=== PATIENT | male | born 1955 | race Caucasian/White ===

== ENCOUNTER 2016-09-09 08:51 | Emergency (ER) | payer BC ==
[~2016-09-09] VITALS: Ht 177.8 cm; Wt 131.2 kg
[~2016-09-09 08:51] MED LIST: AMOX500T3 PO; ASPI81TA28 PO; COEN100C11 PO; CYAN10004 PO; DIPH-437 PO; FERR324T4 PO; FLUO0.0543 TOP; GLUCTAB7 PO; HYDR-5688 PO; MULT-506 PO; SERT50TA PO
[2016-09-09 08:54] VITALS: TEMP 36.8; Ht 177.8 cm; Wt 131.2 kg
[2016-09-09 10:22] LABS: BASO % 0.3 %; BASO ABS # 0.02 K/uL (0-0.2); COMPLETE YES; EOS % 2.4 %; HEMATOCRIT 48.1 % (42-52); IG% 0.3 %; LYMPH ABS # 1.42 K/uL (1.2-3.4); MEAN CORPUSCULAR HEMOGLOBIN 30.4 pg (25-34); MEAN CORPUSCULAR HGB CONC 33.1 g/dl (32-36); MEAN PLATELET VOLUME 10.4 fL (7.4-10.4); MONO % 9.7 %; NEUT % 69.3 %; PLATELET COUNT 220 K/uL (130-400); RED BLOOD COUNT 5.23 M/uL (4.7-6.1); WHITE BLOOD COUNT 7.87 K/uL (4.8-10.8)
[2016-09-09 10:37] LABS: PARTIAL THROMBOPLASTIN RATIO 1.1; PROTHROMBIN TIME (PATIENT) 10.7 SECONDS (9.0-12.0)
[2016-09-09 10:50] LABS: BUN/CREATININE RATIO 14.4 (10-20); CALCIUM 8.5 mg/dl (8.5-10.1); CREATININE 0.65 mg/dl (0.60-1.40); POTASSIUM 4.2 mmol/L (3.5-5.1)
--- NOTE | 2016-09-09 11:30 | DIAGNOSTIC IMAGING REPORT ---
LEFT KNEE 1 OR 2 VIEWS ROUTINE CLINICAL HISTORY: Left knee pain. Evaluate for fracture. COMPARISON: Left knee radiographs September 24, 2015. FINDINGS: There is extensive vascular calcification. There is a 1.5 cm subchondral lucency within the medial femoral condyle. There is moderate joint space narrowing within the medial and patellofemoral compartments. No acute fracture or suspicious lesion is present. A 2.6 cm calcific density lateral to the distal left femur is again noted. There is a suspected moderate to large left knee joint effusion. Superficial varicosities are incidentally noted. IMPRESSION: 1. No acute fracture. 2. Moderate to severe arthritis of the left knee, most pronounced within the medial patellofemoral compartments. 3. 1.5 cm subchondral lucency within the medial femoral condyle which may reflect an osteochondral abnormality. 4. Moderate to large left knee joint effusion. Electronically signed by: Glen Carballo M.D. 09/09/2016 11:29 AM Dictated Date/Time: 09/09/2016 11:26 AM
--- NOTE | 2016-09-09 11:52 | DIAGNOSTIC IMAGING REPORT ---
ULTRASOUND BILATERAL LOWER EXTREMITY VENOUS CLINICAL HISTORY: Left knee pain. Right foot swelling. COMPARISON STUDY: Right lower extremity venous ultrasound dated 06/03/2015. TECHNIQUE: Real-time, grayscale, and color Doppler sonography of the deep veins of the right and left lower extremity was performed from the inguinal crease to the calf. Compression and augmentation were utilized. FINDINGS: There is no sonographic evidence of deep venous thrombosis identified in the right or left lower extremity. The common femoral, superficial femoral, and popliteal veins are patent and normally compressible bilaterally. The greater saphenous vein and the profunda femoris vein at the junction with the common femoral vein are clear in both legs. The visualized calf veins are patent bilaterally. Venous varicosities are identified in the right calf, some of which contain occlusive superficial thrombus. IMPRESSION: 1. There is no sonographic evidence of deep venous thrombosis identified in the right or left lower extremity. 2. There are thrombosed superficial venous varicosities identified in the right calf. Electronically signed by: Nabor Low M.D. 09/09/2016 11:50 AM Dictated Date/Time: 09/09/2016 11:49 AM
--- NOTE | 2016-09-09 12:01 | EMERGENCY ROOM VISIT NOTE ---
History Report prepared by Alina: Liat Lugo Under the Supervision of: Dr. Garrick Benton M.D. First contact with patient: 09:37 Chief Complaint: KNEEPAIN Stated Complaint: LT KNEE PAIN, SWELLING TO RT FOOT History of Present Illness The patient is a 61 year old male who presents to the Emergency Room with complaints of persistent left knee pain that began yesterday morning when he woke up. He currently rates his discomfort as a 10/10 in severity. The patient states that he has had similar pain for over a year but it got worse yesterday. He states that he is scheduled for a left knee replacement because his left knee is bone on bone. The patient denies any trauma to his knee and states that his pain is worsened with ambulation. He states that he has had difficulty bearing weight to his left leg due to the pain. The patient states that yesterday he tried elevating his leg and applying heat to alleviate his discomfort, but was not successful. The patient denies consulting orthopedics regarding his recent knee pain. He states that 2-3 years ago he had a superficial blood clot to his right leg. The patient states that he was previously on blood thinners, but states that he is no longer on them. He states that 2-3 weeks ago he noticed edema and erythema to his right alston and ankle. The patient additionally notes that the area has been painful. He states that he did not consult his PCP for this problem. He states that he has been occasionally short of breath for months but this has not changed recently. He denies any fever, chest pain, or vomiting. Source of History: patient Onset: yesterday morning when he woke up Position: knee (left) Symptom Intensity: 10/10 Modifying Factors (Worsening): other (ambulation) Associated Symptoms: + SOB, No chest pain, No fevers, No vomiting Note: Associated Symptoms: right leg erythema and edema Review of Systems See HPI for pertinent positives & negatives. A total of 10 systems reviewed and were otherwise negative. Past Medical & Surgical Medical Problems: (1) Bicipital Tenosynovitis (2) Cardiac Dysrhythmias Nec (3) Cardiac Pacemaker In Situ (4) Carpal Tunnel Syndrome (5) Cholelithiasis Nos (6) Diverticulosis Colon (W/O Ment Of Hemorrhage) (7) Esophageal Reflux (8) Hip arthritis (9) Hip Joint Replacement Status (10) Hypertension Nos (11) Leg Varicosity W Ulcer (12) Old Myocardial Infarct (13) Rheumatoid Arthritis (14) Unilat Inguinal Hernia (15) Varicose veins of both legs with edema Surgical Problems: (1) H/O gastric bypass Family History Diabetes mellitus FH: heart disease Hypertension Kidney disease Kidney stones Social History Smoking Status: Never Smoker Smokeless Tobacco Use: No Alcohol Use: occasionally Marital Status: Housing Status: lives with family Occupation Status: employed Current/Historical Medications Scheduled Amoxicillin (Amoxil), 2,000 MG PO UD Cephalexin Monohydrate (Keflex), 500 MG PO QID Coenzyme Q10 (Ubidecarenone) (Coq-10), 100 MG PO BID Cyanocobalamin (Vitamin B-12 1000 Mcg), 1,000 MCG PO DAILY Diphenhydramine-Acetaminophen (Tylenol Pm), 30 ML PO HS Ferrous Sulfate (Ferrous Sulfate), 324 MG PO DAILY Gxjdikntask-Mvdggybbdxa-Klh C- (Glucosamine Chondroitin), 1 TAB PO DAILY Multivitamin (Multivitamin), 1 TAB PO DAILY Scheduled PRN Oxycodone Ir (Roxicodone Ir), 5 MG PO Q4H PRN for Pain Allergies Coded Allergies: No Known Allergies (Verified , 09/09/16) Physical Exam Vital Signs Date Time Temp Pulse Resp B/P Pulse Ox O2 Delivery O2 Flow Rate FiO2 09/09/16 13:16 74 16 146/74 98 09/09/16 12:28 66 16 157/91 96 Room Air 09/09/16 10:59 95 16 135/78 09/09/16 08:54 36.8 71 16 160/99 97 Room Air Physical Exam Constitutional: Vital signs reviewed. Eyes: Pupils are equal round reactive to light. Conjunctiva are noninjected. ENT: Pharynx is clear without erythema or exudate. Mucous membranes are moist. Neck supple without meningeal signs. Respiratory: Clear to auscultation bilaterally. Breath sounds are equal bilaterally. Cardiovascular: Regular rate and rhythm. No rubs or gallops. GI: Soft, nondistended and nontender. Bowel sounds are present. Musculoskeletal: Bilateral lower extremity edema greater on right side. Diffuse tenderness to the left knee without joint laxity. Swelling to the superior portion of the left knee. Erythema from the mid-calf anteriorly to the ankle on the right lower extremity with increased warmth, no joint involvement. Palpable distal pulses. Integumentary: As above. Neurological: The patient is awake and alert. No focal deficits. Psychiatric: Normal affect. Medical Decision & Procedures ER Provider Diagnostic Interpretation: X-ray results as stated below per interpretation by me and the radiologist: Other radiology results as stated below per my review and the radiologist's interpretation: ULTRASOUND BILATERAL LOWER EXTREMITY VENOUS CLINICAL HISTORY: Left knee pain. Right foot swelling. COMPARISON STUDY: Right lower extremity venous ultrasound dated 06/03/2015. TECHNIQUE: Real-time, grayscale, and color Doppler sonography of the deep veins of the right and left lower extremity was performed from the inguinal crease to the calf. Compression and augmentation were utilized. FINDINGS: There is no sonographic evidence of deep venous thrombosis identified in the right or left lower extremity. The common femoral, superficial femoral, and popliteal veins are patent and normally compressible bilaterally. The greater saphenous vein and the profunda femoris vein at the junction with the common femoral vein are clear in both legs. The visualized calf veins are patent bilaterally. Venous varicosities are identified in the right calf, some of which contain occlusive superficial thrombus. IMPRESSION: 1. There is no sonographic evidence of deep venous thrombosis identified in the right or left lower extremity. 2. There are thrombosed superficial venous varicosities identified in the right calf. Electronically signed by: Nabor Low M.D. 09/09/2016 11:50 AM Dictated Date/Time: 09/09/2016 11:49 AM LEFT KNEE 1 OR 2 VIEWS ROUTINE CLINICAL HISTORY: Left knee pain. Evaluate for fracture. COMPARISON: Left knee radiographs September 24, 2015. FINDINGS: There is extensive vascular calcification. There is a 1.5 cm subchondral lucency within the medial femoral condyle. There is moderate joint space narrowing within the medial and patellofemoral compartments. No acute fracture or suspicious lesion is present. A 2.6 cm calcific density lateral to the distal left femur is again noted. There is a suspected moderate to large left knee joint effusion. Superficial varicosities are incidentally noted. IMPRESSION: 1. No acute fracture. 2. Moderate to severe arthritis of the left knee, most pronounced within the medial patellofemoral compartments. 3. 1.5 cm subchondral lucency within the medial femoral condyle which may reflect an osteochondral abnormality. 4. Moderate to large left knee joint effusion. Electronically signed by: Glen Carballo M.D. 09/09/2016 11:29 AM Dictated Date/Time: 09/09/2016 11:26 AM Laboratory Results 09/09/16 10:00 Red Blood Count 5.23, Mean Corpuscular Volume 92.0, Mean Corpuscular Hemoglobin 30.4, Mean Corpuscular Hemoglobin Concent 33.1, Mean Platelet Volume 10.4, Neutrophils (%) (Auto) 69.3, Lymphocytes (%) (Auto) 18.0, Monocytes (%) (Auto) 9.7, Eosinophils (%) (Auto) 2.4, Basophils (%) (Auto) 0.3, Neutrophils # (Auto) 5.46, Lymphocytes # (Auto) 1.42, Monocytes # (Auto) 0.76, Eosinophils # (Auto) 0.19, Basophils # (Auto) 0.02 09/09/16 10:00 Test 09/09/16 10:00 White Blood Count 7.87 K/uL (4.8-10.8) Red Blood Count 5.23 M/uL (4.7-6.1) Hemoglobin 15.9 g/dL (14.0-18.0) Hematocrit 48.1 % (42-52) Mean Corpuscular Volume 92.0 fL (80-100) Mean Corpuscular Hemoglobin 30.4 pg (25-34) Mean Corpuscular Hemoglobin Concent 33.1 g/dl (32-36) Platelet Count 220 K/uL (130-400) Mean Platelet Volume 10.4 fL (7.4-10.4) Neutrophils (%) (Auto) 69.3 % Lymphocytes (%) (Auto) 18.0 % Monocytes (%) (Auto) 9.7 % Eosinophils (%) (Auto) 2.4 % Basophils (%) (Auto) 0.3 % Neutrophils # (Auto) 5.46 K/uL (1.4-6.5) Lymphocytes # (Auto) 1.42 K/uL (1.2-3.4) Monocytes # (Auto) 0.76 K/uL (0.11-0.59) Eosinophils # (Auto) 0.19 K/uL (0-0.5) Basophils # (Auto) 0.02 K/uL (0-0.2) RDW Standard Deviation 51.6 fL (36.4-46.3) RDW Coefficient of Variation 15.2 % (11.5-14.5) Immature Granulocyte % (Auto) 0.3 % Immature Granulocyte # (Auto) 0.02 K/uL (0.00-0.02) Prothrombin Time 10.7 SECONDS (9.0-12.0) Prothromb Time International Ratio 1.0 (0.9-1.1) Activated Partial Thromboplast Time 27.8 SECONDS (21.0-31.0) Partial Thromboplastin Ratio 1.1 Anion Gap 5.0 mmol/L (3-11) Est Creatinine Clear Calc Drug Dose 158.4 ml/min Estimated GFR () 120.0 Estimated GFR (Non- 103.5 BUN/Creatinine Ratio 14.4 (10-20) Calcium Level 8.5 mg/dl (8.5-10.1) Laboratory results as reviewed by me. Medications Administered Medications (Trade) Dose Ordered Sig/Izabel Route Start Time Stop Time Status Last Admin Dose Admin Cefazolin Sodium (Ancef 1000mg/55 ml D5W) 1,000 mg NOW STAT IV 09/09/16 12:08 09/09/16 12:09 DC 09/09/16 12:27 1,000 MG ED Course 0941: The patient was evaluated in room A4B. A complete history and physical exam was performed. 1207: I reevaluated the patient and I talked with him about his test results. He is going to follow up with his PCP in one week to check with propagation of a clot and his right leg cellulitis. The medical case manager is going to attempt to get the patient an earlier appointment with orthopedics. 1208: Ordered Cefazolin Sodium 1000 mg IV. 1218: Per case management, the patient has a follow up with [facility] at 10:15 on . The patient is in agreement with the plan and is ready to go home. Medical Decision This is a 61-year-old male who presents with right leg swelling and erythema and left knee pain. Differential diagnosis includes cellulitis, DVT, superficial thrombophlebitis, osteoarthritis, pathologic fracture, strain. I did perform a limited focused review of portions of the patient's old chart on the electronic medical record. The patient was seen here one year ago for left knee pain. He had an x-ray that showed significant degenerative changes and was referred to orthopedics. I did evaluate the patient as noted above. The patient appears to have a cellulitis to the right lower extremity. He has had it for about 2 weeks. He states that he has not had any sudden worsening. He denies any significant chest pain or shortness of breath. He also complains of left knee pain which he has had for some time. He is scheduled to have a knee replacement. The pain did worsen yesterday but he denies any trauma. IV access was established. I did order and personally review the patient's left knee x-rays as described above. I did order and review the patient's blood work as noted in the electronic medical record. His white blood cell count is not elevated. I did order Doppler ultrasounds of the lower extremities. I did review the images myself as well as the radiology report as described above. He does not have any evidence of DVT in either leg. He does have some thrombosis of his varicosities. I did discuss the test results with the patient. I did treat patient with Ancef IV. I did recommend he follow up closely with his doctor for further evaluation of his cellulitis and likely repeat of his Doppler of his right leg to evaluate for possible propagation of clot. At this time I do not believe he requires anticoagulation but he was told he may in the future should his clot propagated into the deep vein system or become more extensive. The medical case manager was also able to get him an earlier appointment with [facility] in 2 days. The patient was therefore discharged with a prescription for OxyIR and given a work note. He was given precautions regarding OxyIR. He was also given a prescription for Keflex. Impression Primary Impression: Cellulitis of right leg Additional Impressions: Superficial thrombophlebitis of right leg Left knee pain Scribe Attestation The scribe's documentation has been prepared under my direct and personally reviewed by me in its entirety. I confirm that the note above accurately reflects all work, treatment, procedures, and medical decision making performed by me. Departure Information Dispostion Home / Self-Care Prescriptions Cephalexin Monohydrate (Keflex) 500 Mg Cap 500 MG PO QID, #40 CAP Prov: Garrick Benton M.D. 09/09/16 Oxycodone Ir (Roxicodone Ir) 5 Mg Tab 5 MG PO Q4H Y for Pain, #20 TAB Prov: Garrick Benton M.D. 09/09/16 Referrals Ridge Jeronimo M.D. (PCP) Forms HOME CARE DOCUMENTATION FORM, IMPORTANT VISIT INFORMATION, Work Instructions Patient Instructions Cellulitis Dc, ED Phlebitis Superficial, My [facility] Additional Instructions You have been examined and treated today on an emergency basis only. This is not a substitute for, or an effort to provide, complete comprehensive medical care. It is impossible to recognize and treat all injuries or illnesses in a single emergency department visit. It is therefore important that you follow up closely with your physician within a week and [facility]. Call as soon as possible for an appointment. Return for worsening symptoms or if you develop fever, vomiting, chest pain, shortness breath or any other concerning symptoms. Problem Qualifiers Additional Impressions: Left knee pain Chronicity: chronic Qualified Codes: M25.562 - Pain in left knee; G89.29 - Other chronic pain
[2016-09-09] MEDS ORDERED: CEFAZOLIN SOD 1000MG/55 ML D5W IV STA (12:08)
[2016-09-09] MEDS ORDERED: OXYC1TAB3 PO (12:11)
[2016-09-09] MEDS ORDERED: CEPH500C PO (12:11)
[2016-09-09 13:16] VITALS: BP 146/74; PULSE 74; O2SAT 98
[2016-10-20] MEDS ORDERED: DIPH-437 PO (15:15)
[2016-10-20] MEDS ORDERED: water pill PO (15:16)
[2016-10-20] MEDS ORDERED: SPIR25TA PO (16:22)
[2016-11-04] MEDS ORDERED: HYDR25TA4 PO (14:22)
== END 2016-09-09 13:16 | disposition home or self-care (01) ==
LOC: C.EDB 08:53 → C.EDA 13:16
DX: L03.115 Cellulitis of right lower limb (principal); I80.01 Phlebitis and thrombophlebitis of superficial vessels of right lower extremity; M25.562 Pain in left knee; I10 Essential (primary) hypertension; M06.9 Rheumatoid arthritis, unspecified; K21.9 Gastro-esophageal reflux disease without esophagitis; K57.30 Diverticulosis of large intestine without perforation or abscess without bleeding; I83.93 Asymptomatic varicose veins of bilateral lower extremities; I25.2 Old myocardial infarction; M16.10 Unilateral primary osteoarthritis, unspecified hip; Z96.649 Presence of unspecified artificial hip joint; Z98.84 Bariatric surgery status; Z79.899 Other long term (current) drug therapy; Z83.3 Family history of diabetes mellitus; Z82.49 Family history of ischemic heart disease and other diseases of the circulatory system; Z84.1 Family history of disorders of kidney and ureter

== ENCOUNTER → 2016-10-21 | Outpatient (CLI) | payer BC ==
[~2016-10-21] MED LIST changes: -ASPI81TA28 PO; -FERR324T4 PO; -FLUO0.0543 TOP; -GLUCTAB7 PO; -HYDR-5688 PO; +HYDR25TA4 PO; +OXYC-57 PO; -SERT50TA PO; +SPIR25TA PO; +WARF2TAB PO
--- NOTE | 2016-10-21 08:41 | DIAGNOSTIC IMAGING REPORT ---
AP STANDING VIEW OF BOTH KNEES; 3 VIEWS LEFT KNEE CLINICAL HISTORY: Chronic left knee pain. FINDINGS: An AP standing view of both knees, with crosstable lateral, tunnel, and sunrise views of the left knee are compared to study dated 09/24/2015. The skeletal structures are osteopenic. No fracture is seen. There is advanced degenerative joint space narrowing in the medial and patellofemoral compartments. Only mild narrowing is seen in the lateral compartment. There is bony sclerosis with osteochondral irregularity seen of the medial compartment. There are large marginal osteophytes, degenerative beaking of the tibial spine, and large patellar enthesophytes. A calcified fabella is incidentally noted. There is a small joint effusion. Prepatellar soft tissue swelling is noted. Large venous varices are present in the surrounding soft tissues. Advanced atherosclerotic calcification is noted in the popliteal artery. Degenerative sclerosis is seen at the proximal tibiofibular articulation. Survey images of the right knee on the frontal view show advanced degenerative narrowing in the medial compartment. IMPRESSION: 1. Osteopenia and advanced arthritic change in the left knee as above. This is overall similar appearance to the 09/24/2015 examination. 2. No acute bony abnormality is seen. 3. Joint effusion and prepatellar soft tissue edema as well as large venous varices. Electronically signed by: Nabor Low M.D. 10/21/2016 8:40 AM Dictated Date/Time: 10/21/2016 8:37 AM
== END | disposition home or self-care (01) ==
LOC: C.RDSM 11:12
PROVIDERS: ATTEND Physician Assistant
DX: M17.12 Unilateral primary osteoarthritis, left knee (principal); M85.862 Other specified disorders of bone density and structure, left lower leg; I83.92 Asymptomatic varicose veins of left lower extremity

== ENCOUNTER 2016-11-12 08:17 | Inpatient (IN) | payer BC ==
[2016-10-20 15:17] VITALS: BMI 43.0
--- NOTE | 2016-10-20 15:54 | PAT Medication Instructions ---
Service Date Oct 20, 2016. Current Home Medication List Acetaminophen/Diphenhydramine (Tylenol Pm), 1-2 TAB PO HS PRN for prn Amoxicillin (Amoxil), 2,000 MG PO UD Coenzyme Q10 (Ubidecarenone) (Coq-10), 100 MG PO BID Cyanocobalamin (Vitamin B-12 1000 Mcg), 1,000 MCG PO QAM Multivitamin (Multivitamin), 1 TAB PO BID [water pill], 1 TAB PO QAM Medication Instructions For Your Scheduled Surgery Amoxicillin (Amoxil), 2,000 MG PO UD (prior to dental procedures) - Hold the following medications 2 weeks prior to surgery: Coenzyme Q10 (Ubidecarenone) (Coq-10), 100 MG PO BID - Hold the following medications the morning of surgery: [water pill], 1 TAB PO QAM Multivitamin (Multivitamin), 1 TAB PO BID\ Cyanocobalamin (Vitamin B-12 1000 Mcg), 1,000 MCG PO QAM - Take the following medications as scheduled the night before surgery: Multivitamin (Multivitamin), 1 TAB PO BID Acetaminophen/Diphenhydramine (Tylenol Pm), 1-2 TAB PO HS PRN for prn If you have any questions please call us at [phone] (Cynthia Caldera PA-C ) or [phone] or [phone]
[2016-10-20 16:26] LABS: BASO % 0.1 %; BASO ABS # 0.01 K/uL (0-0.2); COMPLETE YES; EOS % 4.3 %; HEMATOCRIT 46.8 % (42-52); IG% 0.1 %; LYMPH % 27.8 %; LYMPH ABS # 1.86 K/uL (1.2-3.4); MEAN CELL VOLUME 93.8 fL (80-100); MEAN CORPUSCULAR HEMOGLOBIN 31.5 pg (25-34); MEAN CORPUSCULAR HGB CONC 33.5 g/dl (32-36); MEAN PLATELET VOLUME 10.4 fL (7.4-10.4); MONO % 11.2 %; NEUT % 56.5 %; PLATELET COUNT 229 K/uL (130-400); RED BLOOD COUNT 4.99 M/uL (4.7-6.1); WHITE BLOOD COUNT 6.68 K/uL (4.8-10.8)
[2016-10-20 16:27] LABS: URINE APPEARANCE CLEAR (CLEAR); URINE BILIRUBIN NEG (NEG); URINE COLOR YELLOW; URINE NITRITE NEG (NEG); URINE SPECIFIC GRAVITY 1.023 (1.000-1.030); UROBILINOGEN NEG (NEG); ZZUR CULT IF INDIC CLEAN CATCH NO
[2016-10-20 16:31] LABS: MANUAL MICROSCOPIC REQUIRED? NO; REVIEW REQ? NO
[2016-10-20 16:37] LABS: PARTIAL THROMBOPLASTIN RATIO 1.1; PROTHROMBIN TIME (PATIENT) 10.6 SECONDS (9.0-12.0)
--- NOTE | 2016-10-20 16:39 | DIAGNOSTIC IMAGING REPORT ---
CHEST PREADMISSION(PA/LAT) CLINICAL HISTORY: PAT preoperative evaluation COMPARISON STUDY: 05/28/2015 FINDINGS: The bones soft tissues and hemidiaphragms are normal. The cardiomediastinal silhouette is normal. The lungs are clear. The pulmonary vasculature is normal. IMPRESSION: Negative chest. Electronically signed by: Mathew Ochoa M.D. 10/20/2016 4:38 PM Dictated Date/Time: 10/20/2016 4:37 PM
[2016-10-20 16:51] LABS: BUN/CREATININE RATIO 21.3 (10-20); CALCIUM 8.7 mg/dl (8.5-10.1); CREATININE 0.71 mg/dl (0.60-1.40); POTASSIUM 4.5 mmol/L (3.5-5.1)
--- NOTE | 2016-10-23 16:58 | HISTORY & PHYSICAL EXAMINATION ---
DATE OF ADMISSION: 11/12/2016 PREOPERATIVE HISTORY AND PHYSICAL CHIEF COMPLAINT: Left knee pain. HISTORY OF PRESENT ILLNESS: This 61-year-old white male presents to the office with complaints of left knee pain that has been present for over 2 years. Pain has become worse with time. He has tried viscosupplementation, cortisone injections, activity modification, oral anti-inflammatories, and oral pain medications without lasting improvement. Pain is affecting his ADLs. It is worse with weightbearing and ambulation. No numbness or tingling. He denies any buckling or locking. No specific trauma, though he has fallen on the knee a few times. He does have night pain. He elects to proceed with left knee total knee arthroplasty on 11/12/2016 in hopes of alleviating his pain. X-rays have been obtained. PAST MEDICAL HISTORY: Significant for sleep apnea, anxiety, osteoarthritis, GERD, obesity, depression, and right bundle branch block with left anterior fascicular block. PREVIOUS SURGERIES: Gastric bypass surgery with Markus-en-Y in 1999, right shoulder arthroscopy 07/24/2014, right wrist carpal tunnel release 07/24/2014, lumbar back surgery, right total hip replacement 09/01/2013, and venous ablation for venous insufficiency in 2011. ALLERGIES: NKDA. CURRENT MEDICATIONS: Tylenol PM p.r.n., Percocet 5/325 mg p.r.n., aspirin 81 mg daily, vitamin D daily, magnesium oxide daily, multivitamin daily, Aldactone 25 mg p.o. daily. SOCIAL HISTORY: No tobacco use. Quit smoking in 2010. No ETOH use. . 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 FAMILY HISTORY: Significant for Alzheimer disease, Parkinson disease, heart disease, and osteoarthritis. REVIEW OF SYSTEMS: Significant for above-stated conditions, otherwise unremarkable. PHYSICAL EXAMINATION: GENERAL: Well-developed, well-nourished middle aged white male in no acute distress. Sitting in a chair. Alert and oriented. SKIN: Warm and dry with good turgor. No rashes or lesions. No ecchymosis or erythema. Varicosities are present in his lower extremities. HEENT: Normocephalic, atraumatic. EYES: PERRLA, EOMI. NOSE: Nares patent bilaterally without turbinate enlargement. MOUTH: Oropharynx without erythema or exudate. No lesions noted. Uvula midline. Oral mucosa moist. Fair dentition. HEART: RRR, holosystolic murmur noted at the right sternal border. No gallops or rubs. LUNGS: Clear to auscultation bilaterally. No crackles, rhonchi or wheezing. Good air movement. ABDOMEN: Obese. Bowel sounds present x4, soft, nontender. No organomegaly. No masses. MUSCULOSKELETAL: The patient has bilateral peripheral edema, right greater than left. Focal pain with palpation over the medial and lateral joint lines. Medial is worse. There is flexion to greater than 80 degrees. Full terminal extension. Stable collateral ligaments. No defect in the patellar tendon or quadriceps tendon. He is able to perform a straight leg raise. Ambulatory with an antalgic gait. NEUROLOGIC: Gross sensation is intact across the lower extremities by soft touch. Peripheral pulses are 2+. Cranial nerves II-XII are intact. DATA: Radiographic imaging previously obtained shows end-stage DJD of the left knee with a large OCD lesion. He also has subchondral sclerosis and periarticular osteophytes. Possible loose body present in the superior lateral pouch. IMPRESSION: Left knee end-stage degenerative joint disease. PLAN: Informed written consent was obtained to proceed with left total knee arthroplasty. Anticipate discharge from the hospital to [facility]. He did this after his right total hip arthroplasty and was pleased with the results. Postoperative prescriptions for Percocet and Coumadin will be provided at discharge from the hospital. He has already seen cardiology and requires an echocardiogram. He may require BiPAP as well due to sleep apnea and obesity as well as hypoventilation syndrome. He will also obtain medical clearance from Dr. Jeronimo. The patient already has a walker and cane at home.
[2016-11-12] VITALS (8 sets, daily range): BP systolic 120–159; BP diastolic 69–93; PULSE 51–64; TEMP 36.4–37.1; O2SAT 94–97; Ht 175.3 cm; Wt 133.0 kg
[~2016-11-12] VITALS: Ht 175.3 cm; Wt 133.0 kg
[~2016-11-12 08:17] MED LIST changes: +BUPIVACAINE 0.25% 30 ML VIAL ONE; +CEFAZOLIN 3000 MG/65 ML D5W 65 ML IV SCH; +DEXAMETHASONE SOD INJ 4 MG/ML VIAL ONE; +LACTATED RINGER'S 1000ML 1,000 ML IV SCH; +LACTATED RINGER'S 1000ML 500 ML IV ONE; +LACTATED RINGER'S 1000ML IV SCH; -OXYC-57 PO; +TRANEXAMIC ACID INJ 1,000 MG in SODIUM CHLORIDE 0.9% 100ML 100 ML IV SCH; -WARF2TAB PO
--- NOTE | 2016-11-12 08:35 | History & Physical Bridge Note ---
H&P Re-Evaluation Bridge Note: I have examined the patient, reviewed the History & Physical and in the interval since the performance of the History & Physical I have noted the following changes of clinical significance: No changes noted
[2016-11-12] MEDS ORDERED: BUPIVACAINE 0.5 % 5 MG/1 ML PF 10ML VIAL ONE (08:58)
[2016-11-12] MEDS ORDERED: EpHEDrine SULFATE INJ 50 MG/ML AMP IV PRN (09:00)
[2016-11-12] MEDS ORDERED: HYDROmorphone INJ 1 MG/ML SYR IV PRN (09:00)
[2016-11-12] MEDS ORDERED: LABETALOL HCL IV 5 MG/ML 20ML IV PRN (09:00)
[2016-11-12] MEDS ORDERED: MEPERIDINE HCL 25 MG/ML CARP IV PRN (09:00)
[2016-11-12] MEDS ORDERED: FENTANYL CITRATE INJ 50 MCG/1 ML 2 ML VIAL IV PRN (09:00)
[2016-11-12] MEDS ORDERED: ONDANSETRON INJ 2 MG/ML 2 ML VIAL IV PRN ×2 (09:00→12:15)
[2016-11-12] MEDS ORDERED: ATROPINE SULFATE 0.1 MG/ML 5ML SYR IV PRN (09:00)
[2016-11-12] MEDS ORDERED: MIDAZOLAM HCL 1 MG/ML 2ML VIAL ONE ×2 (09:36→11:37)
[2016-11-12] MEDS ORDERED: ORTHO JOINT ANESTHETIC ONE (10:26)
[2016-11-12] MEDS ORDERED: POVIDONE-IODINE OP SOLN 30 ML BTL ONE (10:27)
[2016-11-12] MEDS: ROPIVACAINE 5MG/ML 30 ML 150 MG, BUPIVACAINE/EPINEPHR 0.5% MPF 30 ML, KETOROLAC TROMETH... INFIL SCH ×14 (11:39→15:39)
[2016-11-12] MEDS ORDERED: PROPOFOL IV EMULSION 10 MG/ML 20 ML VIAL IV ONE (11:52)
[2016-11-12] MEDS ORDERED: LIDOCAINE HCL 2% 2 ML VIAL (20MG/ML) ONE (11:52)
--- NOTE | 2016-11-12 12:12 | [facility] Post Operative Brief Note ---
Immediate Operative Summary Operative Date Nov 12, 2016. Pre-Operative Diagnosis Left Knee End-Stage Degenerative Joint Disease Post-Operative Diagnosis Left Knee End-Stage Degenerative Joint Disease Procedure(s) Performed Left Total Knee Arthroplasty, Cemented Surgeon Dr. Barajas Cork Slabs Sawyer Surgeon(s) Mann Stovall PA-C Estimated Blood Loss 75 ML Findings severe medial disease Fluids (cc crystalloids) 1500cc Specimens A: Left Knee Bone and Tissue Drains none Anesthesia spinal/block Complication(s) None Disposition Recovery Room / PACU
[2016-11-12] MEDS ORDERED: BISACODYL 10 MG SUPP PR PRN (12:15)
[2016-11-12] MEDS ORDERED: DiphenhydrAMINE HCL 50 MG/ML VIAL IV PRN (12:15)
[2016-11-12] MEDS ORDERED: TAMSULOSIN HCL 0.4 MG CAP PO PRN (12:15)
[2016-11-12] MEDS ORDERED: MoRPHine SULFATE 2 MG/ML CARP IV PRN (12:15)
[2016-11-12] MEDS ORDERED: METOCLOPRAMIDE HCL INJ 5 MG/ML 2 ML VIAL IV PRN (12:15)
[2016-11-12] MEDS ORDERED: MAGNESIUM HYDROXIDE SUSP 30 ML UDC PO PRN (12:15)
[2016-11-12] MEDS ORDERED: ACETAMINOPHEN IV 100 ML IV PRN (12:15)
[2016-11-12] MEDS ORDERED: ALUMINUM/MAGNESIUM/SIMETH (MAALOX MAX) 30 ML UDC PO PRN (12:15)
[2016-11-12] MEDS ORDERED: ACETAMINOPHEN 325 MG TAB PO PRN (12:15)
--- NOTE | 2016-11-12 12:30 | OPERATIVE REPORT ---
DATE OF OPERATION: 11/12/2016 PREOPERATIVE DIAGNOSIS: Left knee end-stage degenerative joint disease. POSTOPERATIVE DIAGNOSIS: Left knee same. PROCEDURE: Left knee total knee arthroplasty using DePuy implants. SURGEON: Dr. Barajas. WIRE WEAVER: Mann Stovall PA-C. HISTORY OF PRESENT ILLNESS: This 61-year-old white male presented to the office with complaints of intractable left knee pain. He had tried conservative care measures including activity modification, viscosupplementation, assistive devices, oral pain medications and physical therapy. He elected to proceed with surgical intervention after being educated about potential risks and outcomes. Preoperative x-rays were obtained. OPERATION: The patient was administered spinal anesthetic and then taken to the operating room where he was given sedation. He was prepped and draped in the usual sterile fashion. Please see Dr. Barajas's operative report for specifics of the procedure. I was present for the entire case from initial patient positioning through final wound closure. Assistance was provided in tissue retraction, hemostasis, trial implant placement, final implant placement, and final wound closure. The patient was taken to the recovery room in satisfactory condition. I attest to the content of the Intraoperative Record and any orders documented therein. Any exceptio ns are noted below.
--- NOTE | 2016-11-12 12:56 | PROGRESS NOTE ---
DATE: 11/12/2016 SUBJECTIVE: Postop check in the recovery room. At this point in time, the patient is comfortable, denies chest pain, shortness of breath, fever, chills, nausea, vomiting or headache. OBJECTIVE: Vital signs are stable. He is afebrile. Neurovascular check reveals trace activity, spinal was starting to wear off. IMAGING DATA: X-rays pending. Attempts to contact family postop had been unsuccessful, they were out of the building. ASSESSMENT: Overall, doing well. Continue with care pathway for total knee replacement. Admit to floor in the near future. TEAGAN
--- NOTE | 2016-11-12 13:08 | OPERATIVE REPORT ---
DATE OF OPERATION: 11/12/2016 SURGEON: Dr. Barajas. ADMINISTRATIVE SERVICES ASSISTANT: Mann Stovall PA-C. No resident or fellow available. PREOPERATIVE DIAGNOSIS: Osteoarthritis left knee with varus deformity. POSTOPERATIVE DIAGNOSIS: Same. OPERATION PERFORMED: Cemented left total knee replacement. PREOPERATIVE SITUATION: Medically cleared male with intractable knee pain, has multiple comorbidities, these were all discussed with him in advance as well as complications from the procedure. Per consent he understands. At this point in time, we will proceed with left cemented total knee replacement. SUMMARY OF IMPLANTS: Size 4 left femur posterior cruciate substituting size 4 rotating platform tibial tray, size 4 spacer 15 mm thick posterior cruciate substituting oval domed 3 pegged patella size 41 and 2 bags of Palacos G cement. ESTIMATED BLOOD LOSS: 75 mL. CRYSTALLOID: 1500 mL. DESCRIPTION OF PROCEDURE: The patient appropriately identified, site verified, consent verified, 3 grams of Ancef confirmed as being given. The left lower extremity was prepped and draped in usual routine fashion. An anterior approach to the knee was then made, Tourniquet was inflated to [address] and kept in place for approximately 52 minutes. Midline exposure utilized. He had varicose veins which were clipped. Parapatellar arthrotomy performed. The synovectomy releases were completed. There was extensive medial compartment disease and patellofemoral disease. The distal femur was resected 14 mm, proximal tibia 4 mm, the extension gap was excellent. Femur was then sized between a 4 and 5, was measured 5 cut 4. There was no notching. The flexion gap was excellent. The box cut was then made. The size 4 trial fit well. The tibia was then broached and reamed to a size 4 appropriate reduction was carried out with a 15, providing the best stability and mid range flexion without losing extension. The patella was sized to 41, it was then resected leaving 15 mm to 16 mm, the trial peg holes fit and the trial tracked well. All trial implants were then removed. The wound was irrigated with Betadine Pulsavac, injected with Orthomix, permanent cemented into position. After 12 minutes, the tourniquet deflated. Minor bleeding points controlled with electrocautery, after 14 minutes the knee flexed. No cement removal required. Wound irrigated with Betadine Pulsavac, permanent spacer seated, knee reduced and then closed with #1 Ethibond, #1 Vicryl, 2-0 Vicryl and stainless steel clips. Appropriate soft tissue dressing applied. The patient tolerated the procedure well. DVT prophylaxis per protocol. SUMMARY OF IMPLANTS: Size 4 posterior cruciate substituting femur, size 4 rotating platform tibial tray, oval domed 3 pegged patella size 41 tibial insert rotating platform stabilized PCL for size 4, 15 mm thick. Two bags of Palacos G cement. I attest to the content of the Intraoperative Record and any orders documented therein. Any exceptio ns are noted below.
--- NOTE | 2016-11-12 13:21 | DIAGNOSTIC IMAGING REPORT ---
TWO VIEWS LEFT KNEE CLINICAL HISTORY: Postoperative examination. FINDINGS: AP and crosstable lateral portable views of the left knee are obtained. A left knee arthroplasty is in near anatomic alignment. There has been undersurface remodeling of the patella. No acute fracture is seen. There are expected postoperative changes around the knee including skin clips, soft tissue edema, and subcutaneous gas. Atherosclerotic calcification is noted in the popliteal artery. IMPRESSION: Expected postoperative changes status post left knee arthroplasty. No acute fracture is seen. Electronically signed by: Nabor Low M.D. 11/12/2016 1:19 PM Dictated Date/Time: 11/12/2016 1:18 PM
--- NOTE | 2016-11-12 13:34 | Anesthesiology Progress Note ---
Anesthesia Post Op Note Date & Time Nov 12, 2016 at 13:34 Vital Signs Pain Intensity: 0 Vital Signs Past 12 Hours Date Time Temp Pulse Resp B/P Pulse Ox O2 Delivery O2 Flow Rate FiO2 11/12/16 13:15 46 16 99/76 99 Nasal Cannula 2 11/12/16 13:05 36.4 48 18 110/70 97 Nasal Cannula 2 11/12/16 12:55 47 14 110/63 97 Nasal Cannula 2 11/12/16 12:45 47 16 113/65 99 Nasal Cannula 2 11/12/16 12:35 43 17 101/68 100 Mask 10 11/12/16 12:25 45 16 102/58 100 Mask 10 11/12/16 12:15 36 53 16 104/55 100 Mask 10 11/12/16 08:48 36.8 62 20 120/69 96 Room Air Notes Mental Status: alert / awake / arousable, participated in evaluation Pt Amnestic to Procedure: Yes Nausea / Vomiting: adequately controlled Pain: adequately controlled Airway Patency, RR, SpO2: stable & adequate BP & HR: stable & adequate Hydration State: stable & adequate Neuraxial Anesthesia: was administered, sensory block is resolving Anesthetic Complications: no major complications apparent
[2016-11-12] MEDS: D5W AND 1/2NSS + 20MEQ KCL 1,000 ML IV SCH (15:41)
[2016-11-12] MEDS ORDERED: WARF2TAB PO (16:26)
[2016-11-12] MEDS ORDERED: OXYC-57 PO (16:26)
[2016-11-12] MEDS: CEFAZOLIN IV 2,000 MG in DEXTROSE 5% 50ML 50 ML IV SCH (17:37)
[2016-11-12] MEDS: FERROUS GLUCONATE 324 MG TAB PO SCH (18:57)
[2016-11-12] MEDS ORDERED: TRANEXAMIC ACID INJ 1,000 MG in SODIUM CHLORIDE 0.9% 100ML 100 ML IV ONE (19:00)
[2016-11-12] MEDS: DOCUSATE SODIUM 100 MG CAP PO SCH (20:56)
[2016-11-12] MEDS: OXYCODONE HCL IR 5 MG TAB (IMMEDIATE RELEASE) PO PRN (20:57)
[2016-11-13] MEDS: D5W AND 1/2NSS + 20MEQ KCL 1,000 ML IV SCH ×2 (01:43→11:02)
[2016-11-13] MEDS: CEFAZOLIN IV 2,000 MG in DEXTROSE 5% 50ML 50 ML IV SCH (01:47)
[2016-11-13 03:22] VITALS: BP 111/70; PULSE 60; TEMP 37; O2SAT 95
[2016-11-13] MEDS: OXYCODONE HCL IR 5 MG TAB (IMMEDIATE RELEASE) PO PRN ×3 (06:31→18:44)
[2016-11-13 06:46] LABS: HEMATOCRIT 37.8 % (42-52); MEAN CELL VOLUME 89.6 fL (80-100); MEAN CORPUSCULAR HEMOGLOBIN 30.3 pg (25-34); MEAN CORPUSCULAR HGB CONC 33.9 g/dl (32-36); MEAN PLATELET VOLUME 9.2 fL (7.4-10.4); PLATELET COUNT 192 K/uL (130-400); RED BLOOD COUNT 4.22 M/uL (4.7-6.1); WHITE BLOOD COUNT 9.49 K/uL (4.8-10.8)
[2016-11-13 07:02] LABS: INR 1.1 (0.9-1.1); PROTHROMBIN TIME (PATIENT) 11.4 SECONDS (9.0-12.0)
--- NOTE | 2016-11-13 07:27 | PROGRESS NOTE ---
DATE: 11/13/2016 Postop day #1 status post left total knee replacement. At this point in time, the patient complains of pain, but is well controlled with medication. He had his last pain pill at midnight. Denies any chest pain, shortness of breath, fever, chills, nausea, vomiting or headache. Vital signs are stable. He is afebrile. Neurovascular check femoral sciatic nerve is good. The dressing is clean, dry and intact. Laboratory work is pending. ASSESSMENT: Overall, doing well. He needs social service assessment and potential placement as he has difficulties with home environment with spouse working. At this point in time, from a medical perspective, can be transferred or discharged to another facility at any point.
[2016-11-13] MEDS ORDERED: DEXAMETHASONE INJ 10 MG in SYRINGE 0 ML IV SCH (07:30)
[2016-11-13 07:40] VITALS: BP 98/62; PULSE 61; TEMP 36.8; O2SAT 94
[2016-11-13 08:22] LABS: BUN/CREATININE RATIO 25.1 (10-20); CREATININE 0.53 mg/dl (0.60-1.40)
--- NOTE | 2016-11-13 08:23 | DISCHARGE SUMMARY ---
DATE OF DISCHARGE OR TRANSFER: Pending. CHIEF COMPLAINT: Left knee pain. HISTORY OF PRESENT ILLNESS: The patient is admitted for elective total knee replacement. He has severe disease. He underwent elective knee replacement and his hospital course to date has been uneventful. His pain has been well managed. He is ambulatory with a walker. He notes that socially he has no spouse at home during the day. He is requesting to be transferred to [facility]. 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 PAST SURGICAL HISTORY: Include bypass surgery in 1999, shoulder arthroscopy, carpal tunnel releases on the right, lumbar back surgery, right total hip replacement in 2013 and venous ablation 2011. ALLERGIES: None. PREADMISSION MEDICATIONS: Include Tylenol, Percocet, aspirin, magnesium oxide, multivitamin and Aldactone. He will continue all those medications. Will not add any additional pain medication, he will either discontinue the Percocet and use what is prescribed here or continue with Percocet. The PA will return determine the prescription. SOCIAL HISTORY: Remarkable for no tobacco use since 2010. No alcohol use. He is . 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 FAMILY HISTORY: Remarkable for Alzheimer's disease, Parkinson's disease, heart disease and osteoarthritis. REVIEW OF SYSTEMS: Noncontributory. ASSESSMENT: Status post left total knee replacement. At this point is doing well and can be transferred [facility] from a medical perspective. We will wait social service input. Coumadin per nomogram today. Discharge on 4 mg after that. Check INR on Thursday.
[2016-11-13] MEDS: DOCUSATE SODIUM 100 MG CAP PO SCH ×2 (08:30→20:59)
[2016-11-13] MEDS: FERROUS GLUCONATE 324 MG TAB PO SCH ×3 (08:31→17:27)
[2016-11-13] MEDS: MULTIVITAMIN TAB PO SCH (08:31)
[2016-11-13 08:43] LABS: CALCIUM 7.8 mg/dl (8.5-10.1)
--- NOTE | 2016-11-13 08:49 | Progress Note ---
Orthopedic SOAP Note Subjective Date of Service: Nov 13, 2016. Post OP Day: 1 Reports: feeling well, pain controlled w PO medications, Denies: SOB, calf pain , chest pain, complaints, light headedness, nausea / vomiting, using PRINCIPAL TECHNICAL SPECIALIST Problem List Medical Problems: (1) Cellulitis of right leg Status: Acute (2) Superficial thrombophlebitis of right leg Status: Acute Objective calves soft nontender, N/V intact, capillary refill less than 2 sec., dressing C /D/I, incision C/D/I, A&O x3, toes mobile Date Time Temp Pulse Resp B/P Pulse Ox O2 Delivery O2 Flow Rate FiO2 11/13/16 07:40 36.8 61 16 98/62 94 Room Air 11/13/16 07:10 Room Air 11/13/16 03:22 37.0 60 16 111/70 95 Room Air 11/13/16 00:00 Room Air 11/12/16 23:34 36.8 61 16 122/73 94 Room Air 11/12/16 20:30 36.7 64 18 159/93 94 Room Air 11/12/16 17:00 36.7 58 18 136/80 94 Room Air 11/12/16 16:00 37.1 61 18 129/82 94 Room Air 11/12/16 16:00 Room Air 11/12/16 15:00 36.5 51 16 131/79 96 Nasal Cannula 2.0 11/12/16 14:30 36.4 52 18 126/70 97 Nasal Cannula 2.0 11/12/16 14:00 36.4 57 16 121/79 96 Nasal Cannula 2.0 11/12/16 14:00 96 Nasal Cannula 2.0 11/12/16 14:00 Nasal Cannula 2.0 11/12/16 13:50 47 17 11/12/16 13:50 52 17 98 11/12/16 13:45 50 18 107/61 94 11/12/16 13:45 45 16 107/61 97 Nasal Cannula 2 11/12/16 13:45 47 18 11/12/16 13:40 49 17 11/12/16 13:40 50 17 95 11/12/16 13:35 46 17 96 11/12/16 13:35 50 17 11/12/16 13:30 50 15 111/58 99 11/12/16 13:30 49 15 11/12/16 13:30 44 18 111/58 97 Nasal Cannula 2 11/12/16 13:25 48 18 11/12/16 13:25 44 18 96 11/12/16 13:20 53 19 99 11/12/16 13:20 54 19 11/12/16 13:15 47 17 11/12/16 13:15 46 16 99/76 99 Nasal Cannula 2 11/12/16 13:15 47 17 99/76 96 11/12/16 13:10 50 20 11/12/16 13:10 49 20 96 11/12/16 13:05 36.4 48 18 110/70 97 Nasal Cannula 2 11/12/16 13:05 43 15 110/70 98 11/12/16 13:05 45 15 11/12/16 13:01 107/57 11/12/16 13:00 50 16 98 11/12/16 13:00 54 16 11/12/16 12:55 48 16 11/12/16 12:55 47 14 110/63 97 Nasal Cannula 2 11/12/16 12:55 48 16 110/63 98 11/12/16 12:51 110/63 11/12/16 12:50 50 12 11/12/16 12:50 53 12 97 11/12/16 12:46 113/65 11/12/16 12:45 49 17 99 11/12/16 12:45 47 16 113/65 99 Nasal Cannula 2 11/12/16 12:45 49 17 11/12/16 12:40 40 15 104/66 99 11/12/16 12:40 43 15 11/12/16 12:35 49 17 101/68 100 11/12/16 12:35 48 17 11/12/16 12:35 43 17 101/68 100 Mask 10 11/12/16 12:30 41 16 108/55 100 11/12/16 12:30 43 16 11/12/16 12:25 45 17 11/12/16 12:25 43 17 102/58 99 11/12/16 12:25 45 16 102/58 100 Mask 10 11/12/16 12:20 50 17 11/12/16 12:20 50 17 92/67 100 11/12/16 12:15 53 22 104/55 100 11/12/16 12:15 36 53 16 104/55 100 Mask 10 11/12/16 12:15 53 22 11/12/16 08:48 36.8 62 20 120/69 96 Room Air Laboratory Results 24 Hours: Test 11/13/16 06:20 Hematocrit 37.8 % Hemoglobin 12.8 g/dL Prothromb Time International Ratio 1.1 Prothrombin Time 11.4 SECONDS Assessment post op day 1 s/p left TKA Plan continue post op care DVT prophylaxis with Coumadin x 6 weeks, target INR 1.8-2.2 pain control with prescribed meds dressing changed today resume diet WBAT left LE with walker PT/OT knee immobilizer until quad control regained ice/elevated awaiting social service eval regarding placement and discharge
[2016-11-13] MEDS: SPIRONOLACTONE 25 MG TAB PO SCH (09:02)
[2016-11-13] MEDS: PANTOprazole SOD 40 MG TAB PO SCH (09:02)
[2016-11-13] MEDS: CYANOCOBALAMIN 500 MCG TAB (VIT B-12) PO SCH (09:02)
[2016-11-13] MEDS: HYDROCHLOROTHIAZIDE 25 MG TAB PO SCH (09:02)
--- NOTE | 2016-11-13 10:48 | Anesthesiology Progress Note ---
Anesthesia Post Op Note Date & Time Nov 13, 2016 at 10:47 Vital Signs Vital Signs Past 12 Hours Date Time Temp Pulse Resp B/P Pulse Ox O2 Delivery O2 Flow Rate FiO2 11/13/16 07:40 36.8 61 16 98/62 94 Room Air 11/13/16 07:10 Room Air 11/13/16 03:22 37.0 60 16 111/70 95 Room Air 11/13/16 00:00 Room Air 11/12/16 23:34 36.8 61 16 122/73 94 Room Air Notes Mental Status: alert / awake / arousable, participated in evaluation Pt Amnestic to Procedure: Yes Nausea / Vomiting: adequately controlled Pain: adequately controlled Airway Patency, RR, SpO2: stable & adequate BP & HR: stable & adequate Hydration State: stable & adequate Neuraxial Anesthesia: sensory block resolved Anesthetic Complications: no major complications apparent
[2016-11-13 12:20] VITALS: BP 143/68; PULSE 70; TEMP 36.9; O2SAT 93
[2016-11-13 15:50] VITALS: BP 121/67; PULSE 62; TEMP 36.8; O2SAT 95
[2016-11-13] MEDS ORDERED: WARFARIN SOD 5 MG TAB PO SCH (16:00)
[2016-11-13] MEDS: MoRPHine SULFATE 4 MG/ML 1 ML CARP\\VIAL IV PRN (22:49)
[2016-11-13 23:14] VITALS: BP 108/64; PULSE 73; TEMP 37; O2SAT 93
[2016-11-14] MEDS: MoRPHine SULFATE 4 MG/ML 1 ML CARP\\VIAL IV PRN ×2 (04:47→11:32)
--- NOTE | 2016-11-14 07:00 | PROGRESS NOTE ---
DATE: 11/14/2016 Postop day #2 status post left total knee replacement. At this point in time, the patient is doing well. He had some pain last evening over extended period of time between pain medications. He notes that it should be more frequent, less dose. He denies any chest pain, shortness of breath, fever, chills, nausea, vomiting or headache. He does note that he is urinating more, but is not having any symptoms from it. He just notes it is more frequent. No discoloration, no burning or dysuria. Vital signs are stable. He is afebrile. Abdomen is soft and nontender. Both calves are nontender. Neurovascular check both legs, normal. Urine color is appropriate. INR is pending this morning. ASSESSMENT: Overall, doing well. Discharge/transfer to appropriate site today based on his insurance approval. Insurance delays have prevented him from leaving yesterday. Discharge on 4 mg of Coumadin daily if INR is less than 1.4 if greater then discharge on 2 mg daily. MTDD
--- NOTE | 2016-11-14 07:04 | DISCHARGE SUMMARY ---
ADDENDUM: At this point in time, the patient is ready for discharge/transfer. Insurance delays have prevented him from being discharged/transferred yesterday. INR is pending this morning. Discharge on 4 mg of Coumadin daily if INR is less than 1.4; if it is greater than 1.4 discharge on 2 mg. Check INR on Thursday. Appropriate for discharge/transfer today.
[2016-11-14 07:11] VITALS: BP 116/67; PULSE 73; TEMP 37.1; O2SAT 94
[2016-11-14 07:15] LABS: INR 1.1 (0.9-1.1); PROTHROMBIN TIME (PATIENT) 12.1 SECONDS (9.0-12.0)
[2016-11-14] MEDS: FERROUS GLUCONATE 324 MG TAB PO SCH ×2 (08:29→11:32)
[2016-11-14] MEDS: HYDROCHLOROTHIAZIDE 25 MG TAB PO SCH (08:29)
[2016-11-14] MEDS: CYANOCOBALAMIN 500 MCG TAB (VIT B-12) PO SCH (08:30)
[2016-11-14] MEDS: PANTOprazole SOD 40 MG TAB PO SCH (08:30)
[2016-11-14] MEDS: SPIRONOLACTONE 25 MG TAB PO SCH (08:30)
[2016-11-14] MEDS: MULTIVITAMIN TAB PO SCH (08:30)
[2016-11-14] MEDS: DOCUSATE SODIUM 100 MG CAP PO SCH (08:30)
--- NOTE | 2016-11-14 08:50 | Orthopedic Progress Note ---
Orthopedic Progress Note Date of Service Nov 14, 2016. Subjective Post OP Day: 2 Reports: complaints (Had significant pain overnight from hip to foot. Had pain meds @4am and has been controlled since.), feeling well, Denies: SOB, calf pain , chest pain, light headedness, nausea / vomiting Additional Notes: Pt is sleeping when I enter the room. Objective calves soft nontender, N/V intact, capillary refill less than 2 sec., dressing C /D/I, incision C/D/I, A&O x3, toes mobile, CMS intact Wound looks excellent. No drainage. Date Time Temp Pulse Resp B/P Pulse Ox O2 Delivery O2 Flow Rate FiO2 11/14/16 07:45 Room Air 11/14/16 07:11 37.1 73 18 116/67 94 Room Air 11/13/16 23:15 Room Air 11/13/16 23:14 37.0 73 18 108/64 93 Room Air 11/13/16 18:20 Room Air 11/13/16 15:50 36.8 62 18 121/67 95 Room Air 11/13/16 12:20 36.9 70 18 143/68 93 Room Air Laboratory Results 24 Hours: Test 11/14/16 06:37 Prothromb Time International Ratio 1.1 Prothrombin Time 12.1 SECONDS Assessment & Plan Assessment: post op day 2 s/p left TKA Plan: coumadin today per nomogram pain control with prescribed meds dressing changed this morning WBAT left LE with walker PT/OT knee immobilizer until quad control regained awaiting insurance authorization regarding placement and discharge Discharge Planning Discharge Planning: long term facility Pain Management: Percocet DVT Prophylaxis: TEDs, SCDs, Coumadin Therapy: Physical Therapy, Occupational Therapy
--- NOTE | 2016-11-14 08:52 | Discharge Instructions ---
Discharge Instructions Date of Service Nov 12, 2016. Admission Reason for Admission: Left Knee Degenerative Joint Disease Discharge Discharge Diagnosis / Problem: Left knee s/p total knee replacement Discharge Goals Goal(s): Decrease discomfort, Improve function, Increase independence Activity Recommendations Activity Level: Up Ad Carlotta Therapies: Physical Therapy, Weight Bearing Status (as tolerated), Occupational Therapy Weightbearing Status: Left weightbearing (as tolerated) Lifting Limitations: gradually increase as tolerated Exercise/Sports Limitations: until after follow-up appointment Shower/Bathe: keep incision dry Please keep INR between 1.8 and 2.2 . Additional Information Patient informed of condition: Yes Advance Directives: Yes DNR: No Level of Care: Acute Rehab Communicable Disease: No Prognosis: Stable Katz Catheter: No Instructions / Follow-Up Instructions / Follow-Up New Medicine: * You will likely be taking one or more of these medications: 1. Percocet - Take, as directed, when you need it, every four to six hours to control your pain. 2. Coumadin - Thins your blood to lessen the chance of forming a blood clot. The dose of this is different for each person and is based on your blood tests that are done twice a week. * The most common side effects of pain medicine and iron are nausea and constipation. If nausea or constipation is too much of a problem or if you have any questions about your new medicines or doses, call [facility] at . We will try to help you manage these issues. VERY IMPORTANT TO READ AND REVIEW" Blood Clots and Blood Thinning Medicine: * You are given Coumadin during the immediate post-operative period to lessen the risk of blood clots forming in your legs and/or lungs. Coumadin is usually given for six weeks after surgery. * The prescription is for 2 mg tablets. At discharge, you should understand your dose and take it all at the same time every day, preferably after dinner. * You need to get your blood checked 1 - 2 times per week for six weeks or as directed. * If your dose needs to change, we will call you. Do not take your medication on the day of the blood test until we call you. Pain: * The immediate post-operative period after knee replacement surgery is often quite painful. * You are given a prescription for pain medicine. You should take it, as directed, when you need it, especially before physical therapy and before going to bed. Pain that interferes with sleep is very common and can last several months. * You will likely need pain medicine for the first four to six weeks. It will not stop all of the pain. The pain will lessen and as you feel better, you may change to milder pain medicine such as Tylenol. * The most common side effects of pain medicine are nausea and constipation, so don't take more than you need. Physical Therapy: * You will have physical therapy two or three times each week for four to six weeks after your surgery in order to regain your knee range of motion and to retrain your knee to work properly. * It is just as important to make sure you are getting your knee perfectly straight as it is to regain your knee bend. * Taking a pain pill an hour before therapy can help you have a more productive and comfortable therapy session if needed. Home Exercise: * You were shown a series of exercises (heel props, heel slides, etc.) in the hospital. Do these exercises three to four times each day including the exercises you were shown in physical therapy. Walking: * Get up and walk several times each day. For the first four weeks, try not to stand or walk for more than one hour at a time. If you do stand or walk for more than one hour, you will not hurt anything, but your knee and leg will likely swell. * As you feel comfortable, you may change from the walker or crutches to a cane and then to independent walking. SELF CARE INSTRUCTIONS AFTER TOTAL KNEE REPLACEMENT A. You may need to continue a physical therapy program after discharge from the hospital. There are several options available to you. Your doctor will assist you in selecting the best one for you. 1. An out-patient facility 2 to 3 times a week for therapy or home therapy. 2. Continue working on all exercises taught to you in the hospital. Your goals should be to increase bending of your knee to 90 degrees and beyond and to fully straighten your knee. B. You may progress at your own pace from walking with a walker or crutches to a cane; then to no assistive devices. C. Make walking a part of your daily routine. Be up as much as comfortable with rest periods throughout the day. Rest with leg elevation is very important. Use the ice wrap frequently for the first 3-4 weeks. D. There are no restrictions on activities. You may ride in a car, shop, participate in jigsaw operator and all social activities. E. Wear the long elastic stockings (SHONA hose) 20 hours a day for six weeks after surgery. They can be removed several times a day for laundering and for a shower. F. Do not place a pillow behind your knee when resting. A pillow at your ankle is okay. VERY IMPORTANT TO READ AND REVIEW A. Take Coumadin, Aspirin or Lovenox (blood thinning medications) as directed by your doctor. If on Coumadin, have a pro-time (blood test) drawn according to your doctor's instructions. This will tell the doctor how well the Coumadin is thinning your blood. 1. YOU WILL BE GIVEN AN ORDER AT DISCHARGE FOR PT/INR (BLOOD WORK). PLEASE HAVE THIS DONE INSTRUCTED. PLEASE CALL OUR OFFICE AFTER YOUR BLOODWORK IS COMPLETE SO WE CAN TRACK YOUR RESULTS. IF YOU ARE GOING TO OUTPATIENT PHYSICAL THERAPY, YOU WILL NEED TO GO TO OUTPATIENT TESTING TO HAVE IT DRAWN. B. There are a few signs you need to watch for after you are home. Call [facility] if you notice any of the followin. Increased severe knee pain. Some pain is expected especially when you exercise. 2. Increased swelling in your leg or knee; pain or swelling of the calf muscle in either lower leg. 3. Any fluid drainage from the incision. 4. Shortness of breath or chest pain. C. Please call [facility] at if you have any concerns or questions about your operation or recovery. The doctor or his nurse will return your call promptly. D. You must take antibiotics before dental work, bladder, bowel or other surgery. Call the office to obtain a prescription at least 2 days prior to your appointment. * CALL IF INCREASED PAIN, REDNESS, DRAINAGE OR FEVER GREATER THAT 101. * Sutures should be removed 12-14 days after surgery unless you are on chronic steriods, then it will be 14-18 days after surgery. Call your doctor if: * Temperature above 101 degrees F. * Pain not relieved by pain medicine ordered. * Increased drainage or redness from incision. * Notify your doctor with any questions or concerns. Current Hospital Diet Patient's current hospital diet: AHA Diet (Heart Healthy) Discharge Diet Recommended Diet: AHA Diet (Heart Healthy) Procedures Procedures Performed: Left Total Knee Arthroplasty, Cemented Pending Studies Studies pending at discharge: no Physician Orders On Transfer Dressing Changes: as needed for soiling Vital Signs: per facility routine Medical Emergencies . Who to Call and When: Medical Emergencies: If at any time you feel your situation is an emergency, please call 911 immediately. . Non-Emergent Contact Non-Emergency issues call your: Primary Care Provider, Surgeon Call Non-Emergent contact if: temperature is above 101, wound has increased drainage, wound has increased redness, wound has increased pain, you have any medication questions . . "Provider Documentation" section prepared by Mann Stovall PA-C. Core Measure Problem Core Measures: None [place] Drug Monitoring Program Search Results: no issues identified
[2016-11-14] MEDS: OXYCODONE HCL IR 5 MG TAB (IMMEDIATE RELEASE) PO PRN ×2 (09:17→14:29)
[2016-11-14 14:37] VITALS: BP 116/67; PULSE 73; TEMP 37.1; O2SAT 94
[2016-11-14] MEDS ORDERED: WARFARIN SOD 6 MG TAB PO SCH (16:00)
== END 2016-11-14 16:35 | DRG 470 ==
LOC: ENRESERVDT → ENRESERVTM → C.ACU 08:17 → C.MSW 12:23
PROVIDERS: ADMIT Physical Medicine & Rehabilitation Sports Medicine; ATTEND Physical Medicine & Rehabilitation Sports Medicine
PROC: 0SRD0J9 Replacement of Left Knee Joint with Synthetic Substitute, Cemented, Open Approach (ICD-10-PCS; principal; 2016-11-12 10:40)
DX: M17.12 Unilateral primary osteoarthritis, left knee (principal); G47.30 Sleep apnea, unspecified; F41.9 Anxiety disorder, unspecified; K21.9 Gastro-esophageal reflux disease without esophagitis; E66.9 Obesity, unspecified; Z98.84 Bariatric surgery status; Z96.641 Presence of right artificial hip joint; F32.9 Major depressive disorder, single episode, unspecified; Z87.891 Personal history of nicotine dependence; Z79.82 Long term (current) use of aspirin; Z79.899 Other long term (current) drug therapy; Z82.0 Family history of epilepsy and other diseases of the nervous system; Z82.49 Family history of ischemic heart disease and other diseases of the circulatory system; Z82.61 Family history of arthritis

== ENCOUNTER → 2016-11-21 | Outpatient (CLI) | payer BC ==
[~2016-11-21] MED LIST changes: -BUPIVACAINE 0.25% 30 ML VIAL ONE; -CEFAZOLIN 3000 MG/65 ML D5W 65 ML IV SCH; -DEXAMETHASONE SOD INJ 4 MG/ML VIAL ONE; -DIPH-437 PO; -LACTATED RINGER'S 1000ML 1,000 ML IV SCH; -LACTATED RINGER'S 1000ML 500 ML IV ONE; -LACTATED RINGER'S 1000ML IV SCH; +OXYC-57 PO; -TRANEXAMIC ACID INJ 1,000 MG in SODIUM CHLORIDE 0.9% 100ML 100 ML IV SCH; +WARF2TAB PO
[2016-11-21 09:01] LABS: INR 1.9 (0.9-1.1); PROTHROMBIN TIME (PATIENT) 21.3 SECONDS (9.0-12.0)
== END | disposition home or self-care (01) ==
LOC: C.LABUPNIT 08:14
PROVIDERS: ATTEND Family Medicine
DX: D64.9 Anemia, unspecified (principal)

== ENCOUNTER → 2016-11-25 | Outpatient (CLI) | payer BC | LOC: C.LABUPNIT 09:55 | PROVIDERS: ATTEND Family Medicine | DX: Z11.59 Encounter for screening for other viral diseases (principal) ==

== ENCOUNTER → 2016-11-28 | Outpatient (CLI) | payer BC ==
[2016-11-28 09:25] LABS: INR 1.8 (0.9-1.1); PROTHROMBIN TIME (PATIENT) 19.4 SECONDS (9.0-12.0)
--- NOTE | 2016-12-02 13:30 | CODING QUERY NO DIAGNOSIS ---
TREATMENT RENDERED WITHOUT A DIAGNOSIS 53 To promote full compliance with coding requirements relating to patient care, physician participation is requested in all cases of clinical coder uncertainty. Please assist us with providing a diagnosis/symptom for the test(s) below: A diagnosis/symptom was not documented on your Order. A valid diagnosis/symptom is required to bill all insurances. Please remember that we are unable to code a diagnosis of rule out, probable, possible, questionable, or suspected. DOS 11/28/16 Tests that require a diagnosis: * PT/INR DIAGNOSIS: *ON YOUR ORDER YOU HAVE DX CODE I48.9, THIS IS AN INVALID CODE, CAN YOU PLEASE ADD THE CORRECT DX CODE Provider Signature: Date: Thank you Holli Ingram [facility] Information Management Once completed, please kindly fax back to [phone] For questions please call [phone]
== END ==
LOC: C.LABUPNIT 09:01
PROVIDERS: ATTEND Family Medicine
DX: I82.491 Acute embolism and thrombosis of other specified deep vein of right lower extremity (principal); Z79.01 Long term (current) use of anticoagulants

== ENCOUNTER → 2016-12-04 | Outpatient (CLI) | payer BC ==
[2016-12-04 10:21] LABS: INR 1.9 (0.9-1.1); PROTHROMBIN TIME (PATIENT) 21.1 SECONDS (9.0-12.0)
== END ==
LOC: C.LABUPNIT 10:05
PROVIDERS: ATTEND Nurse Practitioner Family
DX: I48.91 Unspecified atrial fibrillation (principal)

== ENCOUNTER → 2017-01-05 | Outpatient (CLI) | payer BC | END | disposition home or self-care (01) | LOC: C.RDSM 15:29 | PROVIDERS: ATTEND Physical Medicine & Rehabilitation Sports Medicine | DX: Z96.649 Presence of unspecified artificial hip joint (principal); Z96.652 Presence of left artificial knee joint ==

== ENCOUNTER → 2017-07-20 | Outpatient (CLI) | payer BC ==
[~2017-07-20] MED LIST changes: -OXYC-57 PO; -WARF2TAB PO
--- NOTE | 2017-07-20 09:48 | DIAGNOSTIC IMAGING REPORT ---
L FOOT MIN 3 VIEWS ROUTINE CLINICAL HISTORY: M72.2,M79.671 LEFT FOOT PAIN COMPARISON: None. DISCUSSION: No acute fractures are visualized. There is a plantar calcaneal spur. Degenerative changes are present the level tarsometatarsal joints. There is a bony spur/osteochondroma arising from the lateral aspect of the midshaft of the third metatarsal. 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 IMPRESSION: 1. No acute fractures 2. 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 07/20/2017 9:47 AM Dictated Date/Time: 07/20/2017 9:43 AM
--- NOTE | 2017-07-20 09:48 | DIAGNOSTIC IMAGING REPORT ---
R FOOT MIN 3 VIEWS ROUTINE HISTORY: 62 years-old Male M72.2,M79.671 acute bilateral foot pain COMPARISON: Right foot radiographs of same day TECHNIQUE: 3 views of the right foot FINDINGS: The bones are mildly demineralized. There is mild flattening involving the second metatarsal head suggesting prior trauma with mild joint space narrowing and marginal spurring. Mild first MTP joint degenerative changes. No acute fracture or dislocation identified. No stress fracture. Moderate spurring about the midfoot. Small plantar enthesophyte about the calcaneus. No opaque foreign body. IMPRESSION: 1. No acute fracture or dislocation. 2. Mild flattening involving the second metatarsal head suggests remote trauma with mild degenerative changes also noted at the second MTP joint. 3. Additional degenerative changes as above. The above report was generated using voice recognition software. It may contain grammatical, syntax or spelling errors. Electronically signed by: Mike Lucio M.D. 07/20/2017 9:47 AM Dictated Date/Time: 07/20/2017 9:44 AM
--- NOTE | 2017-07-20 09:51 | DIAGNOSTIC IMAGING REPORT ---
L HAND MIN 3 VIEWS ROUTINE, R HAND MIN 3 VIEWS ROUTINE HISTORY: 62 years-old Male M79.643 acute bilateral hand and foot pain no reported trauma COMPARISON: None available TECHNIQUE: 3 views of the left hand and 3 views of the right hand FINDINGS: LEFT: Moderate to severe first carpometacarpal and mild triscaphe osteoarthritis. Mild particular osteopenia without acute fracture or dislocation. RIGHT: Moderate to severe first carpometacarpal, moderate triscaphe the and moderate second metacarpophalangeal osteoarthritis. No acute fracture or dislocation identified. No opaque foreign body. IMPRESSION: 1. No acute fracture or dislocation identified involving the right or left hand. 2. Degenerative changes as above, most pronounced within the first carpal metacarpal joints bilaterally. The above report was generated using voice recognition software. It may contain grammatical, syntax or spelling errors. Electronically signed by: Mike Lucio M.D. 07/20/2017 9:50 AM Dictated Date/Time: 07/20/2017 9:47 AM
== END | disposition home or self-care (01) ==
LOC: C.RAD1850 09:25
PROVIDERS: ATTEND Family Medicine
DX: M72.2 Plantar fascial fibromatosis (principal); M79.671 Pain in right foot; M79.641 Pain in right hand; M79.642 Pain in left hand; D16.32 Benign neoplasm of short bones of left lower limb

== ENCOUNTER → 2017-08-21 | Outpatient (CLI) | payer OTHER ==
[~2017-08-21] MED LIST changes: +GADAVIST IV PRN
--- NOTE | 2017-08-21 18:08 | DIAGNOSTIC IMAGING REPORT ---
MRI OF THE LEFT FOREFOOT COMBO CLINICAL HISTORY: Left foot deformity. COMPARISON STUDY: Radiographs of left foot dated 07/20/2017. TECHNIQUE: MRI of the left forefoot is performed utilizing various T1 and T2-weighted sequences in the axial, sagittal, and coronal planes. Contrast-enhanced sequences were acquired following the IV administration of 12 mL of Gadavist. The examination is degraded by motion artifact. FINDINGS: There is no MRI evidence of acute fracture. There is varus deformity of the midfoot. Edema is present at the second tarsometatarsal articulation. Edema is greatest in the base of the second metatarsal, and this is deep to the cutaneous marker at the site of interest. There is also mild marrow edema seen within the base of the fourth metatarsal. Additional foci of mild arthritic change are present throughout the visualized intertarsal and tarsometatarsal joints. There is a pseudoarticulation with bony overgrowth seen involving the shafts of the third and fourth metatarsals. This was better characterized by radiograph. Mild arthritic change with minimal hallux valgus is seen at the first metatarsophalangeal joint. The regional musculature is normal in bulk and signal intensity. No enhancing mass lesion is identified on the postcontrast images. Numerous venous varices are present throughout the forefoot. IMPRESSION: 1. There is significant edema present at the second tarsometatarsal articulation, likely related to altered biomechanics, arthritic change, and chronic deformity. This is deep to the cutaneous marker and likely represents the site of pain. 2. There is varus deformity of the midfoot. Mild hallux valgus is suggested. 3. Numerous venous varicosities are present throughout the forefoot. Dictated: 08/21/2017 3:39 PM Transcribed: 08/21/2017 6:08 PM [email or web address] Electronically signed by: Nabor Low M.D. 08/21/2017 6:55 PM Dictated Date/Time: 08/21/2017 3:39 PM
== END | disposition home or self-care (01) ==
LOC: C.MRI 13:51
PROVIDERS: ATTEND Family Medicine
DX: M21.6X2 Other acquired deformities of left foot (principal); I83.90 Asymptomatic varicose veins of unspecified lower extremity

== ENCOUNTER → 2017-10-12 | Outpatient (CLI) | payer OTHER ==
[~2017-10-12] MED LIST changes: -GADAVIST IV PRN
== END | disposition home or self-care (01) ==
LOC: C.RDSM 08:00
PROVIDERS: ATTEND Physical Medicine & Rehabilitation Sports Medicine
DX: M17.12 Unilateral primary osteoarthritis, left knee (principal); Z96.649 Presence of unspecified artificial hip joint; Z96.652 Presence of left artificial knee joint

== ENCOUNTER 2019-06-15 04:24 | Inpatient (IN) ==
[~2019-06-15 04:24] MED LIST changes: -AMOX500T3 PO; -COEN100C11 PO; -CYAN10004 PO; -HYDR25TA4 PO; +INFLUENZA VACCINE HIGH DOSE 65+ 0.5 ML SYR IM ONE; -MULT-506 PO; -SPIR25TA PO
[2019-06-15] MEDS ORDERED: SODIUM CHLORIDE 0.9% 1000ML 1,000 ML IV SCH ×2 (05:00→06:49)
[2019-06-15 05:04] LABS: Basophils # (auto) 0.01 K/uL (0-0.2); Basophils % (auto) 0.1 %; Eosinophils # (auto) 0.11 K/uL (0-0.5); Eosinophils % (auto) 1.3 %; Hematocrit (blood only) 37.1 % (42-52); Hemoglobin 11.9 g/dL (14.0-18.0); Immature Granulocytes # (auto) 0.02 K/uL (0.00-0.02); Immature Granulocytes % (auto) 0.2 %; Lymphocytes # (auto) 1.62 K/uL (1.2-3.4); Lymphocytes % (auto) 18.9 %; Mean Corpuscular Hemoglobin 30.8 pg (25-34); Mean Corpuscular Hgb Conc 32.1 g/dL (32-36); Mean Corpuscular Volume 96.1 fL (80-100); Mean Platelet Volume 9.6 fL (7.4-10.4); Monocytes # (auto) 0.65 K/uL (0.11-0.59); Monocytes % (auto) 7.6 %; Neutrophils # (auto) 6.15 K/uL (1.4-6.5); Neutrophils % (auto) 71.9 %; Platelet Count 237 K/uL (130-400); RDW Coefficient of Variation 15.7 % (11.5-14.5); RDW Standard Deviation 54.7 fL (36.4-46.3); Red Blood Count 3.86 M/uL (4.7-6.1); White Blood Count 8.56 K/uL (4.8-10.8)
[2019-06-15 05:32] LABS: Alanine Aminotransferase 31 U/L (12-78); Albumin Level 2.8 gm/dl (3.4-5.0); Aspartate Aminotransferase 21 U/L (15-37); BUN Creatinine Ratio 45.2 (10-20); Blood Urea Nitrogen 34 mg/dl (7-18); Calcium 7.9 mg/dl (8.5-10.1); Carbon Dioxide 24 mmol/L (21-32); Chloride 108 mmol/L (98-107); Creatinine Clr Calc Pharmacy 130.6 ml/min; Est GFR (African American) 111.4; Est GFR (Non-African American) 96.1; Glucose 191 mg/dl (70-99); Lipase 129 U/L (73-393); Sodium 140 mmol/L (136-145)
[2019-06-15 05:36] LABS: Albumin Globulin Ratio 0.9 (0.9-2); Alkaline Phosphatase 88 U/L (45-117); Globulin 3.1 gm/dl (2.5-4.0); Total Protein 5.9 gm/dl (6.4-8.2); Troponin I < 0.015 ng/ml (0-0.045)
[2019-06-15] MEDS ORDERED: PANTOprazole 40 MG in SYRINGE 0 ML IV SCH (07:00)
--- NOTE | 2019-06-15 07:08 | Emergency Department Note ---
Entered by Emigdio Mora acting as a scribe for History of Present Illness General Chief complaint: GI Assessment Stated complaint: BLOODY DIARRHEA Time Seen by Provider: 06/15/19 04:32 Source: patient History of Present Illness Onset (ago): day(s) 2 Location: abdomen Pain Consistency: + other (persistent) Maximum Pain Intensity: 7 Quality: + other (diarrhea) Associated symptoms: + other (Positive for thick dark diarrhea, SOB, weakness, back pain, and shakiness. Negative for abdominal pain, urinary symptoms, fevers, chills, nausea, and vomiting. ) The patient is a 64 year old male who presents to the emergency department with complaints of persistent diarrhea beginning two days ago. The patient states that he developed diarrhea two days ago. 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 He reports that he went back to work yesterday because his symptoms seemed to improve, but he states that he had two episodes of diarrhea in the bathroom. He notes that he had a bowel movement last night where his stool was thick and dark. He reports that since then, he has had four episodes of thick dark stool. He also complains of SOB, weakness, back pain, and shakiness. The patient states that there was no bright red blood in his stool. He also denies any abdominal pain, urinary symptoms, fevers, chills, nausea, and vomiting. He notes that he has a history of hypertension, and he reports that he takes aspirin and Lipitor. Home Medications Home Medications Medication Instructions Recorded Confirmed Type Potassium 99mg 1 cap PO DAILY 06/15/19 06/15/19 History aspirin 81 mg PO DAILY 06/15/19 06/15/19 History atorvastatin 80 mg PO DAILY 06/15/19 06/15/19 History coenzyme Q10 [Co Q-10] 100 mg PO DAILY 06/15/19 06/15/19 History magnesium 250 mg PO DAILY 06/15/19 06/15/19 History multivitamin 1 tab PO DAILY 06/15/19 06/15/19 History spironolacton-hydrochlorothiaz 0.5 tab PO DAILY 06/15/19 06/15/19 History Allergies Allergy/AdvReac Type Severity Reaction Status Date / Time No Known Allergies Allergy Mild Verified 06/15/19 06:13 Past Med/Surg History Family History (Updated 06/15/19 @ 04:44 by Emigdio Mora) Other No significant family history Social History Preferred Language: Upper Sorbian Communication Ability: Effective Utility Sales Representative Required: No Beliefs That Will Affect Care: None Current Living Situation: Spouse Other Information That Helps Us Care for You: No Feels Safe at Home: Yes Safety Concerns: Feels Safe At This Time Smoking Status: Former smoker Tobacco Type: cigarettes ; Cigarettes Per Day: 10 ; Do You Dip or Chew Tobacco: No ; Smoking End Date: 05/16/2013 ; Second Hand Exposure: No ; Tobacco Cessation Education Requested by Patient: No Hx Alcohol Use: Yes Alcohol type: wine Hx Substance Use: No Review of Systems See HPI for pertinent positives & negatives. and A total of 10 systems reviewed and were otherwise negative Physical Exam Vital Signs Vital Signs - 24 hr 06/15/19 04:28 06/15/19 04:52 06/15/19 05:11 Temperature 36.6 C Temperature Source Oral Pulse Rate 68 Pulse Rate [Apical] 79 Pulse Rate from SpO2 Sensor Respiratory Rate 20 18 Respiratory Effort / Characteristics Non-Labored Respiratory Depth Normal Blood Pressure 98/60 L Blood Pressure [Right Arm] 75/52 L Blood Pressure Mean 72 Blood Pressure Mean [Right Arm] 59 Pulse Oximetry 99 98 98 Oxygen Delivery Method Room Air Room Air Sepsis Recent Fever Within 48 Hours No Sepsis New/Unexplained Change in Mental Status No Sepsis Action Taken by Nursing No Action Required 06/15/19 05:20 06/15/19 05:25 06/15/19 05:30 Temperature Temperature Source Pulse Rate 80 87 Pulse Rate [Apical] 77 Pulse Rate from SpO2 Sensor 88 Respiratory Rate 18 21 22 Respiratory Effort / Characteristics Respiratory Depth Normal Blood Pressure 95/60 L 109/72 Blood Pressure [Right Arm] 108/69 Blood Pressure Mean 69 81 Blood Pressure Mean [Right Arm] 82 Pulse Oximetry 99 99 Oxygen Delivery Method Room Air Room Air Sepsis Recent Fever Within 48 Hours Sepsis New/Unexplained Change in Mental Status Sepsis Action Taken by Nursing 06/15/19 05:32 06/15/19 05:46 06/15/19 05:57 Temperature Temperature Source Pulse Rate 79 76 77 Pulse Rate [Apical] Pulse Rate from SpO2 Sensor 80 75 77 Respiratory Rate 22 17 15 Respiratory Effort / Characteristics Respiratory Depth Blood Pressure 106/60 84/65 L 105/72 Blood Pressure [Right Arm] Blood Pressure Mean 70 75 90 Blood Pressure Mean [Right Arm] Pulse Oximetry 98 98 99 Oxygen Delivery Method Room Air Room Air Room Air Sepsis Recent Fever Within 48 Hours Sepsis New/Unexplained Change in Mental Status Sepsis Action Taken by Nursing 06/15/19 06:46 Temperature Temperature Source Pulse Rate 100 H Pulse Rate [Apical] Pulse Rate from SpO2 Sensor Respiratory Rate 18 Respiratory Effort / Characteristics Respiratory Depth Blood Pressure 118/82 Blood Pressure [Right Arm] Blood Pressure Mean 94 Blood Pressure Mean [Right Arm] Pulse Oximetry 100 Oxygen Delivery Method Room Air Sepsis Recent Fever Within 48 Hours Sepsis New/Unexplained Change in Mental Status Sepsis Action Taken by Nursing HEENT: Head - normocephalic and atraumatic. Pupils are equal, round, and reactive to light. Extraocular eye muscles are intact, and sclera are anicteric. Pale conjunctiva. Nose - moist nasal mucosa without discharge. Mouth - moist buccal mucosa. Oropharynx is nonerythematous and there is no tonsillar exudate or edema noted. Neck: Supple; no cervical lymphadenopathy. Heart: Regular rate and rhythm. There is a normal S1 and S2 with no murmurs, clicks, or gallops appreciated. Lungs: Clear to auscultation bilaterally with no wheezes, rales, or rhonchi. Abdomen: Soft, completely nontender, nondistended, with good bowel sounds. There are no palpable pulsatile masses or hepatosplenomegaly. There is no guarding, r igidity, or rebound noted. Extremities: No evidence of cyanosis, clubbing, or edema. There are easily palpable peripheral pulses. Skin: warm and dry with good turgor and no rashes. Course Course 0434: The patient was evaluated in room A3. A complete history and physical examination were performed. Nursing notes and previous electronic medical records were reviewed. IV lock was established and labs were drawn as above. Patient was typed and screened for packed red blood cells 0459: Sodium Chloride 1000 mls @ 999 mls/hr IV 0529: I reevaluated and updated the patient. His systolic blood pressure was in the 70s earlier. He got a second line and is receiving IV fluids. His pressure is back to 102/68. A rectal exam revealed a significant amount of bright red blood. 0551: The patient's systolic blood pressure was 85. 0625: Upon reevaluation, the patient is stable. I discussed the findings and the treatment plan with the patient. He expresses agreement and understanding. I spoke with Dr. Baird of the [facility] Hospitalist Service. The patient will be evaluated for further management. 0628: I discussed the patient's case with Bladimir MOHR, Bridges And Buildings Supervisor, [facility]. Consultations Consultation #1: I reviewed the patient's case with Dr. Baird - Hospitalist [facility]. He will evaluate the patient for further management. Time: 06:25 Consultation #2: I discussed the patient's case with Bladimir MOHR, Bridges And Buildings Supervisor, [facility]. Time: 06:28 Administered Medications Discontinued Medications Sodium Chloride (Nss 1000ml) 1,000 mls @ 999 mls/hr IV .[id number] DENIS Stop: 06/15/19 06:00 Last Infusion: 06/15/19 05:55 Dose: 0 mls/hr Documented by: [id number] Admin: 06/15/19 04:59 Dose: 999 mls/hr Documented by: [id number] Impression & Plan Hypotension, GI bleed, Anemia Critical Care Time Critical Care Time: Yes Total Critical Care Time: 75 I have personally spent 75 minutes of critical care time in the direct management of this patient. This includes bedside care, interpretation of diagnostic studies, and testing, discussion with consultants, patient, and family members, and other required patient management activities. This 75 minutes is in excess of all separately billable procedures. Medical Decision Making Differential Diagnosis Differential diagnoses includes: upper GI bleed, lower GI bleed, anemia, diverticulitis, colitis, foodborne illness, and infectious diarrhea. Medical Records Attestation: I reviewed the patient's medical records. Home Medications Current Medication List: was personally reviewed by me Laboratory Data Attestation: I reviewed the patient's lab results. Result diagrams: 06/15/19 04:53 06/15/19 04:53 Lab Results 06/15/19 06/15/19 06/15/19 Range/Units 04:53 04:53 04:59 WBC 8.56 (4.8-10.8) K/uL RBC 3.86 L (4.7-6.1) M/uL Hgb 11.9 L (14.0-18.0) g/dL Hct 37.1 L (42-52) % MCV 96.1 (80-100) fL MCH 30.8 (25-34) pg MCHC 32.1 (32-36) g/dL RDW Std Deviation 54.7 H (36.4-46.3) fL RDW Coeff of Aria 15.7 H (11.5-14.5) % Plt Count 237 (130-400) K/uL MPV 9.6 (7.4-10.4) fL Immature Gran % (Auto) 0.2 % Neut % (Auto) 71.9 % Lymph % (Auto) 18.9 % [place] % (Auto) 7.6 % Eos % (Auto) 1.3 % Baso % (Auto) 0.1 % Immature Gran # (Auto) 0.02 (0.00-0.02) K/uL Neut # (Auto) 6.15 (1.4-6.5) K/uL Lymph # (Auto) 1.62 (1.2-3.4) K/uL [place] # (Auto) 0.65 H (0.11-0.59) K/uL Eos # (Auto) 0.11 (0-0.5) K/uL Baso # (Auto) 0.01 (0-0.2) K/uL Sodium 140 (136-145) mmol/L Potassium 5.0 (3.5-5.1) mmol/L Chloride 108 H (98-107) mmol/L Carbon Dioxide 24 (21-32) mmol/L Anion Gap 8.0 (3-11) BUN 34 H (7-18) mg/dl Creatinine 0.74 (0.6-1.4) mg/dl Est Cr Clr Drug Dosing 130.6 ml/min Est GFR ( Amer) 111.4 Est GFR (Non-Af Amer) 96.1 BUN/Creatinine Ratio 45.2 H (10-20) Glucose 191 H (70-99) mg/dl Calcium 7.9 L (8.5-10.1) mg/dl Total Bilirubin 1.0 (0.2-1) mg/dl AST 21 (15-37) U/L ALT 31 (12-78) U/L Alkaline Phosphatase 88 (45-117) U/L Troponin I < 0.015 (0-0.045) ng/ml Total Protein 5.9 L (6.4-8.2) gm/dl Albumin 2.8 L (3.4-5.0) gm/dl Globulin 3.1 (2.5-4.0) gm/dl Albumin/Globulin Ratio 0.9 (0.9-2) Lipase 129 (73-393) U/L Blood Type AB Positive Antibody Screen NEGATIVE Crossmatch See Detail ECG Data Attestation: I personally reviewed and interpreted this ECG as follows: Indication: + other (diarrhea) Rate (beats per minute): 84 Rhythm: + normal sinus ECG Intervals/blocks: + Right Bundle branch block ECG ST segments: no ST depression and no ST elevation ECG Findings: no PACs and no PVCs Comparison ECG Date: from (08/16/2013) Change: no significant change Blood Pressure Blood Pressure Findings: Low blood pressure Blood Pressure Disposition: further management by hospitalist EMMA Narrative The patient is a 64 year old male who presents to the emergency department with complaints of persistent diarrhea beginning two days ago. The patient then de veloped melena last night along with some weakness and shortness of breath. He then went on to develop bright red blood per rectum. The patient is mentating normally at this time. He has [address] He has received 1 L of crystalloid which brought the blood pressure up greater than 100. His hemoglobin was originally greater than 11 but was repeated here in the emergency department and dropped to 9.5. The patient was discussed with the [facility] Hospitalist as well as the APC in the ICU. The patient was then typed and crossed for packed red blood cell transfusion. He was consented by Dr. Ch. The patient has had gastroenterology care with Dr. Olivas. Discharge Plan Visit Data Chief Complaint: GI Assessment Stated Complaint: BLOODY DIARRHEA ED Provider: Georgiana Vieyra Discharge Problem: Hypotension, GI bleed, Anemia Patient Disposition: Being Evaluated by Hospitalist Forms Stand Alone Forms: My [facility] Prescriptions Prescriptions: No Action atorvastatin 80 mg tablet 80 mg PO DAILY RF: 0 spironolacton-hydrochlorothiaz 25-25 mg tablet 0.5 tab PO DAILY RF: 0 aspirin 81 mg tablet,delayed release (DR/EC) 81 mg PO DAILY RF: 0 multivitamin Tablet 1 tab PO DAILY RF: 0 magnesium 250 mg Tablet 250 mg PO DAILY RF: 0 coenzyme Q10 [Co Q-10] 100 mg Capsule 100 mg PO DAILY RF: 0 Potassium 99mg 1 cap PO DAILY RF: 0 Referrals Referrals: Ridge Jeronimo MD [Primary Care Provider] - Discharge Problem: Hypotension Qualifiers: Hypotension type: unspecified hypotension type Qualified Code(s): I95.9 - Hypotension, unspecified GI bleed Qualifiers: GI bleed type/associated pathology: unspecified gastrointestinal hemorrhage type Qualified Code(s): K92.2 - Gastrointestinal hemorrhage, unspecified Anemia Qualifiers: Anemia type: unspecified type Qualified Code(s): D64.9 - Anemia, unspecified The scribe's documentation has been prepared under my direction and personally reviewed by me in its entirety. I confirm that the note above accurately reflects all work, treatment, procedures, and medical decision making performed by me.
--- NOTE | 2019-06-15 07:12 | History & Physical Report ---
Date of Service June 15, 2019 Assessment & Plan (1) Admitted to intensive care unit: Admitted to intensive care unit with hypovolemic shock secondary to lower GI bleed- Low systolic blood pressure in the ED was 72. Present on Admission?: Yes (2) Hypovolemic shock: Given 1 L normal saline by the ED. We will give a second liter wide open now. Primary treatment will be to transfuse PRBCs. Typed and crossed, and will transfuse 2 units PRBCs now. Present on Admission?: Yes (3) Anemia: See above H&H every 6 hours. Transfusion 2 units PRBC as noted above. Present on Admission?: Yes (4) GI bleed: See above Holding aspirin. History of gastric bypass. 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 He has a history of several colon polyps removed in the past. Present on Admission?: Yes (5) Hyperlipidemia: Hold atorvastatin Present on Admission?: Yes (6) Hyperglycemia: Hold atorvastatin. Blood glucose 191 upon admission. No record of diabetes. Check hemoglobin A1c. Placed on Accu-Cheks every 6 hours with NovoLog coverage per scale. Present on Admission?: Yes History of Present Illness Chief Complaint: The patient presents to the ED with complaint of GI bleeding that began at 8PM last night as dark stools, and since that time has had 5 gross bloody bowel movements. He has also had some generalized abdominal discomfort. Primary Care Provider: Ridge Jeronimo MD The patient is a 64 yo male with a PMH including gastric bypass about 18 years ago, HTN and hyperlipidemia, who presents to the ED with the above complaints. He has intermittently felt light headed but has not passed out. He did have brief interval of precordial chest tightness, that has resolved spontaneously. He does take aspirin daily in the morning. He does not take any other NSAIDs. Allergies Allergy/AdvReac Type Severity Reaction Status Date / Time No Known Allergies Allergy Mild Verified 06/15/19 06:13 Home Medications Home Medications Medication Instructions Recorded Confirmed Type Potassium 99mg 1 cap PO DAILY 06/15/19 06/15/19 History aspirin 81 mg PO DAILY 06/15/19 06/15/19 History atorvastatin 80 mg PO DAILY 06/15/19 06/15/19 History coenzyme Q10 [Co Q-10] 100 mg PO DAILY 06/15/19 06/15/19 History magnesium 250 mg PO DAILY 06/15/19 06/15/19 History multivitamin 1 tab PO DAILY 06/15/19 06/15/19 History spironolacton-hydrochlorothiaz 0.5 tab PO DAILY 06/15/19 06/15/19 History Past Med/Surg History Family History Other No significant family history Social History Preferred Language: Mexican Communication Ability: Effective Leather Etcher Required: No Beliefs That Will Affect Care: None Current Living Situation: Spouse Other Information That Helps Us Care for You: No Feels Safe at Home: Yes Safety Concerns: Feels Safe At This Time Smoking Status: Former smoker Tobacco Type: cigarettes ; Cigarettes Per Day: 10 ; Do You Dip or Chew Tobacco: No ; Smoking End Date: 05/16/2013 ; Second Hand Exposure: No ; Tobacco Cessation Education Requested by Patient: No Hx Alcohol Use: Yes Alcohol type: wine Hx Substance Use: No Review of Systems Review of Systems: The patient denies palpitations, shortness of breath, dyspnea on exertion, cough, sore throat, fevers, chills, sweats, nausea, vomiting, blood in urine, dysuria, urinary frequency or urgency, headache, memory loss, loss of consciousness, rash, abnormal bruising, imbalance, focal weakness, numbness or tingling in arms or legs, generalized arthralgias or myalgias, back or neck pain, or night sweats. The review of systems is otherwise negative other than for that already noted above, and at least 10 systems have been reviewed. Physical Exam Physical Exam: The patient is awake, alert and oriented 3, well developed and well nourished, normocephalic and atraumatic, lying in bed and in no acute distress. HEENT--PERRL, EOMI, mucous membranes and oropharynx dry. Neck--supple. No JVD. No bruits. Thyroid normal, trachea midline, no adenopathy. Heart--normal S1 and S2. No murmurs, rubs or gallops. Lungs--clear bilaterally, no respiratory distress, no accessory muscle use. Abdomen--normal bowel sounds and soft. Most pronounced epigastric pain. Extremities--no cyanosis or clubbing. 1+ bilateral pretibial pitting edema. Right lower extremity wrapped around ankle. Dermatologic--normal skin turgor, normal color, no abnormal lymph nodes, no rash. Neurologic--cranial nerves II through XII grossly intact. Rheumatologic--normal range of motion. Psychiatric--normal affect. Results & Data Vital Signs (Past 12 Hours) Vital Signs Temp Pulse Pulse Resp BP BP Pulse Ox 06/15/19 06:46 100 H 18 118/82 100 06/15/19 05:57 77 15 105/72 99 06/15/19 05:46 76 17 84/65 L 98 06/15/19 05:32 79 22 106/60 98 06/15/19 05:30 87 22 109/72 99 06/15/19 05:25 80 21 95/60 L 06/15/19 05:20 77 18 108/69 99 06/15/19 05:11 79 18 75/52 L 98 06/15/19 04:52 98 06/15/19 04:28 97.9 F 68 20 98/60 L 99 Laboratory Results Laboratory Results WBC 8.56 K/uL (4.8-10.8) 06/15/19 04:53 RBC 3.86 M/uL (4.7-6.1) L 06/15/19 04:53 Hgb 11.9 g/dL (14.0-18.0) L 06/15/19 04:53 Hct 37.1 % (42-52) L 06/15/19 04:53 MCV 96.1 fL (80-100) 06/15/19 04:53 MCH 30.8 pg (25-34) 06/15/19 04:53 MCHC 32.1 g/dL (32-36) 06/15/19 04:53 RDW Std Deviation 54.7 fL (36.4-46.3) H 06/15/19 04:53 RDW Coeff of Aria 15.7 % (11.5-14.5) H 06/15/19 04:53 Plt Count 237 K/uL (130-400) 06/15/19 04:53 MPV 9.6 fL (7.4-10.4) 06/15/19 04:53 Immature Gran % (Auto) 0.2 % 06/15/19 04:53 Neut % (Auto) 71.9 % 06/15/19 04:53 Lymph % (Auto) 18.9 % 06/15/19 04:53 [place] % (Auto) 7.6 % 06/15/19 04:53 Eos % (Auto) 1.3 % 06/15/19 04:53 Baso % (Auto) 0.1 % 06/15/19 04:53 Immature Gran # (Auto) 0.02 K/uL (0.00-0.02) 06/15/19 04:53 Neut # (Auto) 6.15 K/uL (1.4-6.5) 06/15/19 04:53 Lymph # (Auto) 1.62 K/uL (1.2-3.4) 06/15/19 04:53 [place] # (Auto) 0.65 K/uL (0.11-0.59) H 06/15/19 04:53 Eos # (Auto) 0.11 K/uL (0-0.5) 06/15/19 04:53 Baso # (Auto) 0.01 K/uL (0-0.2) 06/15/19 04:53 Sodium 140 mmol/L (136-145) 06/15/19 04:53 Potassium 5.0 mmol/L (3.5-5.1) 06/15/19 04:53 Chloride 108 mmol/L (98-107) H 06/15/19 04:53 Carbon Dioxide 24 mmol/L (21-32) 06/15/19 04:53 Anion Gap 8.0 (3-11) 06/15/19 04:53 BUN 34 mg/dl (7-18) H 06/15/19 04:53 Creatinine 0.74 mg/dl (0.6-1.4) 06/15/19 04:53 Est Cr Clr Drug Dosing 130.6 ml/min 06/15/19 04:53 Est GFR ( Amer) 111.4 06/15/19 04:53 Est GFR (Non-Af Amer) 96.1 06/15/19 04:53 BUN/Creatinine Ratio 45.2 (10-20) H 06/15/19 04:53 Glucose 191 mg/dl (70-99) H 06/15/19 04:53 Calcium 7.9 mg/dl (8.5-10.1) L 06/15/19 04:53 Total Bilirubin 1.0 mg/dl (0.2-1) 06/15/19 04:53 AST 21 U/L (15-37) 06/15/19 04:53 ALT 31 U/L (12-78) 06/15/19 04:53 Alkaline Phosphatase 88 U/L (45-117) 06/15/19 04:53 Troponin I < 0.015 ng/ml (0-0.045) 06/15/19 04:53 Total Protein 5.9 gm/dl (6.4-8.2) L 06/15/19 04:53 Albumin 2.8 gm/dl (3.4-5.0) L 06/15/19 04:53 Globulin 3.1 gm/dl (2.5-4.0) 06/15/19 04:53 Albumin/Globulin Ratio 0.9 (0.9-2) 06/15/19 04:53 Lipase 129 U/L (73-393) 06/15/19 04:53 Blood Type AB Positive 06/15/19 04:59 Antibody Screen NEGATIVE 06/15/19 04:59 Crossmatch See Detail 06/15/19 04:59 Code Status & VTE Plan Code Status Full code VTE Prophylaxis Plan VTE Prophylaxis will be ordered: Yes Critical Care Time Critical Care Time: Yes Total Critical Care Time: 45 PG Care Time/CCT Total # of Minutes Spent Total Time Spent with Patient: Total time spent is greater than 50% in coordination of care (as documented) at patient's floor/unit and/or counseling patient: Critical Care Time: Yes Total Critical Care Time: 45 (1) GI bleed GI bleed type/associated pathology: unspecified gastrointestinal hemorrhage type Qualified Code(s): K92.2 - Gastrointestinal hemorrhage, unspecified (2) Anemia Anemia type: unspecified type Qualified Code(s): D64.9 - Anemia, unspecified
[2019-06-15] MEDS ORDERED: GLUCAGON FOR INJ 1 MG VIAL SQ PRN (07:43)
[2019-06-15] MEDS ORDERED: GLUCOSE 40% GEL 15 GM TUBE PO PRN (07:43)
[2019-06-15] MEDS ORDERED: ICU PROTOCOL FOR HYPERGLYCEMIA PRN ×2 (07:43→08:12)
[2019-06-15] MEDS ORDERED: SODIUM CHLORIDE 0.9% 250 ML IV PRN (07:43)
[2019-06-15] MEDS ORDERED: GLUCOSE 10 TABS/TUBE PO PRN (07:43)
[2019-06-15] MEDS ORDERED: DEXTROSE 50% 50 ML SYRINGE IV PRN (07:43)
[2019-06-15] MEDS ORDERED: CARBOHYDRATES FOR HYPOGLYCEMIA PO PRN (07:43)
[2019-06-15 08:07] LABS: Hematocrit (blood only) 30.5 % (42-52); Hemoglobin 9.8 g/dL (14.0-18.0)
--- NOTE | 2019-06-15 08:09 | Critical Care Consultation ---
Date of Consultation June 15, 2019 Assessment & Plan (1) Admitted to intensive care unit: Reason Critically Ill: Patient is a 64 y/o male with melena from presumed acute upper GI bleed with concerns for hypovolemic shock. Neuro: Alert and oriented x3 No complaints of pain currently Cardiac/Vascular: PMHx: HTN/HLD; SARIAH with home CPAP; RBBB w/left anterior fascicular block Currently hemodynamically stable s/p 2L NSS Bolus Continue to monitor hemodynamics and continue with cardiac monitoring Pulm: Current smoker, will discuss smoking cessation Not currently requiring supplemental oxygenation Continue to monitor SpO2 GI: Hx of Gastric Bypass surgery with Markus-en-Y in 1999 Presumed Upper GI bleed causing Melena PPI coverage with Pantoprazole 40mg BID Diet: NPO GI consulted for need for EGD Renal/Lytes: Electrolytes WNL BUN elevated likely from GI bleed Follow I&O : No current alba Endo: No hx of DM/Thyroid dz ICU hyperglycemic protocol Heme: 2pRBCs were ordered for precipitous GI bleed by overnight team, with initial lab Hgb was 11.9; POC Hgb in ED 9.5 at 6am. Repeat lab draw in ICU was 9.8 and was getting one unit pRBC; will cancel need for second pRBC. Will repeat H&H after transfusion and will follow ID: Currently on Rocephin - will discontinue No current signs/sources of infection Lines: two 18 G peripheral IVs in LUE antecubital and forearm DVT ppx: chemical contraindicated in setting of active GI bleed Resuscitation status: Full Code. (2) Hypovolemic shock: (3) Anemia: (4) GI bleed: (5) Hyperlipidemia: (6) Hyperglycemia: Supervising Physician Co-Signing Physician Notes Patient seen and examined. Discussed with LEIGHTON and the family practice resident at the bedside as well as the ICU nurse and patient interviewed at the bedside. Imaging was independently reviewed as well as the electronic medical record. Agree with their assessment and plan as noted with the following addendum. Impression: 64-year-old male with history of gastric bypass presenting with melena concern for potential GI bleed. He is hemodynamically stable but did have initial soft blood pressures in the emergency room which responded to IV fluids. He is received 1 unit of packed cells. He is pending an EGD evaluation. Recommendations: 1. Acute GI bleed: Suspect upper source. Complicated anatomy given his history of gastric bypass. Await EGD. Continue Protonix. Serial hemoglobin and hematocrit. 2 large-bore IVs. Likely hold any additional transfusions pending repeat hematocrit and response to therapy. Disposition will depend on results of EGD. No indication for antimicrobial agents currently. 2. Obesity: Weight loss recommended. 3. Hyperlipidemia: Holding outpatient medications. Will restart when appropriate for taking p.o. We will review EGD findings once available and if the patient has low risk source of bleeding, he may be eligible to transfer to the floor under the care of the hospitalist. Will sign off once he leaves the ICU. History of Present Illness Reason for Consultation: GI Bleed; hypovolumic shock Requesting Physician: Avila Baird MD Attending Physician: Avila Baird MD History of Present Illness Mr. Roe Mckeon is a 64 y/o gentleman with a past medical hx of gastric bypass (Markus-en-Y in 1999), hernia repair, HLD, HTN, SARIAH, current smoker, LE edema who presented to [facility] with complaints of melena. He notes this started last night about 8pm with about 8 episodes of dark diarrhea without bright red bloody stools. He notes no prior episodes similar in the past. He takes ASA daily but is not on anti-coagulants and has not taken any NSAIDs such as ibuprofen. He noted lower abdominal discomfort during BMs but not having any abdominal pain when evaluated at bedside. He is not having any dizziness, syncope, chest pain, light headedness, difficulty with ambulation, bleeding from gums, nausea, vomiting. He had hypotensive BPs in the ED with values 80s/65-70s and received 2L Fluid bolus for concerns of hypovolemic shock. Allergies Allergy/AdvReac Type Severity Reaction Status Date / Time No Known Allergies Allergy Mild Verified 06/15/19 06:13 Home Medications Home Medications Medication Instructions Recorded Confirmed Type Potassium 99mg 1 cap PO DAILY 06/15/19 06/15/19 History aspirin 81 mg PO DAILY 06/15/19 06/15/19 History atorvastatin 80 mg PO DAILY 06/15/19 06/15/19 History coenzyme Q10 [Co Q-10] 100 mg PO DAILY 06/15/19 06/15/19 History magnesium 250 mg PO DAILY 06/15/19 06/15/19 History multivitamin 1 tab PO DAILY 06/15/19 06/15/19 History spironolacton-hydrochlorothiaz 0.5 tab PO DAILY 06/15/19 06/15/19 History Patient History Medical History (Updated 06/15/19 @ 07:08 by Avila Baird MD) Cellulitis of right leg (Acute) Environmental allergies GERD (gastroesophageal reflux disease) Hearing deficit Hyperlipidemia Hypertension Osteoarthritis Sleep apnea CPAP Superficial thrombophlebitis (Acute) Thrombosis SUPERFICIAL BLOOD CLOT RT LEG Surgical History (Updated 06/15/19 @ 04:44 by Emigdio Mora) H/O gastric bypass (Resolved) History of carpal tunnel release RT History of colonoscopy History of discectomy LUMBAR DISCECTOMY History of gastric bypass History of herniorrhaphy History of total hip arthroplasty RT History of total knee replacement LEFT Varicose veins of both lower extremities LASER PROCEDURE Family History (Updated 06/15/19 @ 04:44 by Emigdio Mora) Other No significant family history Social History Preferred Language: Macedonian Communication Ability: Effective 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 Required: No Beliefs That Will Affect Care: None Current Living Situation: Spouse Other Information That Helps Us Care for You: No Feels Safe at Home: Yes Safety Concerns: Feels Safe At This Time Smoking Status: Former smoker Tobacco Type: cigarettes ; Cigarettes Per Day: 10 ; Do You Dip or Chew Tobacco: No ; Smoking End Date: 05/16/2013 ; Second Hand Exposure: No ; Tobacco Cessation Education Requested by Patient: No Hx Alcohol Use: Yes Alcohol type: wine Hx Substance Use: No Review of Systems Review of Systems: All systems reviewed & are unremarkable except as noted in HPI & below Constitutional: no fever and no chills Respiratory: no cough and no dyspnea Cardiovascular: + edema (notes chronic LE); no chest pain and no chest pain at rest Gastrointestinal: no nausea and no vomiting Genitourinary: no dysuria and no hematuria Integumentary: + skin ulcer (RLE); no rash Neurologic: no numbness and no headache(s) Physical Exam Constitutional: WD/WN, vitals as above + morbidly obese, cooperative and comfortable Eyes: PERRL; no conjunctival abnormality ENMT: external ear and nose normal, oropharynx normal Neck: normal visual inspection and trachea midline Respiratory: normal respiratory effort, lungs clear to auscultation no respiratory distress and does not use accessory muscles Cardiovascular: Rate/Rhythm: regular rate and regular rhythm Extremities: + pedal edema Gastrointestinal (Abdomen): Inspection/Auscultation: normal bowel sounds Percussion/Palpation: abdomen soft; abdomen nontender, no guarding and abdomen not rigid Musculoskeletal: Head/Neck/Chest: normocephalic and head atraumatic Skin: no rashes, warm and dry Neurologic: moves all extremities and awake Psychiatric: Orientation: alert and oriented x 3 Eye Contact: good eye contact Affect: + anxious affect Results & Data Vital Signs (Past 12 Hours) Vital Signs Temp Pulse Pulse Resp BP BP Pulse Ox 06/15/19 08:06 36.8 C 98 H 18 85/74 L 98 06/15/19 07:06 97 H 18 114/67 98 06/15/19 06:46 100 H 18 118/82 100 06/15/19 05:57 77 15 105/72 99 06/15/19 05:46 76 17 84/65 L 98 06/15/19 05:32 79 22 106/60 98 06/15/19 05:30 87 22 109/72 99 06/15/19 05:25 80 21 95/60 L 06/15/19 05:20 77 18 108/69 99 06/15/19 05:11 79 18 75/52 L 98 06/15/19 04:52 98 06/15/19 04:28 36.6 C 68 20 98/60 L 99 Laboratory Results Laboratory Results - last 24 hr 06/15/19 06/15/19 06/15/19 04:53 04:53 04:59 WBC 8.56 RBC 3.86 L Hgb 11.9 L Hct 37.1 L MCV 96.1 MCH 30.8 MCHC 32.1 RDW Std Deviation 54.7 H RDW Coeff of Aria 15.7 H Plt Count 237 MPV 9.6 Immature Gran % (Auto) 0.2 Neut % (Auto) 71.9 Lymph % (Auto) 18.9 [place] % (Auto) 7.6 Eos % (Auto) 1.3 Baso % (Auto) 0.1 Immature Gran # (Auto) 0.02 Neut # (Auto) 6.15 Lymph # (Auto) 1.62 [place] # (Auto) 0.65 H Eos # (Auto) 0.11 Baso # (Auto) 0.01 PT INR APTT PTT Ratio Fibrinogen Sodium 140 Potassium 5.0 Chloride 108 H Carbon Dioxide 24 Anion Gap 8.0 BUN 34 H Creatinine 0.74 Est Cr Clr Drug Dosing 130.6 Est GFR ( Amer) 111.4 Est GFR (Non-Af Amer) 96.1 BUN/Creatinine Ratio 45.2 H Glucose 191 H POC Glucose Calcium 7.9 L Total Bilirubin 1.0 AST 21 ALT 31 Alkaline Phosphatase 88 Troponin I < 0.015 Total Protein 5.9 L Albumin 2.8 L Globulin 3.1 Albumin/Globulin Ratio 0.9 Lipase 129 Nasal Screen MRSA (PCR) Blood Type AB Positive Antibody Screen NEGATIVE Crossmatch See Detail 06/15/19 06/15/19 06/15/19 07:30 07:57 07:57 WBC RBC Hgb Hct MCV MCH MCHC RDW Std Deviation RDW Coeff of Aria Plt Count MPV Immature Gran % (Auto) Neut % (Auto) Lymph % (Auto) [place] % (Auto) Eos % (Auto) Baso % (Auto) Immature Gran # (Auto) Neut # (Auto) Lymph # (Auto) [place] # (Auto) Eos # (Auto) Baso # (Auto) PT 11.9 INR 1.2 H APTT 24.8 PTT Ratio 0.9 Fibrinogen 249 Sodium Potassium Chloride Carbon Dioxide Anion Gap BUN Creatinine Est Cr Clr Drug Dosing Est GFR ( Amer) Est GFR (Non-Af Amer) BUN/Creatinine Ratio Glucose POC Glucose Calcium Total Bilirubin AST ALT Alkaline Phosphatase Troponin I 0.028 Total Protein Albumin Globulin Albumin/Globulin Ratio Lipase Nasal Screen MRSA (PCR) Pending Blood Type Antibody Screen Crossmatch 06/15/19 06/15/19 07:57 08:44 WBC RBC Hgb 9.8 L Hct 30.5 L MCV MCH MCHC RDW Std Deviation RDW Coeff of Aria Plt Count MPV Immature Gran % (Auto) Neut % (Auto) Lymph % (Auto) [place] % (Auto) Eos % (Auto) Baso % (Auto) Immature Gran # (Auto) Neut # (Auto) Lymph # (Auto) [place] # (Auto) Eos # (Auto) Baso # (Auto) PT INR APTT PTT Ratio Fibrinogen Sodium Potassium Chloride Carbon Dioxide Anion Gap BUN Creatinine Est Cr Clr Drug Dosing Est GFR ( Amer) Est GFR (Non-Af Amer) BUN/Creatinine Ratio Glucose POC Glucose 118 H Calcium Total Bilirubin AST ALT Alkaline Phosphatase Troponin I Total Protein Albumin Globulin Albumin/Globulin Ratio Lipase Nasal Screen MRSA (PCR) Blood Type Antibody Screen Crossmatch Medications Administered Pantoprazole Sodium 40 mg/ (Syringe) 10 mls @ 5 mls/min IV BID@0900,2100 [facility] Stop: 07/15/19 06:59 Last Admin: 06/15/19 08:42 Dose: 5 mls/min Documented by: [id number] Ceftriaxone Sodium (Rocephin) 2,000 mg in 70 mls @ 140 mls/hr IV DAILY DENIS Stop: 06/25/19 08:14 Last Infusion: 06/15/19 09:13 Dose: 0 mls/hr Documented by: [id number] Admin: 06/15/19 08:43 Dose: 140 mls/hr Documented by: [id number] Insulin Aspart (Novolog Flexpen) 0 units SC ACHS [facility] Stop: 07/15/19 07:42 Last Admin: 06/15/19 08:48 Dose: Not Given Documented by: [id number] Cosigned by: [id number] PG Care Time/CCT Total # of Minutes Spent Total Time Spent with Patient: Total time spent is greater than 50% in coordination of care (as documented) at patient's floor/unit and/or counseling patient: Resident Activity Tracking Resident Involvement: Resident Care Provided Care Provided: Adult Hospital Medicine (1) GI bleed GI bleed type/associated pathology: unspecified gastrointestinal hemorrhage type Qualified Code(s): K92.2 - Gastrointestinal hemorrhage, unspecified (2) Anemia Anemia type: unspecified type Qualified Code(s): D64.9 - Anemia, unspecified
[2019-06-15] MEDS ORDERED: cefTRIAXone SODIUM 2,000 MG/70 ML BAG IV SCH (08:15)
[2019-06-15 08:24] LABS: Fibrinogen 249 mg/dl (184-400); INR 1.2 (0.9-1.1); Partial Thromboplastin Ratio 0.9; Partial Thromboplastin Time 24.8 Seconds (21.0-31.0); Prothrombin Time 11.9 Seconds (9.0-12.0)
[2019-06-15] MEDS: INSULIN ASPART 100 UNITS/ML 3 ML PEN SC SCH ×4 (08:48→21:10)
[2019-06-15] MEDS ORDERED: INFLUENZA ADMINISTRATION CHARGE ONE (11:00)
[2019-06-15 12:19] LABS: Hematocrit (blood only) 32.4 % (42-52); Hemoglobin 10.5 g/dL (14.0-18.0)
[2019-06-15] MEDS ORDERED: NORMOSOL-R 500 ML IV ONE (13:45)
[2019-06-15 14:12] LABS: iSTAT Creatinine 0.7 mg/dl (0.6-1.3); iSTAT Hemoglobin 9.5 g/dl (14.0-18.0); iSTAT Ionized Calcium 1.07 mmol/l (1.12-1.32); iSTAT Potassium 5.7 mEq/L (3.3-5.0)
--- NOTE | 2019-06-15 14:37 | Gastrointestinal Consultation ---
Date of Consultation June 15, 2019 Assessment & Plan (1) H/O gastric bypass: (2) GI bleed: (3) Hypotension: 1. Keep NPO for now. 2. EGD today Dr. Olivas. 3. Continue Pantoprazole 40 mg BID IV. 4. Additional recommendations pending results of testing. Supervising Physician Co-Signing Physician Notes Agree with ONUR Noyola Abd: Soft, NT, ND, +BS Continue current therapy EGD now for further evaluation Further recommendations to follow History of Present Illness Reason for Consultation: Melena Requesting Physician: Dr. Baird Attending Physician: Mario Cool MD History of Present Illness Patient is a 64 year-old male with a history of gastric bypass admitted with melena beginning last evening at approximately 8 PM. He presented to the ER and did continue to melanotic stool as well as some gross bloody stools while in the hospital. He denies any vomiting. Did have mild nausea with lightheadedness and shortness of breath last evening. Last episode of melena was approximately 2 hours ago. Denies any abdominal pain. Does use a low dose aspirin but no other anticoagulants. He has been made NPO and received a unit of PRBCs. H&H was noted to be 9.8/30.5 and increased to 30.5/32.4 after the transfusion. PPI ggt was not started due to shortage. Ordered Protonix 40 mg IV BID. He is otherwise without any complaints. Allergies Allergy/AdvReac Type Severity Reaction Status Date / Time No Known Allergies Allergy Mild Verified 06/15/19 06:13 Home Medications Home Medications Medication Instructions Recorded Confirmed Type Potassium 99mg 1 cap PO DAILY 06/15/19 06/15/19 History aspirin 81 mg PO DAILY 06/15/19 06/15/19 History atorvastatin 80 mg PO DAILY 06/15/19 06/15/19 History coenzyme Q10 [Co Q-10] 100 mg PO DAILY 06/15/19 06/15/19 History magnesium 250 mg PO DAILY 06/15/19 06/15/19 History multivitamin 1 tab PO DAILY 06/15/19 06/15/19 History spironolacton-hydrochlorothiaz 0.5 tab PO DAILY 06/15/19 06/15/19 History Patient History Medical History Cellulitis of right leg (Acute) Environmental allergies GERD (gastroesophageal reflux disease) Hearing deficit Hyperlipidemia Hypertension Osteoarthritis Sleep apnea CPAP Superficial thrombophlebitis (Acute) Thrombosis SUPERFICIAL BLOOD CLOT RT LEG Surgical History H/O gastric bypass (Resolved) History of carpal tunnel release RT History of colonoscopy History of discectomy LUMBAR DISCECTOMY History of gastric bypass History of herniorrhaphy History of total hip arthroplasty RT History of total knee replacement LEFT Varicose veins of both lower extremities LASER PROCEDURE Family History Other No significant family history Social History Preferred Language: Kiswahili Communication Ability: Effective Mercury Cell Cleaner Required: No Beliefs That Will Affect Care: None Current Living Situation: Spouse Other Information That Helps Us Care for You: No Feels Safe at Home: Yes Safety Concerns: Feels Safe At This Time Smoking Status: Former smoker Tobacco Type: cigarettes ; Cigarettes Per Day: 10 ; Do You Dip or Chew Tobacco: No ; Smoking End Date: 05/16/2013 ; Second Hand Exposure: No ; Tobacco Cessation Education Requested by Patient: No Hx Alcohol Use: Yes Alcohol type: wine Hx Substance Use: No Review of Systems Review of Systems: All systems reviewed & are unremarkable except as noted in HPI & below Physical Exam Constitutional: WD/WN, vitals as above Eyes: EOM intact bilaterally Neck: normal appearance Respiratory: normal respiratory effort, lungs clear to auscultation Cardiovascular: Rate/Rhythm: regular rate and regular rhythm Heart Sounds: no gallop and no murmur Gastrointestinal (Abdomen): Inspection/Auscultation: + hyperactive bowel sounds Percussion/Palpation: abdomen soft; abdomen nontender Musculoskeletal: Extremities: no cyanosis no lower extremity edema Skin: no rashes, warm and dry Neurologic: moves all extremities Psychiatric: A+Ox3, euthymic affect Results & Data Vital Signs (Past 12 Hours) Vital Signs Temp Pulse Pulse Resp BP BP Pulse Ox 06/15/19 12:04 100 H 18 109/73 98 06/15/19 12:01 106 H 23 109/73 98 06/15/19 12:00 100 H 19 98 06/15/19 11:32 102 H 27 H 131/75 98 06/15/19 11:01 101 H 16 99 06/15/19 11:00 95 H 18 103/62 98 06/15/19 10:55 36.8 C 89 19 104/66 94 06/15/19 10:49 100 H 22 104/66 98 06/15/19 10:45 103 H 20 109/64 96 06/15/19 10:30 97 H 15 106/70 98 06/15/19 10:16 94 H 22 103/65 97 06/15/19 10:08 93 H 15 104/71 96 06/15/19 10:01 100 H 16 99 06/15/19 10:00 93 H 18 104/71 98 06/15/19 09:45 98 H 17 94/67 L 99 06/15/19 09:30 96 H 15 101/63 98 06/15/19 09:15 97 H 16 95 06/15/19 09:08 36.8 C 97 H 17 101/63 98 06/15/19 09:01 85 15 168/102 H 98 06/15/19 09:00 78 19 99 06/15/19 08:45 98 H 16 157/97 H 98 06/15/19 08:39 90 19 138/100 96 06/15/19 08:38 36.7 C 100 H 16 157/97 H 97 06/15/19 08:30 85 19 165/107 H 97 06/15/19 08:23 36.8 C 93 H 18 138/100 97 06/15/19 08:16 92 H 18 136/79 98 06/15/19 08:06 36.8 C 96 H 15 85/74 L 98 06/15/19 08:00 96 H 20 121/73 98 06/15/19 07:41 95 H 24 100/82 100 06/15/19 07:06 97 H 18 114/67 98 06/15/19 06:46 100 H 18 118/82 100 06/15/19 05:57 77 15 105/72 99 06/15/19 05:46 76 17 84/65 L 98 06/15/19 05:32 79 22 106/60 98 06/15/19 05:30 87 22 109/72 99 06/15/19 05:25 80 21 95/60 L 06/15/19 05:20 77 18 108/69 99 06/15/19 05:11 79 18 75/52 L 98 06/15/19 04:52 98 06/15/19 04:28 36.6 C 68 20 98/60 L 99 Laboratory Results Abnormal lab results 06/15/19 06/15/19 06/15/19 Range/Units 04:53 04:53 04:59 RBC 3.86 L (4.7-6.1) M/uL Hgb 11.9 L (14.0-18.0) g/dL POC Hgb (14.0-18.0) g/dl Hct 37.1 L (42-52) % POC Hct (42-52) % RDW Std Deviation 54.7 H (36.4-46.3) fL RDW Coeff of Aria 15.7 H (11.5-14.5) % [place] # (Auto) 0.65 H (0.11-0.59) K/uL INR (0.9-1.1) POC Potassium (3.3-5.0) mEq/L Chloride 108 H (98-107) mmol/L POC BUN (7-18) mg/dl BUN 34 H (7-18) mg/dl BUN/Creatinine Ratio 45.2 H (10-20) Glucose 191 H (70-99) mg/dl POC Glucose (70-99) POC Glucose (other) (70-99) mg/dl Calcium 7.9 L (8.5-10.1) mg/dl POC Ioniz Calcium Sahra (1.12-1.32) mmol/l Total Protein 5.9 L (6.4-8.2) gm/dl Albumin 2.8 L (3.4-5.0) gm/dl Crossmatch See Detail 06/15/19 06/15/19 06/15/19 Range/Units 06:09 07:57 07:57 RBC (4.7-6.1) M/uL Hgb 9.8 L (14.0-18.0) g/dL POC Hgb 9.5 L (14.0-18.0) g/dl Hct 30.5 L (42-52) % POC Hct 28 L (42-52) % RDW Std Deviation (36.4-46.3) fL RDW Coeff of Aria (11.5-14.5) % [place] # (Auto) (0.11-0.59) K/uL INR 1.2 H (0.9-1.1) POC Potassium 5.7 H (3.3-5.0) mEq/L Chloride (98-107) mmol/L POC BUN 31 H (7-18) mg/dl BUN (7-18) mg/dl BUN/Creatinine Ratio (10-20) Glucose (70-99) mg/dl POC Glucose (70-99) POC Glucose (other) 141 H (70-99) mg/dl Calcium (8.5-10.1) mg/dl POC Ioniz Calcium Sahra 1.07 L (1.12-1.32) mmol/l Total Protein (6.4-8.2) gm/dl Albumin (3.4-5.0) gm/dl Crossmatch 06/15/19 06/15/19 06/15/19 Range/Units 08:44 12:13 12:38 RBC (4.7-6.1) M/uL Hgb 10.5 L (14.0-18.0) g/dL POC Hgb (14.0-18.0) g/dl Hct 32.4 L (42-52) % POC Hct (42-52) % RDW Std Deviation (36.4-46.3) fL RDW Coeff of Aria (11.5-14.5) % [place] # (Auto) (0.11-0.59) K/uL INR (0.9-1.1) POC Potassium (3.3-5.0) mEq/L Chloride (98-107) mmol/L POC BUN (7-18) mg/dl BUN (7-18) mg/dl BUN/Creatinine Ratio (10-20) Glucose (70-99) mg/dl POC Glucose 118 H 108 H (70-99) POC Glucose (other) (70-99) mg/dl Calcium (8.5-10.1) mg/dl POC Ioniz Calcium Sahra (1.12-1.32) mmol/l Total Protein (6.4-8.2) gm/dl Albumin (3.4-5.0) gm/dl Crossmatch PG Care Time/CCT Total # of Minutes Spent Total Time Spent with Patient: Total time spent is greater than 50% in coordination of care (as documented) at patient's floor/unit and/or counseling patient: (1) GI bleed GI bleed type/associated pathology: unspecified gastrointestinal hemorrhage type Qualified Code(s): K92.2 - Gastrointestinal hemorrhage, unspecified (2) Hypotension Hypotension type: unspecified hypotension type Qualified Code(s): I95.9 - Hypotension, unspecified
[2019-06-15 15:09] LABS: Hematocrit (blood only) 30.3 % (42-52)
[2019-06-15] MEDS ORDERED: METOCLOPRAMIDE HCL 20 MG in SODIUM CHLORIDE 0.9% 50 ML IV ONE (15:15)
--- NOTE | 2019-06-15 16:15 | Anesthesiology Consultation ---
Date of Service June 15, 2019 Assessment & Plan Chart Review Chart Review: Acceptable Risk for Surgery and Patient NOT seen in Pre Admission Testing Consults Requested none History Surgery Operation Date: 06/15/19 17:30 Proposed Procedures p Esophagogastroduodenoscopy Dr Olivas - Bryce Faria Case, DO Height/Weight Height: 5 ft 9 in Weight: 129 kg Allergies Allergy/AdvReac Type Severity Reaction Status Date / Time No Known Allergies Allergy Mild Verified 06/15/19 06:13 Medications Home Medications Medication Instructions Recorded Confirmed Last Taken Potassium 99mg 1 cap PO DAILY 06/15/19 06/15/19 06/14/19 aspirin 81 mg PO DAILY 06/15/19 06/15/19 06/14/19 atorvastatin 80 mg PO DAILY 06/15/19 06/15/19 06/14/19 coenzyme Q10 [Co Q-10] 100 mg PO DAILY 06/15/19 06/15/19 06/14/19 magnesium 250 mg PO DAILY 06/15/19 06/15/19 06/14/19 multivitamin 1 tab PO DAILY 06/15/19 06/15/19 06/14/19 spironolacton-hydrochlorothiaz 0.5 tab PO DAILY 06/15/19 06/15/19 06/14/19 Active Medications Generic Name Dose Route Start Last Admin Trade Name Freq PRN Reason Stop Dose Admin Pantoprazole Sodium 40 mg/ 10 mls @ 5 mls/min 06/15/19 07:00 06/15/19 08:42 Syringe IV 07/15/19 06:59 5 mls/min BID@0900,2100 DENIS Administration Insulin Aspart 0 units 06/15/19 07:43 06/15/19 12:42 Novolog Flexpen SC 07/15/19 07:42 Not Given ACHS DENIS NPO Date Last Intake of Fluids: 06/15/19 Time Last Intake of Fluids: 02:00 Date Last Intake of Solids: 06/14/19 Time Last Intake of Solids: 17:00 Past Medical History Medical History Cellulitis of right leg (Acute) Environmental allergies GERD (gastroesophageal reflux disease) Hearing deficit Hyperlipidemia Hypertension Osteoarthritis Sleep apnea CPAP Superficial thrombophlebitis (Acute) Thrombosis SUPERFICIAL BLOOD CLOT RT LEG Past Family History Family History Other No significant family history Past Surgical History Surgical History H/O gastric bypass (Resolved) History of carpal tunnel release RT History of colonoscopy History of discectomy LUMBAR DISCECTOMY History of gastric bypass History of herniorrhaphy History of total hip arthroplasty RT History of total knee replacement LEFT Varicose veins of both lower extremities LASER PROCEDURE Social History Smoking Status: Former smoker tobacco type: cigarettes Smoking cigarettes per day: 10 Do You Dip or Chew Tobacco: No Smoking End Date: 05/16/2013 Hx Alcohol Use: Yes Alcohol type: wine alcohol intake frequency: holidays/special occasions only Alcohol Intake Frequency Comment: occasional Hx Substance Use: No substance use type: does not use Physical Exam Vital Signs Last Vital Signs Temp 36.8 C 06/15/19 16:03 Pulse 97 H 06/15/19 16:03 Resp 16 06/15/19 16:03 BP 102/70 06/15/19 16:03 Pulse Ox 98 06/15/19 16:03 Testing Laboratory Results 06/15/19 14:59 06/15/19 04:53 PT 11.9 Seconds (9.0-12.0) 06/15/19 07:57 INR 1.2 (0.9-1.1) H 06/15/19 07:57 APTT 24.8 Seconds (21.0-31.0) 06/15/19 07:57 Blood Type AB Positive 06/15/19 04:59 Antibody Screen NEGATIVE 06/15/19 04:59 06/15/19 06/15/19 06/15/19 12:38 08:44 06:09 POC Glucose 108 H 118 H POC Glucose (other) 141 H
[2019-06-15] MEDS ORDERED: ePHEDrine sulfate 50 MG/ML AMP ONE (16:25)
[2019-06-15] MEDS ORDERED: PROPOFOL IV EMULSION 10 MG/ML 20 ML VIAL IV ONE (16:25)
[2019-06-15] MEDS ORDERED: LIDOCAINE HCL 2% 2 ML VIAL/AMP(20MG/ML) INFIL ONE (16:25)
--- NOTE | 2019-06-15 16:35 | GI REPORT ---
Patient Name: Lonnie Mckeon Procedure Date: 06/15/2019 4:08 PM Date of : 1955 Admit Type: Inpatient Age: 64 Gender: Male Attending MD: Bryce Olivas DO Procedure: Upper GI endoscopy Providers: Bryce Olivas DO Referring MD: Referred Self Indications: Melena Medicines: Monitored Anesthesia Care Complications: No immediate complications. Estimated Blood Loss: Estimated blood loss: none. Procedure: Pre-Anesthesia Assessment: - Prior to the procedure, a History and Physical was performed, and patient medications and allergies were reviewed. The patient's tolerance of previous anesthesia was also reviewed. The risks and benefits of the procedure and the sedation options and risks were discussed with the patient. All questions were answered, and informed consent was obtained. Prior Anticoagulants: The patient has taken aspirin, last dose was 1 day prior to procedure. ASA Grade Assessment: III - A patient with severe systemic disease. After reviewing the risks and benefits, the patient was deemed in satisfactory condition to undergo the procedure. After obtaining informed consent, the endoscope was passed under direct vision. Throughout the procedure, the patient's blood pressure, pulse, and oxygen saturations were monitored continuously. The Endoscope was introduced through the mouth, and advanced to the jejunum. The upper GI endoscopy was accomplished without difficulty. The patient tolerated the procedure well. Findings: The esophagus was normal. 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 This was traversed. The lncbv-mh-vrcjwmi limb was characterized by ulceration 1.4 cm with visible vessel and oozing of bright red blood. Area was successfully injected with 4 mL of a 1:10,000 solution of epinephrine for hemostasis. Fulguration to ablate the lesion to prevent bleeding by heater probe was successful. The examined jejunum was normal. Impression: - Normal esophagus. - Markus-en-Y gastrojejunostomy. Injected. Treated with a heater probe. - Normal examined jejunum. - No specimens collected. Recommendation: - Return patient to ICU for ongoing care. - NPO today. - Give Protonix (pantoprazole): 8 mg/hr IV by continuous infusion for 3 days. Bryce Olivas DO 06/15/2019 4:34:38 PM This report has been signed electronically. Note Initiated On: 06/15/2019 4:08 PM Number of Addenda: 0 I attest to the content of the Intraoperative Record and orders documented therein, exceptions below {[id number]}
--- NOTE | 2019-06-15 16:46 | Anesthesiology Progress Note ---
Date of Service June 15, 2019 Anesthesia Post Procedure Vital Signs Vital Signs: Temp Pulse Pulse Pulse Resp BP BP 06/15/19 16:44 85 20 92/55 L 06/15/19 16:38 114 H 20 90/56 L 06/15/19 16:28 101 H 20 87/57 L 06/15/19 16:03 36.8 C 97 H 16 102/70 06/15/19 12:04 100 H 18 109/73 06/15/19 12:01 106 H 23 109/73 06/15/19 12:00 100 H 19 06/15/19 11:32 102 H 27 H 131/75 06/15/19 11:01 101 H 16 06/15/19 11:00 95 H 18 103/62 06/15/19 10:55 36.8 C 89 19 104/66 06/15/19 10:49 100 H 22 104/66 06/15/19 10:45 103 H 20 109/64 06/15/19 10:30 97 H 15 106/70 06/15/19 10:16 94 H 22 103/65 06/15/19 10:08 93 H 15 104/71 06/15/19 10:01 100 H 16 06/15/19 10:00 93 H 18 104/71 06/15/19 09:45 98 H 17 94/67 L 06/15/19 09:30 96 H 15 101/63 06/15/19 09:15 97 H 16 06/15/19 09:08 36.8 C 97 H 17 101/63 06/15/19 09:01 85 15 168/102 H 06/15/19 09:00 78 19 06/15/19 08:45 98 H 16 157/97 H 06/15/19 08:39 90 19 138/100 06/15/19 08:38 36.7 C 100 H 16 157/97 H 06/15/19 08:30 85 19 165/107 H 06/15/19 08:23 36.8 C 93 H 18 138/100 06/15/19 08:16 92 H 18 136/79 06/15/19 08:06 36.8 C 96 H 15 85/74 L 06/15/19 08:00 96 H 20 121/73 06/15/19 07:41 95 H 24 100/82 06/15/19 07:06 97 H 18 114/67 06/15/19 06:46 100 H 18 118/82 06/15/19 05:57 77 15 105/72 06/15/19 05:46 76 17 84/65 L 06/15/19 05:32 79 22 106/60 06/15/19 05:30 87 22 109/72 06/15/19 05:25 80 21 95/60 L 06/15/19 05:20 77 18 108/69 06/15/19 05:11 79 18 75/52 L 06/15/19 04:52 06/15/19 04:28 36.6 C 68 20 98/60 L Pulse Ox 06/15/19 16:44 100 06/15/19 16:38 99 06/15/19 16:28 99 06/15/19 16:03 98 06/15/19 12:04 98 06/15/19 12:01 98 06/15/19 12:00 98 06/15/19 11:32 98 06/15/19 11:01 99 06/15/19 11:00 98 06/15/19 10:55 94 06/15/19 10:49 98 06/15/19 10:45 96 06/15/19 10:30 98 06/15/19 10:16 97 06/15/19 10:08 96 06/15/19 10:01 99 06/15/19 10:00 98 06/15/19 09:45 99 06/15/19 09:30 98 06/15/19 09:15 95 06/15/19 09:08 98 06/15/19 09:01 98 06/15/19 09:00 99 06/15/19 08:45 98 06/15/19 08:39 96 06/15/19 08:38 97 06/15/19 08:30 97 06/15/19 08:23 97 06/15/19 08:16 98 06/15/19 08:06 98 06/15/19 08:00 98 06/15/19 07:41 100 06/15/19 07:06 98 06/15/19 06:46 100 06/15/19 05:57 99 06/15/19 05:46 98 06/15/19 05:32 98 06/15/19 05:30 99 06/15/19 05:25 06/15/19 05:20 99 06/15/19 05:11 98 06/15/19 04:52 98 06/15/19 04:28 99 Pain Intensity Back: Pain Intensity: 3 Transfer of Care Handoff Completed per policy Notes Mental Status: alert / awake / arousable Patient Amnestic to Procedure: Yes Nausea / Vomiting: adequately controlled Pain: adequately controlled Airway Patency, RR, SpO2: stable & adequate BP & HR: stable & adequate Hydration State: stable & adequate Anesthetic Complications: no major complications apparent and Pt Satisfied with anesthetic care Notes: The patient is awake and stable. He will go back to the ICU.
[2019-06-15] MEDS: PANTOprazole 40 MG in DEXTROSE 5% 100 ML IV SCH ×2 (17:12→21:10)
[2019-06-15] MEDS: NORMOSOL-R 1,000 ML IV SCH (18:32)
[2019-06-15 21:30] LABS: Hematocrit (blood only) 30.2 % (42-52)
[2019-06-15 21:56] LABS: BUN Creatinine Ratio 39.9 (10-20); Blood Urea Nitrogen 26 mg/dl (7-18); Calcium 7.8 mg/dl (8.5-10.1); Carbon Dioxide 25 mmol/L (21-32); Chloride 110 mmol/L (98-107); Creatinine Clr Calc Pharmacy 148.7 ml/min; Est GFR (African American) 117.5; Est GFR (Non-African American) 101.4; Glucose 106 mg/dl (70-99); Potassium 3.9 mmol/L (3.5-5.1); Sodium 142 mmol/L (136-145); Troponin I < 0.015 ng/ml (0-0.045)
[2019-06-16] MEDS: NORMOSOL-R 1,000 ML IV SCH (02:07)
[2019-06-16] MEDS: PANTOprazole 40 MG in DEXTROSE 5% 100 ML IV SCH ×5 (03:50→23:45)
[2019-06-16 04:24] LABS: Basophils # (auto) 0.01 K/uL (0-0.2); Basophils % (auto) 0.1 %; Eosinophils # (auto) 0.32 K/uL (0-0.5); Eosinophils % (auto) 4.3 %; Hematocrit (blood only) 28.8 % (42-52); Hemoglobin 9.4 g/dL (14.0-18.0); Immature Granulocytes # (auto) 0.03 K/uL (0.00-0.02); Immature Granulocytes % (auto) 0.4 %; Lymphocytes # (auto) 2.18 K/uL (1.2-3.4); Lymphocytes % (auto) 29.3 %; Mean Corpuscular Hemoglobin 30.7 pg (25-34); Mean Corpuscular Hgb Conc 32.6 g/dL (32-36); Mean Corpuscular Volume 94.1 fL (80-100); Mean Platelet Volume 9.2 fL (7.4-10.4); Monocytes % (auto) 8.1 %; Neutrophils # (auto) 4.29 K/uL (1.4-6.5); Neutrophils % (auto) 57.8 %; Platelet Count 181 K/uL (130-400); RDW Coefficient of Variation 16.7 % (11.5-14.5); Red Blood Count 3.06 M/uL (4.7-6.1); White Blood Count 7.43 K/uL (4.8-10.8)
[2019-06-16 04:35] LABS: INR 1.1 (0.9-1.1); Partial Thromboplastin Ratio 0.9; Partial Thromboplastin Time 23.8 Seconds (21.0-31.0); Prothrombin Time 11.3 Seconds (9.0-12.0)
[2019-06-16 04:41] LABS: Albumin Level 2.3 gm/dl (3.4-5.0); BUN Creatinine Ratio 36.2 (10-20); Bilirubin Direct 0.2 mg/dl (0-0.2); Calcium 7.3 mg/dl (8.5-10.1); Creatinine Clr Calc Pharmacy 158.4 ml/min; Est GFR (African American) 120.6; Est GFR (Non-African American) 104.1; Magnesium 2.2 mg/dl (1.8-2.4); Potassium 4.2 mmol/L (3.5-5.1)
[2019-06-16 04:44] LABS: Bilirubin,Total 0.5 mg/dl (0.2-1); Phosphorus 3.4 mg/dl (2.5-4.9); Total Protein 5.1 gm/dl (6.4-8.2)
--- NOTE | 2019-06-16 06:54 | Critical Care Progress Note ---
Date of Service June 16, 2019 Assessment & Plan (1) Admitted to intensive care unit: Reason Critically Ill: Patient is a 64 y/o male with melena from presumed acute upper GI bleed with concerns for hypovolemic shock. Neuro: Alert and oriented x3 No complaints of pain currently Cardiac/Vascular: PMHx: HTN/HLD; SARIAH with home CPAP; RBBB w/left anterior fascicular block Currently hemodynamically stable, noted to positive 24 hour fluid balance of +[id number] Continue to monitor hemodynamics and continue with cardiac monitoring; gastric ulceration bleed was treated during EGD. Pulm: Current smoker, will discuss smoking cessation Not currently requiring supplemental oxygenation Continue to monitor SpO2 GI: Hx of Gastric Bypass surgery with Markus-en-Y in 1999 Upper GI bleed causing Melena PPI coverage with Pantoprazole 40mg IV q5h continuous IV as recommended by GI for 3 days. Diet: NPO GI consulted performed EGD: He was found to have 1.4cm ulcerated with visible vessel and oozing of bright red blood to location of ygpjz-lo-hblpfwn limb, which was injected with 4mL of 1:10,000 solution of Epinephrine; fulguration to ablate the lesion to prevent bleeding by heater probe was successful. Esophagus was normal and examined jejunum was normal. Renal/Lytes: Electrolytes WNL BUN elevated likely from GI bleed Follow I&O Currently on Normosol 125mL/hr since NPO : No current alba Endo: No hx of DM/Thyroid dz ICU hyperglycemic protocol Heme: 2pRBCs were ordered for precipitous GI bleed by overnight team, with initial lab Hgb was 11.9; POC Hgb in ED 9.5 at 6am. Repeat lab draw in ICU was 9.8 and was getting one unit pRBC; canceled need for second unit. Repeat Hgb last night was 10.0; Am value 9.4 without signs of re-bleed. ID: Was placed on Rocephin on admission - discontinued on transfer to ICU No current signs/sources of infection Lines: two 18 G peripheral IVs in LUE antecubital and forearm DVT ppx: chemical contraindicated in setting of active GI bleed Resuscitation status: Full Code. Stable for downgrade out of ICU (2) Hypovolemic shock: (3) Anemia: (4) GI bleed: (5) Hyperlipidemia: (6) Hyperglycemia: Supervising Physician Co-Signing Physician Notes Patient seen and examined. Discussed with hospitalist as well as family practice resident at the bedside and ICU nurse. Discussed on multidisciplinary rounds. Impression 64-year-old male with upper GI bleed. Post endoscopy with clipping and injection of a visible vessel at the GE junction. He is remained hemodynamically stable overnight on a Protonix drip without additional requirement for transfusion. Recommendations: 1. Upper GI bleed: Continue serial hemoglobin and hematocrit: Protonix per GI. Outpatient follow-up endoscopy per GI. 2. Obesity: Continued weight loss recommended. 3. Hyperlipidemia: Restart outpatient medications. 4. The patient appears stable to transfer out of the intensive care unit to the floor. Discussed with hospitalist service will assume care. Will sign off when he leaves the ICU. Feel free to contact us with additional questions or concerns per Subjective Slavo notes no melena overnight and he has not had a BM, just passing gas. He denies abdominal pain. Bleeding gums, headache, dyspnea, hematuria, dizziness/lightheadedness, no nausea or vomiting. No acute events reported overnight or acute events s/p EGD. He was found to have 1.4cm ulcerated with visible vessel and oozing of bright red blood to location of qvowk-hs-mdynglt limb, which was injected with 4mL of 1:10,000 solution of Epinephrine; fulguration to ablate the lesion to prevent bleeding by heater probe was successful. Esophagus was normal and examined jejunum was normal. Physical Exam Constitutional: WD/WN, vitals as above + morbidly obese, cooperative and comfortable Eyes: PERRL; no conjunctival abnormality ENMT: external ear and nose normal, oropharynx normal Neck: normal visual inspection and trachea midline Respiratory: normal respiratory effort, lungs clear to auscultation no respiratory distress and does not use accessory muscles Cardiovascular: Rate/Rhythm: regular rate and regular rhythm Extremities: + pedal edema Gastrointestinal (Abdomen): Inspection/Auscultation: normal bowel sounds Percussion/Palpation: abdomen soft; abdomen nontender, no guarding and abdomen not rigid Musculoskeletal: Head/Neck/Chest: normocephalic and head atraumatic Skin: no rashes, warm and dry Neurologic: moves all extremities and awake Psychiatric: Orientation: alert and oriented x 3 Eye Contact: good eye contact Results & Data Vital Signs (Past 12 Hours) Vital Signs Temp Pulse Resp BP Pulse Ox Pulse Ox 06/16/19 06:00 63 18 97/59 L 100 06/16/19 04:00 36.7 C 67 19 100/60 100 06/16/19 02:00 68 17 135/70 100 06/16/19 00:00 36.8 C 77 18 119/64 99 06/15/19 22:00 73 18 121/64 99 06/15/19 20:49 98 06/15/19 20:00 36.8 C 71 15 101/52 L 100 Laboratory Results Laboratory Results - last 24 hr 06/15/19 06/15/19 06/15/19 04:59 06:09 07:30 WBC RBC Hgb POC Hgb 9.5 L Hct POC Hct 28 L MCV MCH MCHC RDW Std Deviation RDW Coeff of Aria Plt Count MPV Immature Gran % (Auto) Neut % (Auto) Lymph % (Auto) [place] % (Auto) Eos % (Auto) Baso % (Auto) Immature Gran # (Auto) Neut # (Auto) Lymph # (Auto) [place] # (Auto) Eos # (Auto) Baso # (Auto) PT INR APTT PTT Ratio Fibrinogen POC Sodium 139 Sodium POC Potassium 5.7 H Potassium POC Chloride 107 Chloride Carbon Dioxide POC Total CO2 24 Anion Gap POC Anion Gap 16.0 POC BUN 31 H BUN Creatinine POC Creatinine 0.7 Est Cr Clr Drug Dosing Est GFR ( Amer) Est GFR (Non-Af Amer) BUN/Creatinine Ratio Glucose POC Glucose POC Glucose (other) 141 H Calcium POC Ioniz Calcium Sahra 1.07 L Phosphorus Magnesium Total Bilirubin Direct Bilirubin AST ALT Alkaline Phosphatase Troponin I Total Protein Albumin Nasal Screen MRSA (PCR) Negative Blood Type AB Positive Antibody Screen NEGATIVE Crossmatch See Detail 06/15/19 06/15/19 06/15/19 07:57 07:57 07:57 WBC RBC Hgb 9.8 L POC Hgb Hct 30.5 L POC Hct MCV MCH MCHC RDW Std Deviation RDW Coeff of Aria Plt Count MPV Immature Gran % (Auto) Neut % (Auto) Lymph % (Auto) [place] % (Auto) Eos % (Auto) Baso % (Auto) Immature Gran # (Auto) Neut # (Auto) Lymph # (Auto) [place] # (Auto) Eos # (Auto) Baso # (Auto) PT 11.9 INR 1.2 H APTT 24.8 PTT Ratio 0.9 Fibrinogen 249 POC Sodium Sodium POC Potassium Potassium POC Chloride Chloride Carbon Dioxide POC Total CO2 Anion Gap POC Anion Gap POC BUN BUN Creatinine POC Creatinine Est Cr Clr Drug Dosing Est GFR ( Amer) Est GFR (Non-Af Amer) BUN/Creatinine Ratio Glucose POC Glucose POC Glucose (other) Calcium POC Ioniz Calcium Sahra Phosphorus Magnesium Total Bilirubin Direct Bilirubin AST ALT Alkaline Phosphatase Troponin I 0.028 Total Protein Albumin Nasal Screen MRSA (PCR) Blood Type Antibody Screen Crossmatch 06/15/19 06/15/19 06/15/19 08:44 12:13 12:13 WBC RBC Hgb 10.5 L POC Hgb Hct 32.4 L POC Hct MCV MCH MCHC RDW Std Deviation RDW Coeff of Aria Plt Count MPV Immature Gran % (Auto) Neut % (Auto) Lymph % (Auto) [place] % (Auto) Eos % (Auto) Baso % (Auto) Immature Gran # (Auto) Neut # (Auto) Lymph # (Auto) [place] # (Auto) Eos # (Auto) Baso # (Auto) PT INR APTT PTT Ratio Fibrinogen POC Sodium Sodium POC Potassium Potassium POC Chloride Chloride Carbon Dioxide POC Total CO2 Anion Gap POC Anion Gap POC BUN BUN Creatinine POC Creatinine Est Cr Clr Drug Dosing Est GFR ( Amer) Est GFR (Non-Af Amer) BUN/Creatinine Ratio Glucose POC Glucose 118 H POC Glucose (other) Calcium POC Ioniz Calcium Sahra Phosphorus Magnesium Total Bilirubin Direct Bilirubin AST ALT Alkaline Phosphatase Troponin I < 0.015 Total Protein Albumin Nasal Screen MRSA (PCR) Blood Type Antibody Screen Crossmatch 06/15/19 06/15/19 06/15/19 12:38 14:59 18:16 WBC RBC Hgb 10.0 L POC Hgb Hct 30.3 L POC Hct MCV MCH MCHC RDW Std Deviation RDW Coeff of Raia Plt Count MPV Immature Gran % (Auto) Neut % (Auto) Lymph % (Auto) [place] % (Auto) Eos % (Auto) Baso % (Auto) Immature Gran # (Auto) Neut # (Auto) Lymph # (Auto) [place] # (Auto) Eos # (Auto) Baso # (Auto) PT INR APTT PTT Ratio Fibrinogen POC Sodium Sodium POC Potassium Potassium POC Chloride Chloride Carbon Dioxide POC Total CO2 Anion Gap POC Anion Gap POC BUN BUN Creatinine POC Creatinine Est Cr Clr Drug Dosing Est GFR ( Amer) Est GFR (Non-Af Amer) BUN/Creatinine Ratio Glucose POC Glucose 108 H 109 H POC Glucose (other) Calcium POC Ioniz Calcium Sahra Phosphorus Magnesium Total Bilirubin Direct Bilirubin AST ALT Alkaline Phosphatase Troponin I Total Protein Albumin Nasal Screen MRSA (PCR) Blood Type Antibody Screen Crossmatch 06/15/19 06/15/19 06/15/19 20:54 21:14 21:14 WBC RBC Hgb 10.0 L POC Hgb Hct 30.2 L POC Hct MCV MCH MCHC RDW Std Deviation RDW Coeff of Aria Plt Count MPV Immature Gran % (Auto) Neut % (Auto) Lymph % (Auto) [place] % (Auto) Eos % (Auto) Baso % (Auto) Immature Gran # (Auto) Neut # (Auto) Lymph # (Auto) [place] # (Auto) Eos # (Auto) Baso # (Auto) PT INR APTT PTT Ratio Fibrinogen POC Sodium Sodium 142 POC Potassium Potassium 3.9 D POC Chloride Chloride 110 H Carbon Dioxide 25 POC Total CO2 Anion Gap 7.0 POC Anion Gap POC BUN BUN 26 H Creatinine 0.65 POC Creatinine Est Cr Clr Drug Dosing 148.7 Est GFR ( Amer) 117.5 Est GFR (Non-Af Amer) 101.4 BUN/Creatinine Ratio 39.9 H Glucose 106 H POC Glucose 98 POC Glucose (other) Calcium 7.8 L POC Ioniz Calcium Sahra Phosphorus Magnesium Total Bilirubin Direct Bilirubin AST ALT Alkaline Phosphatase Troponin I < 0.015 Total Protein Albumin Nasal Screen MRSA (PCR) Blood Type Antibody Screen Crossmatch 06/16/19 06/16/19 06/16/19 03:56 03:56 03:56 WBC 7.43 RBC 3.06 L Hgb 9.4 L POC Hgb Hct 28.8 L POC Hct MCV 94.1 MCH 30.7 MCHC 32.6 RDW Std Deviation 57.0 H RDW Coeff of Aria 16.7 H Plt Count 181 MPV 9.2 Immature Gran % (Auto) 0.4 Neut % (Auto) 57.8 Lymph % (Auto) 29.3 [place] % (Auto) 8.1 Eos % (Auto) 4.3 Baso % (Auto) 0.1 Immature Gran # (Auto) 0.03 H Neut # (Auto) 4.29 Lymph # (Auto) 2.18 [place] # (Auto) 0.60 H Eos # (Auto) 0.32 Baso # (Auto) 0.01 PT 11.3 INR 1.1 APTT 23.8 PTT Ratio 0.9 Fibrinogen POC Sodium Sodium 142 POC Potassium Potassium 4.2 POC Chloride Chloride 110 H Carbon Dioxide 29 POC Total CO2 Anion Gap 3.0 POC Anion Gap POC BUN BUN 22 H Creatinine 0.61 POC Creatinine Est Cr Clr Drug Dosing 158.4 Est GFR ( Amer) 120.6 Est GFR (Non-Af Amer) 104.1 BUN/Creatinine Ratio 36.2 H Glucose 104 H POC Glucose POC Glucose (other) Calcium 7.3 L POC Ioniz Calcium Sahra Phosphorus 3.4 Magnesium 2.2 Total Bilirubin 0.5 D Direct Bilirubin 0.2 AST 15 ALT 22 Alkaline Phosphatase 69 Troponin I Total Protein 5.1 L Albumin 2.3 L Nasal Screen MRSA (PCR) Blood Type Antibody Screen Crossmatch Medications Administered Pantoprazole Sodium 40 mg/ (Dextrose) 100 mls @ 20 mls/hr IV Q5H DENIS Stop: 07/15/19 16:59 Last Admin: 06/16/19 03:50 Dose: 20 mls/hr Documented by: [id number] Infusion: 06/16/19 02:10 Dose: 20 mls/hr Documented by: [id number] Admin: 06/15/19 21:10 Dose: 20 mls/hr Documented by: [id number] Infusion: 06/15/19 21:10 Dose: 20 mls/hr Documented by: [id number] Admin: 06/15/19 17:12 Dose: 20 mls/hr Documented by: [id number] Parenteral Electrolytes (Normosol-R) 1,000 mls @ 125 mls/hr IV .Q8H DENIS Stop: 07/15/19 18:14 Last Admin: 06/16/19 02:07 Dose: 125 mls/hr Documented by: [id number] Infusion: 06/16/19 02:07 Dose: 125 mls/hr Documented by: [id number] Admin: 06/15/19 18:32 Dose: 125 mls/hr Documented by: [id number] Insulin Aspart (Novolog Flexpen) 0 units SC ACHS DENIS Stop: 07/15/19 07:42 Last Admin: 06/15/19 21:10 Dose: Not Given Documented by: [id number] Cosigned by: [id number] Admin: 06/15/19 18:20 Dose: Not Given Documented by: [id number] Cosigned by: [id number] Admin: 06/15/19 12:42 Dose: Not Given Documented by: [id number] Cosigned by: [id number] Admin: 06/15/19 08:48 Dose: Not Given Documented by: [id number] Cosigned by: [id number] PG Care Time/CCT Total # of Minutes Spent Total Time Spent with Patient: Total time spent is greater than 50% in coordination of care (as documented) at patient's floor/unit and/or counseling patient: Resident Activity Tracking Resident Involvement: Resident Care Provided Care Provided: Adult Hospital Medicine (ICU) (1) GI bleed GI bleed type/associated pathology: unspecified gastrointestinal hemorrhage type Qualified Code(s): K92.2 - Gastrointestinal hemorrhage, unspecified (2) Anemia Anemia type: unspecified type Qualified Code(s): D64.9 - Anemia, unspecified
--- NOTE | 2019-06-16 08:10 | Anesthesiology Progress Note ---
Date of Service June 16, 2019 Anesthesia Post Procedure Vital Signs Vital Signs: Temp Pulse Pulse Pulse Resp BP BP 06/16/19 06:00 63 18 97/59 L 06/16/19 04:00 36.7 C 67 19 100/60 06/16/19 02:00 68 17 135/70 06/16/19 00:00 36.8 C 77 18 119/64 06/15/19 22:00 73 18 121/64 06/15/19 20:49 06/15/19 20:00 36.8 C 71 15 101/52 L 06/15/19 18:01 90 18 115/65 06/15/19 18:00 91 H 15 06/15/19 17:17 92 H 22 142/66 H 06/15/19 17:00 91 H 21 06/15/19 16:44 85 20 92/55 L 06/15/19 16:38 114 H 20 90/56 L 06/15/19 16:28 101 H 20 87/57 L 06/15/19 16:03 36.8 C 97 H 16 102/70 06/15/19 15:50 98 H 16 102/70 06/15/19 15:00 91 H 19 06/15/19 14:01 120 H 21 06/15/19 14:00 92 H 24 100/57 L 06/15/19 13:00 103 H 22 99/67 L 06/15/19 12:04 100 H 18 109/73 06/15/19 12:01 106 H 23 109/73 06/15/19 12:00 100 H 19 06/15/19 11:32 102 H 27 H 131/75 06/15/19 11:01 101 H 16 06/15/19 11:00 95 H 18 103/62 06/15/19 10:55 36.8 C 89 19 104/66 06/15/19 10:49 100 H 22 104/66 06/15/19 10:45 103 H 20 109/64 06/15/19 10:30 97 H 15 106/70 06/15/19 10:16 94 H 22 103/65 06/15/19 10:08 93 H 15 104/71 06/15/19 10:01 100 H 16 06/15/19 10:00 93 H 18 104/71 06/15/19 09:45 98 H 17 94/67 L 06/15/19 09:30 96 H 15 101/63 06/15/19 09:15 97 H 16 06/15/19 09:08 36.8 C 97 H 17 101/63 06/15/19 09:01 85 15 168/102 H 06/15/19 09:00 78 19 06/15/19 08:45 98 H 16 157/97 H 06/15/19 08:39 90 19 138/100 06/15/19 08:38 36.7 C 100 H 16 157/97 H 06/15/19 08:30 85 19 165/107 H 06/15/19 08:23 36.8 C 93 H 18 138/100 06/15/19 08:16 92 H 18 136/79 Pulse Ox Pulse Ox 06/16/19 06:00 100 06/16/19 04:00 100 06/16/19 02:00 100 06/16/19 00:00 99 06/15/19 22:00 99 06/15/19 20:49 98 06/15/19 20:00 100 06/15/19 18:01 96 06/15/19 18:00 96 06/15/19 17:17 96 06/15/19 17:00 97 06/15/19 16:44 100 06/15/19 16:38 99 06/15/19 16:28 99 06/15/19 16:03 98 06/15/19 15:50 06/15/19 15:00 98 06/15/19 14:01 97 06/15/19 14:00 97 06/15/19 13:00 96 06/15/19 12:04 98 06/15/19 12:01 98 06/15/19 12:00 98 06/15/19 11:32 98 06/15/19 11:01 99 06/15/19 11:00 98 06/15/19 10:55 94 06/15/19 10:49 98 06/15/19 10:45 96 06/15/19 10:30 98 06/15/19 10:16 97 06/15/19 10:08 96 06/15/19 10:01 99 06/15/19 10:00 98 06/15/19 09:45 99 06/15/19 09:30 98 06/15/19 09:15 95 06/15/19 09:08 98 06/15/19 09:01 98 06/15/19 09:00 99 06/15/19 08:45 98 06/15/19 08:39 96 06/15/19 08:38 97 06/15/19 08:30 97 06/15/19 08:23 97 06/15/19 08:16 98 Pain Intensity Back: Pain Intensity: 3 Notes Mental Status: alert / awake / arousable and participated in evaluation Patient Amnestic to Procedure: Yes Nausea / Vomiting: adequately controlled Pain: adequately controlled Airway Patency, RR, SpO2: stable & adequate BP & HR: stable & adequate Hydration State: stable & adequate Anesthetic Complications: no major complications apparent and Pt Satisfied with anesthetic care
[2019-06-16] MEDS: INSULIN ASPART 100 UNITS/ML 3 ML PEN SC SCH ×4 (08:55→21:31)
--- NOTE | 2019-06-16 09:23 | Hospitalist Progress Note ---
Date of Service June 16, 2019 Assessment & Plan (1) GI bleed: History of gastric bypass. EGD by Dr. Olivas on 06/15 revealed a rtkgm-ha-jwkuzfg limb 1.4cm ulcer with visible vessel. Successfully treated with epi and cautery. Received 1 unit of PRBCs on 06/15. - Continue PPI ggt x 3 days per GI - Will finish on 06/18 in the afternoon - After transition to oral PPI - Holding aspirin - Monitor hgb - Advance diet slowly (2) Hypovolemic shock: Due to upper GI bleed. - Resolved (3) Anemia: - See above (4) Hyperlipidemia: Restarted atorvastatin (5) Hyperglycemia: Blood glucose 191 upon admission. No record of diabetes. - Check hemoglobin A1c. - Sliding scale insulin (6) DVT prophylaxis: SCDs - Given GI bleed Subjective Feeling quite well overall. No abdominal pain. Notes some continued black stool. Reports no fevers/chills, chest pain, shortness of breath, abdominal pain, nausea, or vomiting. Physical Exam Constitutional: + obese; no acute distress and not lethargic Eyes: EOM intact bilaterally; no conjunctival abnormality ENMT: external ear and nose normal, oropharynx normal Neck: trachea midline, no thyromegaly normal visual inspection Respiratory: normal respiratory effort, lungs clear to auscultation no respiratory distress Cardiovascular: RRR, no murmur, no edema Gastrointestinal (Abdomen): Inspection/Auscultation: abdomen normal to inspection and normal bowel sounds; abdomen not distended Percussion/Palpation: abdomen soft; abdomen nontender, no guarding and abdomen not rigid Musculoskeletal: no cyanosis or clubbing, extremities motor strength 5/5 Skin: no rashes, warm and dry Neurologic: moves all extremities and awake Psychiatric: Orientation: alert, oriented to person and cooperative Results & Data Vital Signs (Past 12 Hours) Vital Signs Temp Pulse Resp BP Pulse Ox 06/16/19 06:00 63 18 97/59 L 100 06/16/19 04:00 36.7 C 67 19 100/60 100 06/16/19 02:00 68 17 135/70 100 06/16/19 00:00 36.8 C 77 18 119/64 99 06/15/19 22:00 73 18 121/64 99 PG Care Time/CCT Total # of Minutes Spent Total Time Spent with Patient: Total time spent is greater than 50% in coordination of care (as documented) at patient's floor/unit and/or counseling patient: (1) Anemia Anemia type: unspecified type Qualified Code(s): D64.9 - Anemia, unspecified (2) GI bleed GI bleed type/associated pathology: unspecified gastrointestinal hemorrhage type Qualified Code(s): K92.2 - Gastrointestinal hemorrhage, unspecified
[2019-06-16 10:20] LABS: Hematocrit (blood only) 28.9 % (42-52); Hemoglobin 9.4 g/dL (14.0-18.0)
--- NOTE | 2019-06-16 10:35 | Gastroenterology Progress Note ---
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 Clear liquid diet with advancement slowly as tolerated. 2. Continue Protonix ggt at 8 mg/hr for a total 72 hours. 3. Notify our service if any significant bleeding or drop in H&H, risk of rebleeding is around 30-40% as he had a visible vessel. 4. Continue supportive care. Supervising Physician Co-Signing Physician Notes I personally evaluated the patient and agree with the findings as documented by ONUR Noyola Exam: abd: soft, nt, nd ulcer with visible vessel s/p BICAP and injection 30-40% risk of rebleeding appears stable at this time Recs: PPI gtt for 72 hours then BID thereafter monitor H/H Subjective Patient reports feeling well today other than fatigue which he attributes to poor sleep. Passed some melena but his H&H remains stable at 9.4/28.8. EGD yesterday with findings of ulcer at site of prior gastric bypass with visible vessel requiring hemostasis. Remains on a PPI ggt. Remains on NPO status. Patient to be transferred out of the ICU today. Review of Systems Constitutional: as per Subjective / HPI Respiratory: no problem reported Cardiovascular: no problem reported Gastrointestinal: no abdominal pain, no nausea and no vomiting Physical Exam Constitutional: WD/WN, vitals as above Respiratory: normal respiratory effort, lungs clear to auscultation Cardiovascular: RRR, no murmur, no edema Gastrointestinal (Abdomen): normal bowel sounds, soft, nontender, no hepatosplenomegaly Psychiatric: A+Ox3, euthymic affect Results & Data Vital Signs (Past 12 Hours) Vital Signs Temp Pulse Resp BP Pulse Ox 06/16/19 06:00 63 18 97/59 L 100 06/16/19 04:00 36.7 C 67 19 100/60 100 06/16/19 02:00 68 17 135/70 100 06/16/19 00:00 36.8 C 77 18 119/64 99 Laboratory Results Abnormal lab results 06/15/19 06/15/19 06/15/19 Range/Units 04:59 06:09 12:13 RBC (4.7-6.1) M/uL Hgb 10.5 L (14.0-18.0) g/dL POC Hgb 9.5 L (14.0-18.0) g/dl Hct 32.4 L (42-52) % POC Hct 28 L (42-52) % RDW Std Deviation (36.4-46.3) fL RDW Coeff of Aria (11.5-14.5) % Immature Gran # (Auto) (0.00-0.02) K/uL [place] # (Auto) (0.11-0.59) K/uL POC Potassium 5.7 H (3.3-5.0) mEq/L Chloride (98-107) mmol/L POC BUN 31 H (7-18) mg/dl BUN (7-18) mg/dl BUN/Creatinine Ratio (10-20) Glucose (70-99) mg/dl POC Glucose (70-99) POC Glucose (other) 141 H (70-99) mg/dl Calcium (8.5-10.1) mg/dl POC Ioniz Calcium Sahra 1.07 L (1.12-1.32) mmol/l Total Protein (6.4-8.2) gm/dl Albumin (3.4-5.0) gm/dl Crossmatch See Detail 06/15/19 06/15/19 06/15/19 Range/Units 12:38 14:59 18:16 RBC (4.7-6.1) M/uL Hgb 10.0 L (14.0-18.0) g/dL POC Hgb (14.0-18.0) g/dl Hct 30.3 L (42-52) % POC Hct (42-52) % RDW Std Deviation (36.4-46.3) fL RDW Coeff of Aria (11.5-14.5) % Immature Gran # (Auto) (0.00-0.02) K/uL [place] # (Auto) (0.11-0.59) K/uL POC Potassium (3.3-5.0) mEq/L Chloride (98-107) mmol/L POC BUN (7-18) mg/dl BUN (7-18) mg/dl BUN/Creatinine Ratio (10-20) Glucose (70-99) mg/dl POC Glucose 108 H 109 H (70-99) POC Glucose (other) (70-99) mg/dl Calcium (8.5-10.1) mg/dl POC Ioniz Calcium Sahra (1.12-1.32) mmol/l Total Protein (6.4-8.2) gm/dl Albumin (3.4-5.0) gm/dl Crossmatch 06/15/19 06/15/19 06/16/19 Range/Units 21:14 21:14 03:56 RBC 3.06 L (4.7-6.1) M/uL Hgb 10.0 L 9.4 L (14.0-18.0) g/dL POC Hgb (14.0-18.0) g/dl Hct 30.2 L 28.8 L (42-52) % POC Hct (42-52) % RDW Std Deviation 57.0 H (36.4-46.3) fL RDW Coeff of Aria 16.7 H (11.5-14.5) % Immature Gran # (Auto) 0.03 H (0.00-0.02) K/uL [place] # (Auto) 0.60 H (0.11-0.59) K/uL POC Potassium (3.3-5.0) mEq/L Chloride 110 H (98-107) mmol/L POC BUN (7-18) mg/dl BUN 26 H (7-18) mg/dl BUN/Creatinine Ratio 39.9 H (10-20) Glucose 106 H (70-99) mg/dl POC Glucose (70-99) POC Glucose (other) (70-99) mg/dl Calcium 7.8 L (8.5-10.1) mg/dl POC Ioniz Calcium Sahra (1.12-1.32) mmol/l Total Protein (6.4-8.2) gm/dl Albumin (3.4-5.0) gm/dl Crossmatch 06/16/19 06/16/19 06/16/19 Range/Units 03:56 08:18 10:03 RBC (4.7-6.1) M/uL Hgb 9.4 L (14.0-18.0) g/dL POC Hgb (14.0-18.0) g/dl Hct 28.9 L (42-52) % POC Hct (42-52) % RDW Std Deviation (36.4-46.3) fL RDW Coeff of Aria (11.5-14.5) % Immature Gran # (Auto) (0.00-0.02) K/uL [place] # (Auto) (0.11-0.59) K/uL POC Potassium (3.3-5.0) mEq/L Chloride 110 H (98-107) mmol/L POC BUN (7-18) mg/dl BUN 22 H (7-18) mg/dl BUN/Creatinine Ratio 36.2 H (10-20) Glucose 104 H (70-99) mg/dl POC Glucose 103 H (70-99) POC Glucose (other) (70-99) mg/dl Calcium 7.3 L (8.5-10.1) mg/dl POC Ioniz Calcium Sahra (1.12-1.32) mmol/l Total Protein 5.1 L (6.4-8.2) gm/dl Albumin 2.3 L (3.4-5.0) gm/dl Crossmatch PG Care Time/CCT Total # of Minutes Spent Total Time Spent with Patient: Total time spent is greater than 50% in coordination of care (as documented) at patient's floor/unit and/or counseling patient: (1) GI bleed GI bleed type/associated pathology: unspecified gastrointestinal hemorrhage type Qualified Code(s): K92.2 - Gastrointestinal hemorrhage, unspecified
[2019-06-16] MEDS: SODIUM CHLORIDE 0.9% 1000ML 1,000 ML IV SCH (11:19)
[2019-06-16 11:24] LABS: Estimated Average Glucose 120 mg/dl; Hemoglobin A1C 5.8 % (4.5-5.6)
[2019-06-16 18:59] LABS: Hematocrit (blood only) 29.2 % (42-52); Hemoglobin 9.6 g/dL (14.0-18.0)
[2019-06-16] MEDS: IRON SUCROSE 100 MG in 0.9 % SODIUM CHLORIDE 100 ML IV SCH (20:51)
[2019-06-17 01:15] LABS: Hematocrit (blood only) 26.7 % (42-52); Hemoglobin 8.7 g/dL (14.0-18.0)
[2019-06-17] MEDS: PANTOprazole 40 MG in DEXTROSE 5% 100 ML IV SCH ×4 (04:44→20:28)
[2019-06-17 05:28] LABS: Basophils # (auto) 0.01 K/uL (0-0.2); Basophils % (auto) 0.1 %; Eosinophils # (auto) 0.43 K/uL (0-0.5); Eosinophils % (auto) 6.3 %; Hematocrit (blood only) 28.4 % (42-52); Hemoglobin 9.1 g/dL (14.0-18.0); Immature Granulocytes # (auto) 0.01 K/uL (0.00-0.02); Immature Granulocytes % (auto) 0.1 %; Lymphocytes # (auto) 1.78 K/uL (1.2-3.4); Lymphocytes % (auto) 26.1 %; Mean Corpuscular Hemoglobin 30.3 pg (25-34); Mean Corpuscular Volume 94.7 fL (80-100); Mean Platelet Volume 9.2 fL (7.4-10.4); Monocytes # (auto) 0.62 K/uL (0.11-0.59); Monocytes % (auto) 9.1 %; Neutrophils # (auto) 3.98 K/uL (1.4-6.5); Neutrophils % (auto) 58.3 %; Platelet Count 174 K/uL (130-400); RDW Coefficient of Variation 16.2 % (11.5-14.5); RDW Standard Deviation 56.3 fL (36.4-46.3); White Blood Count 6.83 K/uL (4.8-10.8)
[2019-06-17 05:38] LABS: INR 1.1 (0.9-1.1); Prothrombin Time 10.9 Seconds (9.0-12.0)
[2019-06-17 05:59] LABS: BUN Creatinine Ratio 18.7 (10-20); Calcium 7.4 mg/dl (8.5-10.1); Creatinine Clr Calc Pharmacy 193.6 ml/min; Est GFR (African American) 127.8; Est GFR (Non-African American) 110.3; Potassium 3.5 mmol/L (3.5-5.1)
[2019-06-17] MEDS: ATORVASTATIN 40 MG TAB PO SCH (09:02)
[2019-06-17] MEDS: INSULIN ASPART 100 UNITS/ML 3 ML PEN SC SCH ×4 (09:03→21:55)
[2019-06-17] MEDS: SODIUM CHLORIDE 0.9% 1000ML 1,000 ML IV SCH (10:12)
--- NOTE | 2019-06-17 12:21 | Hospitalist Progress Note ---
Date of Service June 17, 2019 Assessment & Plan (1) GI bleed: History of gastric bypass. EGD by Dr. Olivas on 06/15 revealed a nddtz-kz-[id number] limb 1.4cm ulcer with visible vessel. Successfully treated with epi and cautery. Received 1 unit of PRBCs on 06/15. - Continue PPI ggt x 3 days per GI - Will finish on 06/18 in the afternoon - After transition to oral PPI BID - Holding aspirin - Monitor hgb - Stable so far at around 9. - IV iron - Advance diet slowly (2) Hypovolemic shock: Due to upper GI bleed. - Resolved (3) Anemia: - See above (4) Hyperlipidemia: Restarted atorvastatin (5) Hyperglycemia: Blood glucose 191 upon admission. No record of diabetes. A1c was 5.8%. - Sliding scale insulin (6) DVT prophylaxis: SCDs - Given GI bleed with 30-40% chance of rebleed per GI Subjective Passed a few small melenic stools last night, but otherwise no pain. Reports no fevers/chills, chest pain, shortness of breath, abdominal pain, nausea, or vomiting. Physical Exam Constitutional: + obese; no acute distress and not lethargic Eyes: EOM intact bilaterally; no conjunctival abnormality ENMT: external ear and nose normal, oropharynx normal Neck: trachea midline, no thyromegaly normal visual inspection Respiratory: normal respiratory effort, lungs clear to auscultation no respiratory distress Cardiovascular: RRR, no murmur, no edema Gastrointestinal (Abdomen): Inspection/Auscultation: abdomen normal to inspection and normal bowel sounds; abdomen not distended Percussion/Palpation: abdomen soft; abdomen nontender, no guarding and abdomen not rigid Musculoskeletal: no cyanosis or clubbing, extremities motor strength 5/5 Skin: no rashes, warm and dry Neurologic: moves all extremities and awake Psychiatric: Orientation: alert, oriented to person and cooperative Results & Data Vital Signs (Past 12 Hours) Vital Signs Temp Pulse Pulse Resp BP Pulse Ox 06/17/19 11:18 36.7 C 58 L 18 144/77 H 93 06/17/19 07:45 72 06/17/19 07:32 36.7 C 63 18 109/66 98 06/17/19 04:46 36.8 C 64 18 119/66 93 PG Care Time/CCT Total # of Minutes Spent Total Time Spent with Patient: Total time spent is greater than 50% in coordination of care (as documented) at patient's floor/unit and/or counseling patient: (1) GI bleed GI bleed type/associated pathology: unspecified gastrointestinal hemorrhage type Qualified Code(s): K92.2 - Gastrointestinal hemorrhage, unspecified (2) Anemia Anemia type: unspecified type Qualified Code(s): D64.9 - Anemia, unspecified
--- NOTE | 2019-06-17 14:25 | Gastroenterology Progress Note ---
Date of Service June 17, 2019 Assessment & Plan (1) Ulcer at site of surgical anastomosis following bypass of stomach: Complete 72 hour Protonix gtt, then Protonix 40 mg by mouth twice daily. Will need colonoscopy in September for surveillance Followup in our office in 4-6 weeks. Subjective Patient is feeling much better. Eating well. He did have a BM this AM, and did note some dark stools. He denies any fevers, chills, nausea, vomiting, diarrhea, hematemesis, or hematochezia. Review of Systems Review of Systems: All systems reviewed & are unremarkable except as noted in HPI & below Physical Exam Constitutional: WD/WN, vitals as above Respiratory: normal respiratory effort, lungs clear to auscultation Cardiovascular: RRR, no murmur, no edema Gastrointestinal (Abdomen): normal bowel sounds, soft, nontender, no hepatosplenomegaly Results & Data Vital Signs (Past 12 Hours) Vital Signs Temp Pulse Pulse Resp BP Pulse Ox 06/17/19 11:18 36.7 C 58 L 18 144/77 H 93 06/17/19 07:45 72 06/17/19 07:32 36.7 C 63 18 109/66 98 06/17/19 04:46 36.8 C 64 18 119/66 93 PG Care Time/CCT Total # of Minutes Spent Total Time Spent with Patient: Total time spent is greater than 50% in coordination of care (as documented) at patient's floor/unit and/or counseling patient:
[2019-06-17] MEDS: IRON SUCROSE 100 MG in 0.9 % SODIUM CHLORIDE 100 ML IV SCH (20:25)
[2019-06-18] MEDS: PANTOprazole 40 MG in DEXTROSE 5% 100 ML IV SCH ×4 (02:03→16:58)
[2019-06-18] MEDS: ATORVASTATIN 40 MG TAB PO SCH (07:35)
[2019-06-18] MEDS: INSULIN ASPART 100 UNITS/ML 3 ML PEN SC SCH ×2 (08:55→12:50)
--- NOTE | 2019-06-18 13:58 | Hospitalist Progress Note ---
Date of Service June 18, 2019 Assessment & Plan (1) GI bleed: History of gastric bypass. EGD by Dr. Olivas on 06/15 revealed a uokvb-nf-zoqejds limb 1.4cm ulcer with visible vessel. Successfully treated with epi and cautery. Received 1 unit of PRBCs on 06/15. - Continued PPI ggt x 3 days per GI - finished on 06/18 in the afternoon - PPI PO BID - Holding aspirin x 4 weeks minimum (for primary prevention, so benefit is less clear) - Monitor hgb - Stable so far at around 9. - IV iron - Advance diet slowly (2) Hypovolemic shock: Due to upper GI bleed. - Resolved (3) Anemia: - See above (4) Hyperlipidemia: Restarted atorvastatin (5) Hyperglycemia: Blood glucose 191 upon admission. No record of diabetes. A1c was 5.8%. - Blood sugars have been stable around 100. No further checks. (6) DVT prophylaxis: SCDs - Given GI bleed with 30-40% chance of rebleed per GI Subjective Doing fine today. No major concerns. Some darker, maroon stool in the toilet still, but smaller amounts. Reports no fevers/chills, chest pain, shortness of breath, abdominal pain, nausea, or vomiting. Physical Exam Constitutional: + obese; no acute distress and not lethargic Eyes: EOM intact bilaterally; no conjunctival abnormality ENMT: external ear and nose normal, oropharynx normal Neck: trachea midline, no thyromegaly normal visual inspection Respiratory: normal respiratory effort, lungs clear to auscultation no respiratory distress Cardiovascular: RRR, no murmur, no edema Gastrointestinal (Abdomen): Inspection/Auscultation: abdomen normal to inspection and normal bowel sounds; abdomen not distended Percussion/Palpation: abdomen soft; abdomen nontender, no guarding and abdomen not rigid Musculoskeletal: no cyanosis or clubbing, extremities motor strength 5/5 Skin: no rashes, warm and dry Neurologic: moves all extremities and awake Psychiatric: Orientation: alert, oriented to person and cooperative Results & Data Vital Signs (Past 12 Hours) Vital Signs Temp Pulse Resp BP Pulse Ox 06/18/19 07:47 36.5 C 66 18 120/72 96 PG Care Time/CCT Total # of Minutes Spent Total Time Spent with Patient: Total time spent is greater than 50% in coordination of care (as documented) at patient's floor/unit and/or counseling patient: (1) GI bleed GI bleed type/associated pathology: unspecified gastrointestinal hemorrhage type Qualified Code(s): K92.2 - Gastrointestinal hemorrhage, unspecified (2) Anemia Anemia type: unspecified type Qualified Code(s): D64.9 - Anemia, unspecified
[2019-06-18] MEDS ORDERED: IRON SUCROSE 200 MG in 0.9 % SODIUM CHLORIDE 100 ML IV ONE (14:15)
[2019-06-18] MEDS: PANTOprazole 40 MG TAB PO SCH (21:27)
[2019-06-19 07:03] LABS: Hematocrit (blood only) 26.7 % (42-52); Hemoglobin 8.7 g/dL (14.0-18.0)
[2019-06-19] MEDS: PANTOprazole 40 MG TAB PO SCH (08:01)
[2019-06-19] MEDS: ATORVASTATIN 40 MG TAB PO SCH (08:01)
[2019-06-19] MEDS ORDERED: PANTOprazole 40 MG TAB PO SCH (12:15)
[2019-06-19] MEDS ORDERED: INFLUENZA ADMINISTRATION CHARGE ONE (14:45)
--- NOTE | 2019-06-19 17:51 | Discharge Summary ---
Date of Service June 19, 2019 Admission HPI Per Admitting Provider The patient is a 64 yo male with a PMH including gastric bypass about 18 years ago, HTN and hyperlipidemia, who presents to the ED with the above complaints. He has intermittently felt light headed but has not passed out. He did have brief interval of precordial chest tightness, that has resolved spontaneously. He does take aspirin daily in the morning. He does not take any other NSAIDs. Principal Diagnosis GI bleed at the anastomic site Discharge Exam Constitutional + obese; no acute distress and not lethargic Eyes EOM intact bilaterally; no conjunctival abnormality ENMT external ear and nose normal, oropharynx normal Neck trachea midline, no thyromegaly normal visual inspection Respiratory normal respiratory effort, lungs clear to auscultation no respiratory distress Cardiovascular RRR, no murmur, no edema Gastrointestinal (Abdomen) Inspection/Auscultation: abdomen normal to inspection and normal bowel sounds; abdomen not distended Percussion/Palpation: abdomen soft; abdomen nontender, no guarding and abdomen not rigid Musculoskeletal no cyanosis or clubbing, extremities motor strength 5/5 Skin no rashes, warm and dry Neurologic moves all extremities and awake Psychiatric Orientation: alert, oriented to person and cooperative Discharge Data Allergies Allergy/AdvReac Type Severity Reaction Status Date / Time No Known Allergies Allergy Mild Verified 06/15/19 06:13 Consultations 06/15/19 06:42 ED Decision to Admit Stat 06/15/19 07:12 Consult Gastroenterology Routine 06/15/19 07:43 Consult Case Management - Discharge Planning Routine Consult Leather Finisher Routine Procedures Performed Operation Date: 06/15/19 17:30 Actual Procedures p EGD Hemostasis - Bryce Olivas, DO Hospital Course (1) GI bleed: History of gastric bypass. EGD by Dr. Olivas on 06/15 revealed a qfbyu-gh-nmxeezc limb 1.4cm ulcer with visible vessel. Successfully treated with epi and cautery. Received 1 unit of PRBCs on 06/15. Received 3 doses of IV iron while inpatient. - Continued PPI ggt x 3 days per GI - finished on 06/18 in the afternoon. - Holding aspirin x 4 weeks minimum (for primary prevention, so benefit is less clear) - PPI PO BID - Monitor hgb - Stable so far at around 8.5-9. No dark BMs in the 24 hours before discharge. Blood pressure and HR stable in the 3 days prior to discharge. - Will follow up with GI in 3-4 weeks. (2) Hypovolemic shock: Due to upper GI bleed. - Resolved - HOLD BP meds on discharge as his blood pressure was low-normal the entire stay at ~110/55. Can restart in a few weeks as needed. (3) Anemia: - See above (4) Hyperlipidemia: Restarted atorvastatin (5) Hyperglycemia: Blood glucose 191 upon admission. No record of diabetes. A1c was 5.8%. - Blood sugars have been stable around 100. No further checks. (6) DVT prophylaxis: SCDs - Given GI bleed with 30-40% chance of rebleed per GI Total Time Total Time Spent Total Time Spent (In Minutes): 45 Discharge Plan Discharge Items Patient Disposition: Home - Self-Care Reason For Visit: GI BLEED, HYPOVOLEMIC SHOCK Discharge Diagnosis: GI bleed Activity: Resume your previous activity Non-emergency contact: Primary Care Provider and Hvac Project Engineer Call non-emergency contact if: your symptoms worsen Follow-up/Referrals: Bryce Olivas, [Physician] - (Please see Dr. Olivas in 3-4 weeks in the office.) Ridge Jeronimo MD [Primary Care Provider] - Diet: Heart Healthy Addtl Attending Provider Instructions: Mr. Mckeon, You were admitted to the hospital with a GI bleed. Dr. Olivas was able to stop the bleeding, and we had you on a medication to reduce your stomach acid to help the area heal. Please take the oral Protonix (pantoprazole) two times per day for at least a month until you see Dr. Olivsa in the office. STOP your aspirin until Dr. Olivas gives you clearance to take it again. Finally, please hold your blood pressure medication until you see Dr. Jeronimo in the office. Your blood pressure here was running low after losing so much blood, so I'd like to hold off on it until you blood pressure rebounds from this bleeding. Please come back to the hospital with any worsening bleeding, any li ghtheadedness, dizziness, or other symptoms. Pending Studies at Discharge: No Stand-Alone Forms: [employer], Work/School Release (Inpt), Smoking Cessation Medications and DC Order Prescriptions: New pantoprazole 40 mg Tablet,Delayed Release (Dr/Ec) 40 mg PO BID Qty: 60 RF: 1 Continued atorvastatin 80 mg tablet 80 mg PO DAILY RF: 0 multivitamin Tablet 1 tab PO DAILY RF: 0 magnesium 250 mg Tablet 250 mg PO DAILY RF: 0 coenzyme Q10 [Co Q-10] 100 mg Capsule 100 mg PO DAILY RF: 0 Discontinued spironolacton-hydrochlorothiaz 25-25 mg tablet 0.5 tab PO DAILY RF: 0 aspirin 81 mg tablet,delayed release (DR/EC) 81 mg PO DAILY RF: 0 Potassium 99mg 1 cap PO DAILY RF: 0 Discharge Orders: Discharge Order (Routine); Ordered 06/19/19 Ordered By: Mario Cool Admission Data Admit Date/Time: 06/15/19 06:47 Attending Provider: Mario Cool Admit Provider: Avila Baird Primary Care Provider: Ridge Jeronimo Other Providers: Avila Baird ; Bryce Olivas ; Tha Ly Other Interventions: Discharge Summary Assessment (RN) Last Done: 06/19/19 12:01 DC Date/Time DO NOT enter until pt leaves facility: 06/19/19 14:45
== END 2019-06-19 14:45 | disposition home or self-care (01) | DRG 377 ==
LOC: ED 04:24 → SUATTDRO 06:47 → 1E 06:47 → 2N 06-16 09:15

== ENCOUNTER 2021-01-17 19:12 | Inpatient (IN) ==
[2021-01-17] MEDS ORDERED: SODIUM CHLORIDE 0.9% 1000ML 1,000 ML IV STA (19:42)
[2021-01-17] MEDS ORDERED: SODIUM CHLORIDE 0.9% 500 ML IV SCH (19:45)
[2021-01-17] MEDS ORDERED: PANTOprazole 80 MG in DEXTROSE 5% 100 ML IV ONE (19:58)
[2021-01-17] MEDS ORDERED: PANTOPRAZOLE BOLUS/DRIP 1 EA IV STA (19:58)
[2021-01-17] MEDS ORDERED: FAMOTIDINE 20MG/5ML IV PUSH IV STA (19:58)
[2021-01-17 20:16] LABS: Basophils # (auto) 0.01 K/uL (0-0.2); Basophils % (auto) 0.1 %; Eosinophils # (auto) 0.14 K/uL (0-0.5); Eosinophils % (auto) 1.4 %; Hematocrit (blood only) 47.8 % (42-52); Hemoglobin 16.2 g/dL (14.0-18.0); Immature Granulocytes # (auto) 0.02 K/uL (0.00-0.02); Immature Granulocytes % (auto) 0.2 %; Lymphocytes # (auto) 2.69 K/uL (1.2-3.4); Lymphocytes % (auto) 26.9 %; Mean Corpuscular Hgb Conc 33.9 g/dL (32-36); Mean Corpuscular Volume 94.3 fL (80-100); Mean Platelet Volume 10.4 fL (7.4-10.4); Monocytes # (auto) 0.68 K/uL (0.11-0.59); Monocytes % (auto) 6.8 %; Neutrophils # (auto) 6.46 K/uL (1.4-6.5); Neutrophils % (auto) 64.6 %; Platelet Count 277 K/uL (130-400); RDW Coefficient of Variation 14.7 % (11.5-14.5); RDW Standard Deviation 50.8 fL (36.4-46.3); Red Blood Count 5.07 M/uL (4.7-6.1)
[2021-01-17 20:33] LABS: Albumin Level 3.8 gm/dl (3.4-5.0); BUN Creatinine Ratio 19.6 (10-20); Calcium 9.1 mg/dl (8.5-10.1); Creatinine Clr Calc Pharmacy 124.1 ml/min; Est GFR (African American) 107.1 ml/min; Est GFR (Non-African American) 92.4 ml/min; Potassium 3.6 mmol/L (3.5-5.1)
[2021-01-17 20:36] LABS: Bilirubin,Total 0.9 mg/dl (0.2-1); Globulin 3.7 gm/dl (2.5-4.0); Total Protein 7.5 gm/dl (6.4-8.2)
[2021-01-17] MEDS: PANTOprazole 40 MG in DEXTROSE 5% 100 ML IV SCH (20:48)
[2021-01-17] MEDS ORDERED: SODIUM CHLORIDE 0.9% 1000ML 1,000 ML IV ONE (21:05)
--- NOTE | 2021-01-17 21:10 | Emergency Department Note ---
Impression & Plan Acute GI bleeding ED Provider Note INFORMANT: Patient ED PROVIDER(S): Joni Paez MD CHIEF COMPLAINT: GI bleeding PLAN: Disposition: Admitted Condition: Good Outpatient prescription management: none Referral: None MEDICAL DECISION MAKING: Patient presented with acute GI bleeding. He has had ulcer disease in the past. He denies any NSAID use. The patient had an IV established. Fluids were administered. Rectal examination was positive. Patient had a benign abdominal examination. Blood work obtained. He was given IV Pepcid and Protonix bolus and drip. Consultation was made with Dr. Best GI. He recommended having the patient n.p.o., monitor him and he will evaluate the patient for possible scope tomorrow depending upon his status. Consultation was made with Dr. Avila Baird of the [facility] service. Patient was evaluated in the ER for further management. The patient did have a transient dip in his blood pressure. He was given a saline bolus. He was reassessed several times and was doing well. He has no dizziness or other symptoms. Triage Nursing notes reviewed and agree them. Vital Signs: reviewed and remarkable for tachycardia Differential diagnosis: Diverticulosis, AVM, coagulopathy, colitis, inflammatory bowel disease, malignancy, Becca-Pineda tear, esophagitis, peptic ulcer disease, variceal bleed, gastritis, epistaxis, fissure, hemorrhoids, as well as other pathologies. Diagnostics interpreted by me: ECG: Twelve-lead ECG reveals sinus tachycardia 103 bpm. Right bundle branch block. Possible lateral Q waves present. No ST elevation. No PVCs. Normal axis. Cardiac Monitoring: Cardiac monitoring ordered by me: The patient was placed on continuous cardiac monitoring and observed. It revealed a normal sinus rhythm at 110 beats per minute without ectopy or evidence of dysrhythmia. Imaging studies: Deferred HPI: The patient is a 65 year old male who presents to the Emergency Room with complaints of GI bleeding he has had 3 bloody bowel movements today. Notes red and dark blood. This started today and is worsening. The patient also notes the following associated symptoms, very minimal epigastric abdominal discomfort. The patient has taken no medication for relieving factors. Current pain is rated as 1/10. Patient states he has a history of gastric bypass and ulcers. Feels similar to prior episode. Pt denies LOC, headache, fevers, chills, diaphoresis, visual changes, neck pain, chest pain, breathing difficulties, nausea, vomiting, back pain, urinary symptoms, numbness, weakness, lymphadenopathy, rash, or other complaints. ROS: See above HPI for pertinent positives & negatives. A total of 10 systems reviewed and were otherwise negative. PAST MEDICAL HISTORY:See Below , peptic ulcer disease PAST SURGICAL HISTORY:See Below, gastric bypass FAMILY HISTORY:See Below SOCIAL HISTORY:See Below, retired HOME MEDICATIONS:See Below ALLERGIES:See Below VITALS:See Below PHYSICAL EXAMINATION: GENERAL: Awake, alert, well-appearing, in no distress HENT: Normocephalic, atraumatic. Oropharynx unremarkable. EYES: Normal conjunctiva. Sclera non-icteric. NECK: Inspection normal. Non-tender. Supple. No nuchal rigidity. FROM. No masses. RESPIRATORY: Clear to auscultation. No wheezes. No rales. Normal respiratory effort. CARDIAC: Borderline tachycardic rate. Normal rhythm. No murmurs. No rubs. Extremities warm and well perfused. Pulses equal. No JVD. GI: Soft, non-distended. Very minimal epigastric tenderness to palpation. No rebound or guarding. No masses. RECTAL: Gross blood. Hemoccult positive. MUSCULOSKELETAL: Atraumatic. Chest examination reveals no tenderness. The back is symmetrical on inspection without obvious abnormality. There is no CVA tenderness to palpation. No joint edema. LOWER EXTREMITIES: Calves are equal size bilaterally and non-tender. 2+ edema. Chronic venous discoloration. NEURO: Normal sensorium. No sensory or motor deficits noted. SKIN: No rash or jaundice noted. Joni Paez MD Past Med/Surg History Medical History (Updated 01/17/21 @ 22:13 by ONUR Kebede) Anxiety and depression Cellulitis of right leg Environmental allergies GERD (gastroesophageal reflux disease) GI bleed due to NSAIDs Hearing deficit Hyperlipidemia Hypertension Osteoarthritis Pulmonary hypertension Sleep apnea CPAP Superficial thrombophlebitis Thrombosis SUPERFICIAL BLOOD CLOT RT LEG Surgical History H/O gastric bypass H/O shoulder surgery History of bilateral carpal tunnel release History of colonoscopy History of discectomy LUMBAR DISCECTOMY History of esophagogastroduodenoscopy (EGD) History of gastric bypass History of herniorrhaphy History of total hip arthroplasty RT History of total knee replacement LEFT Varicose veins of both lower extremities LASER PROCEDURE Family History Mother Family history of reaction to anesthesia difficulty of waking Dementia Parkinsons disease Father Myocardial infarction Unknown Hypertension Arthritis Other No significant family history Social History Smoking Status: Former smoker Cigarettes Per Day: 10; Second Hand Exposure: No; Hx Alcohol Use: No Hx Substance Use: No Preferred Language: Mongolian Communication Ability: Effective Communication Tools: Letter Board, Picture Board and Writing Tablet [employer] Terminal Manager Required: No Beliefs That Will Affect Care: None marital status: Current Living Situation: Spouse current occupational status: employed 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 Feels Safe at Home: Yes Assistive Devices: Cane and Glasses Allergies Allergies Allergy/AdvReac Type Severity Reaction Status Date / Time POLLEN Allergy Mild Sneezing Uncoded 01/17/21 20:25 Home Meds Home Medications Medication Instructions Recorded Confirmed coenzyme Q10 [Co Q-10] 100 mg PO QAM 06/15/19 01/17/21 multivitamin 1 tab PO QAM 06/15/19 01/17/21 vitamin A 2,400 mcg capsule 8,000 units PO DAILY 07/12/19 01/17/21 mecobalamin (vitamin B12) 1,000 2,000 mcg PO QAM tab 07/19/19 01/17/21 mcg disintegrating tablet,sublingual [place]-3 Fish Oil 1 cap PO QAM 09/08/19 01/17/21 ascorbic acid (vitamin C) [Vitamin 500 mg PO DAILY 01/17/21 01/17/21 C] cholecalciferol (vitamin D3) 50 mcg PO DAILY 01/17/21 01/17/21 [Vitamin D3] cinnamon bark [Cinnamon] 500 mg PO DAILY 01/17/21 01/17/21 diphenhydramine HCl [Benadryl] 25 mg PO HS PRN 01/17/21 01/17/21 magnesium oxide 400 mg PO DAILY 01/17/21 01/17/21 selenium 200 mcg PO DAILY 01/17/21 01/17/21 turmeric 400 mg PO DAILY 01/17/21 01/17/21 Previous Rx's Medication Instructions Recorded omeprazole 20 mg PO DAILY #30 cap 09/19/19 Results & Data (ED) Vital Signs Vital Signs - 24 hr 01/17/21 19:18 01/17/21 19:52 01/17/21 19:58 Temperature 36.4 C L Temperature Source Temporal Artery Scan Pulse Rate 121 H 110 H 112 H Pulse Rate from SpO2 Sensor 110 H 112 H Pulse Rhythm Regular Regular Pulse Strength Normal Respiratory Rate 22 15 18 Respiratory Effort / Characteristics Non-Labored Spontaneous Respiratory Depth Normal Respiratory Pattern Regular Blood Pressure 146/90 H 114/99 Blood Pressure Mean 108 104 Blood Pressure Position Sitting Pulse Oximetry 95 98 96 Oxygen Delivery Method Room Air Room Air Sepsis Recent Fever Within 48 Hours No Sepsis New/Unexplained Change in Mental Status No Sepsis Action Taken by Nursing No Action Required 01/17/21 20:00 01/17/21 20:01 01/17/21 20:15 Temperature Temperature Source Pulse Rate 103 H 102 H 96 H Pulse Rate from SpO2 Sensor 102 H 102 H 96 H Pulse Rhythm Pulse Strength Respiratory Rate 21 25 H 21 Respiratory Effort / Characteristics Respiratory Depth Respiratory Pattern Blood Pressure 129/84 Blood Pressure Mean 99 Blood Pressure Position Pulse Oximetry 95 93 96 Oxygen Delivery Method Sepsis Recent Fever Within 48 Hours Sepsis New/Unexplained Change in Mental Status Sepsis Action Taken by Nursing 01/17/21 20:16 01/17/21 20:30 01/17/21 20:33 Temperature Temperature Source Pulse Rate 94 H 89 87 Pulse Rate from SpO2 Sensor 95 H 89 87 Pulse Rhythm Pulse Strength Respiratory Rate 20 20 24 Respiratory Effort / Characteristics Respiratory Depth Respiratory Pattern Blood Pressure 83/54 L 87/55 L Blood Pressure Mean 63 65 Blood Pressure Position Pulse Oximetry 96 94 94 Oxygen Delivery Method Sepsis Recent Fever Within 48 Hours Sepsis New/Unexplained Change in Mental Status Sepsis Action Taken by Nursing 01/17/21 20:45 01/17/21 20:46 01/17/21 21:00 Temperature Temperature Source Pulse Rate 86 85 81 Pulse Rate from SpO2 Sensor 86 86 81 Pulse Rhythm Pulse Strength Respiratory Rate 22 25 H 22 Respiratory Effort / Characteristics Respiratory Depth Respiratory Pattern Blood Pressure 91/58 L 75/48 L Blood Pressure Mean 69 57 Blood Pressure Position Pulse Oximetry 92 92 91 Oxygen Delivery Method Sepsis Recent Fever Within 48 Hours Sepsis New/Unexplained Change in Mental Status Sepsis Action Taken by Nursing 01/17/21 21:01 01/17/21 21:02 01/17/21 21:03 Temperature Temperature Source Pulse Rate 82 76 81 Pulse Rate from SpO2 Sensor 82 77 82 Pulse Rhythm Pulse Strength Respiratory Rate 18 19 24 Respiratory Effort / Characteristics Respiratory Depth Respiratory Pattern Blood Pressure 70/46 L 73/44 L Blood Pressure Mean 54 53 Blood Pressure Position Pulse Oximetry 92 94 91 Oxygen Delivery Method Sepsis Recent Fever Within 48 Hours Sepsis New/Unexplained Change in Mental Status Sepsis Action Taken by Nursing 01/17/21 21:09 01/17/21 21:15 01/17/21 21:16 Temperature Temperature Source Pulse Rate 81 80 79 Pulse Rate from SpO2 Sensor 81 80 79 Pulse Rhythm Pulse Strength Respiratory Rate 26 H 23 18 Respiratory Effort / Characteristics Respiratory Depth Respiratory Pattern Blood Pressure 70/43 L 80/47 L Blood Pressure Mean 52 58 Blood Pressure Position Pulse Oximetry 93 96 94 Oxygen Delivery Method Sepsis Recent Fever Within 48 Hours Sepsis New/Unexplained Change in Mental Status Sepsis Action Taken by Nursing 01/17/21 21:17 01/17/21 21:22 01/17/21 21:30 Temperature Temperature Source Pulse Rate 75 73 72 Pulse Rate from SpO2 Sensor 76 73 72 Pulse Rhythm Pulse Strength Respiratory Rate 20 18 16 Respiratory Effort / Characteristics Respiratory Depth Respiratory Pattern Blood Pressure 77/52 L 92/51 L 128/73 Blood Pressure Mean 60 64 91 Blood Pressure Position Pulse Oximetry 94 95 98 Oxygen Delivery Method Sepsis Recent Fever Within 48 Hours Sepsis New/Unexplained Change in Mental Status Sepsis Action Taken by Nursing 01/17/21 21:31 01/17/21 21:45 01/17/21 21:46 Temperature Temperature Source Pulse Rate 74 75 82 Pulse Rate from SpO2 Sensor 74 75 72 Pulse Rhythm Pulse Strength Respiratory Rate 16 24 25 H Respiratory Effort / Characteristics Respiratory Depth Respiratory Pattern Blood Pressure 109/68 Blood Pressure Mean 81 Blood Pressure Position Pulse Oximetry 98 97 96 Oxygen Delivery Method Sepsis Recent Fever Within 48 Hours Sepsis New/Unexplained Change in Mental Status Sepsis Action Taken by Nursing 01/17/21 22:00 01/17/21 22:01 01/17/21 23:24 Temperature Temperature Source Pulse Rate 79 78 72 Pulse Rate from SpO2 Sensor 80 78 Pulse Rhythm Pulse Strength Respiratory Rate 22 17 18 Respiratory Effort / Characteristics Respiratory Depth Respiratory Pattern Blood Pressure 110/59 L 112/64 Blood Pressure Mean 76 Blood Pressure Position Pulse Oximetry 98 97 97 Oxygen Delivery Method Room Air Room Air Room Air Sepsis Recent Fever Within 48 Hours Sepsis New/Unexplained Change in Mental Status Sepsis Action Taken by Nursing 01/18/21 00:00 Temperature Temperature Source Pulse Rate Pulse Rate from SpO2 Sensor Pulse Rhythm Pulse Strength Respiratory Rate Respiratory Effort / Characteristics SOB on Exertion Respiratory Depth Respiratory Pattern Blood Pressure Blood Pressure Mean Blood Pressure Position Pulse Oximetry Oxygen Delivery Method Sepsis Recent Fever Within 48 Hours Sepsis New/Unexplained Change in Mental Status Sepsis Action Taken by Nursing Laboratory Data Result diagrams: 01/17/21 19:55 01/17/21 19:55 Lab Results 01/17/21 01/17/21 01/17/21 Range/Units 19:53 19:55 19:55 WBC 10.00 (4.8-10.8) K/uL RBC 5.07 (4.7-6.1) M/uL Hgb 16.2 (14.0-18.0) g/dL Hct 47.8 (42-52) % MCV 94.3 (80-100) fL MCH 32.0 (25-34) pg MCHC 33.9 (32-36) g/dL RDW Std Deviation 50.8 H (36.4-46.3) fL RDW Coeff of Aria 14.7 H (11.5-14.5) % Plt Count 277 (130-400) K/uL MPV 10.4 (7.4-10.4) fL Immature Gran % (Auto) 0.2 % Neut % (Auto) 64.6 % Lymph % (Auto) 26.9 % [place] % (Auto) 6.8 % Eos % (Auto) 1.4 % Baso % (Auto) 0.1 % Neut # (Auto) 6.46 (1.4-6.5) K/uL Lymph # (Auto) 2.69 (1.2-3.4) K/uL [place] # (Auto) 0.68 H (0.11-0.59) K/uL Eos # (Auto) 0.14 (0-0.5) K/uL Baso # (Auto) 0.01 (0-0.2) K/uL Immature Gran # (Auto) 0.02 (0.00-0.02) K/uL PT INR APTT PTT Ratio Sodium (136-145) mmol/L Potassium (3.5-5.1) mmol/L Chloride (98-107) mmol/L Carbon Dioxide (21-32) mmol/L Anion Gap (3-11) BUN (7-18) mg/dl Creatinine (0.6-1.4) mg/dl Est Cr Clr Drug Dosing ml/min Est GFR ( Amer) ml/min Est GFR (Non-Af Amer) ml/min BUN/Creatinine Ratio (10-20) Glucose (70-99) mg/dl Calcium (8.5-10.1) mg/dl Total Bilirubin (0.2-1) mg/dl AST (15-37) U/L ALT (12-78) U/L Alkaline Phosphatase (45-117) U/L Total Protein (6.4-8.2) gm/dl Albumin (3.4-5.0) gm/dl Globulin (2.5-4.0) gm/dl Albumin/Globulin Ratio (0.9-2) POC Stool Occult Blood Positive A (Negative) COVID-19 Eval Order SARS-CoV-2 (PCR) (Negative) Blood Type AB Positive Antibody Screen NEGATIVE 01/17/21 01/17/21 01/17/21 Range/Units 19:55 19:55 21:45 WBC (4.8-10.8) K/uL RBC (4.7-6.1) M/uL Hgb (14.0-18.0) g/dL Hct (42-52) % MCV (80-100) fL MCH (25-34) pg MCHC (32-36) g/dL RDW Std Deviation (36.4-46.3) fL RDW Coeff of Aria (11.5-14.5) % Plt Count (130-400) K/uL MPV (7.4-10.4) fL Immature Gran % (Auto) % Neut % (Auto) % Lymph % (Auto) % [place] % (Auto) % Eos % (Auto) % Baso % (Auto) % Neut # (Auto) (1.4-6.5) K/uL Lymph # (Auto) (1.2-3.4) K/uL [place] # (Auto) (0.11-0.59) K/uL Eos # (Auto) (0-0.5) K/uL Baso # (Auto) (0-0.2) K/uL Immature Gran # (Auto) (0.00-0.02) K/uL PT Cancelled INR Cancelled APTT Cancelled PTT Ratio Cancelled Sodium 136 (136-145) mmol/L Potassium 3.6 (3.5-5.1) mmol/L Chloride 104 (98-107) mmol/L Carbon Dioxide 20 L (21-32) mmol/L Anion Gap 12.0 H (3-11) BUN 16 (7-18) mg/dl Creatinine 0.80 (0.6-1.4) mg/dl Est Cr Clr Drug Dosing 124.1 ml/min Est GFR ( Amer) 107.1 ml/min Est GFR (Non-Af Amer) 92.4 ml/min BUN/Creatinine Ratio 19.6 (10-20) Glucose 127 H (70-99) mg/dl Calcium 9.1 (8.5-10.1) mg/dl Total Bilirubin 0.9 (0.2-1) mg/dl AST 19 (15-37) U/L ALT 28 (12-78) U/L Alkaline Phosphatase 92 (45-117) U/L Total Protein 7.5 (6.4-8.2) gm/dl Albumin 3.8 (3.4-5.0) gm/dl Globulin 3.7 (2.5-4.0) gm/dl Albumin/Globulin Ratio 1.0 (0.9-2) POC Stool Occult Blood (Negative) COVID-19 Eval Order Covid19 at [facility] SARS-CoV-2 (PCR) (Negative) Blood Type Antibody Screen 01/17/21 01/17/21 Range/Units 21:45 21:52 WBC (4.8-10.8) K/uL RBC (4.7-6.1) M/uL Hgb (14.0-18.0) g/dL Hct (42-52) % MCV (80-100) fL MCH (25-34) pg MCHC (32-36) g/dL RDW Std Deviation (36.4-46.3) fL RDW Coeff of Aria (11.5-14.5) % Plt Count (130-400) K/uL MPV (7.4-10.4) fL Immature Gran % (Auto) % Neut % (Auto) % Lymph % (Auto) % [place] % (Auto) % Eos % (Auto) % Baso % (Auto) % Neut # (Auto) (1.4-6.5) K/uL Lymph # (Auto) (1.2-3.4) K/uL [place] # (Auto) (0.11-0.59) K/uL Eos # (Auto) (0-0.5) K/uL Baso # (Auto) (0-0.2) K/uL Immature Gran # (Auto) (0.00-0.02) K/uL PT 11.7 INR 1.2 H APTT 29.3 PTT Ratio 1.1 Sodium (136-145) mmol/L Potassium (3.5-5.1) mmol/L Chloride (98-107) mmol/L Carbon Dioxide (21-32) mmol/L Anion Gap (3-11) BUN (7-18) mg/dl Creatinine (0.6-1.4) mg/dl Est Cr Clr Drug Dosing ml/min Est GFR ( Amer) ml/min Est GFR (Non-Af Amer) ml/min BUN/Creatinine Ratio (10-20) Glucose (70-99) mg/dl Calcium (8.5-10.1) mg/dl Total Bilirubin (0.2-1) mg/dl AST (15-37) U/L ALT (12-78) U/L Alkaline Phosphatase (45-117) U/L Total Protein (6.4-8.2) gm/dl Albumin (3.4-5.0) gm/dl Globulin (2.5-4.0) gm/dl Albumin/Globulin Ratio (0.9-2) POC Stool Occult Blood (Negative) COVID-19 Eval Order SARS-CoV-2 (PCR) NEGATIVE (Negative) Blood Type Antibody Screen Administered Medications Sodium Chloride (Nss 1000ml) 1,000 mls @ 125 mls/hr IV .Q8H STA Stop: 01/18/21 03:41 Last Admin: 01/17/21 20:48 Dose: 125 mls/hr Documented by: [id number] Pantoprazole Sodium 40 mg/ (Dextrose) 100 mls @ 20 mls/hr IV Q5H DENIS Stop: 02/16/21 20:17 Last Admin: 01/17/21 20:48 Dose: 8 mg/hr, 20 mls/hr Documented by: [id number] Discontinued Medications Famotidine (Famotidine 20mg/5ml Iv Push) 20 mg IV ONE STA Stop: 01/17/21 19:59 Last Admin: 01/17/21 20:27 Dose: 20 mg Documented by: [id number] Sodium Chloride (Nss) 500 mls @ 999 mls/hr IV .Q31M DENIS Stop: 01/17/21 20:15 Last Infusion: 01/17/21 20:28 Dose: 0 mls/hr Documented by: [id number] Admin: 01/17/21 19:57 Dose: 999 mls/hr Documented by: [id number] Pantoprazole Sodium (Protonix Bolus/Drip) 0 mls @ 1 mls/hr IV ONE STA Stop: 01/17/21 19:59 Last Admin: 01/17/21 21:18 Dose: Not Given Documented by: [id number] Pantoprazole Sodium 80 mg/ (Dextrose) 120 mls @ 400 mls/hr IV NOW ONE Stop: 01/17/21 20:15 Last Infusion: 01/17/21 20:47 Dose: 0 mls/hr Documented by: [id number] Admin: 01/17/21 20:29 Dose: 400 mls/hr Documented by: [id number] Sodium Chloride (Nss 1000ml) 1,000 mls @ 999 mls/hr IV .Q1H1M ONE Stop: 01/17/21 22:05 Last Infusion: 01/17/21 22:20 Dose: 0 mls/hr Documented by: [id number] Admin: 01/17/21 21:19 Dose: 999 mls/hr Documented by: [id number] Discharge Plan Visit Data Chief Complaint: Abdominal Pain Stated Complaint: BLEEDING STOMACH ULCER ED Provider: Joni Paez Discharge Problem: Acute GI bleeding Patient Disposition: Admitted As Inpatient Discharge Instructions Interventions: ED Discharge Assessment Last Done: 01/17/21 23:24 Forms Stand Alone Forms: [facility] [place] Prescriptions Prescriptions: No Action vitamin A 8,000 unit capsule 8,000 units PO DAILY RF: 0 mecobalamin (vitamin B12) 1,000 mcg tablet,disintegrating 2,000 mcg PO QAM RF: 0 [place]-3 Fish Oil 300-1,000 mg Capsule 1 cap PO QAM RF: 0 omeprazole 20 mg capsule,delayed release(DR/EC) 20 mg PO DAILY Qty: 30 RF: 11 multivitamin Tablet 1 tab PO QAM RF: 0 coenzyme Q10 [Co Q-10] 100 mg Capsule 100 mg PO QAM RF: 0 ascorbic acid (vitamin C) [Vitamin C] 500 mg Tablet 500 mg PO DAILY RF: 0 diphenhydramine HCl [Benadryl] 25 mg Capsule 25 mg PO HS PRN (Reason: Sleep) RF: 0 cinnamon bark [Cinnamon] 500 mg Capsule 500 mg PO DAILY RF: 0 cholecalciferol (vitamin D3) [Vitamin D3] 50 mcg (2,000 unit) Capsule 50 mcg PO DAILY RF: 0 selenium 200 mcg Capsule 200 mcg PO DAILY RF: 0 magnesium oxide 400 mg magnesium Tablet 400 mg PO DAILY RF: 0 turmeric 400 mg Capsule 400 mg PO DAILY RF: 0 Referrals Referrals: Ridge Jeronimo MD [Primary Care Provider] -
--- NOTE | 2021-01-17 21:41 | History & Physical Report ---
Date of Service January 17, 2021 Assessment & Plan (1) Acute GI bleeding: Unspecified- sebastian blood reported- no abdominal pain or discomfort - [place]-3 - Shock index 0.7 - HR decreased following crystalloid administration- agree volume down with hemoconcentration on presentation - BP variable, with the size of his arms- cuff fits poorly. He is warm and well perfused, mentating and no dizziness when sitting up and no increase in HR when sitting up. - BUN not elevated - Typed and crossed - large bore IV 18g in right AC - NPO now - GI consult placed- Dr. Olivas - Protonix drip started in [facility]- continue (2) Venous stasis ulcer: Chronic used to follow with wound care- no acute needs but chronic venous stasis - no acute need, compression socks vs. SCD's (3) Lower extremity edema: As above- chronic. Likely related to noncompliance with CPAP - No echo since 2009 - not on disease modifying agents (4) Hyperlipidemia: As above- lipids in the morning A1C in morning -patient with metabolic syndrome (5) Obesity: Morbidly obese- previous gastric bypass patient reports >20 years ago - ? association with ulcerations/GI bleeds - ? Obesity hypoventiltion- HCO3 not available for trend but in 2019 >27 - currently 20, follow after hemodynamics imrpoved (6) Sleep apnea: Prescribed CPAP in 2016- patient says he stopped wearing this - Would recommend getting back to PCP for repeat sleep study and CPAP assessment - Decrease mortality benefit - Likely assist with lower extremity edema as well History of Present Illness Primary Care Provider: Ridge Jeronimo MD 65 YOM with past medical history of obesity, gastritis with upper GI Bleed, colonoscopy with polyps and diverticular in 09/22, venous stasis ulcerations of lower extremities, gastric bypass and left total knee. Patient reports that this morning he had small amount of blood in his stool and in the water, as the day went on his BM changed to more liquid and more blood. States 5 times today he went to the bathroom, last one was around 1800 when in the waiting room and was all mostly blood. He was FOBT grossly positive as reported by [facility] physician. Patient denies that he experienced any light headedness, dyspnea, chest pain with any of his symptoms. He denies using any NSAIDS. Patient does appear contracted on his labs. He received ~1.5 liters of crystalloid in the EMD, with decrease in his HR to 70s. He has had no further BM or bleeding from his rectum. He was started on a Protonix drip following a Protonix bolus and typed and crossed. Allergies Allergy/AdvReac Type Severity Reaction Status Date / Time POLLEN Allergy Mild Sneezing Uncoded 01/17/21 20:25 Home Medications Medication Instructions Recorded Confirmed Type coenzyme Q10 [Co Q-10] 100 mg PO QAM 06/15/19 01/17/21 History multivitamin 1 tab PO QAM 06/15/19 01/17/21 History vitamin A 2,400 mcg capsule 8,000 units PO DAILY 07/12/19 01/17/21 History mecobalamin (vitamin B12) 1,000 2,000 mcg PO QAM tab 07/19/19 01/17/21 History mcg disintegrating tablet,sublingual [place]-3 Fish Oil 1 cap PO QAM 09/08/19 01/17/21 History omeprazole 20 mg PO DAILY #30 cap 09/19/19 01/17/21 Rx cholecalciferol (vitamin D3) 50 mcg PO DAILY 01/17/21 01/17/21 History [Vitamin D3] cinnamon bark [Cinnamon] 500 mg PO DAILY 01/17/21 01/17/21 History diphenhydramine HCl [Benadryl] 25 mg PO HS PRN 01/17/21 01/17/21 History magnesium oxide 400 mg PO DAILY 01/17/21 01/17/21 History selenium 200 mcg PO DAILY 01/17/21 01/17/21 History turmeric 400 mg PO DAILY 01/17/21 01/17/21 History Past Med/Surg History Medical History (Updated 01/18/21 @ 12:05 by Edgardo Petty MD) Acute GI bleeding Anemia Anxiety and depression Cellulitis of right leg Environmental allergies GERD (gastroesophageal reflux disease) GI bleed due to NSAIDs Hearing deficit History of gastric ulcer Hyperlipidemia Hypertension Obesity Osteoarthritis Pulmonary hypertension Sleep apnea CPAP Superficial thrombophlebitis Thrombosis SUPERFICIAL BLOOD CLOT RT LEG Surgical History H/O gastric bypass H/O shoulder surgery History of bilateral carpal tunnel release History of colonoscopy History of discectomy LUMBAR DISCECTOMY History of esophagogastroduodenoscopy (EGD) History of gastric bypass History of herniorrhaphy History of total hip arthroplasty RT History of total knee replacement LEFT Varicose veins of both lower extremities LASER PROCEDURE Family History Mother Family history of reaction to anesthesia difficulty of waking Dementia Parkinsons disease Father Myocardial infarction Unknown Hypertension Arthritis Other No significant family history Social History Smoking Status: Never smoker Second Hand Exposure: No; Hx Alcohol Use: Yes Alcohol type: wine Hx Substance Use: No Preferred Language: Kinyarwanda Communication Ability: Effective Communication Tools: Letter Board, Picture Board and Writing Tablet Mechanical Systems Engineer Required: No Beliefs That Will Affect Care: None marital status: Current Living Situation: Spouse current occupational status: employed 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 [employer] Feels Safe at Home: Yes Assistive Devices: None Review of Systems Review of Systems: REVIEW OF SYSTEMS: Constitutional: No fever, sweats or chills Eyes: No diplopia, no worsening or blurred vision ENT: normal hearing, no trouble swallowing Respiratory: No cough, sputum, dyspnea at rest or on exertion Cardiovascular: No chest pain, tightness or palpitations Abdomen: (+) bloody stools and blood in toilet, No pain, nausea, vomiting, diarrhea or constipation Musculoskeletal: No joint pain, calf pain, swelling Neurologic: No weakness, numbness/tingling, or balance problems Psychiatric: No anxiety or depression Skin: No rash or itch Physical Exam Physical Exam: PHYSICAL EXAM: General: awake, alert, no apparent distress Head: Normocephalic, atraumatic ENT: PERRL, EOMI, no pharyngeal exudate, mucous membranes moist Neuro: AAO x 3, speech clear and appropriate, strength intact bilaterally 5/5, sensation intact and equal all extremities and dermatomes, no pronator drift Chest: equal rise and fall of the chest, no accessory muscle use, no heaves or thrills, Clear to auscultation, on room air, Cardiac: Regular rate and rhythm, telemetry reviewed, skin warm dry, cap refill <3 seconds, peripheral pulses +2 no JVD, no murmur, +3 edema feet up to knees. GI: NABS x 4 quadrants, soft, obese, nontender to palpation, no rebound, guarding or tenderness : Spontaneously voiding, no pain, no CVA tenderness, Extremities: Normal inspection, no peripheral edema or erythema, calfs nontender to palpation Psych: Normal mood and affect Skin: no rash or erythema Results & Data Results & Data ([facility]) Vital Signs (Past 12 Hours) Vital Signs Temp Pulse Resp BP Pulse Ox 01/17/21 19:52 110 H 24 95 01/17/21 19:18 36.4 C L 121 H 22 146/90 H 95 Laboratory Results Abnormal lab results 01/17/21 01/17/21 01/17/21 Range/Units 19:53 19:55 19:55 RDW Std Deviation 50.8 H (36.4-46.3) fL RDW Coeff of Aria 14.7 H (11.5-14.5) % [place] # (Auto) 0.68 H (0.11-0.59) K/uL Carbon Dioxide 20 L (21-32) mmol/L Anion Gap 12.0 H (3-11) Glucose 127 H (70-99) mg/dl POC Stool Occult Blood Positive A (Negative) Diagnostic Findings None performed Medications Administered Sodium Chloride (Nss 1000ml) 1,000 mls @ 125 mls/hr IV .Q8H STA Stop: 01/18/21 03:41 Last Admin: 01/17/21 20:48 Dose: 125 mls/hr Documented by: [id number] Pantoprazole Sodium 40 mg/ (Dextrose) 100 mls @ 20 mls/hr IV Q5H DENIS Stop: 02/16/21 20:17 Last Admin: 01/17/21 20:48 Dose: 8 mg/hr, 20 mls/hr Documented by: [id number] Sodium Chloride (Nss 1000ml) 1,000 mls @ 999 mls/hr IV .Q1H1M ONE Stop: 01/17/21 22:05 Last Admin: 01/17/21 21:19 Dose: 999 mls/hr Documented by: [id number] Discontinued Medications Famotidine (Famotidine 20mg/5ml Iv Push) 20 mg IV ONE STA Stop: 01/17/21 19:59 Last Admin: 01/17/21 20:27 Dose: 20 mg Documented by: [id number] Sodium Chloride (Nss) 500 mls @ 999 mls/hr IV .Q31M DENIS Stop: 01/17/21 20:15 Last Infusion: 01/17/21 20:28 Dose: 0 mls/hr Documented by: [id number] Admin: 01/17/21 19:57 Dose: 999 mls/hr Documented by: [id number] Pantoprazole Sodium (Protonix Bolus/Drip) 0 mls @ 1 mls/hr IV ONE STA Stop: 01/17/21 19:59 Last Admin: 01/17/21 21:18 Dose: Not Given Documented by: [id number] Pantoprazole Sodium 80 mg/ (Dextrose) 120 mls @ 400 mls/hr IV NOW ONE Stop: 01/17/21 20:15 Last Infusion: 01/17/21 20:47 Dose: 0 mls/hr Documented by: [id number] Admin: 01/17/21 20:29 Dose: 400 mls/hr Documented by: [id number] ECG Additional Comments: Sinus tachycardia Right bundle branch block Possible Lateral infarct , age undetermined Inferior infarct (cited on or before 17-JUN-2019) Abnormal ECG When compared with ECG of 17-JUN-2019 06:22, Vent. rate has increased BY 35 BPM Code Status & VTE Plan Code Status CODE: FULL VTE: SCDs VTE Prophylaxis Plan VTE Prophylaxis will be ordered: Yes Supervising Physician Co-Signing Physician Notes Attending addendum: I have physically seen this patient, have supervised the LEIGHTON's activities, and agree with the H&P unless as otherwise noted. Assessment and Plan: Acute GI bleed/history of ulcers- Admit to monitored bed Type and cross NPO H&H every 6 hours Continue Protonix drip Continue IV fluids Consult gastroenterology Venous stasis ulcer/lower extremity edema- Monitor volume, and may need Lasix Obesity/status post gastric bypass greater than 20 years ago- Predisposing factors to ulcerations and GI bleeds Remaining orders and notations as noted PG Care Time/CCT Total # of Minutes Spent Total Time Spent with Patient: Total time spent is greater than 50% in coordination of care (as documented) at patient's floor/unit and/or counseling patient: Coding Level of Care Code 73009 Initial Inpt Care Lvl 3 Diagnoses Acute GI bleeding K92.2 Venous stasis ulcer I83.012; L97.212 Laterality: right Non-pressure ulcer stage: with fat layer exposed Varicose vein presence: with varicose veins Venous stasis ulcer site: calf Lower extremity edema R60.0 Hyperlipidemia E78.5 Hyperlipidemia type: unspecified Obesity E66.01 Body mass index: unspecified BMI Obesity classification: adult class 3 (BMI >= 40) Obesity type: due to excess calories Serious obesity comorbidity presence: with serious comorbidity Sleep apnea G47.30 Sleep apnea type: unspecified type (1) Sleep apnea Sleep apnea type: unspecified type Qualified Code(s): G47.30 - Sleep apnea, unspecified (2) Hyperlipidemia Hyperlipidemia type: unspecified Qualified Code(s): E78.5 - Hyperlipidemia, unspecified (3) Venous stasis ulcer Laterality: right Non-pressure ulcer stage: with fat layer exposed Varicose vein presence: with varicose veins Venous stasis ulcer site: calf Qualified Code(s): I83.012 - Varicose veins of right lower extremity with ulcer of calf; L97.212 - Non-pressure chronic ulcer of right calf with fat layer exposed (4) Obesity Body mass index: unspecified BMI Obesity classification: adult class 3 (BMI >= 40) Obesity type: due to excess calories Serious obesity comorbidity presence: with serious comorbidity Qualified Code(s): E66.01 - Morbid (severe) obesity due to excess calories
[2021-01-17 22:23] LABS: INR 1.2 (0.9-1.1); Partial Thromboplastin Ratio 1.1; Partial Thromboplastin Time 29.3 Seconds (21.0-31.0); Prothrombin Time 11.7 Seconds (9.0-12.0)
[2021-01-18] MEDS ORDERED: ACETAMINOPHEN 325 MG TAB PO PRN (00:19)
[2021-01-18] MEDS ORDERED: ONDANSETRON INJ 2 MG/ML 2 ML VIAL IV PRN (00:19)
[2021-01-18] MEDS: LACTATED RINGER'S 1,000 ML IV SCH ×2 (01:00→14:49)
[2021-01-18] MEDS: PANTOprazole 40 MG in DEXTROSE 5% 100 ML IV SCH ×4 (01:45→18:47)
[2021-01-18 05:09] LABS: Basophils # (auto) 0.02 K/uL (0-0.2); Basophils % (auto) 0.3 %; Eosinophils # (auto) 0.25 K/uL (0-0.5); Eosinophils % (auto) 3.7 %; Hematocrit (blood only) 39.6 % (42-52); Hemoglobin 12.8 g/dL (14.0-18.0); Immature Granulocytes # (auto) 0.01 K/uL (0.00-0.02); Immature Granulocytes % (auto) 0.1 %; Lymphocytes # (auto) 2.01 K/uL (1.2-3.4); Lymphocytes % (auto) 29.8 %; Mean Corpuscular Hemoglobin 30.7 pg (25-34); Mean Corpuscular Hgb Conc 32.3 g/dL (32-36); Mean Platelet Volume 10.2 fL (7.4-10.4); Monocytes # (auto) 0.61 K/uL (0.11-0.59); Neutrophils # (auto) 3.85 K/uL (1.4-6.5); Neutrophils % (auto) 57.1 %; Platelet Count 200 K/uL (130-400); RDW Coefficient of Variation 14.8 % (11.5-14.5); RDW Standard Deviation 51.5 fL (36.4-46.3); Red Blood Count 4.17 M/uL (4.7-6.1); White Blood Count 6.75 K/uL (4.8-10.8)
[2021-01-18 06:07] LABS: BUN Creatinine Ratio 23.6 (10-20); Calcium 7.8 mg/dl (8.5-10.1); Creatinine Clr Calc Pharmacy 214.9 ml/min; Est GFR (African American) 132.2 ml/min; Magnesium 1.9 mg/dl (1.8-2.4); Potassium 3.7 mmol/L (3.5-5.1)
--- NOTE | 2021-01-18 07:50 | Hospitalist Progress Note ---
Date of Service January 18, 2021 Assessment & Plan (1) Acute GI bleeding: Unspecified- sebastian blood reported- no abdominal pain or discomfort - HR decreased following crystalloid administration- agree volume down with hemoconcentration on presentation - BP variable, with the size of his arms- cuff fits poorly. He is warm and well perfused, mentating and no dizziness when sitting up and no increase in HR when sitting up. - GI consult placed- Dr. Olivas no discernable bleeding at anastamosis sites or other areas in upper stomach, maybe lower gi venous bleed - (2) Venous stasis ulcer: Chronic used to follow with wound care- no acute needs but chronic venous stasis - no acute need, compression socks vs. SCD's (3) Lower extremity edema: As above- chronic. Likely related to noncompliance with CPAP - No echo since 2009 - not on disease modifying agents (4) Hyperlipidemia: As above- lipids in the morning A1C in morning -patient with metabolic syndrome (5) Obesity: Morbidly obese- previous gastric bypass patient reports >20 years ago - ? association with ulcerations/GI bleeds - ? Obesity hypoventiltion- HCO3 not available for trend but in 2019 >27 - currently 20, follow after hemodynamics imrpoved (6) Sleep apnea: Prescribed CPAP in 2016- patient says he stopped wearing this - Would recommend getting back to PCP for repeat sleep study and CPAP assessment - Decrease mortality benefit - Likely assist with lower extremity edema as well Admission and Anticipated Discharge Date Admission Date: January 17, 2021 Subjective pt has no abdominal pain, still with some blood streaked bm, did have egd today without anastamotic irritation or bleeding identified Review of Systems Review of Systems: Mild distress and fatigue no headache, no visual changes no speech or swallowing issues no chest pain, pressure or palpitations no shortness of breath, cough or wheezes no abdominal pain, nausea or vomiting, diarrhea or constipation no dysuria, hematuria or frequency no focal joint pain or swelling no back pain, CVA tenderness or radicular pain no bruising, bleeding or rashes no focal signs of weakness or numbness or altered sensation no complaints of anxiety or depression.. Constitutional: + fatigue and + weakness Respiratory: no cough, no chest congestion and no dyspnea Cardiovascular: no chest pain and no dyspnea on exertion Gastrointestinal: no abdominal pain, no nausea and no vomiting Musculoskeletal: no joint pain and no swelling Integumentary: no rash and no lesions Results & Data [facility] ([facility]) Vital Signs (Past 12 Hours) Vital Signs Temp Pulse Pulse Resp BP BP Pulse Ox 01/18/21 04:52 69 24 130/66 96 01/18/21 00:21 97.9 F 68 16 141/94 H 97 01/18/21 00:19 69 01/17/21 23:24 72 18 112/64 97 01/17/21 22:01 78 17 110/59 L 97 01/17/21 22:00 79 22 98 01/17/21 21:46 82 25 H 96 01/17/21 21:45 75 24 109/68 97 01/17/21 21:31 74 16 98 01/17/21 21:30 72 16 128/73 98 01/17/21 21:22 73 18 92/51 L 95 01/17/21 21:17 75 20 77/52 L 94 01/17/21 21:16 79 18 94 01/17/21 21:15 80 23 80/47 L 96 01/17/21 21:09 81 26 H 70/43 L 93 01/17/21 21:03 81 24 73/44 L 91 01/17/21 21:02 76 19 94 01/17/21 21:01 82 18 70/46 L 92 01/17/21 21:00 81 22 75/48 L 91 01/17/21 20:46 85 25 H 92 01/17/21 20:45 86 22 91/58 L 92 01/17/21 20:33 87 24 87/55 L 94 01/17/21 20:30 89 20 94 01/17/21 20:16 94 H 20 83/54 L 96 01/17/21 20:15 96 H 21 96 01/17/21 20:01 102 H 25 H 93 01/17/21 20:00 103 H 21 129/84 95 01/17/21 19:58 112 H 18 96 01/17/21 19:52 110 H 15 114/99 98 PG Care Time/CCT Total # of Minutes Spent Total Time Spent with Patient: Total time spent is greater than 50% in coordination of care (as documented) at patient's floor/unit and/or counseling patient: Coding Level of Care Code 44245 Subseq Hosp Care Lvl 3 Diagnoses Acute GI bleeding K92.2 Venous stasis ulcer I83.012; L97.212 Laterality: right Non-pressure ulcer stage: with fat layer exposed Varicose vein presence: with varicose veins Venous stasis ulcer site: calf Lower extremity edema R60.0 Hyperlipidemia E78.5 Hyperlipidemia type: unspecified Obesity E66.01 Body mass index: unspecified BMI Obesity classification: adult class 3 (BMI >= 40) Obesity type: due to excess calories Serious obesity comorbidity presence: with serious comorbidity Sleep apnea G47.30 Sleep apnea type: unspecified type (1) Sleep apnea Sleep apnea type: unspecified type Qualified Code(s): G47.30 - Sleep apnea, unspecified (2) Hyperlipidemia Hyperlipidemia type: unspecified Qualified Code(s): E78.5 - Hyperlipidemia, unspecified (3) Venous stasis ulcer Laterality: right Non-pressure ulcer stage: with fat layer exposed Varicose vein presence: with varicose veins Venous stasis ulcer site: calf Qualified Code(s): I83.012 - Varicose veins of right lower extremity with ulcer of calf; L97.212 - Non-pressure chronic ulcer of right calf with fat layer exposed (4) Obesity Body mass index: unspecified BMI Obesity classification: adult class 3 (BMI >= 40) Obesity type: due to excess calories Serious obesity comorbidity presence: with serious comorbidity Qualified Code(s): E66.01 - Morbid (severe) obesity due to excess calories
[2021-01-18] MEDS: OMEGA-3 (PURIFIED FISH OIL) 1 GM CAP PO SCH (08:53)
[2021-01-18 09:01] LABS: Estimated Average Glucose 111 mg/dl; Hemoglobin A1C 5.5 % (4.5-5.6)
[2021-01-18] MEDS ORDERED: METOCLOPRAMIDE HCL INJ 5 MG/ML 2 ML VIAL IV STA (10:10)
--- NOTE | 2021-01-18 10:15 | Gastrointestinal Consultation ---
Date of Consultation January 18, 2021 Assessment & Plan (1) Acute GI bleeding: -Keep NPO for EGD today -Continue continuous IV Protonix drip at present -Continue to monitor H/H -Further recommendations pending results of testing Thank you for allowing us to participate in the care of this patient. If you should have any further questions or concerns, do not hesitate to contact us at extension [phone] or [phone]. Supervising Physician Co-Signing Physician Notes Agree with GIOVANNI Ness as above Abd: Soft, NT, ND, +BS Continue current therapy and supportive care Proceed with EGD now History of Present Illness Reason for Consultation: GI bleed Attending Physician: Garrick Russ MD History of Present Illness Patient is a 65 yo with a PMH of obesity s/p gastric bypass, SARIAH, DJD, & HLD who presents to the ED with an abrupt onset of dark, bloody stool. He notes that the first bowel movement of the day was just slightly darker than usual. As the day progressed, he reports that it became darker and liquid. He reports approxi mately 6 bowel movements yesterday mostly bloody. He denies NSAID use. His hemoglobin appears to have dropped from 16.2 to 12.8. He notes that his symptoms are similar to his previous episode in 2019. At that time, he was noted to have gastric erosions at the site of his bypass anastomosis. He is currently in the ICU on a PPI gtt. Last EGD & colonoscopy in September 2019. He is prescribed Omeprazole 20 mg daily at home. Allergies Allergy/AdvReac Type Severity Reaction Status Date / Time POLLEN Allergy Mild Sneezing Uncoded 01/17/21 20:25 Home Medications Medication Instructions Recorded Confirmed Type coenzyme Q10 [Co Q-10] 100 mg PO QAM 06/15/19 01/17/21 History multivitamin 1 tab PO QAM 06/15/19 01/17/21 History vitamin A 2,400 mcg capsule 8,000 units PO DAILY 07/12/19 01/17/21 History mecobalamin (vitamin B12) 1,000 2,000 mcg PO QAM tab 07/19/19 01/17/21 History mcg disintegrating tablet,sublingual [place]-3 Fish Oil 1 cap PO QAM 09/08/19 01/17/21 History omeprazole 20 mg PO DAILY #30 cap 09/19/19 01/17/21 Rx ascorbic acid (vitamin C) [Vitamin 500 mg PO DAILY 01/17/21 01/17/21 History C] cholecalciferol (vitamin D3) 50 mcg PO DAILY 01/17/21 01/17/21 History [Vitamin D3] cinnamon bark [Cinnamon] 500 mg PO DAILY 01/17/21 01/17/21 History diphenhydramine HCl [Benadryl] 25 mg PO HS PRN 01/17/21 01/17/21 History magnesium oxide 400 mg PO DAILY 01/17/21 01/17/21 History selenium 200 mcg PO DAILY 01/17/21 01/17/21 History turmeric 400 mg PO DAILY 01/17/21 01/17/21 History Patient History Medical History (Updated 01/18/21 @ 12:05 by Edgardo Petty MD) Acute GI bleeding Anemia Anxiety and depression Cellulitis of right leg Environmental allergies GERD (gastroesophageal reflux disease) GI bleed due to NSAIDs Hearing deficit History of gastric ulcer Hyperlipidemia Hypertension Obesity Osteoarthritis Pulmonary hypertension Sleep apnea CPAP Superficial thrombophlebitis Thrombosis SUPERFICIAL BLOOD CLOT RT LEG Surgical History H/O gastric bypass H/O shoulder surgery History of bilateral carpal tunnel release History of colonoscopy History of discectomy LUMBAR DISCECTOMY History of esophagogastroduodenoscopy (EGD) History of gastric bypass History of herniorrhaphy History of total hip arthroplasty RT History of total knee replacement LEFT Varicose veins of both lower extremities LASER PROCEDURE Family History Mother Family history of reaction to anesthesia difficulty of waking Dementia Parkinsons disease Father Myocardial infarction Unknown Hypertension Arthritis Other No significant family history Social History Smoking Status: Never smoker Second Hand Exposure: No; Do You Dip or Chew Tobacco: No; Tobacco Cessation Education Requested by Patient: No Hx Alcohol Use: Yes Alcohol type: wine Hx Substance Use: No Preferred Language: Polish Communication Ability: Effective Communication Tools: Letter Board, Picture Board and Writing Tablet Dental Hygiene Instructor Required: No Beliefs That Will Affect Care: None marital status: Current Living Situation: Spouse current occupational status: employed 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 [employer] Other Information That Helps Us Care for You: No Feels Safe at Home: Yes Safety Concerns: Feels Safe At This Time Assistive Devices: Cane and CPAP Review of Systems Constitutional: + weakness Respiratory: no cough and no dyspnea Cardiovascular: no chest pain Gastrointestinal: + blood in stools and + melena; no abdominal pain, no heartburn and no nausea Psychiatric: no problem reported Hematologic / Lymphatic: no unexplained weight loss Physical Exam Constitutional: well developed Respiratory: normal respiratory effort Cardiovascular: Extremities: no edema Gastrointestinal (Abdomen): normal bowel sounds, soft, nontender, no hepatosplenomegaly Musculoskeletal: no cyanosis or clubbing, extremities motor strength 5/5 Psychiatric: A+Ox3, euthymic affect Results & Data ([facility]) Vital Signs (Past 12 Hours) Vital Signs Temp Pulse Pulse Resp BP BP Pulse Ox 01/18/21 09:30 64 20 01/18/21 09:00 63 19 01/18/21 08:40 64 17 01/18/21 08:25 64 18 145/66 H 99 01/18/21 08:00 64 19 93 01/18/21 07:30 61 18 89 L 01/18/21 07:00 56 L 18 93 01/18/21 06:45 69 23 94 01/18/21 04:52 69 24 130/66 96 01/18/21 00:21 36.6 C 68 16 141/94 H 97 01/18/21 00:19 69 01/17/21 23:24 72 18 112/64 97 PG Care Time/CCT Total # of Minutes Spent Total Time Spent with Patient: Total time spent is greater than 50% in coordination of care (as documented) at patient's floor/unit and/or counseling patient: Coding Level of Care Code 77481 Initial Inpt Care Lvl 3 Diagnoses Acute GI bleeding K92.2
--- NOTE | 2021-01-18 12:08 | Anesthesiology Consultation ---
Date of Service January 18, 2021 Assessment & Plan Chart Review Chart Review: Acceptable Risk for Surgery, Patient NOT seen in Pre Admission Testing and order entry specialist initiated ASA ASA3 Proposed Anesthesia Anesthesia Type: MAC Risk / Benefits Reviewed With: PT / POA / Parent / Guardian, Accepts Plan and Informed Consent Obtained History Surgery Operation Date: 01/18/21 17:00 Proposed Procedures p Esophagogastroduodenoscopy Dr Brendon Olivas, DO Height/Weight Height: 5 ft 9 in Weight: 148.3 kg Allergies Allergy/AdvReac Type Severity Reaction Status Date / Time POLLEN Allergy Mild Sneezing Uncoded 01/17/21 20:25 Medications Home Medications Medication Instructions Recorded Confirmed Last Taken coenzyme Q10 [Co Q-10] 100 mg PO QAM 06/15/19 01/17/21 01/17/21 multivitamin 1 tab PO QAM 06/15/19 01/17/21 01/17/21 vitamin A 2,400 mcg capsule 8,000 units PO DAILY 07/12/19 01/17/21 01/17/21 mecobalamin (vitamin B12) 1,000 2,000 mcg PO QAM tab 07/19/19 01/17/21 01/17/21 mcg disintegrating tablet,sublingual [place]-3 Fish Oil 1 cap PO QAM 09/08/19 01/17/21 01/17/21 omeprazole 20 mg PO DAILY #30 cap 09/19/19 01/17/21 01/17/21 ascorbic acid (vitamin C) [Vitamin 500 mg PO DAILY 01/17/21 01/17/21 01/17/21 C] cholecalciferol (vitamin D3) 50 mcg PO DAILY 01/17/21 01/17/21 01/17/21 [Vitamin D3] cinnamon bark [Cinnamon] 500 mg PO DAILY 01/17/21 01/17/21 01/17/21 diphenhydramine HCl [Benadryl] 25 mg PO HS PRN 01/17/21 01/17/21 Unknown magnesium oxide 400 mg PO DAILY 01/17/21 01/17/21 01/17/21 selenium 200 mcg PO DAILY 01/17/21 01/17/21 01/17/21 turmeric 400 mg PO DAILY 01/17/21 01/17/21 01/17/21 Active Medications Generic Name Dose Route Start Last Admin Trade Name Cordell PRN Reason Stop Dose Admin Fish Oil 1 gm 01/18/21 09:00 01/18/21 08:53 [place]-3 (Purified Fish Oil) 1 Gm Cap PO 02/17/21 08:59 Not Given QAM DENIS Pantoprazole Sodium 40 mg/ 100 mls @ 20 mls/hr 01/17/21 20:18 01/18/21 11:58 Dextrose IV 02/16/21 20:17 Infused Q5H DENIS Infusion 8 MG/HR Lactated Ringer's 1,000 mls @ 80 mls/hr 01/18/21 00:19 01/18/21 11:58 Lr IV 02/17/21 00:18 0 mls/hr .[id number] DENIS Infusion Past Medical History Medical History (Updated 01/18/21 @ 12:05 by Edgardo Petty MD) Acute GI bleeding Anemia Anxiety and depression Cellulitis of right leg Environmental allergies GERD (gastroesophageal reflux disease) GI bleed due to NSAIDs Hearing deficit History of gastric ulcer Hyperlipidemia Hypertension Obesity Osteoarthritis Pulmonary hypertension Sleep apnea CPAP Superficial thrombophlebitis Thrombosis SUPERFICIAL BLOOD CLOT RT LEG Past Family History Family History Mother Family history of reaction to anesthesia difficulty of waking Dementia Parkinsons disease Father Myocardial infarction Unknown Hypertension Arthritis Other No significant family history Past Surgical History Surgical History H/O gastric bypass H/O shoulder surgery History of bilateral carpal tunnel release History of colonoscopy History of discectomy LUMBAR DISCECTOMY History of esophagogastroduodenoscopy (EGD) History of gastric bypass History of herniorrhaphy History of total hip arthroplasty RT History of total knee replacement LEFT Varicose veins of both lower extremities LASER PROCEDURE Social History Smoking Status: Never smoker Do You Dip or Chew Tobacco: No Hx Alcohol Use: Yes Alcohol type: wine alcohol intake frequency: holidays/special occasions only Hx Substance Use: No substance use type: does not use Physical Exam Vital Signs Last Vital Signs Temp 36.6 C 01/18/21 00:21 Pulse 64 01/18/21 09:30 Resp 20 01/18/21 09:30 BP 145/66 H 01/18/21 08:25 Pulse Ox 99 01/18/21 08:25 Testing Laboratory Results 01/18/21 04:37 01/18/21 04:37 PT 11.7 Seconds (9.0-12.0) 01/17/21 21:52 INR 1.2 (0.9-1.1) H 01/17/21 21:52 APTT 29.3 Seconds (21.0-31.0) 01/17/21 21:52 Hemoglobin A1c 5.5 % (4.5-5.6) 01/18/21 04:37 Blood Type AB Positive 01/17/21 19:55 Antibody Screen NEGATIVE 01/17/21 19:55 Electrocardiogram 18-JAN-2021 05:04:45 [facility]-S[facility] ROUTINE RETRIEVAL Sinus bradycardia Right bundle branch block Inferior infarct (cited on or before 17-JUN-2019) Abnormal ECG When compared with ECG of 17-JAN-2021 19:58, (unconfirmed) Vent. rate has decreased BY 45 BPM Questionable change in QRS duration Borderline criteria for Lateral infarct are no longer Present Questionable change in initial forces of Inferior leads
[2021-01-18] MEDS ORDERED: LIDOCAINE 2% 2 ML VIAL/AMP(20MG/ML) INFIL ONE (13:37)
[2021-01-18] MEDS ORDERED: PROPOFOL IV EMULSION 10 MG/ML 20 ML VIAL IV ONE (13:37)
--- NOTE | 2021-01-18 13:37 | GI REPORT ---
Patient Name: Lonnie Mckeon Procedure Date: 01/18/2021 1:19 PM Date of : 1955 Admit Type: Inpatient Age: 65 Gender: Male Attending MD: Bryce Olivas DO Procedure: Upper GI endoscopy Providers: Bryce Olivas DO Referring MD: Garrick Russ Indications: Acute post hemorrhagic anemia, Melena Medicines: Monitored Anesthesia Care Complications: No immediate complications. Estimated Blood Loss: Estimated blood loss: none. Procedure: Pre-Anesthesia Assessment: - Prior to the procedure, a History and Physical was performed, and patient medications and allergies were reviewed. The patient's tolerance of previous anesthesia was also reviewed. The risks and benefits of the procedure and the sedation options and risks were discussed with the patient. All questions were answered, and informed consent was obtained. Prior Anticoagulants: The patient has taken no previous anticoagulant or antiplatelet agents. ASA Grade Assessment: III - A patient with severe systemic disease. After reviewing the risks and benefits, the patient was deemed in satisfactory condition to undergo the procedure. After obtaining informed consent, the endoscope was passed under direct vision. Throughout the procedure, the patient's blood pressure, pulse, and oxygen saturations were monitored continuously. The Endoscope was introduced through the mouth, and advanced to the jejunum. The upper GI endoscopy was accomplished without difficulty. The patient tolerated the procedure well. Findings: The examined esophagus was normal. 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 The gastrojejunal anastomosis was characterized by healthy appearing mucosa. This was traversed. The [id number] limb was characterized by healthy appearing mucosa. The examined jejunum was normal. Impression: - Normal esophagus. - Markus-en-Y gastrojejunostomy with gastrojejunal anastomosis characterized by healthy appearing mucosa. - Normal examined jejunum. - No specimens collected. Recommendation: - Return patient to [facility] for ongoing care. - Advance diet as tolerated. - Continue present medications. - Consider colonoscopy if any further overt GI bleeding Bryce Olivas DO 01/18/2021 1:36:29 PM This report has been signed electronically. Note Initiated On: 01/18/2021 1:19 PM Number of Addenda: 0 I attest to the content of the Intraoperative Record and orders documented therein, exceptions below {[id number]}
--- NOTE | 2021-01-18 14:24 | Anesthesiology Progress Note ---
Date of Service January 18, 2021 Anesthesia Post Procedure Vital Signs Vital Signs: Temp Pulse Pulse Pulse Resp BP BP 01/18/21 14:11 62 20 115/66 01/18/21 13:56 68 18 110/62 01/18/21 13:41 65 16 93/50 L 01/18/21 12:12 36.5 C 20 L 20 142/80 H 01/18/21 11:45 81 14 01/18/21 11:30 57 L 18 01/18/21 11:15 65 21 01/18/21 11:00 67 18 01/18/21 10:45 66 31 H 01/18/21 10:30 65 26 H 01/18/21 10:23 73 11 L 01/18/21 10:00 65 24 01/18/21 09:45 71 21 01/18/21 09:30 64 20 01/18/21 09:00 63 19 01/18/21 08:40 64 17 01/18/21 08:25 64 18 145/66 H 01/18/21 08:00 64 19 01/18/21 07:30 61 18 01/18/21 07:00 56 L 18 01/18/21 06:45 69 23 01/18/21 04:52 69 24 130/66 01/18/21 00:21 36.6 C 68 16 141/94 H 01/18/21 00:19 69 01/17/21 23:24 72 18 112/64 01/17/21 22:01 78 17 110/59 L 01/17/21 22:00 79 22 01/17/21 21:46 82 25 H 01/17/21 21:45 75 24 109/68 01/17/21 21:31 74 16 01/17/21 21:30 72 16 128/73 01/17/21 21:22 73 18 92/51 L 01/17/21 21:17 75 20 77/52 L 01/17/21 21:16 79 18 01/17/21 21:15 80 23 80/47 L 01/17/21 21:09 81 26 H 70/43 L 01/17/21 21:03 81 24 73/44 L 01/17/21 21:02 76 19 01/17/21 21:01 82 18 70/46 L 01/17/21 21:00 81 22 75/48 L 01/17/21 20:46 85 25 H 01/17/21 20:45 86 22 91/58 L 01/17/21 20:33 87 24 87/55 L 01/17/21 20:30 89 20 01/17/21 20:16 94 H 20 83/54 L 01/17/21 20:15 96 H 21 01/17/21 20:01 102 H 25 H 01/17/21 20:00 103 H 21 129/84 01/17/21 19:58 112 H 18 01/17/21 19:52 110 H 15 114/99 01/17/21 19:18 36.4 C L 121 H 22 146/90 H Pulse Ox 01/18/21 14:11 96 01/18/21 13:56 96 01/18/21 13:41 95 01/18/21 12:12 99 01/18/21 11:45 01/18/21 11:30 01/18/21 11:15 01/18/21 11:00 01/18/21 10:45 01/18/21 10:30 01/18/21 10:23 01/18/21 10:00 01/18/21 09:45 01/18/21 09:30 01/18/21 09:00 01/18/21 08:40 01/18/21 08:25 99 01/18/21 08:00 93 01/18/21 07:30 89 L 01/18/21 07:00 93 01/18/21 06:45 94 01/18/21 04:52 96 01/18/21 00:21 97 01/18/21 00:19 01/17/21 23:24 97 01/17/21 22:01 97 01/17/21 22:00 98 01/17/21 21:46 96 01/17/21 21:45 97 01/17/21 21:31 98 01/17/21 21:30 98 01/17/21 21:22 95 01/17/21 21:17 94 01/17/21 21:16 94 01/17/21 21:15 96 01/17/21 21:09 93 01/17/21 21:03 91 01/17/21 21:02 94 01/17/21 21:01 92 01/17/21 21:00 91 01/17/21 20:46 92 01/17/21 20:45 92 01/17/21 20:33 94 01/17/21 20:30 94 01/17/21 20:16 96 01/17/21 20:15 96 01/17/21 20:01 93 01/17/21 20:00 95 01/17/21 19:58 96 01/17/21 19:52 98 01/17/21 19:18 95 Transfer of Care Handoff Completed per policy Notes Mental Status: alert / awake / arousable and participated in evaluation Patient Amnestic to Procedure: Yes Nausea / Vomiting: adequately controlled Pain: adequately controlled Airway Patency, RR, SpO2: stable & adequate BP & HR: stable & adequate Hydration State: stable & adequate Anesthetic Complications: no major complications apparent and Pt Satisfied with anesthetic care
--- NOTE | 2021-01-18 16:53 | Electrocardiogram Report ---
Test Reason : Blood Pressure : / mmHG Vent. Rate : 103 BPM Atrial Rate : 103 BPM P-R Int : 174 ms QRS Dur : 134 ms QT Int : 394 ms P-R-T Axes : 038 229 010 degrees QTc Int : 516 ms Sinus tachycardia Right bundle branch block Possible Lateral infarct , age undetermined Inferior infarct (cited on or before 17-JUN-2019) Abnormal ECG When compared with ECG of 17-JUN-2019 06:22, Vent. rate has increased BY 35 BPM Left anterior fascicular block is no longer Present Borderline criteria for Lateral infarct are now Present Confirmed by Luisito Comer ([id number]) on 01/18/2021 4:53:13 PM Referred By: REFERRED SELF Confirmed By:Nirav Comer
--- NOTE | 2021-01-18 16:59 | Electrocardiogram Report ---
Test Reason : Blood Pressure : / mmHG Vent. Rate : 058 BPM Atrial Rate : 058 BPM P-R Int : 180 ms QRS Dur : 156 ms QT Int : 500 ms P-R-T Axes : 047 267 026 degrees QTc Int : 490 ms Sinus bradycardia Right bundle branch block Inferior infarct (cited on or before 17-JUN-2019) Abnormal ECG When compared with ECG of 17-JAN-2021 19:58, (unconfirmed) Vent. rate has decreased BY 45 BPM Borderline criteria for Lateral infarct are no longer Present Confirmed by Luisito Comer ([id number]) on 01/18/2021 4:58:55 PM Referred By: REFERRED SELF Confirmed By:Nirav Comer
[2021-01-18] MEDS: PANTOprazole 40 MG TAB PO SCH (20:55)
[2021-01-19] MEDS: OMEGA-3 (PURIFIED FISH OIL) 1 GM CAP PO SCH (08:40)
[2021-01-19] MEDS: PANTOprazole 40 MG TAB PO SCH (08:40)
[2021-01-19] MEDS ORDERED: MAGNESIUM OXIDE 400 MG TAB PO SCH (09:00)
[2021-01-19] MEDS ORDERED: CHOLECALCIFEROL 1,000 UNITS 25 MCG TAB PO SCH (09:00)
[2021-01-19] MEDS ORDERED: MULTIVITAMIN TAB PO SCH (09:00)
[2021-01-19] MEDS ORDERED: CYANOCOBALAMIN 500 MCG TABLET (VITAMIN B-12) PO SCH (09:00)
[2021-01-19 09:42] LABS: Basophils # (auto) 0.01 K/uL (0-0.2); Basophils % (auto) 0.2 %; Eosinophils % (auto) 5.5 %; Hematocrit (blood only) 43.2 % (42-52); Hemoglobin 14.3 g/dL (14.0-18.0); Immature Granulocytes # (auto) 0.01 K/uL (0.00-0.02); Immature Granulocytes % (auto) 0.2 %; Lymphocytes # (auto) 1.68 K/uL (1.2-3.4); Lymphocytes % (auto) 30.9 %; Mean Corpuscular Hemoglobin 30.8 pg (25-34); Mean Corpuscular Hgb Conc 33.1 g/dL (32-36); Mean Corpuscular Volume 92.9 fL (80-100); Mean Platelet Volume 10.5 fL (7.4-10.4); Monocytes # (auto) 0.53 K/uL (0.11-0.59); Monocytes % (auto) 9.7 %; Neutrophils # (auto) 2.91 K/uL (1.4-6.5); Neutrophils % (auto) 53.5 %; Platelet Count 188 K/uL (130-400); RDW Coefficient of Variation 14.8 % (11.5-14.5); RDW Standard Deviation 50.5 fL (36.4-46.3); Red Blood Count 4.65 M/uL (4.7-6.1); White Blood Count 5.44 K/uL (4.8-10.8)
[2021-01-19 10:09] LABS: BUN Creatinine Ratio 20.5 (10-20); Calcium 8.8 mg/dl (8.5-10.1); Creatinine Clr Calc Pharmacy 211.4 ml/min; Est GFR (African American) 132.2 ml/min; Magnesium 1.9 mg/dl (1.8-2.4); Potassium 3.8 mmol/L (3.5-5.1)
--- NOTE | 2021-01-19 12:30 | Gastroenterology Progress Note ---
Date of Service January 19, 2021 Assessment & Plan Admission and Anticipated Discharge Date Admission Date: January 17, 2021 Subjective Patient was seen and examined today, feels fine, denies any rectal bleeding, EGD yesterday unremarkable post RYGB. On exam abdomen is soft. Labs : reivewed Hgb normal. Recommend: Diet as tolerated. Follow up as OP with to consider colonoscopy. Recall Gi if needed. Results & Data ([facility]) Vital Signs (Past 12 Hours) Vital Signs Temp Pulse Resp BP Pulse Ox 01/19/21 07:53 36.7 C 75 16 134/74 96 01/19/21 01:57 36.8 C 69 16 106/69 92
--- NOTE | 2021-01-19 15:13 | Discharge Summary ---
Date of Service January 19, 2021 Admission HPI Per Admitting Provider 65 YOM with past medical history of obesity, gastritis with upper GI Bleed, colonoscopy with polyps and diverticular in 09/22, venous stasis ulcerations of lower extremities, gastric bypass and left total knee. Patient reports that this morning he had small amount of blood in his stool and in the water, as the day went on his BM changed to more liquid and more blood. States 5 times today he went to the bathroom, last one was around 1800 when in the waiting room and was all mostly blood. He was FOBT grossly positive as reported by EMD physician. Patient denies that he experienced any light headedness, dyspnea, c hest pain with any of his symptoms. He denies using any NSAIDS. Patient does appear contracted on his labs. He received ~1.5 liters of crystalloid in the EMD, with decrease in his HR to 70s. He has had no further BM or bleeding from his rectum. He was started on a Protonix drip following a Protonix bolus and typed and crossed. Principal Diagnosis GI bleed of undetermined source suspect lower GI bleed Discharge Exam The patient appeared well Vital signs as documented. Lungs are clear to auscultation and appear unlabored Cardiac exam, Rhythm is regular.. No murmurs, rubs or gallops. Abdominal exam reveals normal bowel sounds, soft non tender, no masses Extremities are nonedematous and both pedal pulses are normal. Neurologic exam is alert and oriented, no focal loss of strength or sensation Skin is without bruises or rashes Psychologically is without concerns for anxiety or depression. Discharge Data Allergies Allergy/AdvReac Type Severity Reaction Status Date / Time POLLEN Allergy Mild Sneezing Uncoded 01/17/21 20:25 Consultations 01/17/21 20:49 ED Decision to Admit Stat 01/18/21 00:19 Consult Gastroenterology Routine Procedures Performed Operation Date: 01/18/21 17:00 Actual Procedures p Esophagogastroduodenoscopy - Bryce Faria Case, DO Hospital Course (1) Acute GI bleeding: Unspecified- sebastian blood reported- no abdominal pain or discomfort - HR decreased following crystalloid administration- agree volume down with hemoconcentration on presentation -Vital signs and hemoglobin of remained stable in the day was going to his endoscopy patient be discharged home - GI consult placed- Dr. Olivas no discernable bleeding at anastamosis sites or other areas in upper stomach, maybe lower gi venous bleed - (2) Venous stasis ulcer: Chronic used to follow with wound care- no acute needs but chronic venous stasis - no acute need, compression socks vs. SCD's (3) Lower extremity edema: As above- chronic. Likely related to noncompliance with CPAP - No echo since 2009 - not on disease modifying agents (4) Hyperlipidemia: As above- lipids in the morning A1C 5.5 (5) Obesity: Morbidly obese- previous gastric bypass patient reports >20 years ago Patient currently actively trying to lose weight (6) Sleep apnea: Prescribed CPAP in 2016- patient says he stopped wearing this - Would recommend getting back to PCP for repeat sleep study and CPAP assessment - Decrease mortality benefit - Likely assist with lower extremity edema as well Total Time Total Time Spent Total Time Spent (In Minutes): It required greater than 30 minutes to prepare this patient for discharge Discharge Plan Discharge Items Patient Disposition: Home - Self-Care Reason For Visit: GI BLEED UNSPECIFIED Discharge Diagnosis: likely lower gi bleed Activity: Resume your previous activity Non-emergency contact: Primary Care Provider and [employer] [place] Call non-emergency contact if: you have any medication questions and your symptoms worsen Follow-up/Referrals: Ridge Jeronimo MD [Primary Care Provider] - Diet: Regular Diet Comment: encourage fiber in diet Ambulatory Orders: Complete Blood Count no Diff (Routine) Timeframe: 3 Days Location: Determined by Patient Ordered By: Garrick Soto Attending Provider Instructions: please call Dr Olivas office on thursday to arrange a follow up appointment please also contact your primary care to alert them you are having some blood work this thursday and hopefully have a follow up appointment always return if your bleeding recurrs Pending Studies at Discharge: No Stand-Alone Forms: My [employer], Smoking Cessation Medications and DC Order Prescriptions: Continued vitamin A 8,000 unit capsule 8,000 units PO DAILY RF: 0 mecobalamin (vitamin B12) 1,000 mcg tablet,disintegrating 2,000 mcg PO QAM RF: 0 [place]-3 Fish Oil 300-1,000 mg Capsule 1 cap PO QAM RF: 0 omeprazole 20 mg capsule,delayed release(DR/EC) 20 mg PO DAILY Qty: 30 RF: 11 multivitamin Tablet 1 tab PO QAM RF: 0 coenzyme Q10 [Co Q-10] 100 mg Capsule 100 mg PO QAM RF: 0 diphenhydramine HCl [Benadryl] 25 mg Capsule 25 mg PO HS PRN (Reason: Sleep) RF: 0 cinnamon bark [Cinnamon] 500 mg Capsule 500 mg PO DAILY RF: 0 cholecalciferol (vitamin D3) [Vitamin D3] 50 mcg (2,000 unit) Capsule 50 mcg PO DAILY RF: 0 selenium 200 mcg Capsule 200 mcg PO DAILY RF: 0 magnesium oxide 400 mg magnesium Tablet 400 mg PO DAILY RF: 0 turmeric 400 mg Capsule 400 mg PO DAILY RF: 0 Discontinued ascorbic acid (vitamin C) [Vitamin C] 500 mg Tablet 500 mg PO DAILY RF: 0 Discharge Orders: Discharge Order (Routine); Ordered 01/19/21 Ordered By: Garrick Kowalski/Other Patient Handouts: Bleeding Gastrointestinal, Anemia, Cholesterol Lifestyle Changes Admission Data Admit Date/Time: 01/17/21 22:07 Attending Provider: Garrick Russ Admit Provider: Avila Baird Primary Care Provider: Ridge Jeronimo Other Providers: Avila Baird ; Bryce Olivas Other Interventions: Discharge Summary Assessment (RN) Last Done: 01/19/21 12:31 Coding Level of Care Code D/C Day Management >30 mins Diagnoses Acute GI bleeding K92.2 Venous stasis ulcer I83.012; L97.212 Venous stasis ulcer site: calf Varicose vein presence: with varicose veins Laterality: right Non-pressure ulcer stage: with fat layer exposed Lower extremity edema R60.0 Hyperlipidemia E78.5 Hyperlipidemia type: unspecified Obesity E66.01 Obesity type: due to excess calories Obesity classification: adult class 3 (BMI >= 40) Serious obesity comorbidity presence: with serious comorbidity Body mass index: unspecified BMI Sleep apnea G47.30 Sleep apnea type: unspecified type
--- NOTE | 2021-01-19 20:24 | Billing Data ---
Date of Service January 19, 2021 Coding Level of Care Code 74586 Initial Inpt Care Lvl 3
== END 2021-01-19 13:31 | disposition home or self-care (01) | DRG 378 ==
LOC: ED 19:12 → SUATTDRO 22:07 → 1E 22:07 → 3N 01-18 14:54

== ENCOUNTER 2022-06-10 15:57 | Inpatient (IN) ==
--- NOTE | 2022-06-10 16:06 | ED Triage Note ---
Date of Service June 10, 2022 History of Present Illness This patient was briefly evaluated while in triage. An abbreviated physical exam was performed. This patient is a 67-year-old Male that presents to the ED today for evaluation of dyspnea with exertion, leg infections. Pain 8-04/12. He was referred today by Dr. Holland with [facility]. He notes redness to legs over the past few months. Physical Exam GENERAL: 67 year old male. In no acute distress. SKIN: Bilateral lower leg edema and erythema noted. HEART: Regular rate and rhythm. LUNGS: Clear to auscultation. NEURO: Alert and oriented. No deficits. MUSCULOSKELETAL: No acute deformities to inspection of the extremities. Bilat lower ext edema noted. PSYCH: Patient is pleasant and answers all questions appropriately. Initial orders for labs and / or imaging were placed and patient was placed in the waiting area until a bed is available. Please see further documentation for the full ED course.
[2022-06-10] MEDS ORDERED: SODIUM CHLORIDE 0.9% 1000ML 1,000 ML IV ONE (16:32)
[2022-06-10] MEDS ORDERED: CEFEPIME 2,000 MG/20 ML VIAL IV STA (16:32)
[2022-06-10 16:38] LABS: Basophils # (auto) 0.02 K/uL (0-0.2); Basophils % (auto) 0.3 %; Eosinophils # (auto) 0.08 K/uL (0-0.50); Eosinophils % (auto) 1.1 %; Hematocrit (blood only) 47.2 % (40.1-51.0); Hemoglobin 15.6 g/dl (14.0-18.0); Immature Granulocytes # (auto) 0.02 K/uL (0.00-0.02); Immature Granulocytes % (auto) 0.3 %; Lymphocytes # (auto) 1.17 K/uL (1.2-3.4); Lymphocytes % (auto) 16.6 %; Mean Corpuscular Hemoglobin 31.9 pg (25.0-34.0); Mean Corpuscular Hgb Conc 33.1 g/dL (32.0-36.0); Mean Corpuscular Volume 96.5 fL (80.0-100.0); Monocytes # (auto) 0.88 K/uL (0.24-0.82); Monocytes % (auto) 12.5 %; Neutrophils # (auto) 4.88 K/uL (1.4-6.5); Neutrophils % (auto) 69.2 %; Platelet Count 223 K/uL (130-400); RDW Coefficient of Variation 15.1 % (11.5-14.5); RDW Standard Deviation 54.5 fL (36.4-46.3); Red Blood Count 4.89 M/uL (4.63-6.08); White Blood Count 7.05 K/ul (4.8-10.8)
[2022-06-10 16:49] LABS: INR 1.1 (0.9-1.1); Partial Thromboplastin Time 26.9 Seconds (21.0-31.0); Prothrombin Time 11.4 Seconds (9.0-12.0)
--- NOTE | 2022-06-10 16:58 | Emergency Department Note ---
Impression & Plan Atrial flutter with rapid ventricular response, SOB (shortness of breath), Pedal edema, Cellulitis ED Provider Note NAME: TAE ABRAHAM AGE: 67 SEX: M : 1955 ARRIVES VIA: Walk-In INFORMANT: [Patient][nursing] ED PROVIDER(S): [Nabor Robison MD] CHIEF COMPLAINT: Infection HISTORY OF PRESENT ILLNESS: The patient is a 67-year-old male who states that for the last several weeks, especially lately, he has noticed redness of his lower extremities and some incr eased edema of the extremities. He has noticed increasing shortness of breath with exertion. No chest pain, no fever, no cough or cold or congestion. No urinary complaints. The patient states that he went to his doctor's office today, he was referred to the ER for infection. He was noted to be tachycardic at the doctor's office visit. The patient denies any history of DVT or PE. REVIEW OF SYSTEMS: See HPI for pertinent positives and negatives. A total of ten systems were reviewed and were otherwise negative. PMHx/PSHx: See Below SOCIAL HISTORY: See Below. PHYSICAL EXAM: GENERAL: Patient is in no acute distress. HEENT: No acute trauma, normocephalic atraumatic, mucous membranes moist, no nasal congestion, no scleral icterus. NECK: No stridor, no adenopathy, no meningismus, trachea is midline. LUNGS: Clear to auscultation bilaterally, no wheeze, no rhonchi, breath sounds equal. HEART: Tachycardic and regular, no murmurs. ABDOMEN: Soft, nontender, bowel sounds positive, no peritonitis. Obese. EXTREMITIES: No cyanosis. Significant bilateral pedal edema with some chronic skin change as well as erythema and warmth involving the feet and lower legs up to the knees. I see no active drainage. NEUROLOGIC: Oriented x 3, no acute motor or sensory deficits, no focal weakness. SKIN: No jaundice, no diaphoresis. DIFFERENTIAL DIAGNOSIS: Sepsis, UTI, pneumonia, metabolic abnormality, dysrhythmia, a flutter, A. fib, fluid overload, electrolyte abnormalities, cardiac sources, cellulitis, bacteremia, intracerebral event, toxicologic etiology, neurologic event, as well as other pathologies. EMERGENCY DEPARTMENT COURSE/PROCEDURES: ECG: Indication was tachycardia and shortness of breath. The ECG shows a sinus tachycardia versus atrial flutter. The rate is 131. 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 There is a right bundle branch block. There is a potential old inferior infarct. There is no ST elevation. No PVCs. The QTC is 513. Compared to an ECG from 25 January 2021, the rate has increased, findings of potential lateral infarct are now present. T wave inversion is now present in the anterior leads. Repeat ECG: Indication was tachycardia. The ECG shows atrial flutter with a variable AV block. The rate is 97. There is a right bundle branch block. There are inverted T waves seen across the anterior and lateral leads. There is no ST elevation, no PVCs. There is evidence for potential old lateral infarct and an old inferior infarct. Compared to the ECG from earlier, the atrial flutter is more obvious. The rate is decreased. Continuous Cardiac Monitoring: An order was placed for continuous cardiac monitoring. The monitor shows a rate of 129 with sinus tachycardia. Critical Care Note: I have personally spent 43 minutes of critical care time in the direct management of this patient. This includes bedside care, interpretation of diagnostic studies, and testing, discussion with consultants, patient, and family members, and other required patient management activities. This 43 minutes is in excess of all separately billable procedures. MEDICAL DECISION MAKING: There is no leukocytosis or concerning anemia. There is a normal platelet count. No coagulopathy. No renal failure or significant electrolyte abnormality. Lactic acid level is not elevated making sepsis less likely. A few subtle liver enzyme elevations were noted. ECG showed a tachycardia thought to be atrial flutter versus sinus tachycardia. Repeat ECG when the rate slowed did confirm atrial flutter. Cardiac enzyme testing x1 was not consistent with acute cardiac injury. BNP was elevated consistent with fluid overload. Procalcitonin level was normal. The patient appeared to be in a euthyroid state. Urinalysis did not show infection. COVID test was negative. Chest x- ray did not show concerning CHF or pneumonia. Bilateral lower extremity ultrasound showed some superficial thrombophlebitis, there was no acute DVT. Patient was given a 500 cc saline bolus, he received IV morphine for pain, he was given IV metoprolol, 5 mg, a second 2.5 mg IV dose was given. He received IV labetalol. He was given IV Lasix. He received IV cefepime as empiric antibiotic coverage. The patient is fluid overloaded and likely has right heart failure. He has a bilateral lower extremity cellulitis. He presents in a rapid A. Flutter and feels short of breath. Admission is warranted. The patient has made improvement with treatment here in the ED. His heart rate has slowed, he seems much more comfortable. I spoke with the patient and case management, the on-call hospitalist was consulted. Past Med/Surg History Medical History Anxiety and depression Environmental allergies GERD (gastroesophageal reflux disease) Hearing deficit History of gastric ulcer 2018 Hx of colonic polyps Hx of iron deficiency anemia Hyperlipidemia "BORDERLINE" Hypertension "BORDERLINE">HAS FOLLOWED WITH DR. VELOZ Obesity Osteoarthritis Sleep apnea USED CPAP IN PAST (STOPPED USING) Superficial thrombophlebitis Swelling of lower leg BILAT. REASON FOR FUROSEMIDE (PT STATES SWELLING IS BETTER) Thrombosis SUPERFICIAL BLOOD CLOT RT LEG Surgical History H/O gastric bypass 2002 H/O shoulder surgery RT History of bilateral carpal tunnel release History of cataract surgery right History of colonoscopy History of discectomy LUMBAR DISCECTOMY History of esophagogastroduodenoscopy (EGD) History of gastric bypass History of herniorrhaphy History of total hip arthroplasty RT History of total knee replacement LEFT Varicose veins of both lower extremities LASER PROCEDURE Family History Mother Family history of reaction to anesthesia difficulty of waking Dementia Parkinsons disease Father Myocardial infarction Unknown Hypertension Arthritis Other No significant family history Social History Smoking Status: Never smoker Second Hand Exposure: No; Hx Alcohol Use: No Hx Substance Use: No Preferred Language: Telugu Communication Ability: Effective Communication Tools: Letter Board, Picture Board and Writing Tablet Electrical Drafter Required: No Beliefs That Will Affect Care: None marital status: Current Living Situation: Spouse current occupational status: employed 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 [employer] Feels Safe at Home: Yes Safety Concerns: Feels Safe At This Time Assistive Devices: Cane and Glasses Allergies Allergies Allergy/AdvReac Type Severity Reaction Status Date / Time No Known Allergies Allergy Verified 06/10/22 19:11 Home Meds Home Medications Medication Instructions Recorded Confirmed coenzyme Q10 100 mg capsule (Co 100 mg PO QAM 06/15/19 06/10/22 Q-10) multivitamin 1 tab PO QAM 06/15/19 06/10/22 cholecalciferol (vitamin D3) 50 50 mcg PO QAM 01/17/21 06/10/22 mcg (2,000 unit) capsule (Vitamin D3) cinnamon bark 500 mg capsule 500 mg PO QAM 01/17/21 06/10/22 (Cinnamon) diphenhydramine HCl 25 mg capsule 25 mg PO HS PRN Sleep 01/17/21 06/10/22 (Benadryl) ascorbic acid (vitamin C) 1,000 mg 1 g PO DAILY 03/12/21 06/10/22 tablet (Vitamin C) acetylcysteine 600 mg capsule (NAC) 600 mg PO DAILY 08/15/21 06/10/22 glucosamine HCl 500 mg tablet 500 mg PO DAILY 08/15/21 06/10/22 krill oil 500 mg capsule 500 mg PO DAILY 08/15/21 06/10/22 magnesium 250 mg tablet 500 mg PO DAILY 08/15/21 06/10/22 mk-7 vitamin k2 100 mcg PO DAILY 08/15/21 06/10/22 turmeric root extract 500 mg 500 mg PO DAILY 08/15/21 06/10/22 capsule zinc 50 mg tablet 50 mg PO DAILY 08/15/21 06/10/22 potassium gluconate 595 mg (99 mg) 595 mg PO QAM 09/12/21 06/10/22 tablet Results & Data (ED) Vital Signs Vital Signs - 24 hr 06/10/22 16:03 06/10/22 16:46 06/10/22 18:23 Temperature 37.2 C Temperature Source Temporal Artery Scan Pulse Rate 135 H Pulse Rate [Finger] 129 H 132 H Respiratory Rate 20 20 20 Respiratory Effort / Characteristics Non-Labored Respiratory Depth Normal Blood Pressure 171/89 H Blood Pressure [Left Arm] 167/103 H 170/111 H Blood Pressure Mean 116 Blood Pressure Mean [Left Arm] 124 130 Pulse Oximetry 93 94 94 Oxygen Delivery Method Room Air Room Air Room Air Sepsis Recent Fever Within 48 Hours No Sepsis New/Unexplained Change in Mental Status No Sepsis Action Taken by Nursing No Action Required 06/10/22 18:58 Temperature Temperature Source Pulse Rate 107 H Pulse Rate [Finger] Respiratory Rate Respiratory Effort / Characteristics Respiratory Depth Blood Pressure 136/85 Blood Pressure [Left Arm] Blood Pressure Mean Blood Pressure Mean [Left Arm] Pulse Oximetry Oxygen Delivery Method Sepsis Recent Fever Within 48 Hours Sepsis New/Unexplained Change in Mental Status Sepsis Action Taken by Usp Medications Current Medication List: was personally reviewed by me Laboratory Data Attestation: I reviewed the patient's lab results. Result diagrams: 06/10/22 16:19 06/10/22 16:19 Lab Results 06/10/22 06/10/22 06/10/22 Range/Units 16:19 16:19 16:19 WBC 7.05 (4.8-10.8) K/ul RBC 4.89 (4.63-6.08) M/uL Hgb 15.6 (14.0-18.0) g/dl Hct 47.2 (40.1-51.0) % MCV 96.5 (80.0-100.0) fL MCH 31.9 (25.0-34.0) pg MCHC 33.1 (32.0-36.0) g/dL RDW Std Deviation 54.5 H (36.4-46.3) fL RDW Coeff of Aria 15.1 H (11.5-14.5) % Plt Count 223 (130-400) K/uL MPV 9.0 L (9.4-12.4) fL Immature Gran % (Auto) 0.3 % Neut % (Auto) 69.2 % Lymph % (Auto) 16.6 % [place] % (Auto) 12.5 % Eos % (Auto) 1.1 % Baso % (Auto) 0.3 % Neut # (Auto) 4.88 (1.4-6.5) K/uL Lymph # (Auto) 1.17 L (1.2-3.4) K/uL [place] # (Auto) 0.88 H (0.24-0.82) K/uL Eos # (Auto) 0.08 (0-0.50) K/uL Baso # (Auto) 0.02 (0-0.2) K/uL Immature Gran # (Auto) 0.02 (0.00-0.02) K/uL PT 11.4 (9.0-12.0) Seconds INR 1.1 (0.9-1.1) APTT 26.9 (21.0-31.0) Seconds PTT Ratio 1.0 Sodium 138 (136-145) mmol/L Potassium 4.0 (3.5-5.1) mmol/L Chloride 102 (98-107) mmol/L Carbon Dioxide 26 (21-32) mmol/L Anion Gap 10 (3-11) BUN 16 (6-23) mg/dl Creatinine 0.65 (0.6-1.4) mg/dl Est Cr Clr Drug Dosing 147.5 ml/min Est GFR ( Amer) 115.1 ml/min Est GFR (Non-Af Amer) 99.3 ml/min BUN/Creatinine Ratio 24.6 H (10-20) Glucose 106 H (70-99(Fasting)) mg/dl Lactate (0.4-2.0) mmol/L Calcium 8.8 (8.5-10.1) mg/dl Magnesium 2.0 (1.7-2.4) mg/dl Total Bilirubin 1.1 H (0.2-1.0) mg/dl AST 99 H (13-39) U/L ALT 99 H (7-52) U/L Alkaline Phosphatase 103 (34-104) U/L Troponin I High Sens 11.4 (0-20) pg/ml B-Natriuretic Peptide (0-100) pg/ml Total Protein 7.3 (6.0-8.3) gm/dl Albumin 3.8 (3.4-5.0) gm/dl Globulin 3.5 (2.5-4.0) gm/dl Albumin/Globulin Ratio 1.1 (0.9-2) Procalcitonin (0-0.5) ng/ml TSH (0.300-4.500) uIu/ml Urine Color Urine Appearance (Clear) Urine pH (4.5-7.5) Ur Specific [place] (1.000-1.030) Urine Protein (Negative) Urine Glucose (UA) (Negative) Urine Ketones (Negative) Urine Blood (Negative) Urine Nitrite (Negative) Urine Bilirubin (Negative) Urine Urobilinogen (Negative) Ur Leukocyte Esterase (Negative) SARS-CoV-2, RNA, NAAT (NEGATIVE) 06/10/22 06/10/22 06/10/22 Range/Units 16:19 16:19 16:19 WBC (4.8-10.8) K/ul RBC (4.63-6.08) M/uL Hgb (14.0-18.0) g/dl Hct (40.1-51.0) % MCV (80.0-100.0) fL MCH (25.0-34.0) pg MCHC (32.0-36.0) g/dL RDW Std Deviation (36.4-46.3) fL RDW Coeff of Aria (11.5-14.5) % Plt Count (130-400) K/uL MPV (9.4-12.4) fL Immature Gran % (Auto) % Neut % (Auto) % Lymph % (Auto) % [place] % (Auto) % Eos % (Auto) % Baso % (Auto) % Neut # (Auto) (1.4-6.5) K/uL Lymph # (Auto) (1.2-3.4) K/uL [place] # (Auto) (0.24-0.82) K/uL Eos # (Auto) (0-0.50) K/uL Baso # (Auto) (0-0.2) K/uL Immature Gran # (Auto) (0.00-0.02) K/uL PT (9.0-12.0) Seconds INR (0.9-1.1) APTT (21.0-31.0) Seconds PTT Ratio Sodium (136-145) mmol/L Potassium (3.5-5.1) mmol/L Chloride (98-107) mmol/L Carbon Dioxide (21-32) mmol/L Anion Gap (3-11) BUN (6-23) mg/dl Creatinine (0.6-1.4) mg/dl Est Cr Clr Drug Dosing ml/min Est GFR ( Amer) ml/min Est GFR (Non-Af Amer) ml/min BUN/Creatinine Ratio (10-20) Glucose (70-99(Fasting)) mg/dl Lactate 1.0 (0.4-2.0) mmol/L Calcium (8.5-10.1) mg/dl Magnesium (1.7-2.4) mg/dl Total Bilirubin (0.2-1.0) mg/dl AST (13-39) U/L ALT (7-52) U/L Alkaline Phosphatase (34-104) U/L Troponin I High Sens (0-20) pg/ml B-Natriuretic Peptide (0-100) pg/ml Total Protein (6.0-8.3) gm/dl Albumin (3.4-5.0) gm/dl Globulin (2.5-4.0) gm/dl Albumin/Globulin Ratio (0.9-2) Procalcitonin < 0.05 (0-0.5) ng/ml TSH 2.896 (0.300-4.500) uIu/ml Urine Color Urine Appearance (Clear) Urine pH (4.5-7.5) Ur Specific [place] (1.000-1.030) Urine Protein (Negative) Urine Glucose (UA) (Negative) Urine Ketones (Negative) Urine Blood (Negative) Urine Nitrite (Negative) Urine Bilirubin (Negative) Urine Urobilinogen (Negative) Ur Leukocyte Esterase (Negative) SARS-CoV-2, RNA, NAAT (NEGATIVE) 06/10/22 06/10/22 06/10/22 Range/Units 17:00 17:11 18:17 WBC (4.8-10.8) K/ul RBC (4.63-6.08) M/uL Hgb (14.0-18.0) g/dl Hct (40.1-51.0) % MCV (80.0-100.0) fL MCH (25.0-34.0) pg MCHC (32.0-36.0) g/dL RDW Std Deviation (36.4-46.3) fL RDW Coeff of Aria (11.5-14.5) % Plt Count (130-400) K/uL MPV (9.4-12.4) fL Immature Gran % (Auto) % Neut % (Auto) % Lymph % (Auto) % [place] % (Auto) % Eos % (Auto) % Baso % (Auto) % Neut # (Auto) (1.4-6.5) K/uL Lymph # (Auto) (1.2-3.4) K/uL [place] # (Auto) (0.24-0.82) K/uL Eos # (Auto) (0-0.50) K/uL Baso # (Auto) (0-0.2) K/uL Immature Gran # (Auto) (0.00-0.02) K/uL PT (9.0-12.0) Seconds INR (0.9-1.1) APTT (21.0-31.0) Seconds PTT Ratio Sodium (136-145) mmol/L Potassium (3.5-5.1) mmol/L Chloride (98-107) mmol/L Carbon Dioxide (21-32) mmol/L Anion Gap (3-11) BUN (6-23) mg/dl Creatinine (0.6-1.4) mg/dl Est Cr Clr Drug Dosing ml/min Est GFR ( Amer) ml/min Est GFR (Non-Af Amer) ml/min BUN/Creatinine Ratio (10-20) Glucose (70-99(Fasting)) mg/dl Lactate (0.4-2.0) mmol/L Calcium (8.5-10.1) mg/dl Magnesium (1.7-2.4) mg/dl Total Bilirubin (0.2-1.0) mg/dl AST (13-39) U/L ALT (7-52) U/L Alkaline Phosphatase (34-104) U/L Troponin I High Sens (0-20) pg/ml B-Natriuretic Peptide 170 H (0-100) pg/ml Total Protein (6.0-8.3) gm/dl Albumin (3.4-5.0) gm/dl Globulin (2.5-4.0) gm/dl Albumin/Globulin Ratio (0.9-2) Procalcitonin (0-0.5) ng/ml TSH (0.300-4.500) uIu/ml Urine Color Yellow Urine Appearance Clear (Clear) Urine pH 5.5 (4.5-7.5) Ur Specific [place] 1.021 (1.000-1.030) Urine Protein Negative (Negative) Urine Glucose (UA) Negative (Negative) Urine Ketones 1+ H (Negative) Urine Blood Negative (Negative) Urine Nitrite Negative (Negative) Urine Bilirubin Negative (Negative) Urine Urobilinogen Negative (Negative) Ur Leukocyte Esterase Negative (Negative) SARS-CoV-2, RNA, NAAT NEGATIVE (NEGATIVE) Administered Medications Acetaminophen (Acetaminophen 500 Mg Tab) 1,000 mg PO Q8H PRN PRN Reason: pain Stop: 07/10/22 22:29 Last Admin: 06/10/22 23:18 Dose: 1,000 mg Documented By: KAILASH Daptomycin 400 mg/ Syringe 8 mls @ 4 mls/min IV Q24H DENIS; Protocol Stop: 06/17/22 22:59 Last Admin: 06/10/22 23:29 Dose: 4 mls/min Documented By: KAILASH Melatonin (Melatonin 3 Mg Tab) 3 mg PO HS PRN PRN Reason: Sleep Stop: 07/10/22 22:29 Last Admin: 06/10/22 23:18 Dose: 3 mg Documented By: KAILASH Metoprolol Tartrate (Metoprolol Tartrate 25 Mg Tab) 25 mg PO BID DENIS Stop: 07/10/22 22:07 Last Admin: 06/10/22 23:17 Dose: 25 mg Documented By: KAILASH Miscellaneous (Mk-7 Vitamin K2 - Order Awaiting Action) 1 each N/A QS [facility] Stop: 07/11/22 00:00 Last Admin: 06/11/22 00:43 Dose: Not Given Documented By: KAILASH Discontinued Medications Furosemide (Furosemide 40 Mg/4 Ml Vial) 40 mg IV ONE ONE Stop: 06/10/22 19:16 Last Admin: 06/10/22 19:26 Dose: 40 mg Documented By: WILBERT Sodium Chloride (Nss 1000ml) 1,000 mls @ 999 mls/hr IV .Q1H1M ONE Stop: 06/10/22 17:32 Last Admin: 06/10/22 17:16 Dose: Not Given Documented By: QGV Cefepime HCl (Maxipime) 2,000 mg in 20 mls @ 5 mls/min IV NOW STA; Protocol Stop: 06/10/22 16:35 Last Admin: 06/10/22 16:42 Dose: 5 mls/min Documented By: Sodium Chloride (Nss 1000ml) 500 mls @ 999 mls/hr IV .Q31M ONE Stop: 06/10/22 17:35 Last Infusion: 06/10/22 18:16 Dose: 0 mls/hr Documented By: Admin: 06/10/22 17:16 Dose: 999 mls/hr Documented By: QGV Labetalol HCl (Labetalol Hcl Iv 5 Mg/Ml 20ml) 10 mg IV NOW STA Stop: 06/10/22 17:59 Last Admin: 06/10/22 18:25 Dose: 10 mg Documented By: QGV Co-signed By: Metoprolol Tartrate (Metoprolol Tartrate 1 Mg/Ml Vial) 5 mg IV NOW STA Stop: 06/10/22 18:37 Last Admin: 06/10/22 18:58 Dose: 5 mg Documented By: QGV Metoprolol Tartrate (Metoprolol Tartrate 1 Mg/Ml Vial) 2.5 mg IV NOW STA Stop: 06/10/22 19:43 Last Admin: 06/10/22 20:38 Dose: 2.5 mg Documented By: QGV Morphine Sulfate (Morphine Sulfate 4 Mg/Ml 1 Ml Carp\\Vial) 4 mg IV NOW STA Stop: 06/10/22 18:37 Last Admin: 06/10/22 18:58 Dose: 4 mg Documented By: QGV Imaging Data Radiologist's Impression: Chest X-Ray 06/10/22 16:33 SINGLE VIEW CHEST CLINICAL HISTORY: Fever. FINDINGS: An AP, portable, upright chest radiograph is compared to study dated 10/20/2016. The examination is degraded by portable technique and apical lordotic positioning. The heart is enlarged. The pulmonary vasculature is noncontrast. Chronic interstitial thickening is similar to previous. There is bibasilar scarring/atelectasis. No airspace consolidation or large pleural effusion is identified. No pneumothorax is seen. The skeletal structures are osteopenic. The bony thorax is grossly intact. IMPRESSION: Cardiomegaly with no acute cardiopulmonary abnormality. ACT 112: Negative or not required by law. Electronically signed by: Nabor Low M.D. 06/10/2022 5:28 PM Venous Doppler Study 06/10/22 17:03 BILATERAL LOWER EXTREMITY VENOUS DOPPLER HISTORY: Bilateral lower extremity swelling. swelling COMPARISON STUDY: None. FINDINGS: There is normal compressibility, flow, and augmentation within the bilateral lower extremity deep venous systems. Thrombosed superficial varicosities seen within the mid right thigh to the distal calf. IMPRESSION: 1. No DVT within the right or left lower extremity. 2. Thrombosed superficial varicosities seen within the mid right thigh to the distal calf. ACT 112: Negative or not required by law. Electronically signed by: Miguel Funk M.D. 06/10/2022 6:05 PM Discharge Plan Visit Data Chief Complaint: Infection Stated Complaint: REFERRED BY DOC,IV, SKIN INFECTION ED Provider: Nabor Robison Discharge Problem: Atrial flutter with rapid ventricular response, SOB (shortness of breath), Ped al edema, Cellulitis Patient Disposition: Admitted As Inpatient Condition: Fair Discharge Instructions Interventions: ED Discharge Assessment Last Done: 06/10/22 21:25
[2022-06-10] MEDS ORDERED: SODIUM CHLORIDE 0.9% 1000ML 500 ML IV ONE (17:05)
[2022-06-10 17:07] LABS: Albumin Globulin Ratio 1.1 (0.9-2); Albumin Level 3.8 gm/dl (3.4-5.0); BUN Creatinine Ratio 24.6 (10-20); Bilirubin,Total 1.1 mg/dl (0.2-1.0); Calcium 8.8 mg/dl (8.5-10.1); Creatinine Clr Calc Pharmacy 147.5 ml/min; Est GFR (African American) 115.1 ml/min; Est GFR (Non-African American) 99.3 ml/min; Globulin 3.5 gm/dl (2.5-4.0); Total Protein 7.3 gm/dl (6.0-8.3)
[2022-06-10 17:10] LABS: Troponin I High Sensitivity 11.4 pg/ml (0-20)
--- NOTE | 2022-06-10 17:30 | XRay Report ---
SINGLE VIEW CHEST CLINICAL HISTORY: Fever. FINDINGS: An AP, portable, upright chest radiograph is compared to study dated 10/20/2016. The examina tion is degraded by portable technique and apical lordotic positioning. The heart is enlarged. The pu lmonary vasculature is noncontrast. Chronic interstitial thickening is similar to previous. There is bibasilar scarring/atelectasis. No airspace consolidation or large pleural effusion is identified. No pneumothorax is seen. The skeletal structures are osteopenic. The bony thorax is grossly intact. IMPRESSION: Cardiomegaly with no acute cardiopulmonary abnormality. ACT 112: Negative or not required by law. Electronically signed by: Nabor Low M.D. 06/10/2022 5:28 PM
[2022-06-10] MEDS ORDERED: LABETALOL HCL IV 5 MG/ML 20ML IV STA (17:58)
--- NOTE | 2022-06-10 18:06 | Ultrasound Report ---
BILATERAL LOWER EXTREMITY VENOUS DOPPLER HISTORY: Bilateral lower extremity swelling. swelling COMPARISON STUDY: None. FINDINGS: There is normal compressibility, flow, and augmentation within the bilateral lower extremit y deep venous systems. Thrombosed superficial varicosities seen within the mid right thigh to the dis adenike calf. IMPRESSION: 1. No DVT within the right or left lower extremity. 2. Thrombosed superficial varicosities seen within the mid right thigh to the distal calf. ACT 112: Negative or not required by law. Electronically signed by: Miguel Funk M.D. 06/10/2022 6:05 PM
[2022-06-10] MEDS ORDERED: METOPROLOL TARTRATE 1 MG/ML VIAL IV STA ×2 (18:36→19:42)
[2022-06-10] MEDS ORDERED: MoRPHine SULFATE 4 MG/ML 1 ML CARP\\VIAL IV STA (18:36)
[2022-06-10 18:41] LABS: Appearance Urine Clear (Clear); Bilirubin Urine Negative (Negative); Blood Urine Negative (Negative); Color Urine Yellow; Glucose Urine UA Negative (Negative); Ketones Urine 1+ (Negative); Leukocyte Esterase Urine Negative (Negative); Nitrite Urine Negative (Negative); Protein Urine Negative (Negative); Specific Gravity Urine 1.021 (1.000-1.030); Urobilinogen Urine Negative (Negative); pH Urine 5.5 (4.5-7.5)
[2022-06-10] MEDS ORDERED: FUROSEMIDE 40 MG/4 ML VIAL IV ONE (19:15)
--- NOTE | 2022-06-10 20:14 | History & Physical Report ---
Date of Service June 10, 2022 Assessment & Plan (1) Atrial flutter: Plan: - Present on initial eval in ED with HR 130s. After now 120s after 10 IV labetalol, 5 mg IV Lopressor x1, with subsequent 2.5 mg dose. - Given severe bilateral lower extremity edema, overall weight gain, likely has component heart failure. - 40 mg IV Lasix given in ED, continue diuresis 40 mg IV twice daily. - Will start patient on 25 mg metoprolol BID for now. - Cardiology consulted, appreciate their recommendations and assistance. - Defer on anticoagulation for now given patient's history of severe GI bleeds. - K 4.0, Mg 2.0. Already on potassium and magnesium supplementation. - Echo in AM. No prior echos for reference. (2) Chronic venous insufficiency: Plan: - b/l venous doppler neg for DVT, + for thrombosed superficial varicosities seen within the mid right thigh to the distal calf. - Follows w/ Dr Veloz, s/p R GSV RFA in 2011. - Continue using compression stockings. (3) History of gastric ulcer: Plan: - Anastomotic ulcers with recurrent GI bleeds in 2018 and 2020 (4) Obesity: Plan: - s/p gastric bypass 20+ years ago. (5) Sleep apnea: Plan: - No longer uses CPAP, however would recommend repeat sleep study and begin using again to help with fluid overload/LE edema. Plan - Admit to PCU. - SCDS for VTE ppx; holding chemoppx for now given history of severe GI bleeds. - Full Code. History of Present Illness Chief Complaint: progressive dyspnea, palpitations, LE edema Primary Care Provider: Ridge Jeronimo MD Lonnie Mckeon is a 67-year-old male with a past medical history significant for venous stasis, obesity s/p gastric bypass, GI bleed, and sleep apnea who presents today at the recommendation of his PCP. He was seen by his PCP today for bilateral leg redness, swelling, and ongoing shortness of breath with exertion over the past several weeks. There is concern for infection, therefore patient was referred over to ED further evaluation. Patient states he is bad veins and has had progressive redness of his bilateral lower extremities since the beginning of this year, however the past 2 months is quickly worsened, and his legs have become much more swollen or weeping fluid. He is also noticed he is more short of breath with regular activities that he was previously able to tolerate. In the beginning of the year, he lost 50 pounds but has regained that since due to the swelling in his legs, as well as decreased activity level as just walking his dog caused him to be severely short of breath. He had noticed palpitations over the past 2 weeks associated with dizziness, lightheadedness, and worsening shortness of breath, which prompted him to see his primary care provider this week for further evaluation. Denies any fever or chills, myalgias, or calf pain. He feels bloated in his abdomen but is without abdominal pain, nausea, vomiting, diarrhea, constipation. Upon presentation to the ED, he is hypertensive 171/89, HR [id number], afebrile 93 % on room air. Labs are significant for T bili elevated 1.1, AST and ALT both elevated at 99, BNP measures 17. Troponin 11. without leukocytosis, lactate and procalcitonin within normal limits. Allergies Allergy/AdvReac Type Severity Reaction Status Date / Time No Known Allergies Allergy Verified 06/10/22 19:11 Home Medications Medication Instructions Recorded Confirmed Type coenzyme Q10 100 mg capsule (Co 100 mg PO QAM 06/15/19 06/10/22 History Q-10) multivitamin 1 tab PO QAM 06/15/19 06/10/22 History cholecalciferol (vitamin D3) 50 50 mcg PO QAM 01/17/21 06/10/22 History mcg (2,000 unit) capsule (Vitamin D3) cinnamon bark 500 mg capsule 500 mg PO QAM 01/17/21 06/10/22 History (Cinnamon) diphenhydramine HCl 25 mg capsule 25 mg PO HS PRN Sleep 01/17/21 06/10/22 History (Benadryl) ascorbic acid (vitamin C) 1,000 mg 1 g PO DAILY 03/12/21 06/10/22 History tablet (Vitamin C) acetylcysteine 600 mg capsule (NAC) 600 mg PO DAILY 08/15/21 06/10/22 History glucosamine HCl 500 mg tablet 500 mg PO DAILY 08/15/21 06/10/22 History krill oil 500 mg capsule 500 mg PO DAILY 08/15/21 06/10/22 History magnesium 250 mg tablet 500 mg PO DAILY 08/15/21 06/10/22 History mk-7 vitamin k2 100 mcg PO DAILY 08/15/21 06/10/22 History turmeric root extract 500 mg 500 mg PO DAILY 08/15/21 06/10/22 History capsule zinc 50 mg tablet 50 mg PO DAILY 08/15/21 06/10/22 History potassium gluconate 595 mg (99 mg) 595 mg PO QAM 09/12/21 06/10/22 History tablet Past Med/Surg History Medical History Anxiety and depression Environmental allergies GERD (gastroesophageal reflux disease) Hearing deficit History of gastric ulcer 2018 Hx of colonic polyps Hx of iron deficiency anemia Hyperlipidemia "BORDERLINE" Hypertension "BORDERLINE">HAS FOLLOWED WITH DR. VELOZ Obesity Osteoarthritis Sleep apnea USED CPAP IN PAST (STOPPED USING) Superficial thrombophlebitis Swelling of lower leg BILAT. REASON FOR FUROSEMIDE (PT STATES SWELLING IS BETTER) Thrombosis SUPERFICIAL BLOOD CLOT RT LEG Surgical History H/O gastric bypass 2002 H/O shoulder surgery RT History of bilateral carpal tunnel release History of cataract surgery right History of colonoscopy History of discectomy LUMBAR DISCECTOMY History of esophagogastroduodenoscopy (EGD) History of gastric bypass History of herniorrhaphy History of total hip arthroplasty RT History of total knee replacement LEFT Varicose veins of both lower extremities LASER PROCEDURE Family History Mother Family history of reaction to anesthesia difficulty of waking Dementia Parkinsons disease Father Myocardial infarction Unknown Hypertension Arthritis Other No significant family history Social History Smoking Status: Never smoker Second Hand Exposure: No; Hx Alcohol Use: No Hx Substance Use: No Preferred Language: Chinese Communication Ability: Effective Communication Tools: Letter Board, Picture Board and Writing Tablet Linotype Mechanic Required: No Beliefs That Will Affect Care: None marital status: Current Living Situation: Spouse current occupational status: employed 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 [employer] Feels Safe at Home: Yes Safety Concerns: Feels Safe At This Time Assistive Devices: Cane Review of Systems Review of Systems: Constitutional: occasional dizziness associated with onset of palpitations, SOB; No fever/chills, weakness, fatigue, myalgias, anorexia, night sweats Eyes: No diplopia, no worsening or blurred vision ENT: normal hearing, no trouble swallowing Respiratory: progressive worsening SOB with activity x months worse x 2 weeks Cardiovascular: palpitations intermittently x 2 weeks Abdomen: No pain, nausea, vomiting, diarrhea or constipation : Denies dysuria, hematuria, increased urgency/frequency, urinary retention Musculoskeletal: progressive leg erythema and swelling since beginning of the year but significantly worse over past 2 months Neurologic: No weakness, numbness/tingling, or balance problems Psychiatric: No anxiety or depression Skin: No rash or itch Physical Exam Physical Exam: General: awake, alert, no apparent distress Head: Normocephalic, atraumatic ENT: PERRL, EOMI, no pharyngeal exudate, mucous membranes moist Chest: Clear to auscultation, on room air, no adventitious breath sounds Cardiac: cardiac exam limited due to body habitus; tachycardic rate, regular rhythm, no murmur, normal peripheral pulses, good capillary refill Abdominal: NABS x 4 quadrants, soft, nontender to palpation, no rebound, guarding or tenderness Extremities: severe b/l LE edema with erythema, venous ulcers, weeping; calfs nontender to palpation Psych: Normal mood and affect Neuro: AAO x 3, strength intact bilaterally and rated 5/5, no motor deficits, speech is clear, no peripheral sensory deficits Skin: no rash or erythema Results & Data Results & Data ([facility]) Vital Signs (Past 12 Hours) Vital Signs Temp Pulse Pulse Resp BP BP Pulse Ox 06/10/22 18:58 107 H 136/85 06/10/22 18:23 132 H 20 170/111 H 94 06/10/22 16:46 129 H 20 167/103 H 94 06/10/22 16:03 37.2 C 135 H 20 171/89 H 93 O2 Del Method 06/10/22 18:58 06/10/22 18:23 Room Air 06/10/22 16:46 Room Air 06/10/22 16:03 Room Air Laboratory Results Abnormal lab results 06/10/22 06/10/22 06/10/22 Range/Units 16:19 16:19 17:11 RDW Std Deviation 54.5 H (36.4-46.3) fL RDW Coeff of Aria 15.1 H (11.5-14.5) % MPV 9.0 L (9.4-12.4) fL Lymph # (Auto) 1.17 L (1.2-3.4) K/uL Creek # (Auto) 0.88 H (0.24-0.82) K/uL BUN/Creatinine Ratio 24.6 H (10-20) Glucose 106 H (70-99(Fasting)) mg/dl Total Bilirubin 1.1 H (0.2-1.0) mg/dl AST 99 H (13-39) U/L ALT 99 H (7-52) U/L B-Natriuretic Peptide 170 H (0-100) pg/ml Urine Ketones (Negative) 06/10/22 Range/Units 18:17 RDW Std Deviation (36.4-46.3) fL RDW Coeff of Aria (11.5-14.5) % MPV (9.4-12.4) fL Lymph # (Auto) (1.2-3.4) K/uL Creek # (Auto) (0.24-0.82) K/uL BUN/Creatinine Ratio (10-20) Glucose (70-99(Fasting)) mg/dl Total Bilirubin (0.2-1.0) mg/dl AST (13-39) U/L ALT (7-52) U/L B-Natriuretic Peptide (0-100) pg/ml Urine Ketones 1+ H (Negative) Diagnostic Findings Chest X-Ray 06/10/22 16:33 SINGLE VIEW CHEST CLINICAL HISTORY: Fever. FINDINGS: An AP, portable, upright chest radiograph is compared to study dated 10/20/2016. The examination is degraded by portable technique and apical lordotic positioning. The heart is enlarged. The pulmonary vasculature is noncontrast. Chronic interstitial thickening is similar to previous. There is bibasilar scarring/atelectasis. No airspace consolidation or large pleural effusion is identified. No pneumothorax is seen. The skeletal structures are osteopenic. The bony thorax is grossly intact. IMPRESSION: Cardiomegaly with no acute cardiopulmonary abnormality. ACT 112: Negative or not required by law. Electronically signed by: Nabor Low M.D. 06/10/2022 5:28 PM Venous Doppler Study 06/10/22 17:03 BILATERAL LOWER EXTREMITY VENOUS DOPPLER HISTORY: Bilateral lower extremity swelling. swelling COMPARISON STUDY: None. FINDINGS: There is normal compressibility, flow, and augmentation within the bilateral lower extremity deep venous systems. Thrombosed superficial varicosities seen within the mid right thigh to the distal calf. IMPRESSION: 1. No DVT within the right or left lower extremity. 2. Thrombosed superficial varicosities seen within the mid right thigh to the distal calf. ACT 112: Negative or not required by law. Electronically signed by: Miguel Funk M.D. 06/10/2022 6:05 PM ECG Additional Comments: Inital EKG 16:14 06/10/22: Poor data quality, interpretation may be adversely affected Suspect arm lead reversal, interpretation assumes no reversal Sinus tachycardia Right bundle branch block Inferior infarct (cited on or before 17-JUN-2019) Anterolateral infarct , age undetermined Abnormal ECG When compared with ECG of 25-JAN-2021 21:25, Vent. rate has increased BY 60 BPM Anterior infarct is now Present ... Repeat 19:18 06/10/22: Atrial flutter with AV block, RBBB, lateral T wave inversions, ventricular rate 97 Code Status & VTE Plan Code Status Full Code. Supervising Physician Co-Signing Physician Notes Attending addendum: I have physically seen this patient, have supervised the LEIGHTON's activities, and agree with the H&P unless as otherwise noted. Assessment and Plan: Atrial flutter with RVR- Status post labetalol 10 mg IV, followed by Lopressor 5 mg IV, with with subsequent dosing of Lopressor 2.5 mg IV, leading to improved rate control Significant lower extremity edema Given Lasix 40 mg IV from the ED, will continue twice daily Order complete echocardiogram to assess ejection fraction Follow serial BMP and magnesium levels May be an element of chronic venous insufficiency as well Bilateral venous Dopplers negative for DVT Not an ideal candidate for anticoagulation due to gastric ulcer with recurrent GI bleeding 2018 3020 Bilateral thrombosed superficial varicosities in the right thigh to distal calf Has been using compression stockings outpatient setting Follow clinical progress with diuresis Gastric ulcers/history of gastric bypass- History significant bleeding in 2018 and 2020 Remaining orders and notations as noted PG Care Time/CCT Total # of Minutes Spent Total Time Spent with Patient: Total time spent is greater than 50% in coordination of care (as documented) at patient's floor/unit and/or counseling patient: Coding Level of Care Code 42794 Initial In Care Lvl 3 Diagnoses Atrial flutter I48.92 Chronic venous insufficiency I87.2 History of gastric ulcer Z87.19 Obesity E66.01 Body mass index: unspecified BMI Obesity classification: adult class 3 (BMI >= 40) Obesity type: due to excess calories Serious obesity comorbidity presence: with serious comorbidity Sleep apnea G47.30 Sleep apnea type: unspecified type (1) Sleep apnea Sleep apnea type: unspecified type Qualified Code(s): G47.30 - Sleep apnea, unspecified (2) Obesity Body mass index: unspecified BMI Obesity classification: adult class 3 (BMI >= 40) Obesity type: due to excess calories Serious obesity comorbidity presence: with serious comorbidity Qualified Code(s): E66.01 - Morbid (severe) obesity due to excess calories
[2022-06-10] MEDS ORDERED: DAPTOmycin 400 MG in SYRINGE 0 ML IV SCH (21:30)
[2022-06-10] MEDS ORDERED: ALUMINUM/MAGNESIUM SUSP 30 ML UDC PO PRN (22:08)
[2022-06-10] MEDS ORDERED: POLYETHYLENE (MIRALAX) 17 GM PACK PO PRN (22:08)
[2022-06-10] MEDS ORDERED: MELATONIN 3 MG TAB PO PRN (22:30)
[2022-06-10] MEDS ORDERED: INFLUENZA VACCINE HIGH DOSE PF 65+ 0.7 ML SYR IM ONE (22:59)
[2022-06-10] MEDS: METOPROLOL TARTRATE 25 MG TAB PO SCH (23:17)
[2022-06-10] MEDS: ACETAMINOPHEN 500 MG TAB PO PRN (23:18)
[2022-06-10] MEDS: DAPTOmycin 400 MG in SYRINGE 0 ML IV SCH (23:29)
[2022-06-11] MEDS ORDERED: KETOROLAC TROMETHAMINE 15 MG/ML VIAL IV ONE (05:56)
[2022-06-11 07:51] LABS: Albumin Globulin Ratio 1.1 (0.9-2); Albumin Level 3.5 gm/dl (3.4-5.0); Bilirubin,Total 1.4 mg/dl (0.2-1.0); Calcium 8.6 mg/dl (8.5-10.1); Creatinine Clr Calc Pharmacy 160.1 ml/min; Est GFR (African American) 118.1 ml/min; Est GFR (Non-African American) 101.9 ml/min; Globulin 3.1 gm/dl (2.5-4.0); Potassium 4.1 mmol/L (3.5-5.1); Total Protein 6.6 gm/dl (6.0-8.3)
[2022-06-11] MEDS: ACETYLCYSTEINE 600 MG CAP PO SCH (08:25)
[2022-06-11] MEDS: ASCORBIC ACID 500 MG TAB PO SCH (08:26)
[2022-06-11] MEDS: CHOLECALCIFEROL 1,000 UNITS 25 MCG TAB PO SCH (08:28)
[2022-06-11] MEDS: GLUCOSAMINE SULFATE 500 MG CAP PO SCH (08:30)
[2022-06-11] MEDS: FUROSEMIDE 40 MG/4 ML VIAL IV SCH ×2 (08:30→16:34)
[2022-06-11] MEDS: METOPROLOL TARTRATE 25 MG TAB PO SCH ×2 (08:31→22:07)
[2022-06-11] MEDS: ZINC SULFATE 220 MG CAPSULE PO SCH (08:31)
[2022-06-11] MEDS: MAGNESIUM OXIDE 400 MG TAB PO SCH (08:31)
[2022-06-11] MEDS: MULTIVITAMIN TAB PO SCH (08:32)
[2022-06-11] MEDS ORDERED: NON-FORMULARY MEDICATION (Potassium Gluconate 595 mg (99 mg) Tablet) PO SCH (09:00)
[2022-06-11] MEDS ORDERED: NON-FORMULARY MEDICATION (Krill Oil 500 mg capsule) PO SCH (09:00)
--- NOTE | 2022-06-11 10:46 | XCELERA ---
[id number]
[2022-06-11] MEDS ORDERED: COUGH DROP (SUGAR FREE) LOZ 24 LOZ/1 BOX BUCCAL ONE (11:46)
--- NOTE | 2022-06-11 12:23 | Vascular Medicine Consultation ---
Date of Consultation June 11, 2022 Assessment & Plan (1) Lower extremity edema: Possible cellulitis 2. Chronic venous insufficiencyPost right GSV RFA 2011. Known right AASV, SSV, left GSV pathologic reflux 3. Right heart failuremild RV dilation/dysfunction on echo 4. Untreated SARIAH with mild pulmonary hypertension 5. Atrial flutter with RVR 6. History of GI bleed 7. Obesity post gastric bypass in 1999 Patient here in the setting of worsened bilateral lower extremity edema and questionable cellulitis. Suspect lower extremity edema secondary to right heart failure, lymphedema and known chronic venous insufficiency. No evidence of DVT on repeat duplex. Diuretics, rate control, anticoagulation per primary team, Dr. Montgomery. From a vascular standpoint long-term will need more aggressive compression and would consider referral to outpatient wound clinic. Also feel would likely benefit from endovenous ablation of pathologic saphenous reflux. This can be further discussed as an outpatient. Please contact us if additional questions. History of Present Illness Attending Physician: Kwame Millan MD History of Present Illness Mr. Mckeon is a very pleasant 67-year-old man seen previously by vascular medicine for advanced chronic venous insufficiency. Patient admitted currently for worsening bilateral lower extremity edema and concern for cellulitis. Also noted to have new atrial flutter with RVR. Patient previously seen by Dr. Montgomery for his cardiac care. PCP is Dr. Jeronimo Past medical history includes prior lower GI bleed thought secondary to diverticulosis, morbid obesity post gastric bypass Markus-en-Y in 1999, obstructive sleep apnea, mild pulmonary hypertension with mildly dilated RV/normal RV function, hypertension, dyslipidemia, chronic right bundle branch block/LAFB, anxiety/depression, post right total hip replacement, left total knee replacement. Has had a long history of lower extremity swelling and varicose veins. Pr eviously seen by Dr. Navarro with [employer] vascular surgery. Underwent right GSV RFA in 2011. Left GSV thought not to be a candidate for ablation at that time. Initially had some improvement post RFA for a few years. In January 2021 we saw as an outpatient and he reported years of progressive bilateral symptoms of leg heaviness keeping him awake at night, leg pain/itchiness and daily leg pain, swelling. Symptoms worse on the left and right. Has had previous ulcerations in his right ankle. Has also had previous episodes of superficial venous thrombophlebitis. No history of DVT. 08/2021 we discussed possible endovenous ablation of his left GSV, right AASV/SSV at that time. Procedure not scheduled. Today he reports increased lower extremity edema over the last 2 months with associated redness and small areas of skin breakdown with drainage of clear/yellow fluid. Has been wearing compression stockings but unable to get them up over his calf. No fever/chills. Also reports increased exertional shortness of breath, orthopnea along with some pounding in his chest particularly yesterday with exertion. Reports CPAP broken at home. On arrival noted to be in atrial flutter with RVR with heart rates to the 120s 130s. Started on beta-blockers with heart rates down to the 80s. Given IV Lasix and antibiotics. Prior vascular studies: Venous reflux 03/2021: Right GSV patent proximal thigh, dilated with varices and reflux. Occluded in the mid thigh post prior RFA. Right AASV dilated with reflux and associated varices. Right thigh varices with chronic SVT. Left GSV dilated with varices and reflux. Bilateral SSV is dilated with reflux Family history: Father had an PR in his 60s. Father also had varicose veins. Social history: and lives with his . 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 Non-smoker. Denies any alcohol. Allergies Allergy/AdvReac Type Severity Reaction Status Date / Time No Known Allergies Allergy Verified 06/10/22 19:11 Home Medications Medication Instructions Recorded Confirmed Type coenzyme Q10 100 mg capsule (Co 100 mg PO QAM 06/15/19 06/10/22 History Q-10) multivitamin 1 tab PO QAM 06/15/19 06/10/22 History cholecalciferol (vitamin D3) 50 50 mcg PO QAM 01/17/21 06/10/22 History mcg (2,000 unit) capsule (Vitamin D3) cinnamon bark 500 mg capsule 500 mg PO QAM 01/17/21 06/10/22 History (Cinnamon) diphenhydramine HCl 25 mg capsule 25 mg PO HS PRN Sleep 01/17/21 06/10/22 History (Benadryl) ascorbic acid (vitamin C) 1,000 mg 1 g PO DAILY 03/12/21 06/10/22 History tablet (Vitamin C) acetylcysteine 600 mg capsule (NAC) 600 mg PO DAILY 08/15/21 06/10/22 History glucosamine HCl 500 mg tablet 500 mg PO DAILY 08/15/21 06/10/22 History krill oil 500 mg capsule 500 mg PO DAILY 08/15/21 06/10/22 History magnesium 250 mg tablet 500 mg PO DAILY 08/15/21 06/10/22 History mk-7 vitamin k2 100 mcg PO DAILY 08/15/21 06/10/22 History turmeric root extract 500 mg 500 mg PO DAILY 08/15/21 06/10/22 History capsule zinc 50 mg tablet 50 mg PO DAILY 08/15/21 06/10/22 History potassium gluconate 595 mg (99 mg) 595 mg PO QAM 09/12/21 06/10/22 History tablet Patient History Medical History Anxiety and depression Environmental allergies GERD (gastroesophageal reflux disease) Hearing deficit History of gastric ulcer 2018 Hx of colonic polyps Hx of iron deficiency anemia Hyperlipidemia "BORDERLINE" Hypertension "BORDERLINE">HAS FOLLOWED WITH DR. VELOZ Obesity Osteoarthritis Sleep apnea USED CPAP IN PAST (STOPPED USING) Superficial thrombophlebitis Swelling of lower leg BILAT. REASON FOR FUROSEMIDE (PT STATES SWELLING IS BETTER) Thrombosis SUPERFICIAL BLOOD CLOT RT LEG Surgical History H/O gastric bypass 2002 H/O shoulder surgery RT History of bilateral carpal tunnel release History of cataract surgery right History of colonoscopy History of discectomy LUMBAR DISCECTOMY History of esophagogastroduodenoscopy (EGD) History of gastric bypass History of herniorrhaphy History of total hip arthroplasty RT History of total knee replacement LEFT Varicose veins of both lower extremities LASER PROCEDURE Family History Mother Family history of reaction to anesthesia difficulty of waking Dementia Parkinsons disease Father Myocardial infarction Unknown Hypertension Arthritis Other No significant family history Social History Smoking Status: Never smoker Second Hand Exposure: No; Hx Alcohol Use: No Hx Substance Use: No Preferred Language: Cape Verdean Communication Ability: Effective Communication Tools: Letter Board, Picture Board and Writing Tablet Manufacturing Finance Manager Required: No Beliefs That Will Affect Care: None marital status: Current Living Situation: Spouse current occupational status: employed 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 [employer] Feels Safe at Home: Yes Safety Concerns: Feels Safe At This Time Assistive Devices: Cane Review of Systems Review of Systems: All systems reviewed & are unremarkable except as noted in HPI & below Physical Exam Physical Exam: General: Lying flat comfortably, no acute distress Eyes: Sclerae anicteric Lungs: Lungs clear Cardiac: Distant heart sounds, irregular irregular Abdomen: Soft, nontender Neuro: Nonfocal Psych: Alert orient x3, normal affect and mood Extremities/Vascular: -- 2+ radial bilaterally Dark redness anteriorly over shins extending midway up lower leg -- 2-3+ bilateral lower extremity edema left greater than right extending to below the knee --Large varicosities above and below the knee bilaterally Small, superficial areas of skin breakdown bilaterally over anterior shins with mild drainage -- Evidence of healed ulcerations above medial malleoli bilaterally. Results & Data ([facility]) Vital Signs (Past 12 Hours) Vital Signs Temp Pulse Resp BP Pulse Ox O2 Del Method 06/11/22 10:45 97.7 F 73 22 95/68 L 94 Room Air 06/11/22 07:48 97.5 F L 96 H 22 97/64 L 96 Room Air 06/11/22 02:59 97.9 F 86 22 104/66 94 Room Air PG Care Time/CCT Total # of Minutes Spent Total Time Spent with Patient: Total time spent is greater than 50% in coordination of care (as documented) at patient's floor/unit and/or counseling patient: Coding Level of Care Code 92599 Initial Inpt Care Lvl 3 Diagnoses Lower extremity edema R60.0
[2022-06-11] MEDS: ACETAMINOPHEN 500 MG TAB PO PRN ×2 (13:57→22:07)
--- NOTE | 2022-06-11 16:38 | Electrocardiogram Report ---
Test Reason : Blood Pressure : / mmHG Vent. Rate : 131 BPM Atrial Rate : 131 BPM P-R Int : 150 ms QRS Dur : 128 ms QT Int : 348 ms P-R-T Axes : 099 244 030 degrees QTc Int : 513 ms Poor data quality, interpretation may be adversely affected Sinus tachycardia Right bundle branch block Inferior infarct (cited on or before 17-JUN-2019) Anterolateral infarct , age undetermined Abnormal ECG When compared with ECG of 25-JAN-2021 21:25, Significant changes have occurred Confirmed by Silvino Jernigan ([id number]) on 06/11/2022 4:38:16 PM Referred By: Ridge Jeronimo Confirmed By:Silvino Jernigan
--- NOTE | 2022-06-11 16:40 | Electrocardiogram Report ---
Test Reason : Blood Pressure : / mmHG Vent. Rate : 097 BPM Atrial Rate : 256 BPM P-R Int : 000 ms QRS Dur : 142 ms QT Int : 428 ms P-R-T Axes : 265 270 -08 degrees QTc Int : 543 ms Atrial flutter with variable A-V block Left axis deviation Right bundle branch block Inferior infarct (cited on or before 17-JUN-2019) T wave abnormality, consider lateral ischemia Abnormal ECG When compared with ECG of 10-JUN-2022 16:14, (unconfirmed) Atrial flutter has replaced Sinus rhythm Criteria for Anterior infarct are no longer Present Criteria for Anterolateral infarct are no longer Present Confirmed by Silvino Jernigan ([id number]) on 06/11/2022 4:40:15 PM Referred By: Ridge Jeronimo Confirmed By:Silvino Jernigan
--- NOTE | 2022-06-11 16:46 | Electrocardiogram Report ---
Test Reason : Blood Pressure : / mmHG Vent. Rate : 082 BPM Atrial Rate : 256 BPM P-R Int : 000 ms QRS Dur : 142 ms QT Int : 422 ms P-R-T Axes : 086 248 053 degrees QTc Int : 493 ms Poor data quality, interpretation may be adversely affected Atrial flutter with variable A-V block Right bundle branch block Inferior infarct (cited on or before 17-JUN-2019) Abnormal ECG When compared with ECG of 10-JUN-2022 19:18, (unconfirmed) Nonspecific T wave abnormality has replaced inverted T waves in Inferior leads Nonspecific T wave abnormality has replaced inverted T waves in Lateral leads Confirmed by Silvino Jernigan ([id number]) on 06/11/2022 4:46:32 PM Referred By: Ridge Jeronimo Confirmed By:Silvino Jernigan
--- NOTE | 2022-06-11 19:29 | Billing Data ---
Date of Service June 11, 2022 Coding Level of Care Code 78132 Initial Inpt Care Lvl 3
--- NOTE | 2022-06-11 19:30 | Hospitalist Progress Note ---
Date of Service June 11, 2022 Assessment & Plan (1) Atrial flutter: Plan: - Present on initial eval in ED with HR 130s. After now 120s after 10 IV labetalol, 5 mg IV Lopressor x1, with subsequent 2.5 mg dose. - Given severe bilateral lower extremity edema, overall weight gain, likely has component heart failure. - 40 mg IV Lasix given in ED, continue diuresis 40 mg IV twice daily. Watch renal function - Will start patient on 25 mg metoprolol BID for now. - Cardiology consulted, On reviewing the echo 06/11, it appears that the patient has heart failure with preserved ejection fraction and probably obesity hypoventilation syndrome causing leg swelling. An outside note from 2019 mentions the patient has not been using CPAP consistently. He is not using it at all currently. He looks forward to seeing his bioinformatics engineer here. No notes from this bioinformatics engineer office are in our EMR. - K 4.0, Mg 2.0. Already on potassium and magnesium supplementation. (2) Chronic venous insufficiency: Plan: - b/l venous doppler neg for DVT, + for thrombosed superficial varicosities seen within the mid right thigh to the distal calf. - Follows w/ Dr Tobar, s/p R GSV RFA in 2011. Reassured patient this is not cellulitis with chronic venous stasis changes of the skin. - Continue using compression stockings. Appreciate Dr. Tobar's consultation. (3) History of gastric ulcer: Plan: - Anastomotic ulcers with recurrent GI bleeds in 2018 and 2020 (4) Obesity: Plan: - s/p gastric bypass 20+ years ago. Being reevaluated for gastric bypass a couple of years ago per notes. (5) Sleep apnea: Plan: - No longer uses CPAP, however would recommend repeat sleep study and begin using again to help with fluid overload/LE edema. Plan - Admit to PCU. - SCDS for VTE ppx; holding chemoppx for now given history of severe GI bleeds. - Full Code. Admission and Anticipated Discharge Date Admission Date: June 10, 2022 Subjective Seen at 1415 hrs., feels fine now. Has had red legs oozing liquid for the last 3 to 4 months. Had lost 60 kg on a keto diet but has gained it back because of leg swelling. Has been depressed about it Sees Dr. Jeronimo for primary care and of cardiology and echocardiogram this morning reveals LVEF 50 to 60% with LVH, mild pulmonary hypertension pressure about 50 mmHg. Dyspneic on exertion walking half a block or so for the last 1 and 4 months and has not been able to go out for walks which depresses him. Has never smoked cigarettes. Denies alcohol or illicit drug use denies chest pain/syncope/nausea/vomiting/diarrhea/cough Physical Exam Physical Exam: Severely obese, pleasant and slightly hard of hearing, sitting on the chair in his room, recounts his history in great detail Head and neck moist tongue, intact extraocular movements, no thyromegaly no JVD in the sitting position Chest clear to station neck CVS S1-S2 regular rate rhythm Extremities 3+ pitting edema pretibial and dorsal feet, diffuse erythema and induration both calves, yellowish body fluid over the pretibial areas of the calves, toenails normal DELINEATOR grossly intact, gait not tested Psych good insight and normal affect Results & Data Results & Data ([facility]) Vital Signs (Past 12 Hours) Vital Signs Temp Pulse Resp BP Pulse Ox O2 Del Method 06/11/22 15:11 36.3 C L 84 18 131/72 91 Room Air 06/11/22 10:45 36.5 C 73 22 95/68 L 94 Room Air 06/11/22 07:48 36.4 C L 96 H 22 97/64 L 96 Room Air Laboratory Results Abnormal lab results 06/11/22 Range/Units 07:02 BUN/Creatinine Ratio 23.0 H (10-20) Glucose 108 H (70-99(Fasting)) mg/dl Total Bilirubin 1.4 H (0.2-1.0) mg/dl AST 62 H (13-39) U/L ALT 75 H (7-52) U/L Medications Administered Home Medications Medication Instructions Recorded Confirmed Last Taken coenzyme Q10 100 mg capsule (Co 100 mg PO QAM 06/15/19 06/10/22 06/10/22 Q-10) multivitamin 1 tab PO QAM 06/15/19 06/10/22 06/10/22 cholecalciferol (vitamin D3) 50 50 mcg PO QAM 01/17/21 06/10/22 06/10/22 mcg (2,000 unit) capsule (Vitamin D3) cinnamon bark 500 mg capsule 500 mg PO QAM 01/17/21 06/10/22 06/10/22 (Cinnamon) diphenhydramine HCl 25 mg capsule 25 mg PO HS PRN Sleep 01/17/21 06/10/22 09/30/21 (Benadryl) ascorbic acid (vitamin C) 1,000 mg 1 g PO DAILY 03/12/21 06/10/22 06/10/22 tablet (Vitamin C) acetylcysteine 600 mg capsule (NAC) 600 mg PO DAILY 08/15/21 06/10/22 06/10/22 glucosamine HCl 500 mg tablet 500 mg PO DAILY 08/15/21 06/10/22 06/10/22 krill oil 500 mg capsule 500 mg PO DAILY 08/15/21 06/10/22 06/10/22 magnesium 250 mg tablet 500 mg PO DAILY 08/15/21 06/10/22 06/10/22 mk-7 vitamin k2 100 mcg PO DAILY 08/15/21 06/10/22 06/10/22 turmeric root extract 500 mg 500 mg PO DAILY 08/15/21 06/10/22 06/10/22 capsule zinc 50 mg tablet 50 mg PO DAILY 08/15/21 06/10/22 06/10/22 potassium gluconate 595 mg (99 mg) 595 mg PO QAM 09/12/21 06/10/22 06/10/22 tablet Active Medications Generic Name Dose Route Start Last Admin Trade Name Duaneq PRN Reason Stop Dose Admin Acetaminophen 1,000 mg 06/10/22 22:30 06/11/22 13:57 Acetaminophen 500 Mg Tab PO 07/10/22 22:29 1,000 mg Q8H PRN Administration pain Acetylcysteine 600 mg 06/11/22 09:00 06/11/22 08:25 Acetylcysteine 600 Mg Cap PO 07/11/22 08:59 600 mg DAILY DENIS Administration Ascorbic Acid 1,000 mg 06/11/22 09:00 06/11/22 08:26 Ascorbic Acid 500 Mg Tab PO 07/11/22 08:59 1,000 mg DAILY DENIS Administration Furosemide 40 mg 06/11/22 09:00 06/11/22 16:34 Furosemide 40 Mg/4 Ml Vial IV 07/11/22 08:59 40 mg BID17 DENIS Administration Glucosamine Sulfate 500 mg 06/11/22 09:00 06/11/22 08:30 Glucosamine Sulfate 500 Mg Cap PO 07/11/22 08:59 500 mg DAILY DENIS Administration Daptomycin 400 mg/ Syringe 8 mls @ 4 mls/min 06/10/22 23:00 06/10/22 23:29 IV 06/17/22 22:59 4 mls/min Q24H DENIS Administration Protocol Magnesium Oxide 400 mg 06/11/22 09:00 06/11/22 08:31 Magnesium Oxide 400 Mg Tab PO 07/11/22 08:59 400 mg DAILY DENIS Administration Melatonin 3 mg 06/10/22 22:30 06/10/22 23:18 Melatonin 3 Mg Tab PO 07/10/22 22:29 3 mg HS PRN Administration Sleep Metoprolol Tartrate 25 mg 06/10/22 22:08 06/11/22 08:31 Metoprolol Tartrate 25 Mg Tab PO 07/10/22 22:07 25 mg BID DENIS Administration Multivitamins 1 tab 06/11/22 09:00 06/11/22 08:32 Multivitamin Tab PO 07/11/22 08:59 1 tab QAM DENIS Administration Vitamin D 2,000 units 06/11/22 09:00 06/11/22 08:28 Cholecalciferol 1,000 Units 25 Mcg Tab PO 07/11/22 08:59 2,000 units QAM DENIS Administration Zinc Sulfate 220 mg 06/11/22 09:00 06/11/22 08:31 Zinc Sulfate 220 Mg Capsule PO 07/11/22 08:59 220 mg DAILY DENIS Administration PG Care Time/CCT Total # of Minutes Spent Total Time Spent with Patient: Total time spent is greater than 50% in coordination of care (as documented) at patient's floor/unit and/or counseling patient: Coding Level of Care Code 91678 Subseq Hosp Care Lvl 3 Diagnoses Atrial flutter I48.92 Chronic venous insufficiency I87.2 History of gastric ulcer Z87.19 Obesity E66.01 Obesity type: due to excess calories Obesity classification: adult class 3 (BMI >= 40) Serious obesity comorbidity presence: with serious comorbidity Body mass index: unspecified BMI Sleep apnea G47.30 Sleep apnea type: unspecified type (1) Obesity Obesity type: due to excess calories Obesity classification: adult class 3 (BMI >= 40) Serious obesity comorbidity presence: with serious comorbidity Body mass index: unspecified BMI Qualified Code(s): E66.01 - Morbid (severe) obesity due to excess calories (2) Sleep apnea Sleep apnea type: unspecified type Qualified Code(s): G47.30 - Sleep apnea, unspecified
[2022-06-11] MEDS: DAPTOmycin 400 MG in SYRINGE 0 ML IV SCH (22:07)
[2022-06-12] MEDS: ACETYLCYSTEINE 600 MG CAP PO SCH (08:25)
[2022-06-12 08:26] LABS: Hematocrit (blood only) 46.7 % (40.1-51.0); Hemoglobin 15.9 g/dl (14.0-18.0); Mean Corpuscular Hemoglobin 32.4 pg (25.0-34.0); Mean Corpuscular Volume 95.1 fL (80.0-100.0); Mean Platelet Volume 9.1 fL (9.4-12.4); Platelet Count 203 K/uL (130-400); RDW Standard Deviation 52.4 fL (36.4-46.3); Red Blood Count 4.91 M/uL (4.63-6.08); White Blood Count 5.33 K/ul (4.8-10.8)
[2022-06-12] MEDS: ASCORBIC ACID 500 MG TAB PO SCH (08:26)
[2022-06-12] MEDS: CHOLECALCIFEROL 1,000 UNITS 25 MCG TAB PO SCH (08:26)
[2022-06-12] MEDS: FUROSEMIDE 40 MG/4 ML VIAL IV SCH ×2 (08:27→16:26)
[2022-06-12] MEDS: MAGNESIUM OXIDE 400 MG TAB PO SCH (08:30)
[2022-06-12] MEDS: GLUCOSAMINE SULFATE 500 MG CAP PO SCH (08:30)
[2022-06-12] MEDS: ZINC SULFATE 220 MG CAPSULE PO SCH (08:31)
[2022-06-12] MEDS: METOPROLOL TARTRATE 25 MG TAB PO SCH (08:31)
[2022-06-12] MEDS: MULTIVITAMIN TAB PO SCH (08:32)
[2022-06-12] MEDS: ACETAMINOPHEN 500 MG TAB PO PRN ×2 (08:41→17:46)
[2022-06-12 08:55] LABS: Albumin Globulin Ratio 1.1 (0.9-2); Albumin Level 3.5 gm/dl (3.4-5.0); BUN Creatinine Ratio 26.6 (10-20); Bilirubin,Total 1.3 mg/dl (0.2-1.0); Calcium 8.9 mg/dl (8.5-10.1); Creatinine Clr Calc Pharmacy 151.1 ml/min; Est GFR (African American) 115.8 ml/min; Est GFR (Non-African American) 99.9 ml/min; Globulin 3.3 gm/dl (2.5-4.0); Potassium 3.8 mmol/L (3.5-5.1); Total Protein 6.8 gm/dl (6.0-8.3)
--- NOTE | 2022-06-12 09:17 | Cardiology Consultation ---
Date of Consultation June 12, 2022 History of Present Illness Reason for Consultation: Atrial flutter with a rapid ventricular response, right-sided heart failure, morbid obesity Attending Physician: Mario Cool MD History of Present Illness Patient was admitted to the hospital with worsening right-sided heart failure symptoms, he was found to be in atrial flutter with a rapid ventricular response, he notes he has not been using his CPAP in over 6 months as the machine broke. He does not weigh himself at home. He does not follow a low- salt diet nor does he weigh himself on a daily basis. He denies any chest pain chest pressure chest heaviness. He is unaware of any palpitations or fluttering or feeling his heart racing. He has been more short of breath and it sounds like he cannot do very much without having to stop due to dyspnea. He notes he starts sleeping in bed but he ends up in a chair due to shortness of breath. He denies any increased abdominal distention but he is morbidly obese and its really difficult to ascertain whether his abdomen is more distended or not. He denies any orthostatic symptoms or falls. He has had bleeding in the past including an ulcer at his Markus-en-Y in anastomosis. As well as hemorrhoidal bleeding. He notes he is on iron his stools are already dark but he has not had any further hemorrhoidal bleeding. The rest of a complete her systems otherwise negative Allergies Allergy/AdvReac Type Severity Reaction Status Date / Time No Known Allergies Allergy Verified 06/10/22 19:11 Home Medications Medication Instructions Recorded Confirmed Type coenzyme Q10 100 mg capsule (Co 100 mg PO QAM 06/15/19 06/10/22 History Q-10) multivitamin 1 tab PO QAM 06/15/19 06/10/22 History cholecalciferol (vitamin D3) 50 50 mcg PO QAM 01/17/21 06/10/22 History mcg (2,000 unit) capsule (Vitamin D3) cinnamon bark 500 mg capsule 500 mg PO QAM 01/17/21 06/10/22 History (Cinnamon) diphenhydramine HCl 25 mg capsule 25 mg PO HS PRN Sleep 01/17/21 06/10/22 History (Benadryl) ascorbic acid (vitamin C) 1,000 mg 1 g PO DAILY 03/12/21 06/10/22 History tablet (Vitamin C) acetylcysteine 600 mg capsule (NAC) 600 mg PO DAILY 08/15/21 06/10/22 History glucosamine HCl 500 mg tablet 500 mg PO DAILY 08/15/21 06/10/22 History krill oil 500 mg capsule 500 mg PO DAILY 08/15/21 06/10/22 History magnesium 250 mg tablet 500 mg PO DAILY 08/15/21 06/10/22 History mk-7 vitamin k2 100 mcg PO DAILY 08/15/21 06/10/22 History turmeric root extract 500 mg 500 mg PO DAILY 08/15/21 06/10/22 History capsule zinc 50 mg tablet 50 mg PO DAILY 08/15/21 06/10/22 History potassium gluconate 595 mg (99 mg) 595 mg PO QAM 09/12/21 06/10/22 History tablet Patient History Medical History Anxiety and depression Environmental allergies GERD (gastroesophageal reflux disease) Hearing deficit History of gastric ulcer 2018 Hx of colonic polyps Hx of iron deficiency anemia Hyperlipidemia "BORDERLINE" Hypertension "BORDERLINE">HAS FOLLOWED WITH DR. VELOZ Obesity Osteoarthritis Sleep apnea USED CPAP IN PAST (STOPPED USING) Superficial thrombophlebitis Swelling of lower leg BILAT. REASON FOR FUROSEMIDE (PT STATES SWELLING IS BETTER) Thrombosis SUPERFICIAL BLOOD CLOT RT LEG Surgical History H/O gastric bypass 2002 H/O shoulder surgery RT History of bilateral carpal tunnel release History of cataract surgery right History of colonoscopy History of discectomy LUMBAR DISCECTOMY History of esophagogastroduodenoscopy (EGD) History of gastric bypass History of herniorrhaphy History of total hip arthroplasty RT History of total knee replacement LEFT Varicose veins of both lower extremities LASER PROCEDURE Family History Mother Family history of reaction to anesthesia difficulty of waking Dementia Parkinsons disease Father Myocardial infarction Unknown Hypertension Arthritis Other No significant family history Social History Smoking Status: Never smoker Second Hand Exposure: No; Hx Alcohol Use: No Hx Substance Use: No Preferred Language: Bulgarian Communication Ability: Effective Communication Tools: Letter Board, Picture Board and Writing Tablet Tone Cabinet Assembler Required: No Beliefs That Will Affect Care: None marital status: Current Living Situation: Spouse current occupational status: employed 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 [employer] Feels Safe at Home: Yes Safety Concerns: Feels Safe At This Time Assistive Devices: Cane Results & Data ([facility]) Vital Signs (Past 12 Hours) Vital Signs Temp Pulse Pulse Resp BP Pulse Ox O2 Del Method 06/12/22 07:06 36.6 C 90 18 143/91 H 94 Room Air 06/12/22 02:34 36.2 C L 88 18 103/65 93 Room Air 06/11/22 23:26 90 06/11/22 22:47 36.9 C 89 18 124/76 92 he is awake alert and oriented x3 he looks older than his stated age HEENT 2+ carotid upstrokes no evidence of carotid bruits Lungs: Crackles in the bases bilaterally no rhonchi or wheezing Heart: Irregular (tachycardic) no murmurs rubs or gallops Abdomen: Obese nontender distended positive bowel sounds Extremities: Moderate pitting edema bilaterally to his knees with chronic stasis changes of his lower extremities Psychiatric: His affect appeared appropriate IMPRESSIONS: 1 atrial flutter with a rapid ventricular response (asymptomatic) 2. Elevated [id number] score including his age, hypertension, heart failure, history of elevated blood sugars 3. Acute on chronic right-sided heart failure 4. Obstructive sleep apnea not using his CPAP as his machine broke 6 months ago 5. Dilated right ventricle with RV free wall hypokinesis; normal LV size and function 6. History of previous venous ablation for venous insufficiency in 2011 7. History of right bundle branch block left anterior fascicular block 8. History of gastric bypass with a Markus-en-Y in 1999 9. History of negative dobutamine stress echo March 2020 with an ejection fraction of 65% There are a number of challenges for him. I discussed with him he is at a fork in the road and he is teetering on profound progression of his right-sided heart failure. His atrial arrhythmias are a function of his untreated sleep apnea, right-sided heart failure, non compliance and morbid obesity. For now I would try to control his heart rate with AV amandeep blockers. he is fast this morning as he is up and about yesterday his heart rates were much better. Will increase metoprolol to 50 mg twice daily we will just have to watch that we do not over diurese him and decrease his intravascular volume so much that he is tachycardic. If his rates remain fast without a lot of room for additional AV amandeep blockers we could try to use digoxin as long as his renal function remained stable. With regards to anticoagulation he is more than 120 kg. Technically he will need to be on Coumadin based on that data. I think there are many challenges with his hx of noncompliance as well as the fact that he has had an upper GI bleed and has had hemorrhoidal bleeding in the past. Anticoagulation is always a risk benefit and for him the risks are significant. I think given his size he is not a candidate to be considered for a watchman procedure which would allow us to not use anticoagulation long-term. We can try anticoagulation in the short-term with very close monitoring. If you are going to use one of the novel oral anticoagulants like Eliquis it needs to be with the understanding it is the best option given it's limitations and his noncompliance. I would add spironolactone 12 and half milligrams to his medical regiment. The hope is to uptitrate this to 25 mg to suppress his renin and aldosterone system and reduce his right-sided heart failure symptoms. He needs a nutrition consult for heart failure education. 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 He also needs case management to be involved with regards to helping him replace his broken CPAP machine. If we do not treat his sleep apnea we will not be able to get his right-sided heart failure under control. Additionally we will not be able to control his atrial arrhythmias. I would recommend weighing him on a standing scale while he is in the hospital. He is not keeping track of his urine output. The bed scales are notoriously inaccurate. This is the only way we can have any idea as to how much volume he is losing here in the hospital. Additionally he needs to weigh himself at home which she has not been doing. We will continue to follow him with you I stressed to him the importance of com pliance and trying to help himself to improve his underlying medical conditions.
[2022-06-12] MEDS: METOPROLOL TARTRATE 50 MG TAB PO SCH ×2 (10:08→19:42)
[2022-06-12] MEDS: SPIRONOLACTONE 12.5 MG TAB PO SCH (10:14)
--- NOTE | 2022-06-12 16:38 | Hospitalist Progress Note ---
Date of Service June 12, 2022 Assessment & Plan (1) Atrial flutter: Plan: Present on initial eval in ED with HR 130s. - Increased metoprolol to 50 mg PO BID on 06/12 - Continue Lasix 40 mg IV BID17 for now - Cardiology consulted - Do feel this is stemming from SARIAH and right heart strain. Working on CPAP with CM, but may need another study. (2) Chronic venous insufficiency: Plan: B/l venous Doppler neg for DVT, + for thrombosed superficial varicosities seen within the mid right thigh to the distal calf. - Follows w/ Dr Tobar, s/p R GSV RFA in 2011. - Reassured patient this is not cellulitis with chronic venous stasis changes of the skin. - Continue using compression stockings. - Appreciate Dr. Tobar's consultation. - Wound care consulted for blistering (3) History of gastric ulcer: Plan: - Anastomotic ulcers with recurrent GI bleeds in 2018 and 2020 (4) Obesity: Plan: S/p gastric bypass 20+ years ago. Being reevaluated for gastric bypass a couple of years ago per notes. (5) Sleep apnea: Plan: No longer uses CPAP, however would recommend repeat sleep study and begin using again to help with fluid overload/LE edema. -- Working with CM to arrange. Admission and Anticipated Discharge Date Admission Date: June 10, 2022 Subjective Feels his legs are better compared to yesterday. Otherwise, no major issues. Physical Exam Constitutional: WD/WN, vitals as above Eyes: EOM intact bilaterally; no conjunctival abnormality ENMT: external ear and nose normal, oropharynx normal Neck: trachea midline, no thyromegaly normal visual inspection Respiratory: normal respiratory effort, lungs clear to auscultation no respiratory distress Cardiovascular: Rate/Rhythm: + tachycardic and + irregularly irregular Gastrointestinal (Abdomen): Inspection/Auscultation: abdomen normal to inspection; abdomen not distended Musculoskeletal: no cyanosis or clubbing, extremities motor strength 5/5 Skin: no rashes, warm and dry Neurologic: moves all extremities and awake Psychiatric: Orientation: alert, oriented to person and cooperative Results & Data Results & Data ([place]) Vital Signs (Past 12 Hours) Vital Signs Temp Pulse Resp BP Pulse Ox O2 Del Method 06/12/22 15:01 37.2 C 92 H 18 95/65 L 94 Room Air 06/12/22 12:56 36.5 C 89 18 118/72 94 Room Air 06/12/22 07:06 36.6 C 90 18 143/91 H 94 Room Air PG Care Time/CCT Total # of Minutes Spent Total Time Spent with Patient: Total time spent is greater than 50% in coordination of care (as documented) at patient's floor/unit and/or counseling patient: Coding Level of Care Code 52227 Subseq Hosp Care Lvl 2 Diagnoses Atrial flutter I48.92 Chronic venous insufficiency I87.2 History of gastric ulcer Z87.19 Obesity E66.01 Body mass index: unspecified BMI Obesity classification: adult class 3 (BMI >= 40) Obesity type: due to excess calories Serious obesity comorbidity presence: with serious comorbidity Sleep apnea G47.30 Sleep apnea type: unspecified type (1) Sleep apnea Sleep apnea type: unspecified type Qualified Code(s): G47.30 - Sleep apnea, unspecified (2) Obesity Body mass index: unspecified BMI Obesity classification: adult class 3 (BMI >= 40) Obesity type: due to excess calories Serious obesity comorbidity presence: with serious comorbidity Qualified Code(s): E66.01 - Morbid (severe) obesity due to excess calories
[2022-06-12] MEDS ORDERED: GABAPENTIN 100 MG CAP PO SCH (21:00)
--- NOTE | 2022-06-12 21:54 | Electrocardiogram Report ---
Test Reason : Blood Pressure : / mmHG Vent. Rate : 088 BPM Atrial Rate : 088 BPM P-R Int : 152 ms QRS Dur : 144 ms QT Int : 428 ms P-R-T Axes : 084 243 006 degrees QTc Int : 517 ms Atrial flutter Right bundle branch block Inferior infarct (cited on or before 17-JUN-2019) Abnormal ECG When compared with ECG of 11-JUN-2022 05:47, No significant change Confirmed by Haris Masters ([id number]) on 06/12/2022 9:53:45 PM Referred By: Ridge Jeronimo Confirmed By:Haris Masters
[2022-06-13] MEDS: ACETAMINOPHEN 500 MG TAB PO PRN ×2 (02:51→16:41)
[2022-06-13 07:32] LABS: Hematocrit (blood only) 46.9 % (40.1-51.0); Hemoglobin 15.6 g/dl (14.0-18.0); Mean Corpuscular Hemoglobin 32.3 pg (25.0-34.0); Mean Corpuscular Hgb Conc 33.3 g/dL (32.0-36.0); Mean Corpuscular Volume 97.1 fL (80.0-100.0); Platelet Count 204 K/uL (130-400); RDW Coefficient of Variation 14.7 % (11.5-14.5); RDW Standard Deviation 53.1 fL (36.4-46.3); Red Blood Count 4.83 M/uL (4.63-6.08); White Blood Count 6.04 K/ul (4.8-10.8)
[2022-06-13 07:55] LABS: BUN Creatinine Ratio 31.8 (10-20); Calcium 8.6 mg/dl (8.5-10.1); Creatinine Clr Calc Pharmacy 144.9 ml/min; Est GFR (African American) 114.3 ml/min; Est GFR (Non-African American) 98.6 ml/min; Magnesium 1.9 mg/dl (1.7-2.4); Potassium 3.7 mmol/L (3.5-5.1)
[2022-06-13] MEDS: FUROSEMIDE 40 MG/4 ML VIAL IV SCH (08:58)
[2022-06-13] MEDS: ASCORBIC ACID 500 MG TAB PO SCH (08:58)
[2022-06-13] MEDS: GLUCOSAMINE SULFATE 500 MG CAP PO SCH (08:58)
[2022-06-13] MEDS: ZINC SULFATE 220 MG CAPSULE PO SCH (08:58)
[2022-06-13] MEDS: CHOLECALCIFEROL 1,000 UNITS 25 MCG TAB PO SCH (08:59)
[2022-06-13] MEDS: ACETYLCYSTEINE 600 MG CAP PO SCH (08:59)
[2022-06-13] MEDS: MULTIVITAMIN TAB PO SCH (08:59)
[2022-06-13] MEDS: SPIRONOLACTONE 12.5 MG TAB PO SCH (08:59)
[2022-06-13] MEDS: METOPROLOL TARTRATE 50 MG TAB PO SCH ×2 (08:59→18:25)
[2022-06-13] MEDS: MAGNESIUM OXIDE 400 MG TAB PO SCH (08:59)
--- NOTE | 2022-06-13 09:08 | Cardiology Progress Note ---
Date of Service June 13, 2022 Assessment & Plan Admission and Anticipated Discharge Date Admission Date: June 10, 2022 Subjective He is feeling better. He is less short of breath. He notes he is urinating frequently. His weight in the computer is only down 2-1/2 kg but he describes being down 11 pounds from his prehospital weight. He is unaware of any palpitations or fluttering or feeling his heart racing. He notes he is sleeping better at night. He denies any chest tightness or chest pressure. He denies any lightheadedness dizziness presyncope syncope. He has not walked in the hallway yet. Results & Data ([facility]) Vital Signs (Past 12 Hours) Vital Signs Temp Pulse Resp BP Pulse Ox O2 Del Method 06/13/22 06:31 36.4 C L 87 24 127/71 92 Room Air 06/13/22 02:59 36.7 C 87 24 111/59 L 92 Room Air 06/12/22 23:36 36.9 C 89 18 102/71 93 Room Air HEENT 2+ carotid upstrokes no evidence of carotid bruits Lungs: Crackles in the bases bilaterally no rhonchi or wheezing Heart: Irregular (tachycardic) no murmurs rubs or gallops Abdomen: Obese nontender distended positive bowel sounds Extremities: Mild to moderate pitting edema bilaterally to his knees with chronic stasis changes of his lower extremities Psychiatric: His affect appeared appropriate IMPRESSIONS: 1 atrial flutter with a rapid ventricular response (asymptomatic) 2. Elevated [id number] score including his age, hypertension, heart failure, history of elevated blood sugars 3. Acute on chronic right-sided heart failure 4. Obstructive sleep apnea not using his CPAP as his machine broke 6 months ago 5. Dilated right ventricle with RV free wall hypokinesis; normal LV size and function 6. History of previous venous ablation for venous insufficiency in 2011 7. History of right bundle branch block left anterior fascicular block 8. History of gastric bypass with a Markus-en-Y in 1999 9. History of negative dobutamine stress echo March 2020 with an ejection fraction of 65% There are a number of challenges for him. I discussed with him he is at a fork in the road and he is teetering on profound progression of his right-sided heart failure. His atrial arrhythmias are a function of his untreated sleep apnea, right-sided heart failure, non compliance and morbid obesity. I would continue with IV Lasix for today and then tomorrow switch him over to a milligram of Bumex twice daily in anticipation of him going home. Ideally as an outpatient I would try to uptitrate his spironolactone to a full 25 mg tablet as long as he is not excessively prerenal. His heart rates remain fast I would recommend adding digoxin 0.25 mg x 3 doses today and then 0.125 mg daily. He will remain on metoprolol 50 mg twice daily. There are a number of social issues and care management issues that really need to be resolved before he goes home. If his sleep apnea and likely obesity hypoventilation syndrome is not treated he is going to have significant progressive right-sided heart failure. It sounds like he might need a repeat sleep study. This could be done as a home study in order to avoid the delay of getting an outpatient study. He would be a reasonable candidate for an SGT L2 inhibitor especially from a heart failure standpoint. The other option as an outpatient would be a GLP-1 agonist to help him lose weight. He did have a hemoglobin A1c this admission but has had prior hemoglobin A1c's have been mildly elevated in the past. The problem with both of these is going to be whether he can afford them or not. Again the discussion of anticoagulation is not an easy conversation I did discuss a watchman procedure with the EP service at [facility] and given his weight as we anticipated he is not a candidate. I think we should try anticoagulation I do not think Coumadin is a good option as was discussed yesterday. Therefore his only options going to be Eliquis 5 mg twice daily with careful monitoring of his hemoglobin and his renal function.
--- NOTE | 2022-06-13 12:57 | Hospitalist Progress Note ---
Date of Service June 13, 2022 Assessment & Plan (1) Atrial flutter: Plan: Present on initial eval in ED with HR 130s. With Acute Right-sided CHF. Discussed anticoagulation with patient and cardiology. Defer for now. 1) DOACs not well studied in extreme obesity (>120 kg). 2) Rivaroxaban (the most studied) has highest risk of GI bleed, and he has had 2 ulcers at his gastric anastomosis, so I think this is extremely high risk. 3) Warfarin is of concern given his sub-optimal compliance and follow-up. (Lost for 2 years to cardiology.) Will follow up with EP to consider atrial flutter ablation; however, Dr. Montgomery has concern that he may eventually also have atrial fibrillation if right-heart issues are not addressed. F/u outpatient. - Increased metoprolol to 50 mg PO BID on 06/12 - Added digoxin on 06/13 - Continue Lasix 40 mg IV BID17 for now -> Switch to Bumex 1 mg PO BID on discharge. - Cardiology consulted - Do feel this is stemming from SARIAH and right heart strain. Working on CPAP with CM, but his is 5 years old, and he will need another outpatient study. (2) Chronic venous insufficiency: Plan: B/l venous Doppler neg for DVT, + for thrombosed superficial varicosities seen within the mid right thigh to the distal calf. - Follows w/ Dr Tobar, s/p R GSV RFA in 2011. - Reassured patient this is not cellulitis with chronic venous stasis changes of the skin. - Continue using compression stockings. - Appreciate Dr. Tobar's consultation. - Wound care consulted for blistering (3) History of gastric ulcer: Plan: Anastomotic ulcers with recurrent GI bleeds in 2018 and 2020. - No present concerns. (4) Obesity: Plan: S/p gastric bypass 20+ years ago. Being reevaluated for gastric bypass a couple of years ago per notes. - Encouraged continued work-up (5) Sleep apnea: Plan: No longer uses CPAP as it is broken. - Working with CM to arrange; as above, will need outpatient study as his last one was 5 years ago. (6) Neuropathy: Plan: Has neuropathy that I believe is due to chronic venous stasis changes. - Started gabapentin 100 mg HS on 06/12 which seemed to help. Will add daytime dose as well. Admission and Anticipated Discharge Date Admission Date: June 10, 2022 Subjective Doing well today. Breathing is much better. Legs are still bothering him with neuropathic pain. Physical Exam Constitutional: WD/WN, vitals as above Eyes: EOM intact bilaterally; no conjunctival abnormality ENMT: external ear and nose normal, oropharynx normal Neck: trachea midline, no thyromegaly normal visual inspection Respiratory: normal respiratory effort, lungs clear to auscultation no respiratory distress Cardiovascular: Rate/Rhythm: + tachycardic and + irregularly irregular Gastrointestinal (Abdomen): Inspection/Auscultation: abdomen normal to inspection; abdomen not distended Musculoskeletal: no cyanosis or clubbing, extremities motor strength 5/5 Skin: Chronic venous stasis changes Neurologic: moves all extremities and awake Psychiatric: Orientation: alert, oriented to person and cooperative Results & Data Results & Data ([facility]) Vital Signs (Past 12 Hours) Vital Signs Temp Pulse Resp BP Pulse Ox O2 Del Method 06/13/22 12:15 36.7 C 97 H 18 112/63 93 Room Air 06/13/22 06:31 36.4 C L 87 24 127/71 92 Room Air 06/13/22 02:59 36.7 C 87 24 111/59 L 92 Room Air PG Care Time/CCT Total # of Minutes Spent Total Time Spent with Patient: Total time spent is greater than 50% in coordination of care (as documented) at patient's floor/unit and/or counseling patient: Coding Level of Care Code 42792 Subseq Hosp Care Lvl 3 Diagnoses Atrial flutter I48.92 Chronic venous insufficiency I87.2 History of gastric ulcer Z87.19 Obesity E66.01 Obesity type: due to excess calories Obesity classification: adult class 3 (BMI >= 40) Serious obesity comorbidity presence: with serious comorbidity Body mass index: unspecified BMI Sleep apnea G47.30 Sleep apnea type: unspecified type Neuropathy G62.9 (1) Obesity Obesity type: due to excess calories Obesity classification: adult class 3 (BMI >= 40) Serious obesity comorbidity presence: with serious comorbidity Body mass index: unspecified BMI Qualified Code(s): E66.01 - Morbid (severe) obesity due to excess calories (2) Sleep apnea Sleep apnea type: unspecified type Qualified Code(s): G47.30 - Sleep apnea, unspecified
[2022-06-13] MEDS: GABAPENTIN 100 MG CAP PO SCH ×2 (13:57→19:26)
[2022-06-13] MEDS: DIGOXIN 0.125 MG TAB PO SCH ×2 (13:58→19:27)
[2022-06-13] MEDS ORDERED: Nursing to Pharmacy Communication SCH (14:45)
[2022-06-13] MEDS ORDERED: FUROSEMIDE 40 MG/4 ML VIAL IV SCH (17:00)
[2022-06-14 07:03] LABS: Hematocrit (blood only) 47.4 % (40.1-51.0); Hemoglobin 15.6 g/dl (14.0-18.0); Mean Corpuscular Hemoglobin 32.1 pg (25.0-34.0); Mean Corpuscular Hgb Conc 32.9 g/dL (32.0-36.0); Mean Corpuscular Volume 97.5 fL (80.0-100.0); Mean Platelet Volume 8.9 fL (9.4-12.4); Platelet Count 205 K/uL (130-400); RDW Coefficient of Variation 14.7 % (11.5-14.5); RDW Standard Deviation 53.1 fL (36.4-46.3); Red Blood Count 4.86 M/uL (4.63-6.08); White Blood Count 5.92 K/ul (4.8-10.8)
[2022-06-14 07:24] LABS: Albumin Globulin Ratio 1.1 (0.9-2); Albumin Level 3.4 gm/dl (3.4-5.0); Bilirubin,Total 1.1 mg/dl (0.2-1.0); Calcium 8.6 mg/dl (8.5-10.1); Creatinine Clr Calc Pharmacy 121.2 ml/min; Est GFR (African American) 108.5 ml/min; Est GFR (Non-African American) 93.6 ml/min; Globulin 3.1 gm/dl (2.5-4.0); Total Protein 6.5 gm/dl (6.0-8.3)
[2022-06-14] MEDS ORDERED: BUMETANIDE 1 MG TAB PO SCH (09:00)
[2022-06-14] MEDS: GABAPENTIN 100 MG CAP PO SCH (09:30)
[2022-06-14] MEDS: ACETYLCYSTEINE 600 MG CAP PO SCH (09:31)
[2022-06-14] MEDS: ZINC SULFATE 220 MG CAPSULE PO SCH (09:31)
[2022-06-14] MEDS: DIGOXIN 0.125 MG TAB PO SCH (09:31)
[2022-06-14] MEDS: CHOLECALCIFEROL 1,000 UNITS 25 MCG TAB PO SCH (09:31)
[2022-06-14] MEDS: ASCORBIC ACID 500 MG TAB PO SCH (09:31)
[2022-06-14] MEDS: MULTIVITAMIN TAB PO SCH (09:31)
[2022-06-14] MEDS: MAGNESIUM OXIDE 400 MG TAB PO SCH (09:31)
[2022-06-14] MEDS: METOPROLOL TARTRATE 50 MG TAB PO SCH (09:32)
[2022-06-14] MEDS: SPIRONOLACTONE 12.5 MG TAB PO SCH (09:32)
[2022-06-14] MEDS: GLUCOSAMINE SULFATE 500 MG CAP PO SCH (09:32)
[2022-06-14] MEDS: ACETAMINOPHEN 500 MG TAB PO PRN (09:36)
--- NOTE | 2022-06-14 13:49 | Discharge Summary ---
Date of Service June 14, 2022 Admission HPI Per Admitting Provider Lonnie Mckeon is a 67-year-old male with a past medical history significant for venous stasis, obesity s/p gastric bypass, GI bleed, and sleep apnea who presents today at the recommendation of his PCP. He was seen by his PCP today for bilateral leg redness, swelling, and ongoing shortness of breath with exertion over the past several weeks. There is concern for infection, therefore patient was referred over to ED further evaluation. Patient states he is bad veins and has had progressive redness of his bilateral lower extremities since the beginning of this year, however the past 2 months is quickly worsened, and his legs have become much more swollen or weeping fluid. He is also noticed he is more short of breath with regular activities that he was previously able to tolerate. In the beginning of the year, he lost 50 pounds but has regained that since due to the swelling in his legs, as well as decreased activity level as just walking his dog caused him to be severely short of breath. He had noticed palpitations over the past 2 weeks associated with dizziness, lightheadedness, and worsening shortness of breath, which prompted him to see his primary care provider this week for further evaluation. Denies any fever or chills, myalgias, or calf pain. He feels bloated in his abdomen but is without abdominal pain, nausea, vomiting, diarrhea, constipation. Upon presentation to the ED, he is hypertensive 171/89, HR [id number], afebrile 93% on room air. Labs are significant for T bili elevated 1.1, AST and ALT both elevated at 99, BNP measures 17. Troponin 11. without leukocytosis, lactate and procalcitonin within normal limits. Principal Diagnosis Atrial flutter with RVR Right-sided heart failure Discharge Exam Constitutional WD/WN, vitals as above Eyes EOM intact bilaterally; no conjunctival abnormality ENMT external ear and nose normal, oropharynx normal Neck trachea midline, no thyromegaly normal visual inspection Respiratory normal respiratory effort, lungs clear to auscultation no respiratory distress Cardiovascular Rate/Rhythm: + tachycardic and + irregularly irregular Gastrointestinal (Abdomen) Inspection/Auscultation: abdomen normal to inspection; abdomen not distended Musculoskeletal no cyanosis or clubbing, extremities motor strength 5/5 Skin no rashes, warm and dry Neurologic moves all extremities and awake Psychiatric Orientation: alert, oriented to person and cooperative Discharge Data Allergies Allergy/AdvReac Type Severity Reaction Status Date / Time No Known Allergies Allergy Verified 06/10/22 19:11 Consultations 06/10/22 19:05 ED Decision to Admit Stat 06/10/22 22:08 Consult Cardiology Routine 06/14/22 11:00 Consult [facility] wire frame dipper Routine Ordered Studies 06/10/22 17:03 US venous doppler LE Stat Hospital Course (1) Atrial flutter: Present on initial eval in ED with HR 130s. With Acute Right-sided CHF. Disc ussed anticoagulation with patient and cardiology. Defer for now. 1) DOACs not well studied in extreme obesity (>120 kg). 2) Rivaroxaban (the most studied) has highest risk of GI bleed, and he has had 2 ulcers at his gastric anastomosis, so I think this is extremely high risk. 3) Warfarin is of concern given his sub- optimal compliance and follow-up. (Lost for 2 years to cardiology.) Will follow up with EP to consider atrial flutter ablation; however, Dr. Montgomery has concern that he may eventually also have atrial fibrillation if right-heart issues are not addressed. F/u outpatient. - Increased metoprolol to 50 mg PO BID on 06/12 -> Discharge on metoprolol XL 100 mg PO HS. - Continued Lasix 40 mg IV BID17 inpatient -> Switched to Bumex 1 mg PO BID on discharge. - Spironolactone 12.5 mg daily - Added digoxin on 06/13 - Cardiology consulted - Do feel this is stemming from SARIAH and right heart strain. Working on CPAP with CM, but his is 5 years old, and he will need another outpatient study. wire frame dipper will help arrange. (2) Chronic venous insufficiency: B/l venous Doppler neg for DVT, + for thrombosed superficial varicosities seen within the mid right thigh to the distal calf. - Follows w/ Dr Tobar, s/p R GSV RFA in 2011. - Reassured patient this is not cellulitis with chronic venous stasis changes of the skin. - Continue using compression stockings. - Appreciate Dr. Tobar's consultation. - Wound care consulted for blistering -> wire frame dipper consulted for Wound Care follow-up (3) History of gastric ulcer: Anastomotic ulcers with recurrent GI bleeds in 2019 and 2020. - No present concerns. (4) Obesity: S/p gastric bypass 20+ years ago. Being reevaluated for gastric bypass a couple of years ago per notes. - Encouraged continued work-up (5) Sleep apnea: No longer uses CPAP as it is broken. - Working with CM to arrange; as above, will need outpatient study as his last o ne was 5 years ago. - wire frame dipper will help arrange study. (6) Neuropathy: Has neuropathy that I believe is due to chronic venous stasis changes. - Started gabapentin 100 mg HS on 06/12 which seemed to help. Added daytime dose as well for discharge. Total Time Total Time Spent Total Time Spent (In Minutes): 35 Discharge Plan Discharge Items Patient Disposition: Home - Self-Care Reason For Visit: ATRIAL FLUTTER Discharge Diagnosis: Atrial flutter Right-sided CHF Condition on Discharge: Fair Activity: Resume your previous activity Non-emergency contact: Primary Care Provider and [employer] Program Specialist Call non-emergency contact if: your symptoms worsen Follow-up/Referrals: Ridge Jeronimo MD [Primary Care Provider] - Ramu Montgomery DO [Physician] - (Please see Ramu Montgomery or Sahara Jacobs in the cardiology office next week.) Diet: Heart Healthy and Low Sodium (2gm) Addtl Attending Provider Instructions: Mr. Mckeon, You were admitted to the hospital with a new heart rhythm called atrial flutter that causes your heart to go too fast. We were able to slow your heart down with medication. You also had some extra fluid on your legs and lungs which we pulled off with medication. We are sending you home on a better regimen to try to keep your heart healthy. Please see Ramu Jacobs in the cardiology office next week. On discharge, your standing weight was 304.9 lbs (138.3 kg). This would be at (or very close) to what we call your "dry" weight, meaning this is your weight without extra fluid on the legs and lungs. Weigh yourself when you get home. Put a sheet of paper on the wall next to the scale, and weigh yourself every day to make sure you are not going up or down on the weight. If you gain more than 1-2 lbs in a day or 3 lbs in 2 days, please call Dr. Montgomery's office right away. I also prescribed you gabapentin. This seemed to help somewhat with your neuropathy (pins and needles in the legs). You can adjust this dose with your PCP if it is helpful. We are going to arrange a home sleep study for you as well as follow up with [facility]. Our nurse navigator named Natasha will call you on Thursday to help arrange these things. Pending Studies at Discharge: No Stand-Alone Forms: My [facility], Smoking Cessation Medications and DC Order Prescriptions: New digoxin [Digitek] 125 mcg (0.125 mg) Tablet 0.125 mg PO DAILY@1600 Qty: 30 0RF spironolactone 25 mg Tablet 12.5 mg PO DAILY Qty: 30 0RF gabapentin 100 mg Capsule 100 mg PO BID Qty: 60 0RF bumetanide 1 mg Tablet 1 mg PO BID Qty: 60 0RF metoprolol succinate 100 mg tablet extended release 24 hr 100 mg PO HS Qty: 30 0RF Continued magnesium 250 mg tablet 500 mg PO DAILY krill oil 500 mg capsule 500 mg PO DAILY zinc 50 mg tablet 50 mg PO DAILY turmeric root extract 500 mg capsule 500 mg PO DAILY glucosamine HCl 500 mg tablet 500 mg PO DAILY Rx Instructions: administer with a meal acetylcysteine [NAC] 600 mg capsule 600 mg PO DAILY mk-7 vitamin k2 100 mcg PO DAILY multivitamin Tablet 1 tab PO QAM coenzyme Q10 [Co Q-10] 100 mg Capsule 100 mg PO QAM diphenhydramine HCl [Benadryl] 25 mg Capsule 25 mg PO HS PRN (Reason: Sleep) cinnamon bark [Cinnamon] 500 mg Capsule 500 mg PO QAM cholecalciferol (vitamin D3) [Vitamin D3] 50 mcg (2,000 unit) Capsule 50 mcg PO QAM ascorbic acid (vitamin C) [Vitamin C] 1,000 mg Tablet 1 g PO DAILY potassium gluconate 595 mg (99 mg) Tablet 595 mg PO QAM Discharge Orders: Discharge Order (Routine); Ordered 06/14/22 Ordered By: Mario Kowalski/Other Patient Handouts: ED Atrial Flutter, ED Leg Swelling in Both Legs, ED Neuropathy, Peripheral Admission Data Admit Date/Time: 06/10/22 20:25 Attending Provider: Mario Cool Admit Provider: Avila Baird Primary Care Provider: Ridge Jeronimo Other Providers: Avila Baird ; Ramu Montgomery Other Interventions: Discharge Summary Assessment (RN) Last Done: 06/14/22 09:57 Coding Level of Care Code D/C DAY MANAGEMENT >30 MINS Diagnoses Atrial flutter I48.92 Chronic venous insufficiency I87.2 History of gastric ulcer Z87.19 Obesity E66.01 Obesity type: due to excess calories Obesity classification: adult class 3 (BMI >= 40) Serious obesity comorbidity presence: with serious comorbidity Body mass index: unspecified BMI Sleep apnea G47.30 Sleep apnea type: unspecified type Neuropathy G62.9
[2022-06-14] MEDS ORDERED: DIGOXIN 0.125 MG TAB PO SCH (16:00)
== END 2022-06-14 12:55 | disposition home or self-care (01) | DRG 309 ==
LOC: ED 15:57 → 2E 20:25 → SUATTDRO 20:25 → 2E 21:25

== ENCOUNTER 2022-12-19 13:41 | Inpatient (IN) ==
--- NOTE | 2022-12-19 14:56 | XRay Report ---
XR chest 1V not portable CLINICAL HISTORY: Chest pain, nonspecific COMPARISON STUDY: Chest CT May 28, 2015. Chest radiograph June 10, 2022. FINDINGS: Cardiomegaly is unchanged. There is no evidence for pulmonary edema. No consolidation to otto ggest pneumonia. No pneumothorax or pleural effusion is present. There has been no change in appearan ce of the chest. IMPRESSION: No acute cardiopulmonary findings. Stable cardiomegaly. ACT 112: Negative or not required by law. Electronically signed by: Glen Carballo M.D. 12/19/2022 2:55 PM
[2022-12-19 16:00] LABS: Basophils # (auto) 0.02 K/uL (0-0.2); Basophils % (auto) 0.3 %; Eosinophils # (auto) 0.23 K/uL (0-0.50); Eosinophils % (auto) 3.9 %; Hemoglobin 14.4 g/dl (14.0-18.0); Immature Granulocytes # (auto) 0.01 K/uL (0.01-0.20); Immature Granulocytes % (auto) 0.2 %; Lymphocytes # (auto) 1.34 K/uL (1.2-3.4); Lymphocytes % (auto) 22.6 %; Mean Corpuscular Hgb Conc 33.5 g/dL (32.0-36.0); Mean Corpuscular Volume 98.6 fL (80.0-100.0); Mean Platelet Volume 9.6 fL (9.4-12.4); Monocytes # (auto) 0.94 K/uL (0.11-0.59); Monocytes % (auto) 15.9 %; Neutrophils # (auto) 3.39 K/uL (1.40-6.50); Neutrophils % (auto) 57.1 %; Platelet Count 172 K/uL (130-400); RDW Coefficient of Variation 15.1 % (11.5-14.5); RDW Standard Deviation 55.5 fL (36.4-46.3); Red Blood Count 4.36 M/uL (4.70-6.10); White Blood Count 5.93 K/ul (4.8-10.8)
[2022-12-19 16:13] LABS: Albumin Globulin Ratio 1.1 (0.9-2); Albumin Level 3.4 gm/dl (3.4-5.0); BUN Creatinine Ratio 16.1 (10-20); Bilirubin,Total 1.9 mg/dl (0.2-1.0); Calcium 8.4 mg/dl (8.6-10.3); Creatinine Clr Calc Pharmacy 180.4 ml/min; Est GFR (African American) 122.3 ml/min; Est GFR (Non-African American) 105.5 ml/min; Potassium 3.9 mmol/L (3.5-5.1); Total Protein 6.4 gm/dl (6.0-8.3)
[2022-12-19 16:20] LABS: Troponin I High Sensitivity 11.1 pg/ml (0-20)
[2022-12-19] MEDS ORDERED: FUROSEMIDE 40 MG/4 ML VIAL IV STA (16:22)
[2022-12-19] MEDS ORDERED: METOPROLOL TARTRATE 1 MG/ML VIAL IV STA (16:22)
[2022-12-19] MEDS ORDERED: cefTRIAXone SODIUM 2,000 MG/70 ML BAG IV STA (16:24)
--- NOTE | 2022-12-19 16:28 | Emergency Department Note ---
Impression & Plan Atrial fibrillation with rapid ventricular response, Shortness of breath, Cellulitis, Suicidal ideations ED Provider Note NAME: TAE ABRAHAM AGE: 67 SEX: M : 1955 ARRIVES VIA: Walk-In INFORMANT: Patient ED PROVIDER(S): Nick Rodriguez DO CHIEF COMPLAINT: shortness of breath HPI: Patient is a morbidly obese 67-year-old male with a past medical history of venous stasis ulcers, GI bleed, hypertension, a flutter, cellulitis, and hyperlipidemia that presents to the ER for shortness of breath and increased swelling of his legs along with suicidal ideations. He notes 2 days ago he was thinking of killing himself with one of the guns that he owns in his house. He saw his PCP today as well has therapist/psychiatrist. He was referred in following this. He also admits to increased swelling in the legs and shortness of breath. He has had shortness of breath for years but has worsened over the past 3 months and more specifically over the past several days. He was dropped off per report by family who is now flying back to [place] in [place]. He notes he has nowhere left to go as his home is being sold and he has an apartment which will be ready in several weeks. PAST MEDICAL HISTORY:See Below PAST SURGICAL HISTORY:See Below FAMILY HISTORY:See Below SOCIAL HISTORY:See Below HOME MEDICATIONS:See Below ALLERGIES:See Below VITALS:See Below PHYSICAL EXAMINATION: GENERAL: Sitting up in bed, alert, morbidly obese, disheveled EYE EXAM: normal conjunctiva. OROPHARYNX: mucous membranes are moist LUNGS: Clear to auscultation. Normal chest wall mechanics HEART: no murmurs, S1 normal and S2 normal ABDOMEN: abdomen soft, non-tender, normo-active bowel sounds, no masses, no rebound or guarding. UPPER EXTREMITIES: upper extremities are grossly normal. LOWER EXTREMITIES: Extensive pitting edema in the bilateral lower extremities with erythema circumferentially NEURO EXAM: Normal sensorium, cranial nerves II-XII grossly intact, normal speech, no gross weakness of arms, no gross weakness of legs. PSYCH: Suicidal ideations with a plan to shoot himself which was 2 days ago. Currently denies wanting hurt himself MEDICAL DECISION MAKING: Patient is a 67-year-old male who presents ER for above-stated complaint. IV was established blood work is obtained. External records reviewed. Labs show no significant leukocytosis or anemia. INR at 1.2. BMP was unremarkable. T. bili slightly up at 1.9. No transaminitis. Troponin negative. Pro-Horacio normal. TSH unremarkable. Digoxin less than 0.3. COVID-negative. Alcohol negative. Chest x-ray without pneumonia. He was given IV Lasix updated at bedside and given Rocephin for the erythema in the lower extremities and admitted for further work-up. He also expressed suicidal ideations with a plan to shoot himself. He was evaluated by her psychiatric care managers. Discussed case tanisha h the hospitalist for further evaluation management and treatment. Of note he was also found to be in A-fib and he was given 1 dose of Lopressor for heart rate in the 120s. The trend down. Triage Nursing notes reviewed. Limited review of prior medical records performed Vital Signs: reviewed and remarkable for no significant abnormalities Differential diagnosis: Infection, dehydration, metabolic abnormality, hypo/hyperglycemia, electrolyte disturbance, anemia, hypoxia, cardiac sources, intracerebral event, toxicologic, neurologic, as well as other pathologies. ER treatment provided: See below Diagnostics interpreted by me include EKG and cardiac monitoring as listed below: -Cardiac Monitoring: An order was placed for continuous cardiac monitoring. The monitor shows a rate of 124 with AFib rhythm. -ECG: A-fib rate of 108 Normal axis No PVCs Nonspecific ST wave changes in the lateral leads T wave inversion in V1 through V4 Right bundle branch block -Laboratory studies:Interpreted by me as stated above in MDM and shown below. Imaging studies: Xrays: As interpreted by me: Portable AP upright 1 view of the chest shows no focal infiltrate CTs show: none Consultation(s): Discussed with Emery Marie from the hospital service for further evaluation management Procedures:none Critical Care: None Past Med/Surg History Medical History Anxiety and depression Environmental allergies GERD (gastroesophageal reflux disease) Hearing deficit History of gastric ulcer 2019 Hx of colonic polyps Hx of iron deficiency anemia Hyperlipidemia "BORDERLINE" Hypertension "BORDERLINE">HAS FOLLOWED WITH DR. VELOZ Obesity Osteoarthritis Sleep apnea USED CPAP IN PAST (STOPPED USING) Superficial thrombophlebitis Swelling of lower leg BILAT. REASON FOR FUROSEMIDE (PT STATES SWELLING IS BETTER) Thrombosis SUPERFICIAL BLOOD CLOT RT LEG Surgical History H/O gastric bypass 2002 H/O shoulder surgery RT History of bilateral carpal tunnel release History of cataract surgery right History of colonoscopy History of discectomy LUMBAR DISCECTOMY History of esophagogastroduodenoscopy (EGD) History of gastric bypass History of herniorrhaphy History of total hip arthroplasty RT History of total knee replacement LEFT Varicose veins of both lower extremities LASER PROCEDURE Family History Mother Family history of reaction to anesthesia difficulty of waking Dementia Parkinsons disease Father Myocardial infarction Unknown Hypertension Arthritis Other No significant family history Social History Smoking Status: Never smoker Second Hand Exposure: No; Do You Dip or Chew Tobacco: No; Hx Alcohol Use: Yes Alcohol type: hard liquor Hx Substance Use: No Preferred Language: Azeri Communication Ability: Effective Communication Tools: Letter Board, Picture Board and Writing Tablet Director Of Product Marketing Required: No Beliefs That Will Affect Care: None marital status: Current Living Situation: Alone Current Living Situation Comment: looking into renting apartment in [email or web address]; 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 current occupational status: employed 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 [employer] Feels Safe at Home: Yes Assistive Devices: Glasses Allergies Allergies Allergy/AdvReac Type Severity Reaction Status Date / Time No Known Allergies Allergy Verified 12/18/22 08:17 Home Meds Home Medications Medication Instructions Recorded Confirmed coenzyme Q10 100 mg capsule (Co 100 mg PO QAM 06/15/19 12/19/22 Q-10) multivitamin 1 tab PO QAM 06/15/19 12/19/22 cholecalciferol (vitamin D3) 50 50 mcg PO QAM 01/17/21 12/19/22 mcg (2,000 unit) capsule (Vitamin D3) cinnamon bark 500 mg capsule 500 mg PO QAM 01/17/21 12/19/22 (Cinnamon) diphenhydramine HCl 25 mg capsule 25 mg PO HS PRN Sleep 01/17/21 12/19/22 (Benadryl) ascorbic acid (vitamin C) 1,000 mg 1 g PO DAILY 03/12/21 12/19/22 tablet (Vitamin C) glucosamine HCl 500 mg tablet 500 mg PO DAILY 08/15/21 12/19/22 krill oil 500 mg capsule 500 mg PO DAILY 08/15/21 12/19/22 magnesium 250 mg tablet 500 mg PO DAILY 08/15/21 12/19/22 turmeric root extract 500 mg 500 mg PO DAILY 08/15/21 12/19/22 capsule potassium gluconate 595 mg (99 mg) 595 mg PO QAM 09/12/21 12/19/22 tablet apixaban 5 mg tablet (Eliquis) 5 mg PO BID 07/03/22 12/19/22 vitamin B12 0.5 mg-folic acid 1 mg 1 tab PO DAILY 07/03/22 12/19/22 tablet diltiazem HCl 120 mg 120 mg PO DAILY 07/09/22 12/19/22 capsule,extended release 24 hr (Cartia XT) Previous Rx's Medication Instructions Recorded bumetanide 1 mg tablet 1 mg PO BID #60 tabs 06/14/22 gabapentin 100 mg capsule 100 mg PO BID #60 caps 06/14/22 spironolactone 25 mg tablet 12.5 mg PO DAILY #30 tabs 06/14/22 doxycycline hyclate 100 mg tablet 100 mg PO bid #28 tabs 12/08/22 Results & Data (ED) Vital Signs Vital Signs - 24 hr 12/19/22 13:54 12/19/22 16:10 12/19/22 16:12 Temperature 37 C Temperature Source Temporal Artery Scan Pulse Rate 114 H Pulse Rate [Apical] 105 H Pulse Rate from SpO2 Sensor Respiratory Rate 18 20 Respiratory Effort / Characteristics Non-Labored Respiratory Depth Normal Blood Pressure 110/64 Blood Pressure [Left Arm] 154/98 H Blood Pressure Mean 79 Blood Pressure Mean [Left Arm] 116 Pulse Oximetry 95 94 Oxygen Delivery Method Room Air Room Air Room Air Sepsis Recent Fever Within 48 Hours No Sepsis New/Unexplained Change in Mental Status No Sepsis Action Taken by Nursing No Action Required 12/19/22 16:13 12/19/22 16:13 12/19/22 16:20 Temperature Temperature Source Pulse Rate 112 H 101 H 108 H Pulse Rate [Apical] Pulse Rate from SpO2 Sensor 103 H 107 H Respiratory Rate 24 21 Respiratory Effort / Characteristics Respiratory Depth Blood Pressure Blood Pressure [Left Arm] Blood Pressure Mean Blood Pressure Mean [Left Arm] Pulse Oximetry 77 L 95 Oxygen Delivery Method Sepsis Recent Fever Within 48 Hours Sepsis New/Unexplained Change in Mental Status Sepsis Action Taken by Nursing 12/19/22 16:30 12/19/22 16:30 12/19/22 16:40 Temperature Temperature Source Pulse Rate 106 H 96 H Pulse Rate [Apical] Pulse Rate from SpO2 Sensor 101 H 102 H Respiratory Rate 22 27 H Respiratory Effort / Characteristics Respiratory Depth Blood Pressure 134/90 Blood Pressure [Left Arm] Blood Pressure Mean 104 Blood Pressure Mean [Left Arm] Pulse Oximetry 95 93 Oxygen Delivery Method Sepsis Recent Fever Within 48 Hours Sepsis New/Unexplained Change in Mental Status Sepsis Action Taken by Nursing 12/19/22 16:50 Temperature Temperature Source Pulse Rate 101 H Pulse Rate [Apical] Pulse Rate from SpO2 Sensor 100 H Respiratory Rate 24 Respiratory Effort / Characteristics Respiratory Depth Blood Pressure Blood Pressure [Left Arm] Blood Pressure Mean Blood Pressure Mean [Left Arm] Pulse Oximetry 95 Oxygen Delivery Method Sepsis Recent Fever Within 48 Hours Sepsis New/Unexplained Change in Mental Status Sepsis Action Taken by Nursing Laboratory Data 12/19/22 15:37 12/19/22 15:37 Lab Results 12/19/22 12/19/22 12/19/22 Range/Units 15:28 15:37 15:37 WBC 5.93 (4.8-10.8) K/ul RBC 4.36 L (4.70-6.10) M/uL Hgb 14.4 (14.0-18.0) g/dl Hct 43.0 (42.0-52.0) % MCV 98.6 (80.0-100.0) fL MCH 33.0 (25.0-34.0) pg MCHC 33.5 (32.0-36.0) g/dL RDW Std Deviation 55.5 H (36.4-46.3) fL RDW Coeff of Aria 15.1 H (11.5-14.5) % Plt Count 172 (130-400) K/uL MPV 9.6 (9.4-12.4) fL Immature Gran % (Auto) 0.2 % Neut % (Auto) 57.1 % Lymph % (Auto) 22.6 % Hemphill % (Auto) 15.9 % Eos % (Auto) 3.9 % Baso % (Auto) 0.3 % Neut # (Auto) 3.39 (1.40-6.50) K/uL Lymph # (Auto) 1.34 (1.2-3.4) K/uL Hemphill # (Auto) 0.94 H (0.11-0.59) K/uL Eos # (Auto) 0.23 (0-0.50) K/uL Baso # (Auto) 0.02 (0-0.2) K/uL Immature Gran # (Auto) 0.01 (0.01-0.20) K/uL ESR (0-20) mm/hr PT 13.0 H (9.0-12.0) Seconds INR 1.2 H (0.9-1.1) APTT 28.8 (21.0-31.0) Seconds PTT Ratio 1.0 Sodium (136-145) mmol/L Potassium (3.5-5.1) mmol/L Chloride (98-107) mmol/L Carbon Dioxide (21-32) mmol/L Anion Gap (3-11) BUN (6-23) mg/dl Creatinine (0.6-1.4) mg/dl Est Cr Clr Drug Dosing ml/min Est GFR ( Amer) ml/min Est GFR (Non-Af Amer) ml/min BUN/Creatinine Ratio (10-20) Glucose (70-99(Fasting)) mg/dl Calcium (8.6-10.3) mg/dl Total Bilirubin (0.2-1.0) mg/dl AST (13-39) U/L ALT (7-52) U/L Alkaline Phosphatase (34-104) U/L Troponin I High Sens (0-20) pg/ml C-Reactive Protein (0-0.5) mg/dl B-Natriuretic Peptide 195 H (0-100) pg/ml Total Protein (6.0-8.3) gm/dl Albumin (3.4-5.0) gm/dl Globulin (2.5-4.0) gm/dl Albumin/Globulin Ratio (0.9-2) Procalcitonin (0-0.5) ng/ml TSH (0.300-4.500) uIu/ml 12/19/22 12/19/22 12/19/22 Range/Units 15:37 15:37 16:45 WBC (4.8-10.8) K/ul RBC (4.70-6.10) M/uL Hgb (14.0-18.0) g/dl Hct (42.0-52.0) % MCV (80.0-100.0) fL MCH (25.0-34.0) pg MCHC (32.0-36.0) g/dL RDW Std Deviation (36.4-46.3) fL RDW Coeff of Aria (11.5-14.5) % Plt Count (130-400) K/uL MPV (9.4-12.4) fL Immature Gran % (Auto) % Neut % (Auto) % Lymph % (Auto) % Hemphill % (Auto) % Eos % (Auto) % Baso % (Auto) % Neut # (Auto) (1.40-6.50) K/uL Lymph # (Auto) (1.2-3.4) K/uL Hemphill # (Auto) (0.11-0.59) K/uL Eos # (Auto) (0-0.50) K/uL Baso # (Auto) (0-0.2) K/uL Immature Gran # (Auto) (0.01-0.20) K/uL ESR 22 H (0-20) mm/hr PT (9.0-12.0) Seconds INR (0.9-1.1) APTT (21.0-31.0) Seconds PTT Ratio Sodium 137 (136-145) mmol/L Potassium 3.9 (3.5-5.1) mmol/L Chloride 102 (98-107) mmol/L Carbon Dioxide 24 (21-32) mmol/L Anion Gap 11 (3-11) BUN 9 (6-23) mg/dl Creatinine 0.56 L (0.6-1.4) mg/dl Est Cr Clr Drug Dosing 180.4 ml/min Est GFR ( Amer) 122.3 ml/min Est GFR (Non-Af Amer) 105.5 ml/min BUN/Creatinine Ratio 16.1 (10-20) Glucose 91 (70-99(Fasting)) mg/dl Calcium 8.4 L (8.6-10.3) mg/dl Total Bilirubin 1.9 H (0.2-1.0) mg/dl AST 55 H (13-39) U/L ALT 35 (7-52) U/L Alkaline Phosphatase 98 (34-104) U/L Troponin I High Sens 11.1 (0-20) pg/ml C-Reactive Protein 3.66 H (0-0.5) mg/dl B-Natriuretic Peptide (0-100) pg/ml Total Protein 6.4 (6.0-8.3) gm/dl Albumin 3.4 (3.4-5.0) gm/dl Globulin 3.0 (2.5-4.0) gm/dl Albumin/Globulin Ratio 1.1 (0.9-2) Procalcitonin 0.08 (0-0.5) ng/ml TSH (0.300-4.500) uIu/ml 12/19/22 Range/Units 16:45 WBC (4.8-10.8) K/ul RBC (4.70-6.10) M/uL Hgb (14.0-18.0) g/dl Hct (42.0-52.0) % MCV (80.0-100.0) fL MCH (25.0-34.0) pg MCHC (32.0-36.0) g/dL RDW Std Deviation (36.4-46.3) fL RDW Coeff of Aria (11.5-14.5) % Plt Count (130-400) K/uL MPV (9.4-12.4) fL Immature Gran % (Auto) % Neut % (Auto) % Lymph % (Auto) % Hemphill % (Auto) % Eos % (Auto) % Baso % (Auto) % Neut # (Auto) (1.40-6.50) K/uL Lymph # (Auto) (1.2-3.4) K/uL Hemphill # (Auto) (0.11-0.59) K/uL Eos # (Auto) (0-0.50) K/uL Baso # (Auto) (0-0.2) K/uL Immature Gran # (Auto) (0.01-0.20) K/uL ESR (0-20) mm/hr PT (9.0-12.0) Seconds INR (0.9-1.1) APTT (21.0-31.0) Seconds PTT Ratio Sodium (136-145) mmol/L Potassium (3.5-5.1) mmol/L Chloride (98-107) mmol/L Carbon Dioxide (21-32) mmol/L Anion Gap (3-11) BUN (6-23) mg/dl Creatinine (0.6-1.4) mg/dl Est Cr Clr Drug Dosing ml/min Est GFR ( Amer) ml/min Est GFR (Non-Af Amer) ml/min BUN/Creatinine Ratio (10-20) Glucose (70-99(Fasting)) mg/dl Calcium (8.6-10.3) mg/dl Total Bilirubin (0.2-1.0) mg/dl AST (13-39) U/L ALT (7-52) U/L Alkaline Phosphatase (34-104) U/L Troponin I High Sens (0-20) pg/ml C-Reactive Protein (0-0.5) mg/dl B-Natriuretic Peptide (0-100) pg/ml Total Protein (6.0-8.3) gm/dl Albumin (3.4-5.0) gm/dl Globulin (2.5-4.0) gm/dl Albumin/Globulin Ratio (0.9-2) Procalcitonin (0-0.5) ng/ml TSH 1.611 (0.300-4.500) uIu/ml Administered Medications Apixaban (Apixaban 5 Mg Tablet) 5 mg PO BID DENIS Stop: 01/18/23 20:59 Last Admin: 12/19/22 21:47 Dose: 5 mg Documented By: BERT Bumetanide (Bumetanide 1 Mg Tab) 1 mg PO BID17 DENIS Stop: 01/18/23 20:59 Last Admin: 12/19/22 21:47 Dose: 1 mg Documented By: BRET Gabapentin (Gabapentin 100 Mg Cap) 100 mg PO TID DENIS Stop: 01/18/23 20:59 Last Admin: 12/19/22 21:47 Dose: 100 mg Documented By: BRET Discontinued Medications Furosemide (Furosemide 40 Mg/4 Ml Vial) 40 mg IV NOW STA Stop: 12/19/22 16:23 Last Admin: 12/19/22 17:06 Dose: 40 mg Documented By: RYLEE Ceftriaxone Sodium (Rocephin) 2,000 mg in 70 mls @ 140 mls/hr IV NOW STA Stop: 12/19/22 16:53 Last Infusion: 12/19/22 17:50 Dose: 0 mls/hr Documented By: Admin: 12/19/22 17:06 Dose: 140 mls/hr Documented By: RYLEE Thiamine HCl 500 mg/ Sodium (Chloride) 55 mls @ 210 mls/hr IV NOW STA Stop: 12/19/22 18:30 Last Infusion: 12/19/22 20:18 Dose: 0 mls/hr Documented By: Admin: 12/19/22 19:14 Dose: 210 mls/hr Documented By: RUTH Metoprolol Tartrate (Metoprolol Tartrate 1 Mg/Ml Vial) 5 mg IV NOW STA Stop: 12/19/22 16:23 Last Admin: 12/19/22 17:06 Dose: 5 mg Documented By: RYLEE Metoprolol Tartrate (Metoprolol Tartrate 25 Mg Tab) 25 mg PO NOW STA Stop: 12/19/22 17:36 Last Admin: 12/19/22 18:21 Dose: 25 mg Documented By: RUTH Imaging Data Radiologist's Impression: Chest X-Ray 12/19/22 13:59 XR chest 1V not portable CLINICAL HISTORY: Chest pain, nonspecific COMPARISON STUDY: Chest CT May 28, 2015. Chest radiograph June 10, 2022. FINDINGS: Cardiomegaly is unchanged. There is no evidence for pulmonary edema. No consolidation to suggest pneumonia. No pneumothorax or pleural effusion is present. There has been no change in appearance of the chest. IMPRESSION: No acute cardiopulmonary findings. Stable cardiomegaly. ACT 112: Negative or not required by law. Electronically signed by: Glen Carballo M.D. 12/19/2022 2:55 PM Discharge Plan Visit Data Chief Complaint: Swelling/Edema to Extremity Stated Complaint: LEGS, LUNGS, AND HEART ED Provider: Nick Rodriguez Discharge Problem: Atrial fibrillation with rapid ventricular response, Shortness of breath, Cellulitis, Suicidal ideations Patient Disposition: Admitted As Inpatient Discharge Instructions Interventions: ED Discharge Assessment Last Done: 12/19/22 19:45
[2022-12-19 16:51] LABS: INR 1.2 (0.9-1.1); Partial Thromboplastin Time 28.8 Seconds (21.0-31.0)
[2022-12-19] MEDS ORDERED: dilTIAZem HCL 120 MG CAPCR PO STA (17:27)
[2022-12-19] MEDS ORDERED: METOPROLOL TARTRATE 25 MG TAB PO STA (17:35)
[2022-12-19] MEDS ORDERED: LORazepam 2 MG/1 ML VIAL IV PRN (17:38)
[2022-12-19] MEDS ORDERED: METOPROLOL TARTRATE 1 MG/ML VIAL IV PRN (17:41)
[2022-12-19 17:46] LABS: C Reactive Protein 3.66 mg/dl (0-0.5)
--- NOTE | 2022-12-19 18:07 | History & Physical Report ---
Date of Service December 19, 2022 Assessment & Plan (1) Atrial flutter with rapid ventricular response: Plan: -Admit to the PCU on tele -Currently stable and with HR in the low 100's after 5 mg IV Lopressor in the ED -The patient has new-onset afib, patient with a long hx of a-flutter and has already been on Eliquis and diltiazem -The patient has multiple possible etiologies at this time including untreated SARIAH, alcohol abuse, right heart failure -Patient follows with Dr. Montgomery who previously reported that he was concerned the patient's right CHF would cause him to develop a-fib -Electrolytes are stable, will obtain STAT TSH, TTE tomorrow with Cardiology consult placed -Will hold diltiazem for now because he may have progression of his CHF and we want to avoid exacerbating this -Will give 25 mg PO metoprolol tartrate STAT then continue BID for now, lopres sor 5 mg IV q5m prn sustained HR >120 max dose of 2, if needed could consider amiodarone drip or digoxin for further control -Continue BID eliquis -BL SCD's and Eliquis for DVT PPX (2) Suicidal ideations: Plan: -Patient has been experiencing severe depression with thoughts of taking his life with guns he has in his home -Patient reports that his son removed the guns from his home today -For now will place him on suicide precautions, 1:1 observation, Psychiatry consult placed (3) SOB (shortness of breath): Plan: -Has been ongoing for 5+ months with progression to the point where he can only walk short distances -Again, his etiology is likely multifactorial including progression of CHF, atrial flutter/afib with RVR, CAD, obesity hypoventilation syndrome, deconditioning, and untreated SARIAH -CXR today shows stable cardiomegaly without other acute findings, BNP elevated at 195 -S/P 40 mg IV lasix in the ED, currently takes 1mg BID of Bumetanide -For now will continue with his BID PO bumetanide for now and see how he responds overnight -If initial workup is inconclusive may need a dobutamine stress echo for further assessment -Continue to monitor on tele (4) Elevated LFTs: Plan: -Total bili elevated at 1.9, AST of 55, ALT and alk phose WNL -Patient is without jaundice or abd pain/nausea -Likely due to his alcohol abuse -Will obtain liver US for further evaluation -Monitor am liver function (5) Alcohol abuse: Plan: -Patient was drinking (6) Lower extremity edema: Plan: -Patient has a long history of BL LE venous stasis and lymphedema -Follows with the wound care clinic who has been debriding and wrapping, was on BID doxycycline for chronic wounds with associated erythema -Has been following with Dr. Veloz with plans in the near future for GSV and SSV Venaseal at the end of this month and in January -Will consult wound care nurse for assistance with management -Patient with BL, symmetrical erythema of the LE's, appears more consistent with venous stasis and lymphadenopathy >No leukocytosis, fevers, procal negative >S/P one dose of Ceftriaxone in the ED, will hold additional abx at this time (7) Ambulatory dysfunction: Plan: -Due to deconditioning, neuropathy, and SOB -PT/OT consults placed (8) Neuropathy: Plan: -Patient previously on 100 mg Gabapentin BID, will increase to TID and monitor for improvement (9) Hyperlipidemia: Plan: -Hold statin with elevated LFT's Plan The patient was discussed with Dr. Quiroz at the time of the admission History of Present Illness Chief Complaint: LE edema, SOB, suicidal ideations Primary Care Provider: MD Bladimir Dangsandra Mckeon is a 67-year-old male with a past medical history significant for venous stasis and BL LE lymphedema, atrial flutter (on eliquis), right sided heart failure, obesity s/p gastric bypass, GI bleed, and suspected sleep apnea (still needs official testing) who presented to the [facility] ED on 12/19/22 at the recommendation of his PCP for worsening LE swelling/leaking, LE erythema, SOB, and suicidal ideations. In the ED the patients HR was noted to be 114, otherwise vitals were stable. Labs were significant for calcium of 8.4, total bili of 1.9, AST of 55. Chest xray was read as No acute cardiopulmonary findings. Stable cardiomegaly.. ECG today shows new onset afib with RVR. Prior to admission the patient was given a dose of Ceftriaxone, 40 mg IV Lasix and 5 mg IV Lopressor. At the time of the exam the patient was sitting in bed in no acute distress. He states that he has had multiple health and personal issues this month. He is currently going through a divorce and selling his home. This had made him very depressed, he has been having suicidal ideations with plans to use the guns he has in him home to take his life. Due to his depression he has also but drinking heavily over the past 5 months. He states that he had been drinking approximately "a large bottle of vodka, whiskey, or burbon" until last month when he had stopped. He denies going through alcohol withdrawal at that time but started to drink again yesterday due to selling his home and moving out. He had a "small" bottle of vodka last night, with his last drink at approximately 6 pm. He denies feeling as though he is withdrawing at this time. His ex and daughter now live in [place] and his son lives in [place]. His kids came to see him today to help him move, when they head about his suicidal ideations his son removed the guns from his home and they took him to his PCP earlier today. The patient has been going to the wound care clinic for treatment of his BL LE edema and chronic venous stasis wounds, he states that his legs are much better today than approximately a week ago due to the consistent treatment at the clinic. He notes progressive WALDEN and weight gain over the past 4-5 months with significant WALDEN to the point that he cannot walk more than a few feet before having to rest. He denies any recent chest pain and has been taking his medications as prescribed. He is interested in an inpatient rehab stay at discharge to rebuild his strength. He would like to be seen by Psychiatry for his severe depression. While talking about his current life situation the patient became tearful. He is having a difficult dealing with all his life changes and health problems. He states that he wants to quit drinking and would be interested in rehab on discharge if needed. He denies recent fever, chills, chest pain, cough, abd pain, nausea, vomiting, diarrhea, dysuria, hematuria, melena, and recent trauma. Per chart review, the patient follows with the [facility] [place] clinic for his chronic BL LE venous stasis/lymphedema and chronic venous stasis ulcers. Per their note from 12/15, the patient last saw Dr. Veloz on 11/19, he is scheduled to undergo GSV and SSV Venaseal on 12/31 and 01/14, he is also supposed to be contacting the lymphedema pump company. They reported that he has BL LE venous stasis ulcers with the right LE ulcer re-opening on last visit. They debrided the left LE ulcer, applied Xylocaine to the LLE wound, and re-wrapped the Bl LEs. He is to follow-up with them next week. Please refer to Dr. Quiroz's attestation for any changes to the treatment plan Allergies Allergy/AdvReac Type Severity Reaction Status Date / Time No Known Allergies Allergy Verified 12/18/22 08:17 Home Medications Medication Instructions Recorded Confirmed Type coenzyme Q10 100 mg capsule (Co 100 mg PO QAM 06/15/19 12/19/22 History Q-10) multivitamin 1 tab PO QAM 06/15/19 12/19/22 History cholecalciferol (vitamin D3) 50 50 mcg PO QAM 01/17/21 12/19/22 History mcg (2,000 unit) capsule (Vitamin D3) cinnamon bark 500 mg capsule 500 mg PO QAM 01/17/21 12/19/22 History (Cinnamon) diphenhydramine HCl 25 mg capsule 25 mg PO HS PRN Sleep 01/17/21 12/19/22 History (Benadryl) ascorbic acid (vitamin C) 1,000 mg 1 g PO DAILY 03/12/21 12/19/22 History tablet (Vitamin C) glucosamine HCl 500 mg tablet 500 mg PO DAILY 08/15/21 12/19/22 History krill oil 500 mg capsule 500 mg PO DAILY 08/15/21 12/19/22 History magnesium 250 mg tablet 500 mg PO DAILY 08/15/21 12/19/22 History turmeric root extract 500 mg 500 mg PO DAILY 08/15/21 12/19/22 History capsule potassium gluconate 595 mg (99 mg) 595 mg PO QAM 09/12/21 12/19/22 History tablet bumetanide 1 mg tablet 1 mg PO BID #60 tabs 06/14/22 12/19/22 Rx gabapentin 100 mg capsule 100 mg PO BID #60 caps 06/14/22 12/19/22 Rx spironolactone 25 mg tablet 12.5 mg PO DAILY #30 tabs 06/14/22 12/19/22 Rx apixaban 5 mg tablet (Eliquis) 5 mg PO BID 07/03/22 12/19/22 History vitamin B12 0.5 mg-folic acid 1 mg 1 tab PO DAILY 07/03/22 12/19/22 History tablet diltiazem HCl 120 mg 120 mg PO DAILY 07/09/22 12/19/22 History capsule,extended release 24 hr (Cartia XT) doxycycline hyclate 100 mg tablet 100 mg PO bid #28 tabs 12/08/22 12/19/22 Rx Past Med/Surg History Medical History Anxiety and depression Environmental allergies GERD (gastroesophageal reflux disease) Hearing deficit History of gastric ulcer 2018 Hx of colonic polyps Hx of iron deficiency anemia Hyperlipidemia "BORDERLINE" Hypertension "BORDERLINE">HAS FOLLOWED WITH DR. VELOZ Obesity Osteoarthritis Sleep apnea USED CPAP IN PAST (STOPPED USING) Superficial thrombophlebitis Swelling of lower leg BILAT. REASON FOR FUROSEMIDE (PT STATES SWELLING IS BETTER) Thrombosis SUPERFICIAL BLOOD CLOT RT LEG Surgical History H/O gastric bypass 2002 H/O shoulder surgery RT History of bilateral carpal tunnel release History of cataract surgery right History of colonoscopy History of discectomy LUMBAR DISCECTOMY History of esophagogastroduodenoscopy (EGD) History of gastric bypass History of herniorrhaphy History of total hip arthroplasty RT History of total knee replacement LEFT Varicose veins of both lower extremities LASER PROCEDURE Family History Mother Family history of reaction to anesthesia difficulty of waking Dementia Parkinsons disease Father Myocardial infarction Unknown Hypertension Arthritis Other No significant family history Social History Smoking Status: Never smoker Second Hand Exposure: No; Do You Dip or Chew Tobacco: No; Hx Alcohol Use: No Hx Substance Use: No Preferred Language: Luxembourgish Communication Ability: Effective Communication Tools: Letter Board, Picture Board and Writing Tablet Telephone Switchboard Operator Required: No Beliefs That Will Affect Care: None marital status: Current Living Situation: Spouse current occupational status: employed 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 [employer] Feels Safe at Home: Yes Assistive Devices: Cane Physical Exam Physical Exam: Physical Exam: General: In no acute distress, stated age, chronically ill appearing but non-toxic HEENT: Normocephalic, atraumatic, no scleral icterus, pupils around round, symmetrical, and reactive to light, moist mucus membranes, trachea midline, no thyromegaly Chest/Pulm: No respiratory distress, symmetrical chest expansion, clear breath sounds throughout Cardiac: irregular rate and rhythm, no murmurs noted Abdomen: Negative for ascites and bruising, normoactive bowel sounds, soft, non-tender to palpation throughout Musculoskeletal: Symmetrical and without signs of acute trauma, upper and lower extremities with full ROM, no atrophy, spasticity, or flaccidity Extremities: Radial, dorsalis pedis, and posterior tibial pulses are intact and symmetrical, 2+ edema noted in the BL LE's Skin: the BL LE's are erythematous with circumferential erythema, no acute wounds noted at this time, no drainage or weeping noted at this time Neuro: Alert and oriented to person, place, month, year, and president, no focal defects, CN II-XII tested and intact, finger to nose test negative, no tremors noted Psych: No acute distress, depressed, but very polite and cooperative during the exam Results & Data Results & Data Vital Signs (Past 12 Hours) Vital Signs Temp Pulse Pulse Resp BP BP Pulse Ox 12/19/22 17:30 95 12/19/22 17:06 120 H 157/85 H 12/19/22 16:13 112 H 12/19/22 16:12 12/19/22 16:10 105 H 20 154/98 H 94 12/19/22 13:54 37 C 114 H 18 110/64 95 O2 Del Method 12/19/22 17:30 Room Air 12/19/22 17:06 12/19/22 16:13 12/19/22 16:12 Room Air 12/19/22 16:10 Room Air 12/19/22 13:54 Room Air Laboratory Results Abnormal lab results 12/19/22 12/19/22 12/19/22 Range/Units 15:28 15:37 15:37 RBC 4.36 L (4.70-6.10) M/uL RDW Std Deviation 55.5 H (36.4-46.3) fL RDW Coeff of Aria 15.1 H (11.5-14.5) % [place] # (Auto) 0.94 H (0.11-0.59) K/uL ESR (0-20) mm/hr PT 13.0 H (9.0-12.0) Seconds INR 1.2 H (0.9-1.1) Creatinine (0.6-1.4) mg/dl Calcium (8.6-10.3) mg/dl Total Bilirubin (0.2-1.0) mg/dl AST (13-39) U/L C-Reactive Protein (0-0.5) mg/dl B-Natriuretic Peptide 195 H (0-100) pg/ml 12/19/22 12/19/22 Range/Units 15:37 15:37 RBC (4.70-6.10) M/uL RDW Std Deviation (36.4-46.3) fL RDW Coeff of Aria (11.5-14.5) % [place] # (Auto) (0.11-0.59) K/uL ESR 22 H (0-20) mm/hr PT (9.0-12.0) Seconds INR (0.9-1.1) Creatinine 0.56 L (0.6-1.4) mg/dl Calcium 8.4 L (8.6-10.3) mg/dl Total Bilirubin 1.9 H (0.2-1.0) mg/dl AST 55 H (13-39) U/L C-Reactive Protein 3.66 H (0-0.5) mg/dl B-Natriuretic Peptide (0-100) pg/ml Diagnostic Findings Chest X-Ray 12/19/22 13:59 XR chest 1V not portable CLINICAL HISTORY: Chest pain, nonspecific COMPARISON STUDY: Chest CT May 28, 2015. Chest radiograph June 10, 2022. FINDINGS: Cardiomegaly is unchanged. There is no evidence for pulmonary edema. No consolidation to suggest pneumonia. No pneumothorax or pleural effusion is present. There has been no change in appearance of the chest. IMPRESSION: No acute cardiopulmonary findings. Stable cardiomegaly. ACT 112: Negative or not required by law. Electronically signed by: Glen Carballo M.D. 12/19/2022 2:55 PM ECG Additional Comments: Atrial fibrillation with rapid ventricular response Right bundle branch block Possible Lateral infarct , age undetermined Inferior infarct (cited on or before 17-JUN-2019) Abnormal ECG When compared with ECG of 12-JUN-2022 05:54, Significant changes have occurred Confirmed by Luisito Comer ([id number]) on 12/19/2022 3:42:22 PM Code Status & VTE Plan Code Status Full code VTE Prophylaxis Plan VTE Prophylaxis will be ordered: Yes Supervising Physician Co-Signing Physician Notes Patient seen and examined, chart reviewed, case discussed with Emery Marie PA-C and I agree with the assessment and plan as above except as otherwise noted Labs and images reviewed 67-year-old male who presents with multiple medical concerns including chronic alcohol use, severe progressive lower edema with venous stasis, a flutter with rapid response, and gradually worsening shortness of breath over several months now unable to ambulate any more than a short distance. On exam breathing is unlabored, patient is obviously fluid overloaded and with bilateral pitting edema through the thigh and abdomen with chronic venous stasis changes. Heart rate is irregularly irregular variable rate from 326039 at the bedside. Patient does continue to have SI, reports depression regarding his multiple medication issues. Family is aware, son has removed guns from the home today. Agree with continuing heart failure evaluation, may also have RVR induced exacerbation of CHF. Given unclear EF will avoid diltiazem use, continue metoprolol use at this time patient is responding favorably. Patient has a significant venous stasis and lymphedema component, recommend leg elevation, wraps, SCDs and mobilization therapies at least 3 times daily. Continue Lasix as noted. Psych consult, continue safe tray/one-to-one. Patient is with up to 1/5 of alcohol per day, continue ANAYA S for withdrawal monitoring. Agree with recommendation/management above PG Care Time/CCT Total # of Minutes Spent Total Time Spent with Patient: Total time spent is greater than 50% in coordination of care (as documented) at patient's floor/unit and/or counseling patient: C[place] [address] INT INP/OBS CARE 3/75MIN Patient Type Established Medical Decision Making High Complexity Diagnoses Atrial flutter with rapid ventricular response I48.92 Suicidal ideations R45.851 SOB (shortness of breath) R06.02 Elevated LFTs R79.89 Alcohol abuse F10.10 Lower extremity edema R60.0 Ambulatory dysfunction R26.2 Neuropathy G62.9 Hyperlipidemia E78.5 Hyperlipidemia type: unspecified (9) Hyperlipidemia Hyperlipidemia type: unspecified Qualified Code(s): E78.5 - Hyperlipidemia, unspecified
[2022-12-19] MEDS ORDERED: THIAMINE HCL 500 MG in SODIUM CHLORIDE 0.9% 50 ML IV STA (18:15)
[2022-12-19] MEDS: GABAPENTIN 100 MG CAP PO SCH (21:47)
[2022-12-19] MEDS: BUMETANIDE 1 MG TAB PO SCH (21:47)
[2022-12-19] MEDS: APIXABAN 5 MG TABLET PO SCH (21:47)
[2022-12-19] MEDS ORDERED: diphenhydrAMINE Capsule 25 MG CAP PO ONE (22:49)
[2022-12-20 07:26] LABS: Basophils # (auto) 0.03 K/uL (0-0.2); Basophils % (auto) 0.6 %; Eosinophils # (auto) 0.36 K/uL (0-0.50); Eosinophils % (auto) 6.8 %; Hematocrit (blood only) 43.2 % (42.0-52.0); Hemoglobin 14.5 g/dl (14.0-18.0); Immature Granulocytes # (auto) 0.02 K/uL (0.01-0.20); Immature Granulocytes % (auto) 0.4 %; Lymphocytes # (auto) 1.42 K/uL (1.2-3.4); Mean Corpuscular Hemoglobin 32.7 pg (25.0-34.0); Mean Corpuscular Hgb Conc 33.6 g/dL (32.0-36.0); Mean Corpuscular Volume 97.3 fL (80.0-100.0); Mean Platelet Volume 9.5 fL (9.4-12.4); Monocytes # (auto) 0.97 K/uL (0.11-0.59); Monocytes % (auto) 18.4 %; Neutrophils # (auto) 2.46 K/uL (1.40-6.50); Neutrophils % (auto) 46.8 %; Platelet Count 176 K/uL (130-400); RDW Coefficient of Variation 15.3 % (11.5-14.5); RDW Standard Deviation 54.4 fL (36.4-46.3); Red Blood Count 4.44 M/uL (4.70-6.10); White Blood Count 5.26 K/ul (4.8-10.8)
--- NOTE | 2022-12-20 07:40 | Ultrasound Report ---
ABDOMINAL ULTRASOUND, RIGHT UPPER QUADRANT HISTORY: elevated LFT's. COMPARISON: Abdomen and pelvis CT 01/25/2021. FINDINGS: Pancreas: The visualized pancreas demonstrates a normal echotexture. Liver: The liver is echogenic consistent with fatty change. 30 cm length. No hepatic masses. Gallbladder: Multiple small gallstones. No gallbladder wall thickening. Negative sonographic Cervantes s ign. CBD: 5 mm. Right kidney: No hydronephrosis. IMPRESSION: 1. Cholelithiasis. No gallbladder wall thickening. 2. Hepatomegaly demonstrating fatty change. ACT 112: Negative or not required by law. Electronically signed by: Miguel Funk M.D. 12/20/2022 7:39 AM
[2022-12-20 07:47] LABS: Albumin Globulin Ratio 1.1 (0.9-2); Albumin Level 3.3 gm/dl (3.4-5.0); BUN Creatinine Ratio 12.3 (10-20); Bilirubin,Total 1.5 mg/dl (0.2-1.0); Calcium 8.8 mg/dl (8.6-10.3); Creatinine Clr Calc Pharmacy 169.9 ml/min; Est GFR (African American) 121.4 ml/min; Est GFR (Non-African American) 104.8 ml/min; Globulin 3.1 gm/dl (2.5-4.0); Magnesium 1.6 mg/dl (1.7-2.4); Potassium 3.5 mmol/L (3.5-5.1); Total Protein 6.4 gm/dl (6.0-8.3)
[2022-12-20 07:53] LABS: INR 1.2 (0.9-1.1); Prothrombin Time 13.5 Seconds (9.0-12.0)
[2022-12-20] MEDS: MULTIVITAMIN TAB PO SCH (08:16)
[2022-12-20] MEDS: FOLIC ACID 1 MG in SYRINGE 9.8 ML IV SCH (08:16)
[2022-12-20] MEDS: METOPROLOL TARTRATE 25 MG TAB PO SCH ×2 (08:16→20:50)
[2022-12-20] MEDS: SPIRONOLACTONE 12.5 MG TAB PO SCH (08:16)
[2022-12-20] MEDS: BUMETANIDE 1 MG TAB PO SCH (08:17)
[2022-12-20] MEDS: VITAMIN B COMPLEX TAB PO SCH (08:17)
[2022-12-20] MEDS: GABAPENTIN 100 MG CAP PO SCH ×3 (08:17→20:50)
[2022-12-20] MEDS: APIXABAN 5 MG TABLET PO SCH ×2 (08:17→20:50)
[2022-12-20] MEDS ORDERED: MAGNESIUM OXIDE 400 MG TAB PO SCH (09:00)
[2022-12-20] MEDS: THIAMINE HCL 200 MG in SODIUM CHLORIDE 0.9% 50 ML IV SCH (09:13)
[2022-12-20] MEDS: MAGNESIUM OXIDE 400 MG TAB PO SCH ×2 (09:14→20:50)
--- NOTE | 2022-12-20 09:41 | XCELERA ---
[id number]
--- NOTE | 2022-12-20 10:43 | Psychiatric Consultation ---
Date of Consultation December 20, 2022 Impression / Recommendations Impression 67 yo man with multiple chronic medical conditions including lower extremity edema and venous stasis admitted medically for SOB, atrial flutter, worsening LE edema and SI. Diagnostically consistent with adjustment disorder with depressed and anxious mood as well as alcohol use disorder. He feels capable of avoiding alcohol use moving forward, especially if he can improve his physical health, as he feels this was the primary driving factor behind his alcohol use. He is also willing to start an antidepressant to help with his depression and anxiety. Acute risk of self-harm is low given denial of SI, significant deterrents to suicide (his family and grandchildren), very future-oriented, good social support and focused on goals of physical rehab and moving into his new apartment. He is not interested in nor does he meet involuntary criteria for inpatient psychiatric hospitalization at this time. However, if his housing falls through, he is found not eligible for increased physical therapy/rehab or he relapses with alcohol use then his acute and chronic risk could increase. Discussed this and reviewed safety planning including counseling on access to lethal means and local crisis and mental health resources which he stated understanding of and feels comfortable accessing if needed. Discussed options for additional outpatient services, including dual diagnosis outpatient therapy which he said he may be willing to consider to further mitigate acute and chronic risk factors for self-harm. (1) Adjustment disorder with mixed anxiety and depressed mood: (2) Alcohol use disorder: (3) Acute diastolic CHF (congestive heart failure): (4) Atrial fibrillation with rapid ventricular response: (5) Shortness of breath: (6) Lower extremity edema: Plan -Recommend starting sertraline 50mg daily for depression and anxiety if felt to be safe from cardiac standpoint -Would discontinue 1-on-1 if hospitalist provider agrees -Psych liason to provide information on outpatient mental health and substance use resources -Could consider naltrexone in the future if alcohol use becomes problematic again in the future -Recommend ongoing outpatient workup for SARIAH and CPAP use as untreated SARIAH can make depression worse and can make SSRIs less effective Psych History Identifying Data Lonnie is a 67 yo man with a history of depression, venous stasis, lower extremity lymphedema, atrial flutter, obesity s/p gastric bypass, hx GI bleed, and suspected sleep apnea (though has not had yet sleep study) who was admitted after seeing his PCP for worsening leg swelling, SOB and depression with SI. Psychiatry consulted for risk assessment by hospitalist service. Chief Complaint "I'm only 67 years old, I have a lot of life yet to live". History of Present Illness Lonnie describes a long history of depression starting about 5 years ago when he began caring for his mother after she developed lewy body dementia. 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 His mother's home has sold and will be closing in a few days and he cannot return to his apartment as it requires he be able to navigate many stairs which he doesn't have the physical strength to do. He has a bid in for a new apartment on the ground floor without stairs but has not yet heard when he can move in there. With all this stress over the years he started to cope by drinking alcohol and increased over time to about 1 bottle of Scotch every two days over the last few months. Two weeks ago he stopped drinking but relapsed the day before admission due to frustration with his phsyical limitations and not being able to keep up with his kids who were visiting. His children came to visit this past week to help him move items out of his mother's home and he started to feel overwhelmed about where he was going to live and they were concerned and brought him to his PCP who recommended he come to the hospital. In terms of depression he identifies anxiety as being his biggest challenge as well as feeling isolated at times and frustrated by his physical limitations due to his worsening leg swelling and difficulty moving around. States he's experienced SI intermittently over the last few years and at times in the past had thought of using his gun to shoot himself but never had any rehearsal behaviors or attempted as "I always stopped myself because I have grandchildren and I would never do that to them". Today he denies SI stating that he feels his mood is much better after hearing about the options for physical rehab to get stronger and that this would also give him the time he needs for his new apartment to be ready. He confirms his son removed the gun from his home and he no longer has access to this gun nor any other guns. He feels safe in the hospital and agrees to let his nurse know if he were to re-develop any SI in the future. Speaks about his goal of using this hospitalization to get his life back on track so he can live well for many years. Feels he has a lot of good support from his children as well as his first (the mother of his children). Per collateral from his RN he has been discussing his desire to meet with sales service representative while in the hospital to start to make healthy changes to get his medical conditions under better control. No history of psychiatric treatment. No history of psychiatric medication trials. No history of prior suicide attempts. No history of psychiatric hospitalization. Allergies Allergy/AdvReac Type Severity Reaction Status Date / Time No Known Allergies Allergy Verified 12/18/22 08:17 Home Medications Medication Instructions Recorded Confirmed Type coenzyme Q10 100 mg capsule (Co 100 mg PO QAM 06/15/19 12/19/22 History Q-10) multivitamin 1 tab PO QAM 06/15/19 12/19/22 History cholecalciferol (vitamin D3) 50 50 mcg PO QAM 01/17/21 12/19/22 History mcg (2,000 unit) capsule (Vitamin D3) cinnamon bark 500 mg capsule 500 mg PO QAM 01/17/21 12/19/22 History (Cinnamon) diphenhydramine HCl 25 mg capsule 25 mg PO HS PRN Sleep 01/17/21 12/19/22 History (Benadryl) ascorbic acid (vitamin C) 1,000 mg 1 g PO DAILY 03/12/21 12/19/22 History tablet (Vitamin C) glucosamine HCl 500 mg tablet 500 mg PO DAILY 08/15/21 12/19/22 History krill oil 500 mg capsule 500 mg PO DAILY 08/15/21 12/19/22 History magnesium 250 mg tablet 500 mg PO DAILY 08/15/21 12/19/22 History turmeric root extract 500 mg 500 mg PO DAILY 08/15/21 12/19/22 History capsule potassium gluconate 595 mg (99 mg) 595 mg PO QAM 09/12/21 12/19/22 History tablet bumetanide 1 mg tablet 1 mg PO BID #60 tabs 06/14/22 12/19/22 Rx gabapentin 100 mg capsule 100 mg PO BID #60 caps 06/14/22 12/19/22 Rx spironolactone 25 mg tablet 12.5 mg PO DAILY #30 tabs 06/14/22 12/19/22 Rx apixaban 5 mg tablet (Eliquis) 5 mg PO BID 07/03/22 12/19/22 History vitamin B12 0.5 mg-folic acid 1 mg 1 tab PO DAILY 07/03/22 12/19/22 History tablet diltiazem HCl 120 mg 120 mg PO DAILY 07/09/22 12/19/22 History capsule,extended release 24 hr (Cartia XT) doxycycline hyclate 100 mg tablet 100 mg PO bid #28 tabs 12/08/22 12/19/22 Rx Patient History Medical History Anxiety and depression Environmental allergies GERD (gastroesophageal reflux disease) Hearing deficit History of gastric ulcer 2018 Hx of colonic polyps Hx of iron deficiency anemia Hyperlipidemia "BORDERLINE" Hypertension "BORDERLINE">HAS FOLLOWED WITH DR. VELOZ Obesity Osteoarthritis Sleep apnea USED CPAP IN PAST (STOPPED USING) Superficial thrombophlebitis Swelling of lower leg BILAT. REASON FOR FUROSEMIDE (PT STATES SWELLING IS BETTER) Thrombosis SUPERFICIAL BLOOD CLOT RT LEG Surgical History H/O gastric bypass 2002 H/O shoulder surgery RT History of bilateral carpal tunnel release History of cataract surgery right History of colonoscopy History of discectomy LUMBAR DISCECTOMY History of esophagogastroduodenoscopy (EGD) History of gastric bypass History of herniorrhaphy History of total hip arthroplasty RT History of total knee replacement LEFT Varicose veins of both lower extremities LASER PROCEDURE Family History Mother Family history of reaction to anesthesia difficulty of waking Dementia Parkinsons disease Father Myocardial infarction Unknown Hypertension Arthritis Other No significant family history Social History Smoking Status: Never smoker Second Hand Exposure: No; Do You Dip or Chew Tobacco: No; Hx Alcohol Use: Yes Alcohol type: hard liquor Hx Substance Use: No Preferred Language: Senegalese Communication Ability: Effective Communication Tools: Letter Board, Picture Board and Writing Tablet Sausage Linker Required: No Beliefs That Will Affect Care: None marital status: Current Living Situation: Alone Current Living Situation Comment: looking into renting apartment in [place]; 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 current occupational status: employed 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 [employer] Feels Safe at Home: Yes Assistive Devices: Glasses Physical Exam Psychiatric: Orientation: alert and oriented x 3 Apperance: appropriately dressed and appropriately groomed Eye Contact: good eye contact Motor Behavior: no abnormal motor movements Speech: normal rate/rhythm/volume of speech Affect: + constricted affect (but smiles at times) Mood: + depressed mood and + anxious mood Thought Process: linear/logical thought process Thought Content: reality based without delusions Suicidal Thoughts: denies suicidal thoughts Homicidal Thoughts: denies homicidal thoughts Hallucinations: no auditory hallucinations and no visual hallucinations Cognition: recent memory grossly intact, remote memory grossly intact, attention grossly intact and language grossly intact Estimated Intelligence: consistent with education level Insight: + fair insight Judgment: + fair judgement Vital Signs (Past 24 Hours): Last Vital Signs Temp 36.4 C L 12/20/22 08:09 Pulse 87 12/20/22 08:09 Resp 18 12/20/22 08:09 BP 125/83 12/20/22 08:09 Pulse Ox 96 12/20/22 08:09 O2 Del Method Room Air 12/20/22 08:09 Review of Systems All systems reviewed & are unremarkable except as noted in HPI & below (leg pain) Results & Data (PSY) Laboratory Results Na+ stable Diagnostic Findings QTc <500ms on EKG yesterday but ongoing cardiac workup Medications Administered Apixaban (Apixaban 5 Mg Tablet) 5 mg PO BID [facility] Stop: 01/18/23 20:59 Last Admin: 12/20/22 08:17 Dose: 5 mg Documented By: Admin: 12/19/22 21:47 Dose: 5 mg Documented By: BRET Bumetanide (Bumetanide 1 Mg Tab) 1 mg PO BID17 [facility] Stop: 01/18/23 20:59 Last Admin: 12/20/22 08:17 Dose: 1 mg Documented By: Admin: 12/19/22 21:47 Dose: 1 mg Documented By: BRET Gabapentin (Gabapentin 100 Mg Cap) 100 mg PO TID [facility] Stop: 01/18/23 20:59 Last Admin: 12/20/22 08:17 Dose: 100 mg Documented By: Admin: 12/19/22 21:47 Dose: 100 mg Documented By: BRET Thiamine HCl 200 mg/ Sodium (Chloride) 52 mls @ 210 mls/hr IV QAM DENIS Stop: 12/22/22 08:59 Last Infusion: 12/20/22 09:28 Dose: 0 mls/hr Documented By: Admin: 12/20/22 09:13 Dose: 210 mls/hr Documented By: ALLEN Folic Acid 1 mg/ Syringe 10 mls @ 5 mls/min IV QAM DENIS Stop: 12/22/22 08:59 Last Admin: 12/20/22 08:16 Dose: 5 mls/min Documented By: ALLEN Magnesium Oxide (Magnesium Oxide 400 Mg Tab) 400 mg PO BID DENIS Stop: 01/19/23 08:59 Last Admin: 12/20/22 09:14 Dose: 400 mg Documented By: ALLEN Metoprolol Tartrate (Metoprolol Tartrate 25 Mg Tab) 25 mg PO BID DENIS Stop: 01/19/23 08:59 Last Admin: 12/20/22 08:16 Dose: 25 mg Documented By: ALLEN Multivitamins (Multivitamin Tab) 1 tab PO QAM [facility] Stop: 01/19/23 08:59 Last Admin: 12/20/22 08:16 Dose: 1 tab Documented By: ALLEN Spironolactone (Spironolactone 12.5 Mg Tab) 12.5 mg PO DAILY DENIS Stop: 01/19/23 08:59 Last Admin: 12/20/22 08:16 Dose: 12.5 mg Documented By: ALLEN Vitamin B Complex (Vitamin B Complex Tab) 1 tab PO DAILY DENIS Stop: 01/19/23 08:59 Last Admin: 12/20/22 08:17 Dose: 1 tab Documented By: ALLEN Coding Level of Care Code 92172 IN/OBS CONSULT LVL 4,60M Diagnoses Adjustment disorder with mixed anxiety and depressed mood F43.23 Alcohol use disorder F10.90 Acute diastolic CHF (congestive heart failure) I50.31 Atrial fibrillation with rapid ventricular response I48.91 Shortness of breath R06.02 Lower extremity edema R60.0 Time Spent (min) 65
--- NOTE | 2022-12-20 11:35 | Cardiology Consultation ---
Date of Consultation December 20, 2022 Assessment & Plan (1) Atrial fibrillation with rapid ventricular response: (2) Shortness of breath: (3) Lower extremity edema: (4) Atrial flutter: Plan 1. Shortness of breath: Multifactorial. Likely an element of diastolic heart failure. He does appear to have an element of pulmonary vascular congestion on exam. Clearly volume overloaded. He did describe orthopnea and significant exertional dyspnea. BNP was elevated. All this is less specific in the setting of atrial fibrillation, he will undergo diuresis. Currently on an oral regimen of Bumex which may need to be switched to intravenous in order to affect the appropriate diuresis. We will need to monitor his electrolytes and renal function closely. 2. Atrial fibrillation: Likely transition from atrial flutter. Rate control adequate but suboptimal. With any exertion his heart rate goes up significantly. This is likely physiologic given his decompensated state. However, looking at his records overall rate control could be slightly improved. I think we will increase his diltiazem dose. Increased beta-blockade may be more detrimental given his right ventricular dysfunction. Continue systemic anticoagulation. 3. Atrial flutter: He appears to have transition to atrial fibrillation. Unfortunately, catheter based therapy has a less durable effect on atrial fibrillation. I do not think this is imminently necessary nor required in the [facility] provided adequate rate control can be accomplished. 4. Cor pulmonale: He has an element of right ventricular failure resulting in significant lower extremity edema. Is likely due to a combination of his obesity, untreated obstructive sleep apnea and diastolic heart failure. 5. Edema: Improved by report. No current venous stasis ulcers. He would likely benefit from standard care which would include leg elevation, compression and diuresis. History of Present Illness Reason for Consultation: Atrial fibrillation Requesting Physician: Akhil Attending Physician: Bennett Landaverde MD History of Present Illness The patient is a 67-year-old gentleman with a history of cor pulmonale, chronic lower extremity edema and atrial flutter who presented to the hospital after seeing his primary care physician yesterday. Seems that the patient has suffered from a notable decline in health. This was manifest by worsening breathing difficulty, lower extremity edema, orthopnea, depression and alcohol abuse. The patient actually verbalize some suicidal ideation yesterday. He stated that he has had some breathing trouble since the beginning of the year. Last summer he reported hiking and ambulating without notable limitation. However, over the past few months his symptoms have progressed to the point where it is very difficult even walk a few steps without becoming short of breath. This has been accompanied by a sense of orthopnea need to sleep in an upright position. He suffers from chronic lower extremity edema and this is the wound clinic on a regular basis. He states that the overall edema in his legs has improved and he no longer has seeping ulcers. He is generally not aware of any palpitations or elevated heart rates. He does use a blood pressure cuff at home and reports normal blood pressures. Heart rates taking with a blood pressure cuff generally range between 80 and 100 beats per minute. He denies significant dizziness or lightheadedness. No associated chest pain with his dyspnea. No other exertional symptoms. Allergies Allergy/AdvReac Type Severity Reaction Status Date / Time No Known Allergies Allergy Verified 12/18/22 08:17 Home Medications Medication Instructions Recorded Confirmed Type coenzyme Q10 100 mg capsule (Co 100 mg PO QAM 06/15/19 12/19/22 History Q-10) multivitamin 1 tab PO QAM 06/15/19 12/19/22 History cholecalciferol (vitamin D3) 50 50 mcg PO QAM 01/17/21 12/19/22 History mcg (2,000 unit) capsule (Vitamin D3) cinnamon bark 500 mg capsule 500 mg PO QAM 01/17/21 12/19/22 History (Cinnamon) diphenhydramine HCl 25 mg capsule 25 mg PO HS PRN Sleep 01/17/21 12/19/22 History (Benadryl) ascorbic acid (vitamin C) 1,000 mg 1 g PO DAILY 03/12/21 12/19/22 History tablet (Vitamin C) glucosamine HCl 500 mg tablet 500 mg PO DAILY 08/15/21 12/19/22 History krill oil 500 mg capsule 500 mg PO DAILY 08/15/21 12/19/22 History magnesium 250 mg tablet 500 mg PO DAILY 08/15/21 12/19/22 History turmeric root extract 500 mg 500 mg PO DAILY 08/15/21 12/19/22 History capsule potassium gluconate 595 mg (99 mg) 595 mg PO QAM 09/12/21 12/19/22 History tablet bumetanide 1 mg tablet 1 mg PO BID #60 tabs 06/14/22 12/19/22 Rx gabapentin 100 mg capsule 100 mg PO BID #60 caps 06/14/22 12/19/22 Rx spironolactone 25 mg tablet 12.5 mg PO DAILY #30 tabs 06/14/22 12/19/22 Rx apixaban 5 mg tablet (Eliquis) 5 mg PO BID 07/03/22 12/19/22 History vitamin B12 0.5 mg-folic acid 1 mg 1 tab PO DAILY 07/03/22 12/19/22 History tablet diltiazem HCl 120 mg 120 mg PO DAILY 07/09/22 12/19/22 History capsule,extended release 24 hr (Cartia XT) doxycycline hyclate 100 mg tablet 100 mg PO bid #28 tabs 12/08/22 12/19/22 Rx Patient History Medical History Anxiety and depression Environmental allergies GERD (gastroesophageal reflux disease) Hearing deficit History of gastric ulcer 2018 Hx of colonic polyps Hx of iron deficiency anemia Hyperlipidemia "BORDERLINE" Hypertension "BORDERLINE">HAS FOLLOWED WITH DR. VELOZ Obesity Osteoarthritis Sleep apnea USED CPAP IN PAST (STOPPED USING) Superficial thrombophlebitis Swelling of lower leg BILAT. REASON FOR FUROSEMIDE (PT STATES SWELLING IS BETTER) Thrombosis SUPERFICIAL BLOOD CLOT RT LEG Surgical History H/O gastric bypass 2002 H/O shoulder surgery RT History of bilateral carpal tunnel release History of cataract surgery right History of colonoscopy History of discectomy LUMBAR DISCECTOMY History of esophagogastroduodenoscopy (EGD) History of gastric bypass History of herniorrhaphy History of total hip arthroplasty RT History of total knee replacement LEFT Varicose veins of both lower extremities LASER PROCEDURE Family History Mother Family history of reaction to anesthesia difficulty of waking Dementia Parkinsons disease Father Myocardial infarction Unknown Hypertension Arthritis Other No significant family history Social History Smoking Status: Never smoker Second Hand Exposure: No; Do You Dip or Chew Tobacco: No; Hx Alcohol Use: Yes Alcohol type: hard liquor Hx Substance Use: No Preferred Language: Bulgarian Communication Ability: Effective Communication Tools: Letter Board, Picture Board and Writing Tablet Business Development Associate Required: No Beliefs That Will Affect Care: None marital status: Current Living Situation: Alone Current Living Situation Comment: [place] into ren[place] apartment in [place]; 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 Suicidal ideation. Heavy alcohol use. depression Physical Exam Physical Exam: The patient is alert and oriented. Mood and affect appeared normal. He answered all questions appropriately. Obese HEENT: Pupils are equal and reactive to light and accommodation. Extraocular movements are intact. The sclerae are anicteric. Neuro: Cranial nerves intact Lungs: Bibasilar rales. No expiratory wheezing. Normal respiratory effort. Cardiac: Heart demonstrates an irregular rate and rhythm. Normal S1 and S2. No murmurs on examination. Pulses: The patient has palpable radial pulses bilaterally that are equal in intensity Extremities: There was no evidence of hypoperfusion. There is no cyanosis or clubbing. Moderate lower extremity edema bilaterally. Skin: I did not appreciate any rashes on examination today. Some ecchymoses Results & Data Vital Signs (Past 12 Hours) Vital Signs Temp Pulse Resp BP Pulse Ox O2 Del Method 12/20/22 08:09 36.4 C L 87 18 125/83 96 Room Air 12/20/22 03:55 36.6 C 87 18 115/75 97 Room Air 12/19/22 23:57 36.8 C 86 16 114/70 96 Room Air Laboratory Results Abnormal Lab Results 12/19/22 12/19/22 12/19/22 15:28 15:37 15:37 WBC 5.93 RBC 4.36 L Hgb 14.4 Hct 43.0 MCV 98.6 MCH 33.0 MCHC 33.5 RDW Std Deviation 55.5 H RDW Coeff of Aria 15.1 H Plt Count 172 MPV 9.6 Immature Gran % (Auto) 0.2 Neut % (Auto) 57.1 Lymph % (Auto) 22.6 [place] % (Auto) 15.9 Eos % (Auto) 3.9 Baso % (Auto) 0.3 Neut # (Auto) 3.39 Lymph # (Auto) 1.34 [place] # (Auto) 0.94 H Eos # (Auto) 0.23 Baso # (Auto) 0.02 Immature Gran # (Auto) 0.01 ESR PT 13.0 H INR 1.2 H APTT 28.8 PTT Ratio 1.0 Sodium Potassium Chloride Carbon Dioxide Anion Gap BUN Creatinine Est Cr Clr Drug Dosing Est GFR ( Amer) Est GFR (Non-Af Amer) BUN/Creatinine Ratio Glucose Calcium Magnesium Total Bilirubin AST ALT Alkaline Phosphatase Troponin I High Sens C-Reactive Protein B-Natriuretic Peptide 195 H Total Protein Albumin Globulin Albumin/Globulin Ratio Procalcitonin TSH Nasal Screen MRSA (PCR) Digoxin Ethyl Alcohol mg/dL SARS-CoV-2, RNA, NAAT 12/19/22 12/19/22 12/19/22 15:37 15:37 16:45 WBC RBC Hgb Hct MCV MCH MCHC RDW Std Deviation RDW Coeff of Aria Plt Count MPV Immature Gran % (Auto) Neut % (Auto) Lymph % (Auto) [place] % (Auto) Eos % (Auto) Baso % (Auto) Neut # (Auto) Lymph # (Auto) [place] # (Auto) Eos # (Auto) Baso # (Auto) Immature Gran # (Auto) ESR 22 H PT INR APTT PTT Ratio Sodium 137 Potassium 3.9 Chloride 102 Carbon Dioxide 24 Anion Gap 11 BUN 9 Creatinine 0.56 L Est Cr Clr Drug Dosing 180.4 Est GFR ( Amer) 122.3 Est GFR (Non-Af Amer) 105.5 BUN/Creatinine Ratio 16.1 Glucose 91 Calcium 8.4 L Magnesium Total Bilirubin 1.9 H AST 55 H ALT 35 Alkaline Phosphatase 98 Troponin I High Sens 11.1 C-Reactive Protein 3.66 H B-Natriuretic Peptide Total Protein 6.4 Albumin 3.4 Globulin 3.0 Albumin/Globulin Ratio 1.1 Procalcitonin 0.08 TSH Nasal Screen MRSA (PCR) Digoxin Ethyl Alcohol mg/dL SARS-CoV-2, RNA, NAAT 12/19/22 12/19/22 12/19/22 16:45 17:16 17:16 WBC RBC Hgb Hct MCV MCH MCHC RDW Std Deviation RDW Coeff of Aria Plt Count MPV Immature Gran % (Auto) Neut % (Auto) Lymph % (Auto) [place] % (Auto) Eos % (Auto) Baso % (Auto) Neut # (Auto) Lymph # (Auto) [place] # (Auto) Eos # (Auto) Baso # (Auto) Immature Gran # (Auto) ESR PT INR APTT PTT Ratio Sodium Potassium Chloride Carbon Dioxide Anion Gap BUN Creatinine Est Cr Clr Drug Dosing Est GFR ( Amer) Est GFR (Non-Af Amer) BUN/Creatinine Ratio Glucose Calcium Magnesium Total Bilirubin AST ALT Alkaline Phosphatase Troponin I High Sens C-Reactive Protein B-Natriuretic Peptide Total Protein Albumin Globulin Albumin/Globulin Ratio Procalcitonin TSH 1.611 Nasal Screen MRSA (PCR) Negative Digoxin Ethyl Alcohol mg/dL SARS-CoV-2, RNA, NAAT NEGATIVE 12/19/22 12/19/22 12/20/22 18:24 19:34 06:50 WBC 5.26 RBC 4.44 L Hgb 14.5 Hct 43.2 MCV 97.3 MCH 32.7 MCHC 33.6 RDW Std Deviation 54.4 H RDW Coeff of Aria 15.3 H Plt Count 176 MPV 9.5 Immature Gran % (Auto) 0.4 Neut % (Auto) 46.8 Lymph % (Auto) 27.0 [place] % (Auto) 18.4 Eos % (Auto) 6.8 Baso % (Auto) 0.6 Neut # (Auto) 2.46 Lymph # (Auto) 1.42 [place] # (Auto) 0.97 H Eos # (Auto) 0.36 Baso # (Auto) 0.03 Immature Gran # (Auto) 0.02 ESR PT INR APTT PTT Ratio Sodium Potassium Chloride Carbon Dioxide Anion Gap BUN Creatinine Est Cr Clr Drug Dosing Est GFR ( Amer) Est GFR (Non-Af Amer) BUN/Creatinine Ratio Glucose Calcium Magnesium Total Bilirubin AST ALT Alkaline Phosphatase Troponin I High Sens C-Reactive Protein B-Natriuretic Peptide Total Protein Albumin Globulin Albumin/Globulin Ratio Procalcitonin TSH Nasal Screen MRSA (PCR) Digoxin < 0.3 L Ethyl Alcohol mg/dL < 10.0 SARS-CoV-2, RNA, NAAT 12/20/22 12/20/22 06:50 06:50 WBC RBC Hgb Hct MCV MCH MCHC RDW Std Deviation RDW Coeff of Aria Plt Count MPV Immature Gran % (Auto) Neut % (Auto) Lymph % (Auto) [place] % (Auto) Eos % (Auto) Baso % (Auto) Neut # (Auto) Lymph # (Auto) [place] # (Auto) Eos # (Auto) Baso # (Auto) Immature Gran # (Auto) ESR PT 13.5 H INR 1.2 H APTT PTT Ratio Sodium 139 Potassium 3.5 Chloride 99 Carbon Dioxide 31 Anion Gap 9 BUN 7 Creatinine 0.57 L Est Cr Clr Drug Dosing 169.9 Est GFR ( Amer) 121.4 Est GFR (Non-Af Amer) 104.8 BUN/Creatinine Ratio 12.3 Glucose 93 Calcium 8.8 Magnesium 1.6 L Total Bilirubin 1.5 H AST 44 H ALT 32 Alkaline Phosphatase 93 Troponin I High Sens C-Reactive Protein B-Natriuretic Peptide Total Protein 6.4 Albumin 3.3 L Globulin 3.1 Albumin/Globulin Ratio 1.1 Procalcitonin TSH Nasal Screen MRSA (PCR) Digoxin Ethyl Alcohol mg/dL SARS-CoV-2, RNA, NAAT Diagnostic Findings Liver ultrasound revealed cholelithiasis without evidence of cholecystitis. Hepatomegaly with fatty change. Chest x-ray obtained the time admission did not reveal any acute cardiopulmonary findings. Echocardiogram performed today revealed normal LV systolic function. Mildly dilated right ventricle with moderately reduced systolic function. Mild to moderately dilated right atrium with pulmonary hypertension. ECG Additional Comments: EKG obtained the time admission revealed atrial fibrillation with right bundle branch block. PG Care Time/CCT Total # of Minutes Spent Total Time Spent with Patient: Total time spent is greater than 50% in coordination of care (as documented) at patient's floor/unit and/or counseling patient: Coding Level of Care Code 60192 IN/OBS CONSULT LVL 4,60M Diagnoses Atrial fibrillation with rapid ventricular response I48.91 Shortness of breath R06.02 Lower extremity edema R60.0 Atrial flutter I48.92
[2022-12-20] MEDS: SERTRALINE HCL 50 MG TABLET PO SCH (12:45)
--- NOTE | 2022-12-20 14:02 | Hospitalist Progress Note ---
Date of Service December 20, 2022 Assessment & Plan (1) Atrial flutter with rapid ventricular response: Plan: Currently rate controlled. Telemetry. Appreciate cardiology consultation and recommendations. Beta-christiano has been discontinued and diltiazem has been uptitrated. Cardiac echo was done last fall which revealed mild LVH with normal ejection fraction. He is on Eliquis therapy. (2) Suicidal ideations: Plan: Now resolved. Appreciate psychiatry consultation and recommendations. One-on-one supervision has been discontinued. Zoloft has been started. (3) SOB (shortness of breath): Plan: Due to CHF. Should improve with diuresis and treatment of CHF. (4) Elevated LFTs: Plan: Mild. Probably from passive hepatic congestion along with alcoholism. Serial labs. Liver ultrasound reveals fatty infiltration with cholelithiasis. No evidence of cholecystitis (5) Alcohol abuse: Plan: Counseled to stop drinking. (6) Lower extremity edema: Plan: Due to CHF. Should improve with diuresis. Bilateral lower extremity venous stasis is being managed by the wound care clinic. (7) Ambulatory dysfunction: Plan: Due to deconditioning, neuropathy, and CHF. PT/OT consults placed (8) Neuropathy: Plan: Patient previously on 100 mg Gabapentin BID. Increased to TID. Monitor for improvement (9) Hyperlipidemia: Plan: Statin therapy is on hold (10) Acute diastolic CHF (congestive heart failure): Plan: Continue intravenous Bumex diuresis. Monitor intake and output. Serial chest x-ray. Plan The patient is requesting eventual SNF placement where he can continue physical therapy Admission and Anticipated Discharge Date Admission Date: December 19, 2022 Subjective Alert and oriented. No acute distress. Cardiology consultation noted. He appears to have an element of diastolic CHF and is on intravenous Bumex. He is not requiring any supplemental oxygen however. He has been seen by behavioral health who recommends addition of Zoloft. He no longer needs one-on-one supervision. He is no longer having suicidal ideations. Liver ultrasound reveals fatty liver with cholelithiasis. No evidence of acute cholecystitis. Magnesium supplement increased to twice daily dosing. We will monitor intake and output. Atrial flutter has converted to atrial fibrillation. He is rate controlled. Review of Systems Review of Systems: Constitutional-no fever or chills ENT-no blurred vision, no double vision, no epistaxis, no sore throat Respiratory-no cough, no wheezing. Dyspnea on exertion Cardiac-no palpitations, no chest pain, no syncope GI-no nausea, vomiting, diarrhea, melena, hematochezia -no urinary retention, no urinary incontinence, no dysuria, no hematuria Musculoskeletal-no joint pain, no muscle tenderness Skin-no bruising, no rashes, no pruritus Neuro-no isolated weakness, no paresthesia, no weakness Psych-depressed affect Physical Exam Physical Exam: General-alert and oriented x3, no fevers, no chills HEENT-head atraumatic and normocephalic, pupils equal and reactive to light, extraocular muscles intact Neck-no lymphadenopathy or thyromegaly, trachea midline Chest-bibasilar inspiratory rales. No wheezing. No rhonchi. Cardiac-irregular rhythm, controlled rate. Normal S1 and S2 Abdomen-normal bowel sounds, nontender, no hepatosplenomegaly [id number]+ pitting edema bilateral lower extremities below the knees Neuro-cranial nerves II through XII intact, motor and sensory function within normal limits, strength symmetrical , no focal deficits Psych-depressed affect Results & Data Results & Data Vital Signs (Past 12 Hours) Vital Signs Temp Pulse Resp BP Pulse Ox O2 Del Method 12/20/22 12:08 36.8 C 95 H 18 135/76 98 Room Air 12/20/22 08:09 36.4 C L 87 18 125/83 96 Room Air 12/20/22 03:55 36.6 C 87 18 115/75 97 Room Air Laboratory Results 12/20/22 06:50 12/20/22 06:50 PG Care Time/CCT Total # of Minutes Spent Total Time Spent with Patient: Total time spent is greater than 50% in coordination of care (as documented) at patient's floor/unit and/or counseling patient: Coding Level of Care Code 27667 SUB INP/OBS CARE 3/50MIN Diagnoses Atrial flutter with rapid ventricular response I48.92 Suicidal ideations R45.851 SOB (shortness of breath) R06.02 Elevated LFTs R79.89 Alcohol abuse F10.10 Lower extremity edema R60.0 Ambulatory dysfunction R26.2 Neuropathy G62.9 Hyperlipidemia E78.5 Hyperlipidemia type: unspecified Acute diastolic CHF (congestive heart failure) I50.31 (9) Hyperlipidemia Hyperlipidemia type: unspecified Qualified Code(s): E78.5 - Hyperlipidemia, unspecified
[2022-12-20] MEDS: BUMETANIDE 1 MG in SYRINGE 0 ML IV SCH (16:49)
[2022-12-21] MEDS: ACETAMINOPHEN 325 MG TAB PO PRN ×3 (00:28→20:56)
[2022-12-21 06:52] LABS: Basophils # (auto) 0.02 K/uL (0-0.2); Basophils % (auto) 0.4 %; Eosinophils # (auto) 0.38 K/uL (0-0.50); Eosinophils % (auto) 8.3 %; Hematocrit (blood only) 42.9 % (42.0-52.0); Hemoglobin 14.4 g/dl (14.0-18.0); Immature Granulocytes # (auto) 0.02 K/uL (0.01-0.20); Immature Granulocytes % (auto) 0.4 %; Lymphocytes # (auto) 1.51 K/uL (1.2-3.4); Lymphocytes % (auto) 32.9 %; Mean Corpuscular Hemoglobin 32.4 pg (25.0-34.0); Mean Corpuscular Hgb Conc 33.6 g/dL (32.0-36.0); Mean Corpuscular Volume 96.4 fL (80.0-100.0); Mean Platelet Volume 9.6 fL (9.4-12.4); Monocytes # (auto) 0.89 K/uL (0.11-0.59); Monocytes % (auto) 19.4 %; Neutrophils # (auto) 1.77 K/uL (1.40-6.50); Neutrophils % (auto) 38.6 %; Platelet Count 195 K/uL (130-400); RDW Standard Deviation 53.7 fL (36.4-46.3); Red Blood Count 4.45 M/uL (4.70-6.10); White Blood Count 4.59 K/ul (4.8-10.8)
[2022-12-21 07:22] LABS: Albumin Globulin Ratio 1.1 (0.9-2); Albumin Level 3.3 gm/dl (3.4-5.0); BUN Creatinine Ratio 16.1 (10-20); Bilirubin,Total 1.4 mg/dl (0.2-1.0); Calcium 8.6 mg/dl (8.6-10.3); Creatinine Clr Calc Pharmacy 155.2 ml/min; Est GFR (African American) 117.3 ml/min; Est GFR (Non-African American) 101.2 ml/min; Globulin 2.9 gm/dl (2.5-4.0); Magnesium 1.8 mg/dl (1.7-2.4); Potassium 3.2 mmol/L (3.5-5.1); Total Protein 6.2 gm/dl (6.0-8.3)
[2022-12-21 07:27] LABS: INR 1.2 (0.9-1.1); Prothrombin Time 13.3 Seconds (9.0-12.0)
[2022-12-21] MEDS: APIXABAN 5 MG TABLET PO SCH ×2 (07:43→20:50)
[2022-12-21] MEDS: SERTRALINE HCL 50 MG TABLET PO SCH (07:44)
[2022-12-21] MEDS: MAGNESIUM OXIDE 400 MG TAB PO SCH ×2 (07:44→20:50)
[2022-12-21] MEDS: GABAPENTIN 100 MG CAP PO SCH ×3 (07:44→20:49)
[2022-12-21] MEDS: VITAMIN B COMPLEX TAB PO SCH (07:44)
[2022-12-21] MEDS: METOPROLOL TARTRATE 25 MG TAB PO SCH ×2 (07:44→20:52)
[2022-12-21] MEDS: MULTIVITAMIN TAB PO SCH (07:44)
[2022-12-21] MEDS: SPIRONOLACTONE 12.5 MG TAB PO SCH (07:45)
[2022-12-21] MEDS ORDERED: METOPROLOL TARTRATE 25 MG TAB PO STA (09:13)
[2022-12-21] MEDS: FOLIC ACID 1 MG in SYRINGE 9.8 ML IV SCH (09:45)
[2022-12-21] MEDS: BUMETANIDE 1 MG in SYRINGE 0 ML IV SCH ×2 (09:45→17:07)
[2022-12-21] MEDS: POTASSIUM CHLORIDE CRTAB 20 MEQ TABCR PO SCH ×2 (09:45→20:52)
[2022-12-21] MEDS: THIAMINE HCL 200 MG in SODIUM CHLORIDE 0.9% 50 ML IV SCH (11:03)
[2022-12-21] MEDS: KETOROLAC TROMETHAMINE 10 MG TABLET PO PRN ×2 (12:04→18:02)
--- NOTE | 2022-12-21 13:46 | Hospitalist Progress Note ---
Date of Service December 21, 2022 Assessment & Plan (1) Atrial flutter with rapid ventricular response: Plan: Currently rate controlled. Telemetry. Appreciate cardiology consultation and recommendations. Beta-christiano has been discontinued and diltiazem has been uptitrated. Cardiac echo reveals left ventricular hypertrophy with normal ejection fraction. Potassium replacement is underway. He is on Eliquis therapy. (2) Suicidal ideations: Plan: Now resolved. Appreciate psychiatry consultation and recommendations. One-on-one supervision has been discontinued. Zoloft has been started. (3) SOB (shortness of breath): Plan: Due to CHF. Should improve with diuresis and treatment of CHF. (4) Elevated LFTs: Plan: Mild. Probably from passive hepatic congestion along with alcoholism. Serial labs. Liver ultrasound reveals fatty infiltration with cholelithiasis. No evidence of cholecystitis (5) Alcohol abuse: Plan: Counseled to stop drinking. (6) Lower extremity edema: Plan: Due to CHF. Should improve with diuresis. Bilateral lower extremity venous stasis is being managed by the wound care clinic. (7) Ambulatory dysfunction: Plan: Due to deconditioning, neuropathy, and CHF. PT/OT consults placed (8) Neuropathy: Plan: Patient previously on 100 mg Gabapentin BID. Increased to TID. Monitor for improvement (9) Hyperlipidemia: Plan: Statin therapy is on hold (10) Acute diastolic CHF (congestive heart failure): Plan: Continue intravenous Bumex diuresis. Monitor intake and output. Serial chest x-ray. Plan The patient is requesting eventual SNF placement where he can continue physical therapy Admission and Anticipated Discharge Date Admission Date: December 19, 2022 Subjective Alert and oriented. Intermittent left lateral leg pain that appears to be neuropathic. We will treat with as needed Toradol. Potassium supplementation started. Mild hypomagnesemia has been corrected. Cardiac echo reveals left ventricular hypertrophy with normal ejection fraction. Good diuretic response with intravenous Bumex. Cardiology consultation completed and appreciated. He is now on Zoloft per psychiatry recommendations Review of Systems Review of Systems: Constitutional-no fever or chills ENT-no blurred vision, no double vision, no epistaxis, no sore throat Respiratory-no cough, no wheezing. Dyspnea on exertion Cardiac-no palpitations, no chest pain, no syncope GI-no nausea, vomiting, diarrhea, melena, hematochezia -no urinary retention, no urinary incontinence, no dysuria, no hematuria Musculoskeletal-no joint pain, no muscle tenderness Skin-no bruising, no rashes, no pruritus Neuro-no isolated weakness, no paresthesia, no weakness Psych-depressed affect Physical Exam Physical Exam: General-alert and oriented x3, no fevers, no chills HEENT-head atraumatic and normocephalic, pupils equal and reactive to light, extraocular muscles intact Neck-no lymphadenopathy or thyromegaly, trachea midline Chest-bibasilar inspiratory rales. No wheezing. No rhonchi. Cardiac-irregular rhythm, controlled rate. Normal S1 and S2 Abdomen-normal bowel sounds, nontender, no hepatosplenomegaly [id number]+ pitting edema bilateral lower extremities below the knees Neuro-cranial nerves II through XII intact, motor and sensory function within normal limits, strength symmetrical , no focal deficits Psych-depressed affect Results & Data Results & Data Vital Signs (Past 12 Hours) Vital Signs Temp Pulse Resp BP Pulse Ox O2 Del Method 12/21/22 11:43 36.7 C 84 18 108/76 94 Room Air 12/21/22 07:46 37 C 95 H 18 110/76 96 Room Air 12/21/22 03:15 36.3 C L 83 16 112/75 94 Room Air Laboratory Results 12/21/22 05:58 12/21/22 05:58 PG Care Time/CCT Total # of Minutes Spent Total Time Spent with Patient: Total time spent is greater than 50% in coordination of care (as documented) at patient's floor/unit and/or counseling patient: Coding Level of Care Code 45307 SUB INP/OBS CARE 3/50MIN Diagnoses Atrial flutter with rapid ventricular response I48.92 Suicidal ideations R45.851 SOB (shortness of breath) R06.02 Elevated LFTs R79.89 Alcohol abuse F10.10 Lower extremity edema R60.0 Ambulatory dysfunction R26.2 Neuropathy G62.9 Hyperlipidemia E78.5 Hyperlipidemia type: unspecified Acute diastolic CHF (congestive heart failure) I50.31 (9) Hyperlipidemia Hyperlipidemia type: unspecified Qualified Code(s): E78.5 - Hyperlipidemia, unspecified
[2022-12-22] MEDS: KETOROLAC TROMETHAMINE 10 MG TABLET PO PRN ×3 (00:09→19:54)
[2022-12-22 07:34] LABS: Basophils # (auto) 0.03 K/uL (0-0.2); Basophils % (auto) 0.7 %; Eosinophils # (auto) 0.35 K/uL (0-0.50); Eosinophils % (auto) 7.7 %; Hematocrit (blood only) 44.8 % (42.0-52.0); Hemoglobin 14.7 g/dl (14.0-18.0); Immature Granulocytes # (auto) 0.02 K/uL (0.01-0.20); Immature Granulocytes % (auto) 0.4 %; Lymphocytes # (auto) 1.37 K/uL (1.2-3.4); Mean Corpuscular Hemoglobin 32.4 pg (25.0-34.0); Mean Corpuscular Hgb Conc 32.8 g/dL (32.0-36.0); Mean Corpuscular Volume 98.7 fL (80.0-100.0); Mean Platelet Volume 9.7 fL (9.4-12.4); Monocytes % (auto) 19.7 %; Neutrophils % (auto) 41.5 %; Platelet Count 210 K/uL (130-400); RDW Standard Deviation 54.4 fL (36.4-46.3); Red Blood Count 4.54 M/uL (4.70-6.10); White Blood Count 4.57 K/ul (4.8-10.8)
[2022-12-22 07:57] LABS: INR 1.2 (0.9-1.1); Prothrombin Time 12.7 Seconds (9.0-12.0)
[2022-12-22 07:59] LABS: Albumin Level 3.6 gm/dl (3.4-5.0); Bilirubin,Total 1.1 mg/dl (0.2-1.0); Calcium 8.9 mg/dl (8.6-10.3); Potassium 3.8 mmol/L (3.5-5.1)
[2022-12-22 08:05] LABS: Albumin Globulin Ratio 1.2 (0.9-2); BUN Creatinine Ratio 19.8 (10-20); Creatinine Clr Calc Pharmacy 118.8 ml/min; Est GFR (African American) 105.1 ml/min; Est GFR (Non-African American) 90.7 ml/min; Globulin 3.1 gm/dl (2.5-4.0); Total Protein 6.7 gm/dl (6.0-8.3)
[2022-12-22] MEDS: METOPROLOL TARTRATE 25 MG TAB PO SCH (08:19)
[2022-12-22] MEDS: BUMETANIDE 1 MG in SYRINGE 0 ML IV SCH ×2 (08:19→18:42)
[2022-12-22] MEDS: MAGNESIUM OXIDE 400 MG TAB PO SCH ×2 (08:19→19:45)
[2022-12-22] MEDS: GABAPENTIN 100 MG CAP PO SCH ×3 (08:19→19:46)
[2022-12-22] MEDS: MULTIVITAMIN TAB PO SCH (08:20)
[2022-12-22] MEDS: SERTRALINE HCL 50 MG TABLET PO SCH (08:20)
[2022-12-22] MEDS: SPIRONOLACTONE 12.5 MG TAB PO SCH (08:20)
[2022-12-22] MEDS: VITAMIN B COMPLEX TAB PO SCH (08:20)
[2022-12-22] MEDS: POTASSIUM CHLORIDE CRTAB 20 MEQ TABCR PO SCH ×2 (08:20→19:46)
[2022-12-22] MEDS: APIXABAN 5 MG TABLET PO SCH ×2 (10:45→19:46)
--- NOTE | 2022-12-22 16:39 | Hospitalist Progress Note ---
Date of Service December 22, 2022 Assessment & Plan (1) Atrial flutter with rapid ventricular response: Plan: Currently rate controlled. Telemetry. Appreciate cardiology consultation and recommendations. Beta-christiano has been discontinued and diltiazem has been uptitrated. Cardiac echo reveals left ventricular hypertrophy with normal ejection fraction. Potassium replacement is underway. He is on Eliquis therapy. (2) Suicidal ideations: Plan: Now resolved. Appreciate psychiatry consultation and recommendations. One-on-one supervision has been discontinued. Zoloft has been started. (3) SOB (shortness of breath): Plan: Due to CHF. Should improve with diuresis and treatment of CHF. Continue IV Bumex (4) Elevated LFTs: Plan: Mild. Probably from passive hepatic congestion along with alcoholism. Serial labs. Liver ultrasound reveals fatty infiltration with cholelithiasis. No evidence of cholecystitis (5) Alcohol abuse: Plan: Counseled to stop drinking. (6) Lower extremity edema: Plan: Due to CHF. Should improve with diuresis. Bilateral lower extremity venous stasis is being managed by the wound care clinic. Continue IV Bumex (7) Ambulatory dysfunction: Plan: Due to deconditioning, neuropathy, and CHF. PT/OT consults placed. Case management on board, working on placement (8) Neuropathy: Plan: Patient previously on 100 mg Gabapentin BID. Increased to TID. Monitor for improvement (9) Hyperlipidemia: Plan: Statin therapy is on hold (10) Acute diastolic CHF (congestive heart failure): Plan: Continue intravenous Bumex diuresis. Monitor intake and output. Serial chest x-ray. Plan The patient is requesting eventual SNF placement where he can continue physical therapy Admission and Anticipated Discharge Date Admission Date: December 19, 2022 Subjective Patient still complains of lower extremity edema. Still complains of feeling depressed but denies any suicidal thoughts. Review of Systems Review of Systems: All systems reviewed & are unremarkable except as noted in Subjective Physical Exam Physical Exam: General: Awake, conversant, obese Heart: S1, S2/regular rate and rhythm, no murmur rubs or gallops Lungs: Clear to auscultation bilaterally. Normal effort Abdomen: Soft/nontender/nondistended. Obese abdomen. No hepatosplenomegaly Extremities: No clubbing/cyanosis. 1-2+ bilateral edema Behavior: Appropriate, cooperative Results & Data Results & Data Vital Signs (Past 12 Hours) Vital Signs Temp Pulse Pulse Resp BP Pulse Ox O2 Del Method 12/22/22 15:51 36.6 C 79 16 103/73 95 Room Air 12/22/22 11:37 36.5 C 70 16 106/72 94 Room Air 12/22/22 07:00 72 12/22/22 07:45 36.3 C L 88 18 118/84 96 Room Air Laboratory Results Abnormal lab results 12/22/22 12/22/22 12/22/22 Range/Units 06:46 06:46 06:46 WBC 4.57 L (4.8-10.8) K/ul RBC 4.54 L (4.70-6.10) M/uL RDW Std Deviation 54.4 H (36.4-46.3) fL RDW Coeff of Aria 15.0 H (11.5-14.5) % [place] # (Auto) 0.90 H (0.11-0.59) K/uL PT 12.7 H (9.0-12.0) Seconds INR 1.2 H (0.9-1.1) Chloride 97 L (98-107) mmol/L Carbon Dioxide 35 H (21-32) mmol/L Glucose 107 H (70-99(Fasting)) mg/dl Total Bilirubin 1.1 H (0.2-1.0) mg/dl PG Care Time/CCT Total # of Minutes Spent Total Time Spent with Patient: Total time spent is greater than 50% in coordination of care (as documented) at patient's floor/unit and/or counseling patient: Coding Level of Care Code 64426 SUB INP/OBS CARE 2/35MIN Diagnoses Atrial flutter with rapid ventricular response I48.92 Suicidal ideations R45.851 SOB (shortness of breath) R06.02 Elevated LFTs R79.89 Alcohol abuse F10.10 Lower extremity edema R60.0 Ambulatory dysfunction R26.2 Neuropathy G62.9 Hyperlipidemia E78.5 Hyperlipidemia type: unspecified Acute diastolic CHF (congestive heart failure) I50.31 (9) Hyperlipidemia Hyperlipidemia type: unspecified Qualified Code(s): E78.5 - Hyperlipidemia, unspecified
[2022-12-23] MEDS: KETOROLAC TROMETHAMINE 10 MG TABLET PO PRN (01:30)
[2022-12-23 08:30] LABS: BUN Creatinine Ratio 27.5 (10-20); Calcium 8.9 mg/dl (8.6-10.3); Est GFR (African American) 112.3 ml/min; Est GFR (Non-African American) 96.9 ml/min; Potassium 3.9 mmol/L (3.5-5.1)
--- NOTE | 2022-12-23 09:04 | Electrocardiogram Report ---
Test Reason : Blood Pressure : / mmHG Vent. Rate : 077 BPM Atrial Rate : 078 BPM P-R Int : 000 ms QRS Dur : 136 ms QT Int : 446 ms P-R-T Axes : 000 254 014 degrees QTc Int : 504 ms Atrial fibrillation Right bundle branch block Inferior infarct (cited on or before 17-JUN-2019) Anterolateral infarct (cited on or before 17-JAN-2021) Abnormal ECG When compared with ECG of 19-DEC-2022 15:31, Questionable change in initial forces of Anterolateral leads Questionable change in initial forces of Inferior leads Confirmed by Silvino Jernigan ([id number]) on 12/23/2022 9:04:19 AM Referred By: REFERRED SELF Confirmed By:Silvino Jernigan
[2022-12-23] MEDS: APIXABAN 5 MG TABLET PO SCH ×2 (09:28→19:23)
[2022-12-23] MEDS: MULTIVITAMIN TAB PO SCH (09:29)
[2022-12-23] MEDS: GABAPENTIN 100 MG CAP PO SCH ×3 (09:29→19:23)
[2022-12-23] MEDS: BUMETANIDE 1 MG in SYRINGE 0 ML IV SCH (09:29)
[2022-12-23] MEDS: SPIRONOLACTONE 12.5 MG TAB PO SCH (09:29)
[2022-12-23] MEDS: POTASSIUM CHLORIDE CRTAB 20 MEQ TABCR PO SCH ×2 (09:29→19:23)
[2022-12-23] MEDS: MAGNESIUM OXIDE 400 MG TAB PO SCH ×2 (09:29→19:23)
[2022-12-23] MEDS: VITAMIN B COMPLEX TAB PO SCH (09:29)
[2022-12-23] MEDS: SERTRALINE HCL 50 MG TABLET PO SCH (09:29)
--- NOTE | 2022-12-23 16:31 | Hospitalist Progress Note ---
Date of Service December 23, 2022 Assessment & Plan (1) Atrial flutter with rapid ventricular response: Plan: Patient had initially presented with uncontrolled A-fib. Cardiology had recommended uptitrating diltiazem and discouraged using metoprolol. However the patient continues to be on metoprolol and not on diltiazem. Last night, I was informed by the nurse that his heart rate dropped in the 30s and he was symptomatic. Metoprolol was held This morning I was able to contact [facility] cardiology who recommended that I resume metoprolol as this was not a true bradycardic event. Order placed for metoprolol. Awaiting official recommendations from [facility] cardiology. Continue Eliquis (2) Suicidal ideations: Plan: Now resolved. Appreciate psychiatry consultation and recommendations. One-on-one supervision has been discontinued. Zoloft has been started. (3) SOB (shortness of breath): Plan: Due to CHF. Should improve with diuresis and treatment of CHF. Switch from IV to p.o. Bumex (4) Elevated LFTs: Plan: Mild. Probably from passive hepatic congestion along with alcoholism. Serial labs. Liver ultrasound reveals fatty infiltration with cholelithiasis. No evidence of cholecystitis (5) Alcohol abuse: Plan: Counseled to stop drinking. (6) Lower extremity edema: Plan: Due to CHF. Should improve with diuresis. Bilateral lower extremity venous stasis is being managed by the wound care clinic. Switch from IV to p.o. Bumex (7) Ambulatory dysfunction: Plan: Due to deconditioning, neuropathy, and CHF. PT/OT consults placed. Case management on board, working on placement (8) Neuropathy: Plan: Patient previously on 100 mg Gabapentin BID. Increased to TID. Monitor for improvement (9) Hyperlipidemia: Plan: Statin therapy is on hold (10) Acute diastolic CHF (congestive heart failure): Plan: Switch to p.o. Bumex diuresis. Monitor intake and output. Serial chest x-ray. Plan The patient is requesting eventual SNF placement where he can continue physical therapy Admission and Anticipated Discharge Date Admission Date: December 19, 2022 Subjective Patient does not have any complaints today. However last night his heart rate dropped in the 30s and he was feeling nauseated during that time. Metoprolol was held. Contacted cardiology who recommended resuming metoprolol. Review of Systems Review of Systems: All systems reviewed & are unremarkable except as noted in Subjective Physical Exam Physical Exam: General: Awake, conversant, obese Heart: S1, S2/regular rate and rhythm, no murmur rubs or gallops Lungs: Clear to auscultation bilaterally. Normal effort Abdomen: Soft/nontender/nondistended. Obese abdomen. No hepatosplenomegaly Extremities: No clubbing/cyanosis. 1-2+ bilateral edema Behavior: Appropriate, cooperative Results & Data Results & Data Vital Signs (Past 12 Hours) Vital Signs Temp Pulse Resp BP Pulse Ox O2 Del Method 12/23/22 16:04 36.5 C 87 19 122/69 94 Room Air 12/23/22 12:00 36.4 C L 89 19 114/78 93 Room Air 12/23/22 07:21 36.4 C L 62 19 113/73 95 Room Air PG Care Time/CCT Total # of Minutes Spent Total Time Spent with Patient: Total time spent is greater than 50% in coordination of care (as documented) at patient's floor/unit and/or counseling patient: Coding Level of Care Code 19860 SUB INP/OBS CARE 2/35MIN Diagnoses Atrial flutter with rapid ventricular response I48.92 Suicidal ideations R45.851 SOB (shortness of breath) R06.02 Elevated LFTs R79.89 Alcohol abuse F10.10 Lower extremity edema R60.0 Ambulatory dysfunction R26.2 Neuropathy G62.9 Hyperlipidemia E78.5 Hyperlipidemia type: unspecified Acute diastolic CHF (congestive heart failure) I50.31 (9) Hyperlipidemia Hyperlipidemia type: unspecified Qualified Code(s): E78.5 - Hyperlipidemia, unspecified
[2022-12-23] MEDS: BUMETANIDE 1 MG TAB PO SCH (17:22)
[2022-12-23] MEDS: METOPROLOL TARTRATE 25 MG TAB PO SCH (19:23)
[2022-12-23] MEDS ORDERED: KETOROLAC TROMETHAMINE 15 MG/ML VIAL IV PRN (19:41)
[2022-12-24 07:49] LABS: BUN Creatinine Ratio 28.4 (10-20); Calcium 9.1 mg/dl (8.6-10.3); Creatinine Clr Calc Pharmacy 118.5 ml/min; Est GFR (African American) 105.1 ml/min; Est GFR (Non-African American) 90.7 ml/min; Potassium 4.3 mmol/L (3.5-5.1)
[2022-12-24] MEDS: POTASSIUM CHLORIDE CRTAB 20 MEQ TABCR PO SCH ×2 (08:35→19:11)
[2022-12-24] MEDS: MAGNESIUM OXIDE 400 MG TAB PO SCH ×2 (08:35→19:11)
[2022-12-24] MEDS: METOPROLOL TARTRATE 25 MG TAB PO SCH ×2 (08:35→19:10)
[2022-12-24] MEDS: MULTIVITAMIN TAB PO SCH (08:36)
[2022-12-24] MEDS: VITAMIN B COMPLEX TAB PO SCH (08:36)
[2022-12-24] MEDS: SPIRONOLACTONE 12.5 MG TAB PO SCH (08:36)
[2022-12-24] MEDS: SERTRALINE HCL 50 MG TABLET PO SCH (08:36)
[2022-12-24] MEDS: BUMETANIDE 1 MG TAB PO SCH ×2 (08:36→16:34)
[2022-12-24] MEDS: GABAPENTIN 100 MG CAP PO SCH ×3 (08:36→19:11)
[2022-12-24] MEDS: APIXABAN 5 MG TABLET PO SCH ×2 (08:36→19:11)
--- NOTE | 2022-12-24 09:23 | Cardiology Progress Note ---
Date of Service December 24, 2022 Assessment & Plan Admission and Anticipated Discharge Date Admission Date: December 19, 2022 Subjective He remains depressed. He is not short of breath talking in sentences. He notes he has severe peripheral neuropathy and musculoskeletal discomfort. This limits his ability to elevate his legs. He has significant issues at home and lives by himself with no support. He is unaware of any palpitations or fluttering. He denies any dark stools or black stools or bleeding. Results & Data Vital Signs (Past 12 Hours) Vital Signs Temp Pulse Resp BP BP Pulse Ox O2 Del Method 12/24/22 07:36 36.5 C 90 18 117/80 92 Room Air 12/24/22 03:34 36.8 C 70 18 99/65 L 95 Room Air 12/23/22 23:10 36.8 C 72 18 101/66 94 Room Air HEENT mildly reduced carotid upstrokes no evidence of carotid bruits Lungs: CTA bilaterally no rhonchi or wheezing Heart: Irregular rhythm no murmurs rubs or gallops Abdomen: Obese nontender distended positive bowel sounds Extremities: moderate pitting edema bilaterally to his knees with chronic stasis changes of his lower extremities Psychiatric: His affect appeared appropriate IMPRESSIONS: 1 atrial flutter with a rapid ventricular response (asymptomatic) 2. Elevated [id number] score including his age, hypertension, heart failure, history of elevated blood sugars 3. Acute on chronic right-sided heart failure 3b. Likely severe Pulm HTN secondary to OHS and SARIAH 4. Obstructive sleep apnea not using his CPAP 5. Dilated right ventricle with RV free wall hypokinesis; normal LV size with mildly reduced LV function 6. History of previous venous ablation for venous insufficiency in 2011 7. History of right bundle branch block left anterior fascicular block 8. History of gastric bypass with a Markus-en-Y in 1999 9. History of negative dobutamine stress echo March 2020 with an ejection fraction of 65% HEENT 2+ carotid upstrokes no evidence of carotid bruits Lungs: Crackles in the bases bilaterally no rhonchi or wheezing Heart: Irregular (tachycardic) no murmurs rubs or gallops Abdomen: Obese nontender distended positive bowel sounds Extremities: Mild to moderate pitting edema bilaterally to his knees with chronic stasis changes of his lower extremities Psychiatric: His affect appeared appropriate He has unfortunately had a very difficult situation.As an outpatient he never followed up with cardiology after his June admission. He is now dealing with significant peripheral neuropathy, obesity, and severe depression. He has no local family to help him either. He is waiting to moved to an apartment but where he currently lives requires him to go up a flight of stairs just to get to the bedroom and the bathroom. It sounds like his outpatient sleep study was an effort in futility as he could not sleep and was so uncomfortable laying in bed. If his insurance requires another sleep study to get CPAP approved I would do a home sleep study. If his most recent sleep study was in the last number of years they may accept that. If we do not treat his sleep apnea and his obesity hypoventilation syndrome and he likely will need BiPAP to treat this and his prognosis is poor. He cannot exercise to lose weight due to his significant neuropathy. I would consider a GLP-1/GIP agonist to help him lose weight. If he can lose 40 or 50 pounds and his insurance will pay for Mounjaro, there is a chance we can improve his symptoms. He probably should be followed by the resident service as they took care of him in the office. He is going to need to be seen in close follow-up by the residents probably on a weekly to every other week basis until he stabilizes. I increased the spironolactone to 25 mg daily. He ultimately may need less potassium supplementation. He also may need a higher dose of Bumex when he goes home given he is probably consuming a lot more salt than he is here in the hosp ital. Therefore he is probably should go home on 2 mg of Bumex in the morning and a milligram at 3:00 in the afternoon. He remains on Eliquis 5 mg twice daily. Ideally he should be on warfarin but given his compliance I think using warfarin is virtually impossible. We will just have to understand that likely given his weight he is not completely anticoagulated with Eliquis.
[2022-12-24] MEDS ORDERED: SPIRONOLACTONE 12.5 MG TAB PO ONE (09:30)
[2022-12-24] MEDS ORDERED: BUMETANIDE 1 MG TAB PO ONE (10:06)
--- NOTE | 2022-12-24 16:02 | Hospitalist Progress Note ---
Date of Service December 24, 2022 Assessment & Plan (1) Atrial flutter with rapid ventricular response: Plan: Patient had initially presented with uncontrolled A-fib. Cardiology had recommended uptitrating diltiazem and discouraged using metoprolol. However the patient continues to be on metoprolol and not on diltiazem. Rate seems to be controlled on metoprolol. We will continue. Appreciate input from [facility] cardiology. Continue Eliquis (2) Suicidal ideations: Plan: Now resolved. Appreciate psychiatry consultation and recommendations. One-on-one supervision has been discontinued. Zoloft has been started. (3) SOB (shortness of breath): Plan: Due to CHF. Should improve with diuresis and treatment of CHF. Increase the dose of Bumex to 2 mg p.o. every morning and 1 mg p.o. every afternoon. This is per cardiology recommendation (4) Elevated LFTs: Plan: Mild. Probably from passive hepatic congestion along with alcoholism. Serial labs. Liver ultrasound reveals fatty infiltration with cholelithiasis. No evidence of cholecystitis (5) Alcohol abuse: Plan: Counseled to stop drinking. (6) Lower extremity edema: Plan: Due to CHF. Should improve with diuresis. Bilateral lower extremity venous stasis is being managed by the wound care clinic. On p.o.Bumex (7) Ambulatory dysfunction: Plan: Due to deconditioning, neuropathy, and CHF. PT/OT consults placed. Case management on board, working on placement Patient complains of bilateral lower extremity pain, left worse than the right. Consult pain management. Obesity seems to be an issue. He has obesity hypoventilation syndrome, sleep apnea. He will likely need a BiPAP. Weight loss counseling. (8) Neuropathy: Plan: Patient previously on 100 mg Gabapentin BID. Increased to TID. Monitor for improvement (9) Hyperlipidemia: Plan: Statin therapy is on hold (10) Acute diastolic CHF (congestive heart failure): Plan: Switch to p.o. Bumex diuresis. Monitor intake and output. Plan The patient is requesting eventual SNF placement where he can continue physical therapy Admission and Anticipated Discharge Date Admission Date: December 19, 2022 Subjective Patient denies any chest pain or palpitations. He complains of bilateral lower extremity pain, more pronounced on left leg. The pain gets worse to a 10 out of 10 when he is in bed and 6 out of 10 with sitting. He describes it as a burning pain. Review of Systems Review of Systems: All systems reviewed & are unremarkable except as noted in Subjective Physical Exam Physical Exam: General: Awake, conversant, obese Heart: S1, S2/regular rate and rhythm, no murmur rubs or gallops Lungs: Clear to auscultation bilaterally. Normal effort Abdomen: Soft/nontender/nondistended. Obese abdomen. No hepatosplenomegaly Extremities: No clubbing/cyanosis. 1-2+ bilateral edema Behavior: Appropriate, cooperative Results & Data Results & Data Vital Signs (Past 12 Hours) Vital Signs Temp Pulse Resp BP Pulse Ox O2 Del Method 12/24/22 15:51 36.4 C L 77 18 133/85 95 Room Air 12/24/22 12:15 36.6 C 71 18 130/91 94 Room Air 12/24/22 07:36 36.5 C 90 18 117/80 92 Room Air PG Care Time/CCT Total # of Minutes Spent Total Time Spent with Patient: Total time spent is greater than 50% in coordination of care (as documented) at patient's floor/unit and/or counseling patient: Coding Level of Care Code 95019 SUB INP/OBS CARE 2/35MIN Diagnoses Atrial flutter with rapid ventricular response I48.92 Suicidal ideations R45.851 SOB (shortness of breath) R06.02 Elevated LFTs R79.89 Alcohol abuse F10.10 Lower extremity edema R60.0 Ambulatory dysfunction R26.2 Neuropathy G62.9 Hyperlipidemia E78.5 Hyperlipidemia type: unspecified Acute diastolic CHF (congestive heart failure) I50.31 (9) Hyperlipidemia Hyperlipidemia type: unspecified Qualified Code(s): E78.5 - Hyperlipidemia, unspecified
[2022-12-24] MEDS: ACETAMINOPHEN 325 MG TAB PO PRN (19:10)
[2022-12-25 07:37] LABS: BUN Creatinine Ratio 28.6 (10-20); Calcium 9.2 mg/dl (8.6-10.3); Creatinine Clr Calc Pharmacy 135.2 ml/min; Est GFR (African American) 111.6 ml/min; Est GFR (Non-African American) 96.3 ml/min
[2022-12-25] MEDS: APIXABAN 5 MG TABLET PO SCH ×2 (08:39→21:33)
[2022-12-25] MEDS: METOPROLOL TARTRATE 25 MG TAB PO SCH ×2 (08:39→21:31)
[2022-12-25] MEDS: VITAMIN B COMPLEX TAB PO SCH (08:39)
[2022-12-25] MEDS: MULTIVITAMIN TAB PO SCH (08:39)
[2022-12-25] MEDS: SERTRALINE HCL 50 MG TABLET PO SCH (08:39)
[2022-12-25] MEDS: GABAPENTIN 100 MG CAP PO SCH ×3 (08:39→21:33)
[2022-12-25] MEDS: POTASSIUM CHLORIDE CRTAB 20 MEQ TABCR PO SCH ×2 (08:39→21:31)
[2022-12-25] MEDS: MAGNESIUM OXIDE 400 MG TAB PO SCH ×2 (08:39→21:32)
[2022-12-25] MEDS: BUMETANIDE 1 MG TAB PO SCH ×2 (08:40→16:00)
[2022-12-25] MEDS: SPIRONOLACTONE 25 MG TAB PO SCH (08:40)
--- NOTE | 2022-12-25 09:15 | Pain Management Consultation ---
Date of Consultation December 25, 2022 Assessment & Plan (1) Neuropathy: Plan Patient's description of burning pain in the lateral thigh may be consistent with a radiculopathic component from a lumbar spine issue. He does not seem to describe any mechanical issues from his left total knee arthroplasty that would indicate a problem with the prosthesis. 1. Recommend considering discontinuing sertraline and starting Cymbalta 60 mg daily for additional neuropathic pain control. 2. Patient admits a history of an L5 level lumbar spine surgery done in [place] approximately 20 years ago. If it would interfere with the process of getting the patient into rehab, the following studies can be done as an outpatient, but could also consider getting imaging as inpatient, and then following up for further review/evaluation as outpatient. If the leg pain will ultimately affect the patient's recovery/rehab, then the work-up can be done as inpatient, so that further treatment recommendations can be made.: * Lumbar spine series x-rays * MRI lumbar spine to evaluate for central/foraminal stenosis, nerve root impingement, and herniated disc. 3. Continue gabapentin. History of Present Illness Reason for Consultation: left leg pain Attending Physician: Tasha Herr MD History of Present Illness Patient is a 67-year-old male that the pain management team has been consulted on for lower extremity pain. He is admitted to the hospital for shortness of breath, increased swelling in his legs, along with suicidal ideations. He has a history of cardiac complications. He does see wound care for venous stasis ulcers. He has been getting treated for atrial flutter, CHF, and alcohol abuse. He is working with PT/OT to address ambulatory dysfunction. Patient says that he has been experiencing left leg pain, which is new for him since he has been admitted. He denies any current back pain or hip pain. He localizes the pain to his lateral mid to distal thigh, to the level of the knee. He denies any right leg pain or involvement. He describes the pain as a burning sensation, and that sometimes he gets so severe that it is greater than a 10/10. Patient's pain is worst when he is lying down in bed, and he has some improvement with changing to a seated position, and with walking. Patient does also admit to a history of a left total knee arthroplasty, as well as a lumbar surgery that he says was "something where they cut me at L5". Additionally, patient admits a history of neuropathy and chronic deconditioning due to his weight. He takes gabapentin 100 mg BID normally, but this has recently been increased to TID. Case discussed with Dr. Kyung Mccoy. Pain Assessment Full Body Front + Back: 1. Allergies Allergy/AdvReac Type Severity Reaction Status Date / Time No Known Allergies Allergy Verified 12/18/22 08:17 Home Medications Medication Instructions Recorded Confirmed Type coenzyme Q10 100 mg capsule (Co 100 mg PO QAM 06/15/19 12/19/22 History Q-10) multivitamin 1 tab PO QAM 06/15/19 12/19/22 History cholecalciferol (vitamin D3) 50 50 mcg PO QAM 01/17/21 12/19/22 History mcg (2,000 unit) capsule (Vitamin D3) cinnamon bark 500 mg capsule 500 mg PO QAM 01/17/21 12/19/22 History (Cinnamon) diphenhydramine HCl 25 mg capsule 25 mg PO HS PRN Sleep 01/17/21 12/19/22 History (Benadryl) ascorbic acid (vitamin C) 1,000 mg 1 g PO DAILY 03/12/21 12/19/22 History tablet (Vitamin C) glucosamine HCl 500 mg tablet 500 mg PO DAILY 08/15/21 12/19/22 History krill oil 500 mg capsule 500 mg PO DAILY 08/15/21 12/19/22 History magnesium 250 mg tablet 500 mg PO DAILY 08/15/21 12/19/22 History turmeric root extract 500 mg 500 mg PO DAILY 08/15/21 12/19/22 History capsule potassium gluconate 595 mg (99 mg) 595 mg PO QAM 09/12/21 12/19/22 History tablet bumetanide 1 mg tablet 1 mg PO BID #60 tabs 06/14/22 12/19/22 Rx gabapentin 100 mg capsule 100 mg PO BID #60 caps 06/14/22 12/19/22 Rx spironolactone 25 mg tablet 12.5 mg PO DAILY #30 tabs 06/14/22 12/19/22 Rx apixaban 5 mg tablet (Eliquis) 5 mg PO BID 07/03/22 12/19/22 History vitamin B12 0.5 mg-folic acid 1 mg 1 tab PO DAILY 07/03/22 12/19/22 History tablet diltiazem HCl 120 mg 120 mg PO DAILY 07/09/22 12/19/22 History capsule,extended release 24 hr (Cartia XT) doxycycline hyclate 100 mg tablet 100 mg PO bid #28 tabs 12/08/22 12/19/22 Rx Pain History Chief Complaint Chief Complaint: severe left leg pain, new since admission Patient History Medical History (Updated 12/25/22 @ 09:50 by Nick Reyes PA-C) Anxiety and depression Environmental allergies GERD (gastroesophageal reflux disease) Hearing deficit History of gastric ulcer 2018 Hx of colonic polyps Hx of iron deficiency anemia Hyperlipidemia "BORDERLINE" Hypertension "BORDERLINE">HAS FOLLOWED WITH DR. VELOZ Left thigh pain Obesity Osteoarthritis Sleep apnea USED CPAP IN PAST (STOPPED USING) Superficial thrombophlebitis Swelling of lower leg BILAT. REASON FOR FUROSEMIDE (PT STATES SWELLING IS BETTER) Thrombosis SUPERFICIAL BLOOD CLOT RT LEG Surgical History H/O gastric bypass 2002 H/O shoulder surgery RT History of bilateral carpal tunnel release History of cataract surgery right History of colonoscopy History of discectomy LUMBAR DISCECTOMY History of esophagogastroduodenoscopy (EGD) History of gastric bypass History of herniorrhaphy History of total hip arthroplasty RT History of total knee replacement LEFT Varicose veins of both lower extremities LASER PROCEDURE Family History Mother Family history of reaction to anesthesia difficulty of waking Dementia Parkinsons disease Father Myocardial infarction Unknown Hypertension Arthritis Other No significant family history Social History Smoking Status: Never smoker Second Hand Exposure: No; Do You Dip or Chew Tobacco: No; Hx Alcohol Use: Yes Alcohol type: hard liquor Hx Substance Use: No Preferred Language: B[place] Communication Ability: Effective Communication Tools: Letter Board, Picture Board and Writing Tablet Editor Trade Journal Required: No Beliefs That Will Affect Care: None marital status: Current Living Situation: Alone Current Living Situation Comment: [place] [facility] [facility] selling [employer] in town current occupational status: employed 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 Mood and affect is appropriate. Does not appear in acute distress. Sitting in bedside chair, appears comfortable. HEAD: Normocephalic; atraumatic. NECK: Full ROM; trachea is midline. CHEST: Regular chest respiration and excursion. EXTREMITIES: Diminished ROM.Distal sensation and pulses intact bilaterally. BACK: Diminished/Full ROM.There is no midline, SI joint, or facet joint tenderness.No lumbosacral tenderness.There is no paraspinal, quadratus lumborum, piriformis, or gluteal tenderness or spasm.Inspection/palpation demonstrates loss of normal lumbar lordotic curvature. NEURO: CN II-XII grossly intact with no focal deficits noted. Waddling gait. Awake, alert, and oriented x 3. Distal sensation of lower legs intact, but diminished at baseline. Patellar Reflex R 1+L 1+ Achilles Reflex traceL trace Negative clonus bilaterally SKIN: + Edema, venous stasis, brawniness, wounds to bilateral LEs. LOWER EXTREMITIES: Negative straight leg raise bilaterally. R Hip flexion 5/5; hip extension 5/5; knee extension 5/5; knee flexion 5/5; ankle dorsiflexion 5/5; ankle plantar flexion 5/5; EHL 5/5 L Hip flexion 5/5; hip extension 5/5; knee extension 5/5; knee flexion 5/5; ankle dorsiflexion 5/5; ankle plantar flexion 5/5; EHL 5/5
--- NOTE | 2022-12-25 10:29 | Cardiology Progress Note ---
Date of Service December 25, 2022 Assessment & Plan Admission and Anticipated Discharge Date Admission Date: December 19, 2022 Results & Data Vital Signs (Past 12 Hours) Vital Signs Temp Pulse Resp BP Pulse Ox O2 Del Method 12/25/22 09:08 36.8 C 74 18 122/87 Room Air 12/25/22 08:00 Room Air 12/25/22 03:00 36.6 C 74 19 134/85 97 Room Air 12/24/22 22:51 36.7 C 77 19 127/83 94 Room Air
--- NOTE | 2022-12-25 15:15 | Hospitalist Progress Note ---
Date of Service December 25, 2022 Assessment & Plan (1) Atrial flutter with rapid ventricular response: Plan: Patient had initially presented with uncontrolled A-fib. Cardiology had recommended uptitrating diltiazem and discouraged using metoprolol. However the patient continues to be on metoprolol and not on diltiazem. Rate seems to be controlled on metoprolol. We will continue. Rate control. Appreciate input from [employer] cardiology. Continue Eliquis (2) Suicidal ideations: Plan: Now resolved. Appreciate psychiatry consultation and recommendations. One-on-one supervision has been discontinued. Discontinue Zoloft, switch to Cymbalta due to its benefit with neuropathic pain (3) SOB (shortness of breath): Plan: Due to CHF. Improved with diuretics. Continue increased dose of Bumex to 2 mg p.o. every morning and 1 mg p.o. every afternoon. This is per cardiology recommendation (4) Elevated LFTs: Plan: Mild. Probably from passive hepatic congestion along with alcoholism. Serial labs. Liver ultrasound reveals fatty infiltration with cholelithiasis. No evidence of cholecystitis (5) Alcohol abuse: Plan: Counseled to stop drinking. (6) Lower extremity edema: Plan: Due to CHF. Should improve with diuresis. Bilateral lower extremity venous stasis is being managed by the wound care clinic. On p.o.Bumex (7) Ambulatory dysfunction: Plan: Due to deconditioning, neuropathy, and CHF. PT/OT consults placed. Case management on board, working on placement Patient complains of bilateral lower extremity pain, left worse than the right. Pain management on board. This is neuropathic pain. Switched to Cymbalta. Obesity seems to be an issue. He has obesity hypoventilation syndrome, sleep apnea. He will likely need a BiPAP. Weight loss counseling. (8) Neuropathy: Plan: Patient previously on 100 mg Gabapentin BID. Increased to TID. Continue. Monitor for improvement. 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 He does not have any nausea or vomiting at this time. No abdominal pain (9) Hyperlipidemia: Plan: Statin therapy is on hold (10) Acute diastolic CHF (congestive heart failure): Plan: Switch to p.o. Bumex diuresis. Monitor intake and output. Plan The patient is requesting eventual SNF placement where he can continue physical therapy. Notified case finishing machine adjuster about likely discharge tomorrow Admission and Anticipated Discharge Date Admission Date: December 19, 2022 Subjective Patient does not have any major complaints at this time other than his usual lower extremity pain, left greater than right. He states that he did not sleep well last night. He had a long discussion with his film washer on the phone today. The nurse informed me that he had an episode of vomiting. When questioned about his vomiting, he initially did not even recall the event. He says that he is not nauseous anymore. He denies any abdominal pain. Review of Systems Review of Systems: All systems reviewed & are unremarkable except as noted in Subjective Physical Exam Physical Exam: General: Awake, conversant, obese Heart: S1, S2/regular rate and rhythm, no murmur rubs or gallops Lungs: Clear to auscultation bilaterally. Normal effort Abdomen: Soft/nontender/nondistended. Obese abdomen. No hepatosplenomegaly Extremities: No clubbing/cyanosis. 1-2+ bilateral edema Behavior: Appropriate, cooperative Results & Data Results & Data Vital Signs (Past 12 Hours) Vital Signs Temp Pulse Pulse Resp BP Pulse Ox O2 Del Method 12/25/22 12:00 36.7 C 88 78 16 132/79 94 Room Air 12/25/22 09:08 36.8 C 74 18 122/87 Room Air 12/25/22 08:00 Room Air Laboratory Results Abnormal lab results 12/25/22 Range/Units 06:50 BUN/Creatinine Ratio 28.6 H (10-20) Glucose 110 H (70-99(Fasting)) mg/dl PG Care Time/CCT Total # of Minutes Spent Total Time Spent with Patient: Total time spent is greater than 50% in coordination of care (as documented) at patient's floor/unit and/or counseling patient: Coding Level of Care Code 80924 SUB INP/OBS CARE 2/35MIN Diagnoses Atrial flutter with rapid ventricular response I48.92 Suicidal ideations R45.851 SOB (shortness of breath) R06.02 Elevated LFTs R79.89 Alcohol abuse F10.10 Lower extremity edema R60.0 Ambulatory dysfunction R26.2 Neuropathy G62.9 Hyperlipidemia E78.5 Hyperlipidemia type: unspecified Acute diastolic CHF (congestive heart failure) I50.31 (9) Hyperlipidemia Hyperlipidemia type: unspecified Qualified Code(s): E78.5 - Hyperlipidemia, unspecified
[2022-12-25] MEDS: DULoxetine HCL 60 MG CAP PO SCH (16:00)
[2022-12-25] MEDS ORDERED: GABAPENTIN 100 MG CAP PO ONE (22:08)
[2022-12-26 07:00] LABS: BUN Creatinine Ratio 29.6 (10-20); Calcium 9.3 mg/dl (8.6-10.3); Creatinine Clr Calc Pharmacy 132.3 ml/min; Est GFR (Non-African American) 95.7 ml/min; Potassium 3.7 mmol/L (3.5-5.1)
[2022-12-26] MEDS: GABAPENTIN 100 MG CAP PO SCH ×3 (08:06→20:32)
[2022-12-26] MEDS: METOPROLOL TARTRATE 25 MG TAB PO SCH ×2 (08:06→20:31)
[2022-12-26] MEDS: MAGNESIUM OXIDE 400 MG TAB PO SCH ×2 (08:06→20:31)
[2022-12-26] MEDS: SPIRONOLACTONE 25 MG TAB PO SCH (08:07)
[2022-12-26] MEDS: DULoxetine HCL 60 MG CAP PO SCH (08:07)
[2022-12-26] MEDS: VITAMIN B COMPLEX TAB PO SCH (08:07)
[2022-12-26] MEDS: POTASSIUM CHLORIDE CRTAB 20 MEQ TABCR PO SCH ×2 (08:07→20:30)
[2022-12-26] MEDS: BUMETANIDE 1 MG TAB PO SCH ×2 (08:07→16:40)
[2022-12-26] MEDS: MULTIVITAMIN TAB PO SCH (08:07)
[2022-12-26] MEDS: APIXABAN 5 MG TABLET PO SCH ×2 (08:07→20:32)
--- NOTE | 2022-12-26 16:35 | Hospitalist Progress Note ---
Date of Service December 26, 2022 Assessment & Plan (1) Atrial flutter with rapid ventricular response: Plan: Patient had initially presented with uncontrolled A-fib. Cardiology had recommended uptitrating diltiazem and discouraged using metoprolol. However the patient continues to be on metoprolol and not on diltiazem. Rate seems to be controlled on metoprolol. We will continue. Rate control. Appreciate input from [facility] cardiology. Continue Eliquis (2) Suicidal ideations: Plan: Now resolved. Appreciate psychiatry consultation and recommendations. One-on-one supervision has been discontinued. Discontinue Zoloft, switch to Cymbalta due to its benefit with neuropathic pain (3) SOB (shortness of breath): Plan: Due to CHF. Improved with diuretics. Continue increased dose of Bumex to 2 mg p.o. every morning and 1 mg p.o. every afternoon. This is per cardiology recommendation (4) Elevated LFTs: Plan: Mild. Probably from passive hepatic congestion along with alcoholism. Serial labs. Liver ultrasound reveals fatty infiltration with cholelithiasis. No evidence of cholecystitis (5) Alcohol abuse: Plan: Counseled to stop drinking. (6) Lower extremity edema: Plan: Due to CHF. Should improve with diuresis. Bilateral lower extremity venous stasis is being managed by the wound care clinic. On p.o.Bumex (7) Ambulatory dysfunction: Plan: Due to deconditioning, neuropathy, and CHF. PT/OT consults placed. Case management on board, working on placement Patient complains of bilateral lower extremity pain, left worse than the right. Pain management on board. This is neuropathic pain. Switched to Cymbalta. Obesity seems to be an issue. He has obesity hypoventilation syndrome, sleep apnea. He will likely need a BiPAP. Weight loss counseling. (8) Neuropathy: Plan: Patient previously on 100 mg Gabapentin BID. Increased to TID. Continue. Monitor for improvement. Started Cymbalta (9) Hyperlipidemia: Plan: Statin therapy is on hold (10) Acute diastolic CHF (congestive heart failure): Plan: Switch to p.o. Bumex diuresis. Monitor intake and output. Plan The patient is requesting eventual SNF placement where he can continue physical therapy. Notified high risk case manager that the patient is medically stable for discharge. Awaiting insurance authorization for disposition. Admission and Anticipated Discharge Date Admission Date: December 19, 2022 Subjective Patient has no major complaints. He is aware that he is medically ready for discharge, awaiting insurance authorization for placement. Review of Systems Review of Systems: All systems reviewed & are unremarkable except as noted in Subjective Physical Exam Physical Exam: General: Awake, conversant, obese Heart: S1, S2/regular rate and rhythm, no murmur rubs or gallops Lungs: Clear to auscultation bilaterally. Normal effort Abdomen: Soft/nontender/nondistended. Obese abdomen. No hepatosplenomegaly Extremities: No clubbing/cyanosis. 1-2+ bilateral edema Behavior: Appropriate, cooperative Results & Data Results & Data Vital Signs (Past 12 Hours) Vital Signs Temp Pulse Resp BP Pulse Ox O2 Del Method 12/26/22 07:57 36.3 C L 87 20 131/84 95 Room Air PG Care Time/CCT Total # of Minutes Spent Total Time Spent with Patient: Total time spent is greater than 50% in coordination of care (as documented) at patient's floor/unit and/or counseling patient: Coding Level of Care Code 34273 SUB INP/OBS CARE 2/35MIN Diagnoses Atrial flutter with rapid ventricular response I48.92 Suicidal ideations R45.851 SOB (shortness of breath) R06.02 Elevated LFTs R79.89 Alcohol abuse F10.10 Lower extremity edema R60.0 Ambulatory dysfunction R26.2 Neuropathy G62.9 Hyperlipidemia E78.5 Hyperlipidemia type: unspecified Acute diastolic CHF (congestive heart failure) I50.31 (9) Hyperlipidemia Hyperlipidemia type: unspecified Qualified Code(s): E78.5 - Hyperlipidemia, unspecified
[2022-12-27 08:11] LABS: BUN Creatinine Ratio 32.4 (10-20); Calcium 9.4 mg/dl (8.6-10.3); Creatinine Clr Calc Pharmacy 138.3 ml/min; Est GFR (African American) 112.9 ml/min; Est GFR (Non-African American) 97.4 ml/min; Potassium 4.2 mmol/L (3.5-5.1)
[2022-12-27] MEDS: GABAPENTIN 100 MG CAP PO SCH ×3 (08:27→21:30)
[2022-12-27] MEDS: METOPROLOL TARTRATE 25 MG TAB PO SCH ×2 (08:27→21:29)
[2022-12-27] MEDS: APIXABAN 5 MG TABLET PO SCH ×2 (08:27→21:29)
[2022-12-27] MEDS: POTASSIUM CHLORIDE CRTAB 20 MEQ TABCR PO SCH ×2 (08:27→21:30)
[2022-12-27] MEDS: SPIRONOLACTONE 25 MG TAB PO SCH (08:27)
[2022-12-27] MEDS: DULoxetine HCL 60 MG CAP PO SCH (08:27)
[2022-12-27] MEDS: MAGNESIUM OXIDE 400 MG TAB PO SCH ×2 (08:27→21:29)
[2022-12-27] MEDS: VITAMIN B COMPLEX TAB PO SCH (08:28)
[2022-12-27] MEDS: BUMETANIDE 1 MG TAB PO SCH ×2 (08:28→16:06)
[2022-12-27] MEDS: MULTIVITAMIN TAB PO SCH (08:28)
--- NOTE | 2022-12-27 12:57 | Hospitalist Progress Note ---
Date of Service December 27, 2022 Assessment & Plan (1) Atrial flutter with rapid ventricular response: Plan: Patient had initially presented with uncontrolled A-fib. Cardiology had recommended uptitrating diltiazem and discouraged using metoprolol. However the patient continues to be on metoprolol and not on diltiazem. Rate seems to be controlled on metoprolol. We will continue. Rate control. Appreciate input from [facility] cardiology. Continue Eliquis (2) Suicidal ideations: Plan: Now resolved. Appreciate psychiatry consultation and recommendations. One-on-one supervision has been discontinued. Discontinue Zoloft, switch to Cymbalta due to its benefit with neuropathic pain (3) SOB (shortness of breath): Plan: Due to CHF. Improved with diuretics. Continue increased dose of Bumex to 2 mg p.o. every morning and 1 mg p.o. every afternoon. This is per cardiology recommendation (4) Elevated LFTs: Plan: Mild. Probably from passive hepatic congestion along with alcoholism. Serial labs. Liver ultrasound reveals fatty infiltration with cholelithiasis. No evidence of cholecystitis (5) Alcohol abuse: Plan: Counseled to stop drinking. (6) Lower extremity edema: Plan: Due to CHF. Should improve with diuresis. Bilateral lower extremity venous stasis is being managed by the wound care clinic. On p.o.Bumex (7) Ambulatory dysfunction: Plan: Due to deconditioning, neuropathy, and CHF. PT/OT consults placed. Case management on board, working on placement. Awaiting insurance authorization Patient complains of bilateral lower extremity pain, left worse than the right. Pain management on board. This is neuropathic pain. Switched to Cymbalta. Obesity seems to be an issue. He has obesity hypoventilation syndrome, sleep apnea. He will likely need a BiPAP. Weight loss counseling. (8) Neuropathy: Plan: Patient previously on 100 mg Gabapentin BID. Increased to TID. Continue. Monitor for improvement. Started Cymbalta (9) Hyperlipidemia: Plan: Statin therapy is on hold (10) Acute diastolic CHF (congestive heart failure): Plan: Switch to p.o. Bumex diuresis. Monitor intake and output. Plan The patient is requesting eventual SNF placement where he can continue physical therapy. Notified telephonic nurse case manager that the patient is medically stable for discharge. Awaiting insurance authorization for disposition. Admission and Anticipated Discharge Date Admission Date: December 19, 2022 Subjective Patient has no major complaints. He is aware that he is medically ready for discharge, awaiting insurance authorization for placement. Review of Systems Review of Systems: All systems reviewed & are unremarkable except as noted in Subjective Physical Exam Physical Exam: General: Awake, conversant, obese Heart: S1, S2/regular rate and rhythm, no murmur rubs or gallops Lungs: Clear to auscultation bilaterally. Normal effort Abdomen: Soft/nontender/nondistended. Obese abdomen. No hepatosplenomegaly Extremities: No clubbing/cyanosis. 1-2+ bilateral edema Behavior: Appropriate, cooperative Results & Data Results & Data Vital Signs (Past 12 Hours) Vital Signs Temp Pulse Pulse Resp BP BP Pulse Ox 12/27/22 11:50 36.9 C 82 20 127/61 97 12/27/22 08:09 36.5 C 82 16 115/61 12/27/22 07:11 80 12/27/22 03:14 36.4 C L 74 17 105/72 96 O2 Del Method 12/27/22 11:50 Room Air 12/27/22 08:09 12/27/22 07:11 12/27/22 03:14 Room Air PG Care Time/CCT Total # of Minutes Spent Total Time Spent with Patient: Total time spent is greater than 50% in coordination of care (as documented) at patient's floor/unit and/or counseling patient: Coding Level of Care Code 20904 SUB INP/OBS CARE 2/35MIN Diagnoses Atrial flutter with rapid ventricular response I48.92 Suicidal ideations R45.851 SOB (shortness of breath) R06.02 Elevated LFTs R79.89 Alcohol abuse F10.10 Lower extremity edema R60.0 Ambulatory dysfunction R26.2 Neuropathy G62.9 Hyperlipidemia E78.5 Hyperlipidemia type: unspecified Acute diastolic CHF (congestive heart failure) I50.31 (9) Hyperlipidemia Hyperlipidemia type: unspecified Qualified Code(s): E78.5 - Hyperlipidemia, unspecified
[2022-12-28 06:57] LABS: BUN Creatinine Ratio 39.1 (10-20); Calcium 9.1 mg/dl (8.6-10.3); Creatinine Clr Calc Pharmacy 145.9 ml/min; Est GFR (African American) 115.8 ml/min; Est GFR (Non-African American) 99.9 ml/min; Potassium 3.7 mmol/L (3.5-5.1)
[2022-12-28] MEDS: POTASSIUM CHLORIDE CRTAB 20 MEQ TABCR PO SCH ×2 (08:03→20:47)
[2022-12-28] MEDS: MAGNESIUM OXIDE 400 MG TAB PO SCH ×2 (08:03→20:47)
[2022-12-28] MEDS: GABAPENTIN 100 MG CAP PO SCH ×3 (08:03→20:48)
[2022-12-28] MEDS: VITAMIN B COMPLEX TAB PO SCH (08:04)
[2022-12-28] MEDS: DULoxetine HCL 60 MG CAP PO SCH (08:04)
[2022-12-28] MEDS: BUMETANIDE 1 MG TAB PO SCH ×2 (08:04→16:10)
[2022-12-28] MEDS: METOPROLOL TARTRATE 25 MG TAB PO SCH ×2 (08:04→20:47)
[2022-12-28] MEDS: MULTIVITAMIN TAB PO SCH (08:04)
[2022-12-28] MEDS: APIXABAN 5 MG TABLET PO SCH ×2 (08:04→20:48)
[2022-12-28] MEDS: SPIRONOLACTONE 25 MG TAB PO SCH (08:04)
--- NOTE | 2022-12-28 12:03 | Hospitalist Progress Note ---
Date of Service December 28, 2022 Assessment & Plan (1) Atrial flutter with rapid ventricular response: Plan: Patient had initially presented with uncontrolled A-fib. Cardiology had recommended uptitrating diltiazem and discouraged using metoprolol. However the patient continues to be on metoprolol and not on diltiazem. Rate seems to be controlled on metoprolol. We will continue. Rate control. Appreciate input from [facility] cardiology. Continue Eliquis (2) Suicidal ideations: Plan: Now resolved. Appreciate psychiatry consultation and recommendations. One-on-one supervision has been discontinued. Discontinue Zoloft, switch to Cymbalta due to its benefit with neuropathic pain (3) SOB (shortness of breath): Plan: Due to CHF. Improved with diuretics. Continue increased dose of Bumex to 2 mg p.o. every morning and 1 mg p.o. every afternoon. This is per cardiology recommendation (4) Elevated LFTs: Plan: Mild. Probably from passive hepatic congestion along with alcoholism. Serial labs. Liver ultrasound reveals fatty infiltration with cholelithiasis. No evidence of cholecystitis (5) Alcohol abuse: Plan: Counseled to stop drinking. (6) Lower extremity edema: Plan: Due to CHF. Should improve with diuresis. Bilateral lower extremity venous stasis is being managed by the wound care clinic. On p.o.Bumex (7) Ambulatory dysfunction: Plan: Due to deconditioning, neuropathy, and CHF. PT/OT consults placed. Case management on board, working on placement. Awaiting insurance authorization Patient complains of bilateral lower extremity pain, left worse than the right. Pain management on board. This is neuropathic pain. Switched to Cymbalta. Obesity seems to be an issue. He has obesity hypoventilation syndrome, sleep apnea. He will likely need a BiPAP. Weight loss counseling. (8) Neuropathy: Plan: Patient previously on 100 mg Gabapentin BID. Increased to TID. Continue. Monitor for improvement. Started Cymbalta (9) Hyperlipidemia: Plan: Statin therapy is on hold (10) Acute diastolic CHF (congestive heart failure): Plan: Switch to p.o. Bumex diuresis. Monitor intake and output. Plan The patient is requesting eventual SNF placement where he can continue physical therapy. Notified showcase maker on 12/25 that the patient is medically stable for discharge. Awaiting insurance authorization for disposition. Admission and Anticipated Discharge Date Admission Date: December 19, 2022 Subjective No complaints. Feeling well. Review of Systems Review of Systems: All systems reviewed & are unremarkable except as noted in Subjective Physical Exam Physical Exam: General: Awake, conversant, obese Heart: S1, S2/regular rate and rhythm, no murmur rubs or gallops Lungs: Clear to auscultation bilaterally. Normal effort Abdomen: Soft/nontender/nondistended. Obese abdomen. No hepatosplenomegaly Extremities: No clubbing/cyanosis. 1-2+ bilateral edema Behavior: Appropriate, cooperative Results & Data Results & Data Vital Signs (Past 12 Hours) Vital Signs Temp Pulse Pulse Resp BP BP Pulse Ox 12/28/22 11:31 36.6 C 83 18 128/90 94 12/28/22 08:12 36.5 C 81 19 118/72 97 12/28/22 07:13 76 12/28/22 02:47 36.5 C 74 18 109/77 95 O2 Del Method 12/28/22 11:31 Room Air 12/28/22 08:12 Room Air 12/28/22 07:13 12/28/22 02:47 Room Air PG Care Time/CCT Total # of Minutes Spent Total Time Spent with Patient: Total time spent is greater than 50% in coordination of care (as documented) at patient's floor/unit and/or counseling patient: Coding Level of Care Code 42470 SUB INP/OBS CARE 125MIN Diagnoses Atrial flutter with rapid ventricular response I48.92 Suicidal ideations R45.851 SOB (shortness of breath) R06.02 Elevated LFTs R79.89 Alcohol abuse F10.10 Lower extremity edema R60.0 Ambulatory dysfunction R26.2 Neuropathy G62.9 Hyperlipidemia E78.5 Hyperlipidemia type: unspecified Acute diastolic CHF (congestive heart failure) I50.31 (9) Hyperlipidemia Hyperlipidemia type: unspecified Qualified Code(s): E78.5 - Hyperlipidemia, unspecified
[2022-12-29] MEDS: DULoxetine HCL 60 MG CAP PO SCH (08:17)
[2022-12-29] MEDS: BUMETANIDE 1 MG TAB PO SCH ×2 (08:17→15:55)
[2022-12-29] MEDS: METOPROLOL TARTRATE 25 MG TAB PO SCH ×2 (08:17→21:14)
[2022-12-29] MEDS: APIXABAN 5 MG TABLET PO SCH ×2 (08:17→21:13)
[2022-12-29] MEDS: MAGNESIUM OXIDE 400 MG TAB PO SCH ×2 (08:17→21:14)
[2022-12-29] MEDS: VITAMIN B COMPLEX TAB PO SCH (08:17)
[2022-12-29] MEDS: SPIRONOLACTONE 25 MG TAB PO SCH (08:18)
[2022-12-29] MEDS: GABAPENTIN 100 MG CAP PO SCH ×3 (08:18→21:14)
[2022-12-29] MEDS: MULTIVITAMIN TAB PO SCH (08:18)
[2022-12-29] MEDS: POTASSIUM CHLORIDE CRTAB 20 MEQ TABCR PO SCH ×2 (08:18→21:14)
[2022-12-29] MEDS: ACETAMINOPHEN 325 MG TAB PO PRN (15:54)
[2022-12-29] MEDS ORDERED: MULTIVITAMIN CHEWABLE TAB PO SCH (19:15)
--- NOTE | 2022-12-29 19:24 | Hospitalist Progress Note ---
Date of Service December 29, 2022 Assessment & Plan (1) Atrial flutter with rapid ventricular response: Plan: Patient had initially presented with uncontrolled A-fib. Cardiology had recommended uptitrating diltiazem and discouraged using metoprolol. However the patient continues to be on metoprolol and not on diltiazem. Rate seems to be controlled on metoprolol. We will continue. Rate control. Appreciate input from [facility] cardiology. Continue Eliquis (2) Suicidal ideations: Plan: Now resolved. Appreciate psychiatry consultation and recommendations. One-on-one supervision has been discontinued. Discontinue Zoloft, switch to Cymbalta due to its benefit with neuropathic pain (3) SOB (shortness of breath): Plan: Due to CHF. Improved with diuretics. Continue increased dose of Bumex to 2 mg p.o. every morning and 1 mg p.o. every afternoon. This is per cardiology recommendation (4) Elevated LFTs: Plan: Mild. Probably from passive hepatic congestion along with alcoholism. Serial labs. Liver ultrasound reveals fatty infiltration with cholelithiasis. No evidence of cholecystitis (5) Alcohol abuse: Plan: Counseled to stop drinking. (6) Lower extremity edema: Plan: Due to CHF. Should improve with diuresis. Bilateral lower extremity venous stasis is being managed by the wound care clinic. On p.o.Bumex (7) Ambulatory dysfunction: Plan: Due to deconditioning, neuropathy, and CHF. PT/OT consults placed. Case management on board, working on placement. Awaiting insurance authorization Patient complains of bilateral lower extremity pain, left worse than the right. Pain management on board. This is neuropathic pain. Switched to Cymbalta. Obesity seems to be an issue. He has obesity hypoventilation syndrome, sleep apnea. He will likely need a BiPAP. Weight loss counseling. (8) Neuropathy: Plan: Patient previously on 100 mg Gabapentin BID. Increased to TID. Continue. Monitor for improvement. Started Cymbalta (9) Hyperlipidemia: Plan: Statin therapy is on hold (10) Acute diastolic CHF (congestive heart failure): Plan: Switch to p.o. Bumex diuresis. Monitor intake and output. Plan The patient is requesting eventual SNF placement where he can continue physical therapy. Notified major case detective on 12/25 that the patient is medically stable for discharge. Awaiting insurance authorization for disposition. Admission and Anticipated Discharge Date Admission Date: December 19, 2022 Subjective Patient complains of middle 3 fingers of both hands feeling numb and tingly. He is also aware of alcohol yielding neuropathy and therefore I have ordered appropriate vitamin therapy Review of Systems Review of Systems: Generally depressed but no longer is suicidal and talks at length about his children and grandchildren Constitutional: Energy level low but improved Eyes: No complaints Ear, Nose, Mouth, Throat: No complaint Respiratory: Does admit to dyspnea with exertion Cardiovascular: Additional Comments: No chest pain but sometimes dyspnea at rest Gastrointestinal: No new problems Musculoskeletal: Extremity swollen but much less swollen by history than previous Physical Exam Physical Exam: Awake alert oriented Constitutional: In no acute distress Eyes: PERRLA EOMI ENMT: external ear and nose normal, oropharynx normal Neck: trachea midline, no thyromegaly Cardiovascular: RRR, no murmur, no edema Musculoskeletal: Bilateral swelling lower legs Neurologic: patellar DTR's 2+ bilat, sensation intact and PERRL, EOMI, accommodation nl, no face palsy, no dysarthria Results & Data Results & Data Vital Signs (Past 12 Hours) Vital Signs Temp Pulse Pulse Resp BP BP Pulse Ox 12/29/22 16:12 36.7 C 80 18 98/61 L 94 12/29/22 15:56 79 12/29/22 11:59 79 12/29/22 11:08 36.8 C 81 18 102/67 95 12/29/22 09:00 79 12/29/22 07:10 36.7 C 113 H 18 112/69 96 O2 Del Method 12/29/22 16:12 Room Air 12/29/22 15:56 12/29/22 11:59 12/29/22 11:08 Room Air 12/29/22 09:00 12/29/22 07:10 Room Air PG Care Time/CCT Total # of Minutes Spent Total Time Spent with Patient: Total time spent is greater than 50% in coordination of care (as documented) at patient's floor/unit and/or counseling patient: Coding Level of Care Code 41802 SUB INP/OBS CARE 3/50MIN Diagnoses Atrial flutter with rapid ventricular response I48.92 Suicidal ideations R45.851 SOB (shortness of breath) R06.02 Elevated LFTs R79.89 Alcohol abuse F10.10 Lower extremity edema R60.0 Ambulatory dysfunction R26.2 Neuropathy G62.9 Hyperlipidemia E78.5 Hyperlipidemia type: unspecified Acute diastolic CHF (congestive heart failure) I50.31 (9) Hyperlipidemia Hyperlipidemia type: unspecified Qualified Code(s): E78.5 - Hyperlipidemia, unspecified
[2022-12-29] MEDS: FOLIC ACID 1 MG TAB PO SCH (21:15)
[2022-12-29] MEDS: THIAMINE HCL 100 MG TAB PO SCH (21:15)
[2022-12-29] MEDS: CYANOCOBALAMIN (B-12) 100 MCG TABLET PO SCH (21:15)
[2022-12-30] MEDS: CYANOCOBALAMIN (B-12) 100 MCG TABLET PO SCH (08:42)
[2022-12-30] MEDS: GABAPENTIN 100 MG CAP PO SCH ×3 (08:42→20:21)
[2022-12-30] MEDS: THIAMINE HCL 100 MG TAB PO SCH (08:42)
[2022-12-30] MEDS: FOLIC ACID 1 MG TAB PO SCH (08:42)
[2022-12-30] MEDS: POTASSIUM CHLORIDE CRTAB 20 MEQ TABCR PO SCH ×2 (08:42→20:21)
[2022-12-30] MEDS: MAGNESIUM OXIDE 400 MG TAB PO SCH ×2 (08:42→20:20)
[2022-12-30] MEDS: METOPROLOL TARTRATE 25 MG TAB PO SCH ×2 (08:43→20:22)
[2022-12-30] MEDS: MULTIVITAMIN TAB PO SCH (08:43)
[2022-12-30] MEDS: DULoxetine HCL 60 MG CAP PO SCH (08:43)
[2022-12-30] MEDS: BUMETANIDE 1 MG TAB PO SCH ×2 (08:43→17:22)
[2022-12-30] MEDS: SPIRONOLACTONE 25 MG TAB PO SCH (08:43)
[2022-12-30] MEDS: VITAMIN B COMPLEX TAB PO SCH (08:43)
[2022-12-30] MEDS: APIXABAN 5 MG TABLET PO SCH ×2 (09:03→20:22)
[2022-12-30] MEDS: ACETAMINOPHEN 325 MG TAB PO PRN (22:21)
[2022-12-31] MEDS: ACETAMINOPHEN 325 MG TAB PO PRN (02:30)
--- NOTE | 2022-12-31 06:11 | Hospitalist Progress Note ---
Date of Service December 30, 2022 Assessment & Plan (1) Atrial flutter with rapid ventricular response: Plan: Patient had initially presented with uncontrolled A-fib. Cardiology had recommended uptitrating diltiazem and discouraged using metoprolol. However the patient continues to be on metoprolol and not on diltiazem. Rate seems to be controlled on metoprolol. We will continue. Rate control. Appreciate input from [facility] cardiology. Continue Eliquis (2) Suicidal ideations: Plan: Now resolved. Appreciate psychiatry consultation and recommendations. One-on-one supervision has been discontinued. Discontinued Zoloft, Cymbalta in favor of Lexapro due to starting dose very close to therapeutic dose. (3) SOB (shortness of breath): Plan: Due to CHF. Improved with diuretics. Continue increased dose of Bumex to 2 mg p.o. every morning and 1 mg p.o. every afternoon. This is per cardiology recommendation (4) Elevated LFTs: Plan: Mild. Probably from passive hepatic congestion along with alcoholism. Serial labs. Liver ultrasound reveals fatty infiltration with cholelithiasis. No evidence of cholecystitis (5) Alcohol abuse: Plan: Counseled to stop drinking. (6) Lower extremity edema: Plan: Due to CHF. Should improve with diuresis. Bilateral lower extremity venous stasis is being managed by the wound care clinic. On p.o.Bumex (7) Ambulatory dysfunction: Plan: Due to deconditioning, neuropathy, and CHF. PT/OT consults placed. Case management on board, working on placement. Awaiting insurance authorization Patient complains of bilateral lower extremity pain, left worse than the right. Pain management on board. This is neuropathic pain. Switched to Cymbalta. Obesity seems to be an issue. He has obesity hypoventilation syndrome, sleep apnea. He will likely need a BiPAP. Weight loss counseling. (8) Neuropathy: Plan: Patient previously on 100 mg Gabapentin BID. Increased to TID. Continue. Monitor for improvement. Started Cymbalta (9) Hyperlipidemia: Plan: Statin therapy is on hold (10) Acute diastolic CHF (congestive heart failure): Plan: Switch to p.o. Bumex diuresis. Monitor intake and output. Plan The patient is requesting eventual SNF placement where he can continue physical therapy. Now the patient is medically stable for discharge. Awaiting insurance authorization for disposition. I will do another Peer-to -Peer today Admission and Anticipated Discharge Date Admission Date: December 19, 2022 Subjective Yesterday, Patient complains of middle 3 fingers of both hands feeling numb and tingly. Today is about same. He is also aware of alcohol yielding neuropathy and therefore I have continued appropriate vitamin therapy. I discontinued Cymbalta in favor of Lexapro to improve "time to therapeutic" I attempted a [id number] with patient's [facility] but insurance account # was not recognized . I then met with son Artur in the room an got updated card inormation. Medicare Advantage Flex One Plan Policy # [phone] Review of Systems Review of Systems: sad but not suicidal. Eyes: DIONNE EOMI Respiratory: + dyspnea on exertion Cardiovascular: + orthopnea and + paroxysmal nocturnal dyspnea Gastrointestinal: no complaints Musculoskeletal: as per Subjective / HPI, + stiffness and + muscle weakness Physical Exam Constitutional: WD/WN, vitals as above ENMT: external ear and nose normal, oropharynx normal Respiratory: normal respiratory effort, lungs clear to auscultation Cardiovascular: Rate/Rhythm: + irregularly irregular Gastrointestinal (Abdomen): normal bowel sounds, soft, nontender, no hepatosplenomegaly Psychiatric: Patient is recycling thoughts, but not suicidal. Results & Data Results & Data Vital Signs (Past 12 Hours) Vital Signs Temp Pulse Pulse Resp BP BP Pulse Ox 12/31/22 03:40 36.6 C 78 18 103/73 95 12/30/22 23:00 71 12/30/22 19:00 36.4 C L 67 18 112/79 94 12/30/22 23:16 36.8 C 77 20 100/67 93 O2 Del Method 12/31/22 03:40 Room Air 12/30/22 23:00 12/30/22 19:00 Room Air 12/30/22 23:16 Room Air PG Care Time/CCT Total # of Minutes Spent Total Time Spent with Patient: Total time spent is greater than 50% in coordination of care (as documented) at patient's floor/unit and/or counseling patient: Coding Level of Care Code 14695 SUB INP/OBS CARE 3/50MIN Diagnoses Atrial flutter with rapid ventricular response I48.92 Suicidal ideations R45.851 SOB (shortness of breath) R06.02 Elevated LFTs R79.89 Alcohol abuse F10.10 Lower extremity edema R60.0 Ambulatory dysfunction R26.2 Neuropathy G62.9 Hyperlipidemia E78.5 Hyperlipidemia type: unspecified Acute diastolic CHF (congestive heart failure) I50.31 Time Spent (min) 60 (9) Hyperlipidemia Hyperlipidemia type: unspecified Qualified Code(s): E78.5 - Hyperlipidemia, unspecified
[2022-12-31] MEDS ORDERED: IBUPROFEN 600 MG TAB PO STA (07:39)
[2022-12-31] MEDS: ESCITALOPRAM OXALATE 10 MG TAB PO SCH (08:15)
[2022-12-31] MEDS: POTASSIUM CHLORIDE CRTAB 20 MEQ TABCR PO SCH ×2 (08:16→20:11)
[2022-12-31] MEDS: APIXABAN 5 MG TABLET PO SCH ×2 (08:16→20:11)
[2022-12-31] MEDS: FOLIC ACID 1 MG TAB PO SCH (08:16)
[2022-12-31] MEDS: CYANOCOBALAMIN (B-12) 100 MCG TABLET PO SCH (08:16)
[2022-12-31] MEDS: GABAPENTIN 100 MG CAP PO SCH ×3 (08:16→20:11)
[2022-12-31] MEDS: VITAMIN B COMPLEX TAB PO SCH (08:16)
[2022-12-31] MEDS: METOPROLOL TARTRATE 25 MG TAB PO SCH ×2 (08:16→20:11)
[2022-12-31] MEDS: MAGNESIUM OXIDE 400 MG TAB PO SCH ×2 (08:17→20:11)
[2022-12-31] MEDS: BUMETANIDE 1 MG TAB PO SCH ×2 (08:17→16:18)
[2022-12-31] MEDS: SPIRONOLACTONE 25 MG TAB PO SCH (08:17)
[2022-12-31] MEDS: MULTIVITAMIN TAB PO SCH (08:17)
[2022-12-31] MEDS: THIAMINE HCL 100 MG TAB PO SCH (08:17)
--- NOTE | 2022-12-31 10:57 | XRay Report ---
XR wrist LT 2V CLINICAL HISTORY: Left wrist pain with inability. COMPARISON STUDY: Left wrist 06/14/2018. FINDINGS: Diffuse soft tissue swelling within the left wrist. This has progressed. Chondrocalcinosis noted within the left wrist. There is moderate cartilage space narrowing at the distal radioulnar melida nt, radiocarpal joint, and STT joint. There is severe cartilage space narrowing with subchondral scle rosis and marginal osteophytes at the first carpometacarpal joint. This is consistent with osteoarthr itis. No fracture or dislocation. IMPRESSION: 1. No fracture or dislocation within the left wrist. 2. Moderate to severe osteoarthritis with chondrocalcinosis. 3. Diffuse soft tissue swelling. ACT 112: Negative or not required by law. Electronically signed by: Miguel Funk M.D. 12/31/2022 10:55 AM
[2022-12-31] MEDS ORDERED: oxyCODONE HCL IR 5 MG TAB (IMMEDIATE RELEASE) PO STA (20:23)
--- NOTE | 2023-01-01 06:21 | Hospitalist Progress Note ---
Date of Service December 31, 2022 Assessment & Plan (1) Atrial flutter with rapid ventricular response: Plan: Patient had initially presented with uncontrolled A-fib. Cardiology had recommended uptitrating diltiazem and discouraged using metoprolol. However the patient continues to be on metoprolol and not on diltiazem. Rate seems to be controlled on metoprolol. We will continue. Rate control. Appreciate input from [facility] cardiology. Continue Eliquis (2) Suicidal ideations: Plan: Now resolved. Appreciate psychiatry consultation and recommendations. One-on-one supervision has been discontinued. Discontinued Zoloft, Cymbalta in favor of Lexapro due to starting dose very close to therapeutic dose. (3) SOB (shortness of breath): Plan: Due to CHF. Improved with diuretics. Continue increased dose of Bumex to 2 mg p.o. every morning and 1 mg p.o. every afternoon. This is per cardiology recommendation (4) Elevated LFTs: Plan: Mild. Probably from passive hepatic congestion along with alcoholism. Serial labs. Liver ultrasound reveals fatty infiltration with cholelithiasis. No evidence of cholecystitis (5) Alcohol abuse: Plan: Counseled to stop drinking. (6) Lower extremity edema: Plan: Due to CHF. Should improve with diuresis. Bilateral lower extremity venous stasis is being managed by the wound care clinic. On p.o.Bumex (7) Ambulatory dysfunction: Plan: Due to deconditioning, neuropathy, and CHF. PT/OT consults placed. Case management on board, working on placement. Awaiting insurance authorization Patient complains of bilateral lower extremity pain, left worse than the right. Pain management on board. This is neuropathic pain. Switched to Cymbalta. Obesity seems to be an issue. He has obesity hypoventilation syndrome, sleep apnea. He will likely need a BiPAP. Weight loss counseling. (8) Neuropathy: Plan: Patient previously on 100 mg Gabapentin BID. Increased to TID. Continue. Monitor for improvement. Started Cymbalta (9) Hyperlipidemia: Plan: Statin therapy is on hold (10) Acute diastolic CHF (congestive heart failure): Plan: Switch to p.o. Bumex diuresis. Monitor intake and output. Plan The patient is requesting eventual SNF placement where he can continue physical therapy. Now the patient is medically stable for discharge. Awaiting insurance authorization for disposition. I will do another Peer-to -Peer today Admission and Anticipated Discharge Date Admission Date: December 19, 2022 Subjective Today patient complains of left wrist pain during the overnight hours for which Motrin was ordered to cover for gout. Medication also adjusted to include Lexapro and delete Cymbalta. Patient is depressed but not suicidal I still believe that he will benefit by acute rehab. Yesterday, Patient complains of middle 3 fingers of both hands feeling numb and tingly. Today is about same. He is also aware of alcohol yielding neuropathy and therefore I have continued appropriate vitamin therapy. I discontinued Cymbalta in favor of Lexapro to improve "time to therapeutic" I attempted a [id number] with patient's [facility] but insurance account # was not recognized . I then met with son Artur in the room an got updated card inormation. Medicare Advantage Flex One Plan Policy # [id number] Physical Exam Constitutional: WD/WN, vitals as above Eyes: PERRL, conjunctivae normal, anicteric sclerae ENMT: external ear and nose normal, oropharynx normal Neck: trachea midline, no thyromegaly Respiratory: normal respiratory effort, lungs clear to auscultation Cardiovascular: Rate/Rhythm: + irregularly irregular Gastrointestinal (Abdomen): normal bowel sounds, soft, nontender, no hepatosplenomegaly Skin: no rashes, warm and dry Neurologic: patellar DTR's 2+ bilat, sensation intact Results & Data Results & Data Vital Signs (Past 12 Hours) Vital Signs Temp Pulse Resp BP Pulse Ox O2 Del Method 12/31/22 23:07 Room Air 12/31/22 20:00 36.7 C 75 16 127/77 95 Room Air PG Care Time/CCT Total # of Minutes Spent Total Time Spent with Patient: Total time spent is greater than 50% in coordination of care (as documented) at patient's floor/unit and/or counseling patient: Coding Level of Care Code 42566 SUB INP/OBS CARE 2/35MIN Diagnoses Atrial flutter with rapid ventricular response I48.92 Suicidal ideations R45.851 SOB (shortness of breath) R06.02 Elevated LFTs R79.89 Alcohol abuse F10.10 Lower extremity edema R60.0 Ambulatory dysfunction R26.2 Neuropathy G62.9 Hyperlipidemia E78.5 Hyperlipidemia type: unspecified Acute diastolic CHF (congestive heart failure) I50.31 Time Spent (min) 40 (9) Hyperlipidemia Hyperlipidemia type: unspecified Qualified Code(s): E78.5 - Hyperlipidemia, unspecified
[2023-01-01] MEDS: MAGNESIUM OXIDE 400 MG TAB PO SCH ×2 (08:33→20:30)
[2023-01-01] MEDS: METOPROLOL TARTRATE 25 MG TAB PO SCH ×2 (08:33→20:31)
[2023-01-01] MEDS: POTASSIUM CHLORIDE CRTAB 20 MEQ TABCR PO SCH ×2 (08:33→20:34)
[2023-01-01] MEDS: GABAPENTIN 100 MG CAP PO SCH ×3 (08:34→20:30)
[2023-01-01] MEDS: APIXABAN 5 MG TABLET PO SCH ×2 (08:35→20:30)
[2023-01-01] MEDS: MULTIVITAMIN TAB PO SCH (08:36)
[2023-01-01] MEDS: FOLIC ACID 1 MG TAB PO SCH (08:36)
[2023-01-01] MEDS: ESCITALOPRAM OXALATE 10 MG TAB PO SCH (08:37)
[2023-01-01] MEDS: CYANOCOBALAMIN (B-12) 100 MCG TABLET PO SCH (08:37)
[2023-01-01] MEDS: THIAMINE HCL 100 MG TAB PO SCH (08:37)
[2023-01-01] MEDS: VITAMIN B COMPLEX TAB PO SCH (08:37)
[2023-01-01] MEDS: BUMETANIDE 1 MG TAB PO SCH ×2 (08:38→16:36)
[2023-01-01] MEDS ORDERED: predniSONE 20 MG TAB PO STA (12:36)
[2023-01-01 13:30] LABS: Albumin Globulin Ratio 1.1 (0.9-2); BUN Creatinine Ratio 34.9 (10-20); Bilirubin,Total 1.3 mg/dl (0.2-1.0); Calcium 9.5 mg/dl (8.6-10.3); Est GFR (African American) 116.5 ml/min; Est GFR (Non-African American) 100.5 ml/min; Globulin 3.7 gm/dl (2.5-4.0); Potassium 3.8 mmol/L (3.5-5.1); Total Protein 7.7 gm/dl (6.0-8.3)
[2023-01-01 13:42] LABS: INR 1.1 (0.9-1.1)
[2023-01-01 14:03] LABS: Hematocrit (blood only) 49.7 % (42.0-52.0); Hemoglobin 16.6 g/dl (14.0-18.0); Mean Corpuscular Hemoglobin 32.2 pg (25.0-34.0); Mean Corpuscular Hgb Conc 33.4 g/dL (32.0-36.0); Mean Corpuscular Volume 96.3 fL (80.0-100.0); Platelet Count 249 K/uL (130-400); RDW Coefficient of Variation 14.3 % (11.5-14.5); Red Blood Count 5.16 M/uL (4.70-6.10); White Blood Count 6.82 K/ul (4.8-10.8)
[2023-01-01] MEDS ORDERED: oxyCODONE HCL IR 5 MG TAB (IMMEDIATE RELEASE) PO SCH (21:00)
--- NOTE | 2023-01-01 23:05 | Hospitalist Progress Note ---
Date of Service January 01, 2023 Assessment & Plan (1) Atrial flutter with rapid ventricular response: Plan: Patient had initially presented with uncontrolled A-fib. Cardiology had recommended uptitrating diltiazem and discouraged using metoprolol. However the patient continues to be on metoprolol and not on diltiazem. Rate seems to be controlled on metoprolol. We will continue. Rate control. Appreciate input from [facility] cardiology. Continue Eliquis (2) Suicidal ideations: Plan: Now resolved. Appreciate psychiatry consultation and recommendations. One-on-one supervision has been discontinued. Discontinued Zoloft, Cymbalta in favor of Lexapro due to starting dose very close to therapeutic dose. (3) Left wrist pain: Plan: Patient showing signs of osteoarthritis on his left wrist x ray. Patient also appears to have a componnt of dequervains tenosynovitis, will consult ortho. Patient also has multiple history of joint issues, could this be an inflammatory illness (4) SOB (shortness of breath): Plan: Due to CHF. Improved with diuretics. Continue increased dose of Bumex to 2 mg p.o. every morning and 1 mg p.o. every afternoon. This is per cardiology recommendation (5) Elevated LFTs: Plan: Mild. Probably from passive hepatic congestion along with alcoholism. Serial labs. Liver ultrasound reveals fatty infiltration with cholelithiasis. No evidence of cholecystitis (6) Alcohol abuse: Plan: Counseled to stop drinking. (7) Lower extremity edema: Plan: Due to CHF. Should improve with diuresis. Bilateral lower extremity venous stasis is being managed by the wound care clinic. On p.o.Bumex (8) Ambulatory dysfunction: Plan: Due to deconditioning, neuropathy, and CHF. PT/OT consults placed. Case management on board, working on placement. Awaiting insurance authorization Patient complains of bilateral lower extremity pain, left worse than the right. Pain management on board. This is neuropathic pain. Switched to Cymbalta. Obesity seems to be an issue. He has obesity hypoventilation syndrome, sleep apnea. He will likely need a BiPAP. Weight loss counseling. (9) Neuropathy: Plan: Patient previously on 100 mg Gabapentin BID. Increased to TID. Continue. Monitor for improvement. Started Cymbalta (10) Hyperlipidemia: Plan: Statin therapy is on hold (11) Acute diastolic CHF (congestive heart failure): Plan: Switch to p.o. Bumex diuresis. Monitor intake and output. Plan The patient is requesting eventual SNF placement where he can continue physical therapy. Now the patient is medically stable for discharge. Awaiting insurance authorization for disposition. Admission and Anticipated Discharge Date Admission Date: December 19, 2022 Subjective Patient reports having pain in his left wrist. Review of Systems Review of Systems: All systems reviewed & are unremarkable except as noted in HPI & below Physical Exam Physical Exam: General: Awake, conversant, obese Heart: S1, S2/regular rate and rhythm, no murmur rubs or gallops Lungs: Clear to auscultation bilaterally. Normal effort Abdomen: Soft/nontender/nondistended. Obese abdomen. No hepatosplenomegaly Extremities: No clubbing/cyanosis. 1-2+ bilateral edema Behavior: Appropriate, cooperative Results & Data Results & Data Vital Signs (Past 12 Hours) Vital Signs Temp Pulse Resp BP Pulse Ox O2 Del Method 01/01/23 20:22 36.7 C 92 H 18 132/86 96 Room Air 01/01/23 15:41 36.8 C 84 16 115/79 94 Room Air PG Care Time/CCT Total # of Minutes Spent Total Time Spent with Patient: Total time spent is greater than 50% in coordination of care (as documented) at patient's floor/unit and/or counseling patient: Coding Level of Care Code 04924 SUB INP/OBS CARE 3/50MIN Diagnoses Atrial flutter with rapid ventricular response I48.92 Suicidal ideations R45.851 Left wrist pain M25.532 SOB (shortness of breath) R06.02 Elevated LFTs R79.89 Alcohol abuse F10.10 Lower extremity edema R60.0 Ambulatory dysfunction R26.2 Neuropathy G62.9 Hyperlipidemia E78.5 Hyperlipidemia type: unspecified Acute diastolic CHF (congestive heart failure) I50.31 (10) Hyperlipidemia Hyperlipidemia type: unspecified Qualified Code(s): E78.5 - Hyperlipidemia, unspecified
[2023-01-02 06:52] LABS: Hemoglobin 16.3 g/dl (14.0-18.0); Mean Corpuscular Hemoglobin 32.7 pg (25.0-34.0); Mean Corpuscular Hgb Conc 34.7 g/dL (32.0-36.0); Mean Corpuscular Volume 94.4 fL (80.0-100.0); Mean Platelet Volume 9.9 fL (9.4-12.4); Platelet Count 247 K/uL (130-400); RDW Coefficient of Variation 14.1 % (11.5-14.5); Red Blood Count 4.98 M/uL (4.70-6.10); White Blood Count 8.09 K/ul (4.8-10.8)
[2023-01-02 07:13] LABS: BUN Creatinine Ratio 31.6 (10-20); C Reactive Protein 3.82 mg/dl (0-0.5); Calcium 9.7 mg/dl (8.6-10.3); Creatinine Clr Calc Pharmacy 121.9 ml/min; Est GFR (African American) 107.9 ml/min; Est GFR (Non-African American) 93.1 ml/min; Potassium 3.7 mmol/L (3.5-5.1)
[2023-01-02] MEDS: MULTIVITAMIN TAB PO SCH (08:37)
[2023-01-02] MEDS: VITAMIN B COMPLEX TAB PO SCH (08:37)
[2023-01-02] MEDS: BUMETANIDE 1 MG TAB PO SCH (08:37)
[2023-01-02] MEDS: CYANOCOBALAMIN (B-12) 100 MCG TABLET PO SCH (08:37)
[2023-01-02] MEDS: GABAPENTIN 100 MG CAP PO SCH ×2 (08:37→13:08)
[2023-01-02] MEDS: FOLIC ACID 1 MG TAB PO SCH (08:37)
[2023-01-02] MEDS: POTASSIUM CHLORIDE CRTAB 20 MEQ TABCR PO SCH (08:37)
[2023-01-02] MEDS: METOPROLOL TARTRATE 25 MG TAB PO SCH (08:37)
[2023-01-02] MEDS: APIXABAN 5 MG TABLET PO SCH (08:38)
[2023-01-02] MEDS: THIAMINE HCL 100 MG TAB PO SCH (08:38)
[2023-01-02] MEDS: ESCITALOPRAM OXALATE 10 MG TAB PO SCH (08:38)
[2023-01-02] MEDS: MAGNESIUM OXIDE 400 MG TAB PO SCH (08:38)
[2023-01-02] MEDS ORDERED: predniSONE 20 MG TAB PO STA (12:47)
--- NOTE | 2023-01-02 13:34 | Discharge Summary ---
Date of Service January 02, 2023 Admission HPI Per Admitting Provider Lonnie Linda is a 67-year-old male with a past medical history significant for venous stasis and BL LE lymphedema, atrial flutter (on eliquis), right sided heart failure, obesity s/p gastric bypass, GI bleed, and suspected sleep apnea (still needs official testing) who presented to the [facility] ED on 12/19/22 at the recommendation of his PCP for worsening LE swelling/leaking, LE erythema, SOB, and suicidal ideations. In the ED the patients HR was noted to be 114, otherwise vitals were stable. Labs were significant for calcium of 8.4, total bili of 1.9, AST of 55. Chest xray was read as No acute cardiopulmonary findings. Stable cardiomegaly.. ECG today shows new onset afib with RVR. Prior to admission the patient was given a dose of Ceftriaxone, 40 mg IV Lasix and 5 mg IV Lopressor. At the time of the exam the patient was sitting in bed in no acute distress. He states that he has had multiple health and personal issues this month. He is currently going through a divorce and selling his home. This had made him very depressed, he has been having suicidal ideations with plans to use the guns he has in him home to take his life. Due to his depression he has also but drinking heavily over the past 5 months. He states that he had been drinking approximately "a large bottle of vodka, whiskey, or burbon" until last month when he had stopped. He denies going through alcohol withdrawal at that time but started to drink again yesterday due to selling his home and moving out. He had a "small" bottle of vodka last night, with his last drink at approximately 6 pm. He denies feeling as though he is withdrawing at this time. His ex and daughter now live in [place] and his son lives in [place]. His kids came to see him today to help him move, when they head about his suicidal ideations his son removed the guns from his home and they took him to his PCP earlier today. The patient has been going to the wound care clinic for treatment of his BL LE edema and chronic venous stasis wounds, he states that his legs are much better today than approximately a week ago due to the consistent treatment at the clinic. He notes progressive WALDEN and weight gain over the past 4-5 months with significant WALDEN to the point that he cannot walk more than a few feet before having to rest. He denies any recent chest pain and has been taking his medications as prescribed. He is interested in an inpatient rehab stay at discharge to rebuild his strength. He would like to be seen by Psychiatry for his severe depression. While talking about his current life situation the patient became tearful. He is having a difficult dealing with all his life changes and health problems. He states that he wants to quit drinking and would be interested in rehab on discharge if needed. He denies recent fever, chills, chest pain, cough, abd pain, nausea, vomiting, diarrhea, dysuria, hematuria, melena, and recent trauma. Per chart review, the patient follows with the [facility] wound clinic for his chronic BL LE venous stasis/lymphedema and chronic venous stasis ulcers. Per their note from 12/15, the patient last saw Dr. Tobar on 11/19, he is scheduled to undergo GSV and SSV Venaseal on 12/31 and 01/14, he is also supposed to be contacting the lymphedema pump [employer]. They reported that he has BL LE venous stasis ulcers with the right LE ulcer re-opening on last visit. They debrided the left LE ulcer, applied Xylocaine to the LLE wound, and re-wrapped the Bl LEs. He is to follow-up with them next week. Please refer to Dr. Quiroz's attestation for any changes to the treatment plan Discharge Exam General: Awake, conversant, obese Heart: S1, S2/regular rate and rhythm, no murmur rubs or gallops Lungs: Clear to auscultation bilaterally. Normal effort Abdomen: Soft/nontender/nondistended. Obese abdomen. No hepatosplenomegaly Extremities: No clubbing/cyanosis. 1-2+ bilateral edema Behavior: Appropriate, cooperative Discharge Data Allergies Allergy/AdvReac Type Severity Reaction Status Date / Time No Known Allergies Allergy Verified 12/18/22 08:17 Consultations 12/19/22 17:29 Consult Psychiatry Routine 12/19/22 18:01 Consult Cardiology Routine 12/19/22 21:14 Consult Behavioral Health Liaison Routine 12/24/22 10:09 Consult Pain Management Routine 06/01/23 18:24 Consult Orthopedic Surgery Routine Ordered Studies 12/19/22 18:20 US liver Routine Hospital Course (1) Atrial flutter with rapid ventricular response: Patient had initially presented with uncontrolled A-fib. Cardiology had recommended uptitrating diltiazem and discouraged using metoprolol. However the patient continues to be on metoprolol and not on diltiazem. Rate seems to be controlled on metoprolol. We will continue. Rate control. Appreciate input from [facility] cardiology. Continue Eliquis (2) Suicidal ideations: Now resolved. Appreciate psychiatry consultation and recommendations. One-on-one supervision has been discontinued. Discontinued Zoloft, Cymbalta in favor of Lexapro due to starting dose very close to therapeutic dose. (3) Left wrist pain: Patient showing signs of osteoarthritis on his left wrist x ray. Patient also appears to have a componnt of dequervains tenosynovitis, will consult ortho. Patient also has multiple history of joint issues, could this be an inflammatory illness (4) SOB (shortness of breath): Due to CHF. Improved with diuretics. Continue increased dose of Bumex to 2 mg p.o. every morning and 1 mg p.o. every afternoon. This is per cardiology recommendation (5) Elevated LFTs: Mild. Probably from passive hepatic congestion along with alcoholism. Serial labs. Liver ultrasound reveals fatty infiltration with cholelithiasis. No evidence of cholecystitis (6) Alcohol abuse: Counseled to stop drinking. (7) Lower extremity edema: Due to CHF. Should improve with diuresis. Bilateral lower extremity venous stasis is being managed by the wound care clinic. On p.o.Bumex (8) Ambulatory dysfunction: Due to deconditioning, neuropathy, and CHF. PT/OT consults placed. Case management on board, working on placement. Awaiting insurance authorization Patient complains of bilateral lower extremity pain, left worse than the right. Pain management on board. This is neuropathic pain. Switched to Cymbalta. Obesity seems to be an issue. He has obesity hypoventilation syndrome, sleep apnea. He will likely need a BiPAP. Weight loss counseling. (9) Neuropathy: Patient previously on 100 mg Gabapentin BID. Increased to TID. Continue. Monitor for improvement. Started Cymbalta (10) Hyperlipidemia: Statin therapy is on hold (11) Acute diastolic CHF (congestive heart failure): Switch to p.o. Bumex diuresis. Monitor intake and output. Plan The patient is requesting eventual SNF placement where he can continue physical therapy. Now the patient is medically stable for discharge. Awaiting insurance authorization for disposition. Discharge Plan Discharge Items Patient Disposition: Transfer Inpatient Rehab Fac Reason For Visit: LE EDEMA Discharge Diagnosis: edema Activity: Resume your previous activity Non-emergency contact: Primary Care Provider Call non-emergency contact if: you have any medication questions Follow-up/Referrals: Ridge Jeronimo MD [Primary Care Provider] - Diet: Heart Healthy Addtl Attending Provider Instructions: Recommend followup with PCP in 1-2 weeks. Recommend followup with [facility] to discuss left wrist pain within 1 month. Will recommend prednisone taper. Will recommend a short course of oxycodone PRN as needed for wrist pain. Do not feel this is an active infection, likely gout, but would recommend workup with your PCP for inflammatory arthritis, if not done already. Pending Studies at Discharge: No Stand-Alone Forms: My [employer], Smoking Cessation Skilled Items Patient informed of condition?: Yes DNR: No Discharge Level of Care: Acute rehab Communicable Disease: No Discharge Prognosis: Stable Lines: None Urinary Catheter: No Medications and DC Order Prescriptions: New metoprolol succinate 50 mg tablet extended release 24 hr 50 mg PO PM Qty: 30 0RF potassium chloride 20 mEq Tablet,Er Particles/Crystals 20 meq PO BID Qty: 60 0RF bumetanide 1 mg Tablet 2 mg PO QAM Qty: 30 0RF bumetanide 1 mg Tablet 1 mg PO 1700 Qty: 30 0RF thiamine HCl (vitamin B1) 100 mg Tablet 100 mg PO QAM Qty: 30 0RF acetaminophen 325 mg Tablet 650 mg PO Q4H PRN (Reason: pain) Qty: 30 0RF escitalopram oxalate 10 mg Tablet 10 mg PO QAM Qty: 30 0RF prednisone 5 mg tablet See Rx Instructions .ROUTE .COMPLEX Qty: 36 0RF Rx Instructions: prednisone 5 mg: take 8 tablets (40 mg) on Day 1; 7 tablets (35 mg) on Day 2; then decrease by 1 tablet every day until finished Start on 01/03/23 oxycodone 5 mg Tablet 5 mg PO PM PRN (Reason: wrist pain) Qty: 5 0RF Continued vitamin D30-rxkyy acid 0.5-1 mg tablet 1 tab PO DAILY Eliquis 5 mg tablet 5 mg PO BID magnesium 250 mg tablet 500 mg PO DAILY krill oil 500 mg capsule 500 mg PO DAILY turmeric root extract 500 mg capsule 500 mg PO DAILY glucosamine HCl 500 mg tablet 500 mg PO DAILY Rx Instructions: administer with a meal multivitamin Tablet 1 tab PO QAM coenzyme Q10 [Co Q-10] 100 mg Capsule 100 mg PO QAM diphenhydramine HCl [Benadryl] 25 mg Capsule 25 mg PO HS PRN (Reason: Sleep) cinnamon bark [Cinnamon] 500 mg Capsule 500 mg PO QAM cholecalciferol (vitamin D3) [Vitamin D3] 50 mcg (2,000 unit) Capsule 50 mcg PO QAM ascorbic acid (vitamin C) [Vitamin C] 1,000 mg Tablet 1 g PO DAILY spironolactone 25 mg tablet 25 mg PO QAM gabapentin 100 mg Capsule 100 mg PO BID Qty: 60 0RF Discontinued diltiazem HCl [Cartia XT] 120 mg capsule,extended release 24hr 120 mg PO DAILY doxycycline hyclate 100 mg tablet 100 mg PO bid Qty: 28 0RF potassium gluconate 595 mg (99 mg) Tablet 595 mg PO QAM bumetanide 1 mg Tablet 1 mg PO BID Qty: 60 0RF Discharge Orders: Discharge Order (Routine); Ordered 01/02/23 Ordered By: Blayne Purcell Admission Data Admit Date/Time: 12/19/22 16:55 Attending Provider: Blayne Purcell Admit Provider: Chaz Quiroz Primary Care Provider: Ridge Jeronimo Other Providers: [facility] ; [facility] ; [facility] ; Kari Salas ; Francicsa Best ; Mathew Alexander ; Ramu Montgomery ; Ghulam Eller ; Kyung Mccoy ; Quinton Proctor ; Jacqui Jeronimo ; Nick Reyes ; Jim Fernandez Other Interventions: Discharge Summary Assessment (RN) Last Done: 01/02/23 09:59 Coding Diagnoses Atrial flutter with rapid ventricular response I48.92 Suicidal ideations R45.851 Left wrist pain M25.532 SOB (shortness of breath) R06.02 Elevated LFTs R79.89 Alcohol abuse F10.10 Lower extremity edema R60.0 Ambulatory dysfunction R26.2 Neuropathy G62.9 Hyperlipidemia E78.5 Hyperlipidemia type: unspecified Acute diastolic CHF (congestive heart failure) I50.31
== END 2023-01-02 13:30 | DRG 308 ==
LOC: ED 13:41 → SUATTDRO 16:55 → 2S 16:55 → 3E 12-31 09:59

== ENCOUNTER 2024-04-08 01:08 | Inpatient (IN) ==
[2024-04-08] MEDS: METOPROLOL TARTRATE 1 MG/ML VIAL IV STA ×3 (01:25→03:33)
[2024-04-08] MEDS ORDERED: SODIUM CHLORIDE 0.9% 500 ML IV SCH (01:30)
[2024-04-08] MEDS: SODIUM CHLORIDE 0.9% 250 ML IV ONE ×2 (01:31→01:54)
[2024-04-08] MEDS: dilTIAZem HCl 5 MG/ML 5 ML VIAL IV STA (01:32)
[2024-04-08 01:56] LABS: Basophils # (auto) 0.01 K/uL (0.00-0.20); Basophils % (auto) 0.1 %; Eosinophils # (auto) 0.02 K/uL (0.00-0.50); Eosinophils % (auto) 0.2 %; Hematocrit (blood only) 47.5 % (42.0-52.0); Hemoglobin 15.7 g/dl (14.0-18.0); Immature Granulocytes # (auto) 0.05 K/uL (0.01-0.20); Immature Granulocytes % (auto) 0.4 %; Lymphocytes # (auto) 1.68 K/uL (1.20-3.40); Lymphocytes % (auto) 12.9 %; Mean Corpuscular Hemoglobin 31.2 pg (25.0-34.0); Mean Corpuscular Hgb Conc 33.1 g/dL (32.0-36.0); Mean Corpuscular Volume 94.2 fL (80.0-100.0); Mean Platelet Volume 10.4 fL (9.4-12.4); Monocytes # (auto) 1.05 K/uL (0.11-0.59); Monocytes % (auto) 8.1 %; Neutrophils # (auto) 10.23 K/uL (1.40-6.50); Neutrophils % (auto) 78.3 %; Platelet Count 237 K/uL (130-400); RDW Coefficient of Variation 14.9 % (11.5-14.5); RDW Standard Deviation 51.5 fL (36.4-46.3); Red Blood Count 5.04 M/uL (4.70-6.10); White Blood Count 13.04 K/ul (4.8-10.8)
--- NOTE | 2024-04-08 01:59 | Emergency Department Note ---
History of Present Illness General Chief complaint: Weakness Stated complaint: Weakness, Diarrhea Time Seen by Provider: 04/08/24 01:14 History of Present Illness This 68-year-old male on Eliquis with a history of A-fib and a flutter presents ER for weakness unable to get up. He was a lift called twice today by EMS and EMS convinced him to come in. Patient denies chest pain, dyspnea, fevers, cough, congestion, vomiting. Patient states he started having diarrhea today. He states he has 2 alcoholic beverages a day. No history of DTs or withdrawal seizures. Home Medications Medication Instructions Recorded Confirmed Type coenzyme Q10 100 mg capsule (Co 100 mg PO QAM 06/15/19 02/02/23 History Q-10) multivitamin 1 tab PO QAM 06/15/19 02/02/23 History cholecalciferol (vitamin D3) 50 50 mcg PO QAM 01/17/21 02/02/23 History mcg (2,000 unit) capsule (Vitamin D3) cinnamon bark 500 mg capsule 500 mg PO QAM 01/17/21 02/02/23 History (Cinnamon) diphenhydramine HCl 25 mg capsule 25 mg PO HS PRN Sleep 01/17/21 02/02/23 History (Benadryl) ascorbic acid (vitamin C) 1,000 mg 1 g PO DAILY 03/12/21 02/02/23 History tablet (Vitamin C) glucosamine HCl 500 mg tablet 500 mg PO DAILY 08/15/21 02/02/23 History krill oil 500 mg capsule 500 mg PO DAILY 08/15/21 02/02/23 History magnesium 250 mg tablet 500 mg PO DAILY 08/15/21 02/02/23 History turmeric root extract 500 mg 500 mg PO DAILY 08/15/21 02/02/23 History capsule apixaban 5 mg tablet (Eliquis) 5 mg PO BID 07/03/22 04/08/24 History vitamin B12 0.5 mg-folic acid 1 mg 1 tab PO DAILY 07/03/22 02/02/23 History tablet spironolactone 25 mg tablet 25 mg PO QAM 12/31/22 04/08/24 History acetaminophen 325 mg tablet 650 mg (2 x 325 mg) PO Q4H PRN 01/02/23 02/02/23 Rx pain #30 tabs bumetanide 1 mg tablet 1 mg PO 1700 #30 tabs 01/02/23 04/08/24 Rx bumetanide 1 mg tablet 2 mg (2 x 1 mg) PO QAM #30 tabs 01/02/23 04/08/24 Rx escitalopram oxalate 10 mg tablet 10 mg PO QAM #30 tabs 01/02/23 02/02/23 Rx metoprolol succinate 50 mg 50 mg PO PM #30 tabs 01/02/23 04/08/24 Rx tablet,extended release 24 hr oxycodone 5 mg tablet 5 mg PO PM PRN wrist pain #5 tabs 01/02/23 02/02/23 Rx potassium chloride 20 mEq 20 meq PO BID #60 tabs 01/02/23 02/02/23 Rx tablet,extended release(part/cryst) prednisone 5 mg tablet See Rx Instructions PO .COMPLEX 01/02/23 02/02/23 Rx #36 tabs thiamine HCl (vitamin B1) 100 mg 100 mg PO QAM #30 tabs 01/02/23 02/02/23 Rx tablet atorvastatin 40 mg tablet 40 mg PO DAILY 04/08/24 04/08/24 History escitalopram oxalate 20 mg tablet 20 mg PO DAILY 04/08/24 04/08/24 History gabapentin 100 mg capsule 200 mg PO TID 04/08/24 04/08/24 History pantoprazole 40 mg tablet,delayed 40 mg PO DAILY 04/08/24 04/08/24 History release Allergies Allergy/AdvReac Type Severity Reaction Status Date / Time No Known Allergies Allergy Verified 02/02/23 14:02 Past Med/Surg History Problem List (Updated 04/08/24 @ 05:24 by Shefali Hernández PA-C) Candidiasis (Acute) Rhabdomyolysis (Acute) Type 2 myocardial infarction (Acute) Bleeding from varicose veins of right lower extremity (Acute) Left wrist pain Left thigh pain Adjustment disorder with mixed anxiety and depressed mood Alcohol use disorder Acute diastolic CHF (congestive heart failure) Atrial fibrillation with rapid ventricular response (Acute) Shortness of breath (Acute) Cellulitis (Acute) Suicidal ideations (Acute) Ambulatory dysfunction Alcohol abuse Suicidal ideations Elevated LFTs Neuropathy Lower extremity edema Atrial flutter with rapid ventricular response (Acute) SOB (shortness of breath) (Acute) Pedal edema (Acute) Cellulitis (Acute) Atrial flutter Hip arthritis (Chronic 09/01/13) Varicose veins of both legs with edema (Chronic) Cellulitis of right leg (Acute) Left knee DJD Left knee pain (Acute) Superficial thrombophlebitis of right leg (Acute) Encounter for pre-operative examination Hypotension (Acute) GI bleed (Acute) Anemia (Acute) Hypovolemic shock Hyperglycemia DVT prophylaxis Ulcer at site of surgical anastomosis following bypass of stomach Venous stasis ulcer (Acute) Chronic venous insufficiency (Chronic) Lower extremity edema (Chronic) History of colon polyps Acute GI bleeding (Acute) Encounter for pre-operative examination Rectal bleeding Internal hemorrhoids Encounter for pre-operative examination History of gastric ulcer 2019 Obesity Sleep apnea USED CPAP IN PAST (STOPPED USING) Hyperlipidemia "BORDERLINE" Superficial thrombophlebitis (Acute) Medical History Swelling of lower leg BILAT. REASON FOR FUROSEMIDE (PT STATES SWELLING IS BETTER) Hx of iron deficiency anemia Hx of colonic polyps Anxiety and depression Osteoarthritis GERD (gastroesophageal reflux disease) Hearing deficit Environmental allergies Thrombosis SUPERFICIAL BLOOD CLOT RT LEG Hypertension "BORDERLINE">HAS FOLLOWED WITH DR. VELOZ Surgical History History of cataract surgery right H/O shoulder surgery RT History of total knee replacement LEFT History of total hip arthroplasty RT History of bilateral carpal tunnel release History of esophagogastroduodenoscopy (EGD) History of discectomy LUMBAR DISCECTOMY History of colonoscopy History of herniorrhaphy History of gastric bypass Varicose veins of both lower extremities LASER PROCEDURE Family History Mother Family history of reaction to anesthesia difficulty of waking Dementia Parkinsons disease Father Myocardial infarction Unknown Hypertension Arthritis Other No significant family history Social History Smoking Status: Never smoker Second Hand Exposure: No; Do You Dip or Chew Tobacco: No; Hx Alcohol Use: Yes Alcohol type: hard liquor Hx Substance Use: No Preferred Language: [place] Citizen Communication Ability: Effective Communication Tools: Letter Board, Picture Board and Writing Tablet Senior Oracle Pl Sql Developer Required: No Beliefs That Will Affect Care: None marital status: Current Living Situation: Alone Current Living Situation Comment: looking into renting apartment in [place]; 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 [facility] current occupational status: employed 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 [employer] Feels Safe at Home: Yes Assistive Devices: Cane and Walker Review of Systems A total of 10 systems reviewed and were otherwise negative Physical Exam Vital Signs Vital Signs - 24 hr 04/08/24 01:12 04/08/24 01:17 04/08/24 01:17 Temperature Temperature Source Pulse Rate 142 H 120 H Pulse Rate from SpO2 Sensor Respiratory Rate 20 Respiratory Effort / Characteristics Respiratory Depth Respiratory Pattern Blood Pressure Blood Pressure Mean Pulse Oximetry 87 L 95 Oxygen Delivery Method Room Air Nasal Cannula Room Air Oxygen Flow Rate Sepsis Recent Fever Within 48 Hours Sepsis New/Unexplained Change in Mental Status Sepsis Action Taken by Nursing Oxygen Flow Rate - Titration 2 Pulse Oximetry Post Tiitration 93 04/08/24 01:17 04/08/24 01:18 04/08/24 01:25 Temperature 36.9 C Temperature Source Oral Pulse Rate 133 H 142 H 140 H Pulse Rate from SpO2 Sensor Respiratory Rate 26 H 29 H Respiratory Effort / Characteristics Non-Labored Respiratory Depth Normal Respiratory Pattern Regular Blood Pressure 108/80 106/76 106/76 Blood Pressure Mean 89 86 Pulse Oximetry 92 91 Oxygen Delivery Method Room Air Room Air Oxygen Flow Rate Sepsis Recent Fever Within 48 Hours No Sepsis New/Unexplained Change in Mental Status N/A Sepsis Action Taken by Nursing Physician Notified Oxygen Flow Rate - Titration Pulse Oximetry Post Tiitration 04/08/24 01:30 04/08/24 01:48 04/08/24 01:54 Temperature Temperature Source Pulse Rate 123 H 108 H 125 H Pulse Rate from SpO2 Sensor Respiratory Rate 18 24 Respiratory Effort / Characteristics Respiratory Depth Respiratory Pattern Blood Pressure 98/58 L 98/58 L 105/84 Blood Pressure Mean 80 91 Pulse Oximetry 90 91 Oxygen Delivery Method Room Air Room Air Oxygen Flow Rate Sepsis Recent Fever Within 48 Hours Sepsis New/Unexplained Change in Mental Status Sepsis Action Taken by Nursing Oxygen Flow Rate - Titration Pulse Oximetry Post Tiitration 04/08/24 02:15 04/08/24 02:28 04/08/24 02:40 Temperature Temperature Source Pulse Rate 138 H 119 H 130 H Pulse Rate from SpO2 Sensor Respiratory Rate 24 24 Respiratory Effort / Characteristics Respiratory Depth Respiratory Pattern Blood Pressure 171/146 H 113/80 122/74 Blood Pressure Mean 154 99 Pulse Oximetry 94 93 Oxygen Delivery Method Nasal Cannula Nasal Cannula Oxygen Flow Rate 3 3 Sepsis Recent Fever Within 48 Hours Sepsis New/Unexplained Change in Mental Status Sepsis Action Taken by Nursing Oxygen Flow Rate - Titration Pulse Oximetry Post Tiitration 04/08/24 02:45 04/08/24 02:51 04/08/24 03:02 Temperature Temperature Source Pulse Rate 107 H 106 H 126 H Pulse Rate from SpO2 Sensor Respiratory Rate 26 H 34 H Respiratory Effort / Characteristics Respiratory Depth Respiratory Pattern Blood Pressure 112/83 103/75 105/73 Blood Pressure Mean 88 84 Pulse Oximetry 96 93 Oxygen Delivery Method Nasal Cannula Nasal Cannula Oxygen Flow Rate 3 3 Sepsis Recent Fever Within 48 Hours Sepsis New/Unexplained Change in Mental Status Sepsis Action Taken by Nursing Oxygen Flow Rate - Titration Pulse Oximetry Post Tiitration 04/08/24 03:15 04/08/24 03:15 04/08/24 03:30 Temperature Temperature Source Pulse Rate 100 H 104 H Pulse Rate from SpO2 Sensor 106 H 98 H Respiratory Rate 22 20 Respiratory Effort / Characteristics Respiratory Depth Respiratory Pattern Blood Pressure 106/73 106/73 106/74 Blood Pressure Mean 85 85 90 Pulse Oximetry 95 93 Oxygen Delivery Method Nasal Cannula Nasal Cannula Oxygen Flow Rate 3 3 Sepsis Recent Fever Within 48 Hours Sepsis New/Unexplained Change in Mental Status Sepsis Action Taken by Nursing Oxygen Flow Rate - Titration Pulse Oximetry Post Tiitration 04/08/24 03:33 04/08/24 03:42 04/08/24 03:54 Temperature Temperature Source Pulse Rate 117 H 116 H 119 H Pulse Rate from SpO2 Sensor 105 H 133 H Respiratory Rate 24 22 Respiratory Effort / Characteristics Respiratory Depth Respiratory Pattern Blood Pressure 106/74 87/70 L 100/67 Blood Pressure Mean 75 78 Pulse Oximetry 95 93 Oxygen Delivery Method Room Air Nasal Cannula Oxygen Flow Rate 3 3 Sepsis Recent Fever Within 48 Hours Sepsis New/Unexplained Change in Mental Status Sepsis Action Taken by Nursing Oxygen Flow Rate - Titration Pulse Oximetry Post Tiitration 04/08/24 04:01 Temperature Temperature Source Pulse Rate 112 H Pulse Rate from SpO2 Sensor 111 H Respiratory Rate 22 Respiratory Effort / Characteristics Respiratory Depth Respiratory Pattern Blood Pressure 114/74 Blood Pressure Mean 79 Pulse Oximetry 99 Oxygen Delivery Method Nasal Cannula Oxygen Flow Rate 3 Sepsis Recent Fever Within 48 Hours Sepsis New/Unexplained Change in Mental Status Sepsis Action Taken by Nursing Oxygen Flow Rate - Titration Pulse Oximetry Post Tiitration VITALS: Vitals are noted on the nurse's note and reviewed by myself. Vital signs tachycardic GENERAL: Male with an elevated BMI malodorous, in no acute distress, nondiaphoretic, well-developed well-nourished. SKIN: Candidiasis to the pannus, capillary reflex less than 2 seconds. HEENT: Normocephalic. PERRLA. EOMI. Nares patent. Mucous membranes moist. Neck is supple without nuchal rigidity. HEART: Tachycardic irregularly irregular LUNGS: Clear to auscultation bilaterally without wheezes, rales or rhonchi. No retractions or accessory muscle use. ABDOMEN: Positive bowel sounds x 4. Normal tympanic percussion. Soft, nontender, without masses or organomegaly. Cervantes sign negative. No guarding or rebound tenderness. no CVA tenderness exam: Anterior skin of the scrotum with skin breakdown, no crepitus. No perineum tenderness. Patient is covered in feces. MUSCULOSKELETAL: No gross musculoskeletal defects. Venous stasis changes to lower legs. NEURO: Patient was alert and oriented to person place and time. No focal neurological deficits. Course Administered Medications Discontinued Medications Diltiazem HCl (Diltiazem Hcl 5 Mg/Ml 5 Ml Vial) 10 mg IV NOW STA Stop: 04/08/24 01:18 Last Admin: 04/08/24 01:32 Dose: Not Given Documented By: DANNIE Sodium Chloride (Nss) 250 mls @ 999 mls/hr IV .Q16M ONE Stop: 04/08/24 01:44 Last Infusion: 04/08/24 01:55 Dose: Infused Documented By: Admin: 04/08/24 01:31 Dose: 999 mls/hr Documented By: DANNIE Sodium Chloride (Nss) 250 mls @ 999 mls/hr IV .Q16M ONE Stop: 04/08/24 01:51 Last Infusion: 04/08/24 02:42 Dose: Infused Documented By: Admin: 04/08/24 01:54 Dose: 999 mls/hr Documented By: DANNIE Ioversol (Optiray 320 125ml) 125 ml IV ONCE ONE Stop: 04/08/24 03:16 Last Admin: 04/08/24 03:15 Dose: 118 ml Documented By: PARUL Metoprolol Tartrate (Metoprolol Tartrate 1 Mg/Ml Vial) 5 mg IV NOW STA Stop: 04/08/24 01:23 Last Admin: 04/08/24 01:25 Dose: 5 mg Documented By: DANNIE Metoprolol Tartrate (Metoprolol Tartrate 1 Mg/Ml Vial) 5 mg IV NOW STA Stop: 04/08/24 02:13 Last Admin: 04/08/24 02:40 Dose: 5 mg Documented By: DANNIE Metoprolol Tartrate (Metoprolol Tartrate 1 Mg/Ml Vial) 5 mg IV NOW STA Stop: 04/08/24 02:32 Last Admin: 04/08/24 03:33 Dose: Not Given Documented By: EDEL Critical Care Time Critical Care Time: Yes Total Critical Care Time: 35 I have personally spent 35 minutes of critical care time in the direct management of this patient. This includes bedside care, interpretation of diagnostic studies, and testing, discussion with consultants, patient, and family members, and other required patient management activities. This 35 minutes is in excess of all separately billable procedures. Medical Decision Making Medical Records Attestation: I reviewed the patient's medical records. Home Medications Current Medication List: was personally reviewed by me Laboratory Data Attestation: I reviewed the patient's lab results. 04/08/24 01:20 04/08/24 01:20 Lab Results 04/08/24 04/08/24 04/08/24 Range/Units 01:20 01:55 Unknown WBC 13.04 H (4.8-10.8) K/ul RBC 5.04 (4.70-6.10) M/uL Hgb 15.7 (14.0-18.0) g/dl Hct 47.5 (42.0-52.0) % MCV 94.2 (80.0-100.0) fL MCH 31.2 (25.0-34.0) pg MCHC 33.1 (32.0-36.0) g/dL RDW Std Deviation 51.5 H (36.4-46.3) fL RDW Coeff of Aria 14.9 H (11.5-14.5) % Plt Count 237 (130-400) K/uL MPV 10.4 (9.4-12.4) fL Immature Gran % (Auto) 0.4 % Neut % (Auto) 78.3 % Lymph % (Auto) 12.9 % Burnett % (Auto) 8.1 % Eos % (Auto) 0.2 % Baso % (Auto) 0.1 % Neut # (Auto) 10.23 H (1.40-6.50) K/uL Lymph # (Auto) 1.68 (1.20-3.40) K/uL Burnett # (Auto) 1.05 H (0.11-0.59) K/uL Eos # (Auto) 0.02 (0.00-0.50) K/uL Baso # (Auto) 0.01 (0.00-0.20) K/uL Immature Gran # (Auto) 0.05 (0.01-0.20) K/uL Sodium 134 L (136-145) mmol/L Potassium 4.5 (3.5-5.1) mmol/L Chloride 98 (98-107) mmol/L Carbon Dioxide 24 (21-32) mmol/L Anion Gap 12 H (3-11) BUN 40 H (6-23) mg/dl Creatinine 1.00 (0.6-1.4) mg/dl Est Cr Clr Drug Dosing Not Reportable Est GFR ( Amer) 88.0 ml/min Est GFR (Non-Af Amer) 75.9 ml/min BUN/Creatinine Ratio 40.0 H (10-20) Glucose 151 H (70-99(Fasting)) mg/dl Calcium 9.8 (8.6-10.3) mg/dl Magnesium 2.1 (1.7-2.4) mg/dl Total Bilirubin 3.4 H (0.2-1.0) mg/dl AST 130 H (13-39) U/L ALT 49 (7-52) U/L Alkaline Phosphatase 114 H (34-104) U/L Total Creatine Kinase 3707 H (30-223) U/L Troponin I High Sens 854.4 H* (0-20) pg/ml B-Natriuretic Peptide 1244 H (0-100) pg/ml Total Protein 7.7 (6.0-8.3) gm/dl Albumin 4.4 (3.4-5.0) gm/dl Globulin 3.3 (2.5-4.0) gm/dl Albumin/Globulin Ratio 1.3 (0.9-2) TSH 1.900 (0.300-4.500) uIu/ml Stl C. cayetanensis PCR Not Detected (NotDetected) Stool Rotavirus A PCR Not Detected (NotDetected) Stl Adenov F 40/41 PCR Not Detected (NotDetected) Stool Astrovirus (PCR) Not Detected (NotDetected) Stool Campylobacter PCR Not Detected (NotDetected) Stl C. diff Tox B Gene Negative Cdiff Gene (Neg) Stool Cryptosporidium PCR Not Detected (NotDetected) Stl E.coli Shiga Tox PCR Not Detected (NotDetected) Stl Enterotoxigenic E PCR Not Detected (NotDetected) Stool EPEC (PCR) Not Detected (NotDetected) Stool EAEC (PCR) Not Detected (NotDetected) Stl E. histolytica PCR Not Detected (NotDetected) Stool Giardia Lamblia PCR Not Detected (NotDetected) Stool Salmonella PCR Not Detected (NotDetected) Stool Sapovirus (PCR) Not Detected (NotDetected) Stl P. shigelloides PCR Not Detected (NotDetected) Stl Shigella/EIEC PCR Not Detected (NotDetected) St Y.enterocolitica PCR Not Detected (NotDetected) Stool Vibrio (PCR) Not Detected (NotDetected) Stl Vibrio cholerae PCR Not Detected (NotDetected) Stl Norovirus GI/GII PCR Not Detected (NotDetected) Ethyl Alcohol mg/dL < 10.0 (<10.0) mg/dl Adenovirus (PCR) Not Detected (NotDetected) B. pertussis DNA (PCR) Not Detected (NotDetected) B.parapertussis DNA PCR Not Detected (NotDetected) C. pneumoniae DNA (PCR) Not Detected (NotDetected) Coronavirus OC43 (PCR) Not Detected (NotDetected) Coronavirus HKU1 (PCR) Not Detected (NotDetected) Coronavirus 229E (PCR) Not Detected (NotDetected) SARS-CoV-2 (PCR) Not Detected (NotDetected) Coronavirus NL63 (PCR) Not Detected (NotDetected) Human Metapneumovir PCR Not Detected (NotDetected) Influenza Type A (PCR) Not Detected (NotDetected) Influenza Type B (PCR) Not Detected (NotDetected) M. pneumoniae (PCR) Not Detected (NotDetected) Parainfluenza 1 (PCR) Not Detected (NotDetected) Parainfluenza 2 (PCR) Not Detected (NotDetected) Parainfluenza 3 (PCR) Not Detected (NotDetected) Parainfluenza 4 (PCR) Not Detected (NotDetected) RSV (PCR) Not Detected (NotDetected) Entero/Rhino (PCR) Not Detected (NotDetected) Imaging Data Attestation: I personally reviewed and interpreted this imaging study as follows: Radiologist's Impression: Abdomen/Pelvis CT 04/08/24 02:13 Exam(s): CT ABDOMEN + PELVIS With Contrast IV Amt: 118 M L OPTIRAY 320 EXAM: CT Abdomen and Pelvis With Intravenous Contrast CLINICAL HISTORY: Reason for exam: lower abd pain. TECHNIQUE: Axial computed tomography images of the abdomen and pelvis with intravenous contrast. CTDI is 36.67 mGy and DLP is 1880.69 mGy-cm. Automated exposure control was utilized for the study. A dose lowering technique was utilized adhering to the principles of ALARA. CONTRAST: Patient received 118 M L OPTIRAY 320 of IV contrast COMPARISON: No relevant prior studies available. FINDINGS: Lung bases: Unremarkable. No mass. No consolidation. ABDOMEN: Liver: Unremarkable. No mass. Gallbladder and bile ducts: Unremarkable. No calcified stones. No ductal dilation. Pancreas: Fatty replacement of the pancreas. No ductal dilation. Spleen: Unremarkable. No splenomegaly. Adrenals: Unremarkable. No mass. Kidneys and ureters: Unremarkable. No solid mass. No hydronephrosis. Stomach and bowel: Unremarkable. No obstruction. No mucosal thickening. PELVIS: Appendix: No findings to suggest acute appendicitis. Bladder: Markedly distended urinary bladder. Reproductive: Unremarkable as visualized. ABDOMEN and PELVIS: Intraperitoneal space: Unremarkable. No free air. No significant fluid collection. Bones/joints: Postoperative changes right hip arthroplasty. No acute fracture. No dislocation. Soft tissues: Right axillary soft tissue mass measuring 11 x 7.5 cm incompletely evaluated on this exam. Vasculature: Unremarkable. No abdominal aortic aneurysm. Lymph nodes: Unremarkable. No enlarged lymph nodes. IMPRESSION: Right axillary soft tissue mass measuring 11 cm incompletely evaluated on this exam Markedly distended urinary bladder. Electronically signed by: Nick Bonilla MD 04/08/24 04:39 AM Chest CTA 04/08/24 02:31 Exam(s): CTA CHEST IV Amt: 118 ML OPTIRAY 320 EXAM: CT Angiography Chest With Intravenous Contrast CLINICAL HISTORY: Reason for exam: PE. TECHNIQUE: Axial computed tomographic angiography images of the chest with intravenous contrast. CTDI is 39.24 mGy and DLP is 1129.93 mGy-cm. Automated exposure control was utilized for the study. A dose lowering technique was utilized adhering to the principles of ALARA. MIP reconstructed images were created and reviewed. COMPARISON: No relevant prior studies available. FINDINGS: Limitations: Exam limited secondary to patient motion artifact. Pulmonary arteries: Unremarkable. No large central pulmonary embolism. Aorta: No acute findings. No thoracic aortic aneurysm. Lungs: Unremarkable. No mass. No consolidation. Pleural space: Unremarkable. No significant effusion. No pneumothorax. Heart: Cardiomegaly. Coronary artery calcifications. No significant pericardial effusion. No evidence of RV dysfunction. Bones/joints: No acute fracture. No dislocation. Soft tissues: Unremarkable. Lymph nodes: Unremarkable. No enlarged lymph nodes. IMPRESSION: No acute findings in the visualized arteries of the chest. Exam limited secondary to patient respiratory motion No large central pulmonary embolus Electronically signed by: Nick Bonilla MD 04/08/24 04:42 AM MDM Narrative Prior records/ancillary studies reviewed and summarized above. Nursing notes reviewed. Additional history obtained from EMS. The patient's history was concerning for weakness. Differential diagnosis: Etiologies such as metabolic, infection, hypo/hyperglycemia, electrolyte abnormalities, cardiac sources, intracerebral event, toxicologic, neurologic, as well as others were entertained. Physical examination: As above. ER treatment provided: IV Lock An order was placed for continuous cardiac monitoring. The monitor shows a rate of 60-1 50 with a A-fib rhythm per my interpretation. Lopressor, IV fluids Nursing was informed to put Xeroform and nonadherent bandage to the scrotum. Nystatin was ordered. Limited bedside ultrasound shows no pericardial effusion. Lung sliding in all 4 windows. Per my independent interpretation. On reassessment the patient felt better. Diagnostics interpretation by me: ECG: Ordered for weakness EKG: Irregularly irregular with rate of 134. Impression A-fib with RVR right bundle independently interpreted by myself The labs Independently Interpreted by myself revealed elevated troponin and elevated BNP. Elevated CPK. Mild leukocytosis. Stable H&H. Negative alcohol. Negative stool culture Imaging studies: Chest x-ray with no acute consolidation, pneumothorax or free air per my independent interpretation. CTs were reviewed and read by radiology as above Consultation: A consultation was placed with the hospitalist. The case was discussed and diagnostics were reviewed. The patient was evaluated in the ER for further treatment. Exam and history seem consistent with A-fib with RVR with weakness. Patient also has candidiasis to the pannus and skin breakdown to the anterior aspect of the scrotum. He did appear to be in urinary retention. Katz was attempted by nursing and unsuccessful. Urology will be consulted by medicine. Patient is given Lopressor. Heart rate improved. Medicine was consulted case discussed. Patient be admitted to the medical service. Patient troponin is elevated most likely type II ischemic demand from the A-fib. By the evaluation outlined above emergent etiologies such as electrolyte abnormalities, intracerebral event, neurologic, abnormalities blood glucose, as well as others were deemed relatively unlikely. The pt informed about the findings as listed above. All questions were answered and pleased with the treatment. The chart was completed utilizing [employer] Speech voice recognition software. Grammatical errors, random word insertions, pronoun errors, and incomplete sentences are an occassional consequence of this system due to software limitations, ambient noise, and hardware issues. Any formal questions or concerns about the content, text, or information contained within the body of this dictation should be directly addressed to the physician pharmacy affairs assistant for clarification. Impression & Plan Atrial fibrillation with rapid ventricular response, Type 2 myocardial infarction, Rhabdomyolysis, Candidiasis Discharge Plan Visit Data Chief Complaint: Weakness Stated Complaint: Weakness, Diarrhea ED Provider: Nabor Robison ED Midlevel Provider: Shefali Hernández Discharge Problem: Atrial fibrillation with rapid ventricular response, Type 2 myocardial infarction, Rhabdomyolysis, Candidiasis Patient Disposition: Admitted As Inpatient Condition: Fair Forms Stand Alone Forms: My [facility] FRM Study Course Prescriptions Prescriptions: No Action vitamin [id number] acid 0.5-1 mg tablet 1 tab PO DAILY Eliquis 5 mg tablet 5 mg PO BID magnesium 250 mg tablet 500 mg PO DAILY krill oil 500 mg capsule 500 mg PO DAILY turmeric root extract 500 mg capsule 500 mg PO DAILY glucosamine HCl 500 mg tablet 500 mg PO DAILY Rx Instructions: administer with a meal multivitamin Tablet 1 tab PO QAM coenzyme Q10 [Co Q-10] 100 mg Capsule 100 mg PO QAM diphenhydramine HCl [Benadryl] 25 mg Capsule 25 mg PO HS PRN (Reason: Sleep) cinnamon bark [Cinnamon] 500 mg Capsule 500 mg PO QAM cholecalciferol (vitamin D3) [Vitamin D3] 50 mcg (2,000 unit) Capsule 50 mcg PO QAM ascorbic acid (vitamin C) [Vitamin C] 1,000 mg Tablet 1 g PO DAILY spironolactone 25 mg tablet 25 mg PO QAM metoprolol succinate 50 mg tablet extended release 24 hr 50 mg PO PM Qty: 30 0RF potassium chloride 20 mEq Tablet,Er Particles/Crystals 20 meq PO BID Qty: 60 0RF bumetanide 1 mg Tablet 2 mg PO QAM Qty: 30 0RF bumetanide 1 mg Tablet 1 mg PO 1700 Qty: 30 0RF thiamine HCl (vitamin B1) 100 mg Tablet 100 mg PO QAM Qty: 30 0RF acetaminophen 325 mg Tablet 650 mg PO Q4H PRN (Reason: pain) Qty: 30 0RF escitalopram oxalate 10 mg Tablet 10 mg PO QAM Qty: 30 0RF prednisone 5 mg tablet See Rx Instructions .ROUTE .COMPLEX Qty: 36 0RF Rx Instructions: prednisone 5 mg: take 8 tablets (40 mg) on Day 1; 7 tablets (35 mg) on Day 2; then decrease by 1 tablet every day until finished Start on 01/03/23 oxycodone 5 mg Tablet 5 mg PO PM PRN (Reason: wrist pain) Qty: 5 0RF atorvastatin 40 mg tablet 40 mg PO DAILY pantoprazole 40 mg tablet,delayed release (DR/EC) 40 mg PO DAILY escitalopram oxalate 20 mg tablet 20 mg PO DAILY gabapentin 100 mg capsule 200 mg PO TID Referrals Referrals: PCP,NO [Primary Care Provider] -
[2024-04-08 02:04] LABS: Anion Gap 12 (3-11); Blood Urea Nitrogen 40 mg/dl (6-23); Calcium 9.8 mg/dl (8.6-10.3); Carbon Dioxide 24 mmol/L (21-32); Chloride 98 mmol/L (98-107); Est GFR (Non-African American) 75.9 ml/min; Glucose 151 mg/dl (70-99(Fasting)); Potassium 4.5 mmol/L (3.5-5.1); Sodium 134 mmol/L (136-145)
[2024-04-08 02:15] LABS: Alanine Aminotransferase 49 U/L (7-52); Albumin Globulin Ratio 1.3 (0.9-2); Albumin Level 4.4 gm/dl (3.4-5.0); Alkaline Phosphatase 114 U/L (34-104); Aspartate Aminotransferase 130 U/L (13-39); Bilirubin,Total 3.4 mg/dl (0.2-1.0); Globulin 3.3 gm/dl (2.5-4.0); Magnesium 2.1 mg/dl (1.7-2.4); Total Protein 7.7 gm/dl (6.0-8.3); Troponin I High Sensitivity 854.4 pg/ml (0-20)
[2024-04-08 03:13] LABS: Creatine Kinase 3707 U/L (30-223)
[2024-04-08] MEDS: OPTIRAY 320 125ml IV ONE (03:15)
[2024-04-08 03:27] LABS: Adenovirus PCR Not Detected (NotDetected); Bordetella parapertussis PCR Not Detected (NotDetected); Bordetella pertussis PCR Not Detected (NotDetected); Chlamydia pneumoniae PCR Not Detected (NotDetected); Coronavirus 229E PCR Not Detected (NotDetected); Coronavirus CoV-2 (COVID19)PCR Not Detected (NotDetected); Coronavirus HKU1 PCR Not Detected (NotDetected); Coronavirus NL63 PCR Not Detected (NotDetected); Coronavirus OC43PCR Not Detected (NotDetected); Human Metapneumovirus PCR Not Detected (NotDetected); Influenza A PCR Not Detected (NotDetected); Influenza B PCR Not Detected (NotDetected); Mycoplasma pneumoniae PCR Not Detected (NotDetected); Parainfluenza Virus 1 PCR Not Detected (NotDetected); Parainfluenza Virus 2 PCR Not Detected (NotDetected); Parainfluenza Virus 3 PCR Not Detected (NotDetected); Parainfluenza Virus 4 PCR Not Detected (NotDetected); Respiratory Syncytial VirusPCR Not Detected (NotDetected); Rhinovirus/Enterovirus PCR Not Detected (NotDetected)
[2024-04-08 04:20] LABS: Adenovirus F 40/41 PCR Not Detected (NotDetected); Astrovirus PCR Not Detected (NotDetected); Campylobacter PCR Not Detected (NotDetected); Cryptosporidium PCR Not Detected (NotDetected); Cyclospora cayetanensis PCR Not Detected (NotDetected); Entamoeba histolytica PCR Not Detected (NotDetected); Enteroaggregative E.coli(EAEC) Not Detected (NotDetected); Enteropathogenic E.coli (EPEC) Not Detected (NotDetected); Enterotoxigenic E.coli (ETEC) Not Detected (NotDetected); Giardia lamblia PCR Not Detected (NotDetected); Norovirus GI/GII PCR Not Detected (NotDetected); Plesiomonas shigelloides PCR Not Detected (NotDetected); Rotavirus A PCR Not Detected (NotDetected); Salmonella PCR Not Detected (NotDetected); Sapovirus PCR Not Detected (NotDetected); Shiga-like Toxin E.coli (STEC) Not Detected (NotDetected); Shigella/Enteroinvasive E.coli Not Detected (NotDetected); Vibrio cholerae PCR Not Detected (NotDetected); Vibrio species PCR Not Detected (NotDetected); Yersinia enterocolitica PCR Not Detected (NotDetected)
--- NOTE | 2024-04-08 04:24 | Emergency Department Note ---
ED Visit Note I was consulted by the Advanced Practice Provider. The case was discussed at length. I personally made/approved the management plan and take responsibility for the patient management. I performed a substantive portion of the visit. This includes the aspects of: [-I independently interpreted the following studies:][Chest x-ray shows some chronic change, I see no CHF or pneumonia] The patient presents with rapid A-fib. He was experiencing diarrhea. He was found to have some rhabdomyolysis. He had an elevated troponin without any ischemic changes on his ECG. The patient received medications for his complaints and findings. Things seem to be improving. Hospitalization is clearly indicated. .
--- NOTE | 2024-04-08 04:40 | CT Scan Report ---
Exam(s): CT ABDOMEN + PELVIS With Contrast IV Amt: 118 M L OPTIRAY 320 EXAM: CT Abdomen and Pelvis With Intravenous Contrast CLINICAL HISTORY: Reason for exam: lower abd pain. TECHNIQUE: Axial computed tomography images of the abdomen and pelvis with intravenous contrast. CTDI is 36.67 mGy and DLP is 1880.69 mGy-cm. Automated exposure control was utilized for the study. A dose lowering technique was utilized adhering to the principles of ALARA. CONTRAST: Patient received 118 M L OPTIRAY 320 of IV contrast COMPARISON: No relevant prior studies available. FINDINGS: Lung bases: Unremarkable. No mass. No consolidation. ABDOMEN: Liver: Unremarkable. No mass. Gallbladder and bile ducts: Unremarkable. No calcified stones. No ductal dilation. Pancreas: Fatty replacement of the pancreas. No ductal dilation. Spleen: Unremarkable. No splenomegaly. Adrenals: Unremarkable. No mass. Kidneys and ureters: Unremarkable. No solid mass. No hydronephrosis. Stomach and bowel: Unremarkable. No obstruction. No mucosal thickening. PELVIS: Appendix: No findings to suggest acute appendicitis. Bladder: Markedly distended urinary bladder. Reproductive: Unremarkable as visualized. ABDOMEN and PELVIS: Intraperitoneal space: Unremarkable. No free air. No significant fluid collection. Bones/joints: Postoperative changes right hip arthroplasty. No acute fracture. No dislocation. Soft tissues: Right axillary soft tissue mass measuring 11 x 7.5 cm incompletely evaluated on this exam. Vasculature: Unremarkable. No abdominal aortic aneurysm. Lymph nodes: Unremarkable. No enlarged lymph nodes. IMPRESSION: Right axillary soft tissue mass measuring 11 cm incompletely evaluated on this exam Markedly distended urinary bladder. Electronically signed by: Nick Bonilla MD 04/08/24 04:39 AM
--- NOTE | 2024-04-08 04:43 | CT Scan Report ---
Exam(s): CTA CHEST IV Amt: 118 ML OPTIRAY 320 EXAM: CT Angiography Chest With Intravenous Contrast CLINICAL HISTORY: Reason for exam: PE. TECHNIQUE: Axial computed tomographic angiography images of the chest with intravenous contrast. CTDI is 39.24 mGy and DLP is 1129.93 mGy-cm. Automated exposure control was utilized for the study. A dose lowering technique was utilized adhering to the principles of ALARA. MIP reconstructed images were created and reviewed. COMPARISON: No relevant prior studies available. FINDINGS: Limitations: Exam limited secondary to patient motion artifact. Pulmonary arteries: Unremarkable. No large central pulmonary embolism. Aorta: No acute findings. No thoracic aortic aneurysm. Lungs: Unremarkable. No mass. No consolidation. Pleural space: Unremarkable. No significant effusion. No pneumothorax. Heart: Cardiomegaly. Coronary artery calcifications. No significant pericardial effusion. No evidence of RV dysfunction. Bones/joints: No acute fracture. No dislocation. Soft tissues: Unremarkable. Lymph nodes: Unremarkable. No enlarged lymph nodes. IMPRESSION: No acute findings in the visualized arteries of the chest. Exam limited secondary to patient respiratory motion No large central pulmonary embolus Electronically signed by: Nick Bonilla MD 04/08/24 04:42 AM
--- NOTE | 2024-04-08 05:27 | History & Physical Report ---
Date of Service April 08, 2024 Assessment & Plan (1) Rhabdomyolysis: Plan: Patient with several falls and unable to get up due to generalized weakness. He has elevated CK level of 3707. Renal function is intact -Gentle IVF - LR at 80mL/hr x 1 L. Caution as patient with h/o CHF, marked elevation of BNP at 1244 -Repeat CK in AM -Awaiting UA - patient is unable to void at this time, Katz not able to be placed in the ER yet -Monitor renal function -Hold Atorvastatin -Urology consultation appreciated (2) Candidiasis: Plan: Patient with diffuse candidiasis on skin folds and in groin -Wound care -Nystatin cream and powder -Dressing to scrotum to avoid further excoriation and abrasion (3) Elevated troponin: Plan: Patient denies chest pain -Check EKG -Trend troponin -Check 2D echo (4) Atrial fibrillation with rapid ventricular response: Plan: Chronic. Rapid ventricular response in the ER -Continue Apixaban 5mg po BID -Continue metoprolol (5) Elevated LFTs: Plan: CT imaging largely unremarkable -Repeat LFTs -Holding statin (6) Weakness: Plan: Patient unable to get up from the floor. Complains of generalized weakness -PT/OT evaluation -Fall precautions (7) Acute diastolic CHF (congestive heart failure): Plan: Patient with elevation of BNP. Adequate oxygenation on 3L NC -Hold Bumex for now -Continue Spironolactone -Cautious fluid in setting of rhabdo Plan Depression -Continue Escitalopram History of Present Illness Chief Complaint: weakness, diarrhea Primary Care Provider: NO PCP Mr. Mckeon is a 68yo male with history of atrial fibrillation on Eliquis anticoagulation and HFpEF (last echo 12/20/22 with dilated RV with reduced function), SARIAH not on CPAP presents from home after several falls. Patient reports that he fell several days ago after losing his balance - he denied syncope or head trauma. He was unable to get up so he called EMS who helped him to a chair. He reports that he was then unable to get up from the chair. He fell again yesterday and was unable to get up so he again called EMS. Other than some generalized weakness he denies other complaints. He denies fever, chills, cough, SOB, palpitations, chest pain, abdominal pain, nausea, vomiting or constipation. He does not endorse any worsening edema or orthopnea. He had some diarrhea in the ER. Upon arrival patient in atrial fibrillation with RVR - blood pressure has been borderline low on occasion. ER Course: Metoprolol 5mg IV x 2 doses NSS x 500mL Allergies Allergy/AdvReac Type Severity Reaction Status Date / Time No Known Allergies Allergy Verified 02/02/23 14:02 Home Medications Medication Instructions Recorded Confirmed Type coenzyme Q10 100 mg capsule (Co 100 mg PO QAM 06/15/19 02/02/23 History Q-10) multivitamin 1 tab PO QAM 06/15/19 02/02/23 History cholecalciferol (vitamin D3) 50 50 mcg PO QAM 01/17/21 02/02/23 History mcg (2,000 unit) capsule (Vitamin D3) cinnamon bark 500 mg capsule 500 mg PO QAM 01/17/21 02/02/23 History (Cinnamon) diphenhydramine HCl 25 mg capsule 25 mg PO HS PRN Sleep 01/17/21 02/02/23 History (Benadryl) ascorbic acid (vitamin C) 1,000 mg 1 g PO DAILY 03/12/21 02/02/23 History tablet (Vitamin C) glucosamine HCl 500 mg tablet 500 mg PO DAILY 08/15/21 02/02/23 History krill oil 500 mg capsule 500 mg PO DAILY 08/15/21 02/02/23 History magnesium 250 mg tablet 500 mg PO DAILY 08/15/21 02/02/23 History turmeric root extract 500 mg 500 mg PO DAILY 08/15/21 02/02/23 History capsule apixaban 5 mg tablet (Eliquis) 5 mg PO BID 07/03/22 04/08/24 History vitamin B12 0.5 mg-folic acid 1 mg 1 tab PO DAILY 07/03/22 02/02/23 History tablet spironolactone 25 mg tablet 25 mg PO QAM 12/31/22 04/08/24 History acetaminophen 325 mg tablet 650 mg (2 x 325 mg) PO Q4H PRN 01/02/23 02/02/23 Rx pain #30 tabs bumetanide 1 mg tablet 1 mg PO 1700 #30 tabs 01/02/23 04/08/24 Rx bumetanide 1 mg tablet 2 mg (2 x 1 mg) PO QAM #30 tabs 01/02/23 04/08/24 Rx escitalopram oxalate 10 mg tablet 10 mg PO QAM #30 tabs 01/02/23 02/02/23 Rx metoprolol succinate 50 mg 50 mg PO PM #30 tabs 01/02/23 04/08/24 Rx tablet,extended release 24 hr oxycodone 5 mg tablet 5 mg PO PM PRN wrist pain #5 tabs 01/02/23 02/02/23 Rx potassium chloride 20 mEq 20 meq PO BID #60 tabs 01/02/23 02/02/23 Rx tablet,extended release(part/cryst) prednisone 5 mg tablet See Rx Instructions PO .COMPLEX 01/02/23 02/02/23 Rx #36 tabs thiamine HCl (vitamin B1) 100 mg 100 mg PO QAM #30 tabs 01/02/23 02/02/23 Rx tablet atorvastatin 40 mg tablet 40 mg PO DAILY 04/08/24 04/08/24 History escitalopram oxalate 20 mg tablet 20 mg PO DAILY 04/08/24 04/08/24 History gabapentin 100 mg capsule 200 mg PO TID 04/08/24 04/08/24 History pantoprazole 40 mg tablet,delayed 40 mg PO DAILY 04/08/24 04/08/24 History release Past Med/Surg History Problem List (Updated 04/08/24 @ 05:42 by Liat Hendrikcs DO) Weakness Elevated troponin Candidiasis (Acute) Rhabdomyolysis (Acute) Type 2 myocardial infarction (Acute) Bleeding from varicose veins of right lower extremity (Acute) Left wrist pain Left thigh pain Adjustment disorder with mixed anxiety and depressed mood Alcohol use disorder Acute diastolic CHF (congestive heart failure) Atrial fibrillation with rapid ventricular response (Acute) Shortness of breath (Acute) Cellulitis (Acute) Suicidal ideations (Acute) Ambulatory dysfunction Alcohol abuse Suicidal ideations Elevated LFTs Neuropathy Lower extremity edema Atrial flutter with rapid ventricular response (Acute) SOB (shortness of breath) (Acute) Pedal edema (Acute) Cellulitis (Acute) Atrial flutter Hip arthritis (Chronic 09/01/13) Varicose veins of both legs with edema (Chronic) Cellulitis of right leg (Acute) Left knee DJD Left knee pain (Acute) Superficial thrombophlebitis of right leg (Acute) Encounter for pre-operative examination Hypotension (Acute) GI bleed (Acute) Anemia (Acute) Hypovolemic shock Hyperglycemia DVT prophylaxis Ulcer at site of surgical anastomosis following bypass of stomach Venous stasis ulcer (Acute) Chronic venous insufficiency (Chronic) Lower extremity edema (Chronic) History of colon polyps Acute GI bleeding (Acute) Encounter for pre-operative examination Rectal bleeding Internal hemorrhoids Encounter for pre-operative examination History of gastric ulcer 2019 Obesity Sleep apnea USED CPAP IN PAST (STOPPED USING) Hyperlipidemia "BORDERLINE" Superficial thrombophlebitis (Acute) Medical History Swelling of lower leg BILAT. REASON FOR FUROSEMIDE (PT STATES SWELLING IS BETTER) Hx of iron deficiency anemia Hx of colonic polyps Anxiety and depression Osteoarthritis GERD (gastroesophageal reflux disease) Hearing deficit Environmental allergies Thrombosis SUPERFICIAL BLOOD CLOT RT LEG Hypertension "BORDERLINE">HAS FOLLOWED WITH DR. VELOZ Surgical History History of cataract surgery right H/O shoulder surgery RT History of total knee replacement LEFT History of total hip arthroplasty RT History of bilateral carpal tunnel release History of esophagogastroduodenoscopy (EGD) History of discectomy LUMBAR DISCECTOMY History of colonoscopy History of herniorrhaphy History of gastric bypass Varicose veins of both lower extremities LASER PROCEDURE Family History Mother Family history of reaction to anesthesia difficulty of waking Dementia Parkinsons disease Father Myocardial infarction Unknown Hypertension Arthritis Other No significant family history Social History Smoking Status: Never smoker Second Hand Exposure: No; Do You Dip or Chew Tobacco: No; Hx Alcohol Use: Yes Alcohol type: hard liquor Hx Substance Use: No Preferred Language: Georgian Communication Ability: Effective Communication Tools: Letter Board, Picture Board and Writing Tablet Natural [employer] Manager Required: No Beliefs That Will Affect Care: None marital status: Current Living Situation: Alone Current Living Situation Comment: looking into renting apartment in [place] [employer] [place] [employer] in town current occupational status: employed 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 [employer] Feels Safe at Home: Yes Assistive Devices: Cane and Walker Review of Systems Review of Systems: All systems reviewed & are unremarkable except as noted in HPI & below Physical Exam Physical Exam: General: patient morbidly obese, poorly kempt, NAD, answering questions appropriately and following commands Skin: moist, erythematous lesions with excoriation beneath breast tissue and within folds of skin and groin, significant excoriation on anterior scrotal sac with some bleeding HEENT: NC/AT, PERRL, EOMI, anicteric sclera, conjunctiva without injection, external ear normal to inspection and nontender, nares patent, moist mucus membranes, dentition intact, no oropharyngeal lesions, neck supple, trachea midline, no LAD, no thyromegaly, no JVD Heart: +S1/S2, irregularly irregular, tachycardic, no m/r/g Lungs: equal air entry bilaterally, no rales/rhonchi/wheezes Abd: +BS, soft, NT/ND, no masses/organomegaly/ascites Ext: warm, 2+ pulses in UE/LE bilaterally, varicosities on BL LE Neuro: nonfocal, patient AA&O x 4, speech intact, no facial droop, moving all extremities on command with equal strength 5/5 Results & Data Results & Data Vital Signs (Past 12 Hours) Vital Signs Temp Pulse Resp BP Pulse Ox O2 Del Method O2 Flow Rate 04/08/24 04:01 112 H 22 114/74 99 Nasal Cannula 3 04/08/24 03:54 119 H 22 100/67 93 Nasal Cannula 3 04/08/24 03:42 116 H 24 87/70 L 95 Room Air 3 04/08/24 03:33 117 H 106/74 04/08/24 03:30 104 H 20 106/74 93 Nasal Cannula 3 04/08/24 03:15 106/73 04/08/24 03:15 100 H 22 106/73 95 Nasal Cannula 3 04/08/24 03:02 126 H 105/73 04/08/24 02:51 106 H 34 H 103/75 93 Nasal Cannula 3 04/08/24 02:45 107 H 26 H 112/83 96 Nasal Cannula 3 04/08/24 02:40 130 H 122/74 04/08/24 02:28 119 H 24 113/80 93 Nasal Cannula 3 04/08/24 02:15 138 H 24 171/146 H 94 Nasal Cannula 3 04/08/24 01:54 125 H 24 105/84 91 Room Air 04/08/24 01:48 108 H 98/58 L 04/08/24 01:30 123 H 18 98/58 L 90 Room Air 04/08/24 01:25 140 H 106/76 04/08/24 01:18 142 H 29 H 106/76 91 Room Air 04/08/24 01:17 36.9 C 133 H 26 H 108/80 92 Room Air 04/08/24 01:17 120 H 20 95 Room Air 04/08/24 01:17 87 L Room Air, Nasal Cannula 04/08/24 01:12 142 H Laboratory Results Laboratory Results WBC 13.04 K/ul (4.8-10.8) H 04/08/24 01:20 RBC 5.04 M/uL (4.70-6.10) 04/08/24 01:20 Hgb 15.7 g/dl (14.0-18.0) 04/08/24 01:20 Hct 47.5 % (42.0-52.0) 04/08/24 01:20 MCV 94.2 fL (80.0-100.0) 04/08/24 01:20 MCH 31.2 pg (25.0-34.0) 04/08/24 01:20 MCHC 33.1 g/dL (32.0-36.0) 04/08/24 01:20 RDW Std Deviation 51.5 fL (36.4-46.3) H 04/08/24 01:20 RDW Coeff of Aria 14.9 % (11.5-14.5) H 04/08/24 01:20 Plt Count 237 K/uL (130-400) 04/08/24 01:20 MPV 10.4 fL (9.4-12.4) 04/08/24 01:20 Immature Gran % (Auto) 0.4 % 04/08/24 01:20 Neut % (Auto) 78.3 % 04/08/24 01:20 Lymph % (Auto) 12.9 % 04/08/24 01:20 Lewis % (Auto) 8.1 % 04/08/24 01:20 Eos % (Auto) 0.2 % 04/08/24 01:20 Baso % (Auto) 0.1 % 04/08/24 01:20 Neut # (Auto) 10.23 K/uL (1.40-6.50) H 04/08/24 01:20 Lymph # (Auto) 1.68 K/uL (1.20-3.40) 04/08/24 01:20 Lewis # (Auto) 1.05 K/uL (0.11-0.59) H 04/08/24 01:20 Eos # (Auto) 0.02 K/uL (0.00-0.50) 04/08/24 01:20 Baso # (Auto) 0.01 K/uL (0.00-0.20) 04/08/24 01:20 Immature Gran # (Auto) 0.05 K/uL (0.01-0.20) 04/08/24 01:20 Sodium 134 mmol/L (136-145) L 04/08/24 01:20 Potassium 4.5 mmol/L (3.5-5.1) 04/08/24 01:20 Chloride 98 mmol/L (98-107) 04/08/24 01:20 Carbon Dioxide 24 mmol/L (21-32) 04/08/24 01:20 Anion Gap 12 (3-11) H 04/08/24 01:20 BUN 40 mg/dl (6-23) H 04/08/24 01:20 Creatinine 1.00 mg/dl (0.6-1.4) 04/08/24 01:20 Est Cr Clr Drug Dosing Not Reportable 04/08/24 01:20 Est GFR ( Amer) 88.0 ml/min 04/08/24 01:20 Est GFR (Non-Af Amer) 75.9 ml/min 04/08/24 01:20 BUN/Creatinine Ratio 40.0 (10-20) H 04/08/24 01:20 Glucose 151 mg/dl (70-99(Fasting)) H 04/08/24 01:20 Calcium 9.8 mg/dl (8.6-10.3) 04/08/24 01:20 Magnesium 2.1 mg/dl (1.7-2.4) 04/08/24 01:20 Total Bilirubin 3.4 mg/dl (0.2-1.0) H 04/08/24 01:20 AST 130 U/L (13-39) H 04/08/24 01:20 ALT 49 U/L (7-52) 04/08/24 01:20 Alkaline Phosphatase 114 U/L (34-104) H 04/08/24 01:20 Total Creatine Kinase 3707 U/L (30-223) H 04/08/24 01:20 Troponin I High Sens 881.2 pg/ml (0-20) H* 04/08/24 03:52 B-Natriuretic Peptide 1244 pg/ml (0-100) H 04/08/24 01:20 Total Protein 7.7 gm/dl (6.0-8.3) 04/08/24 01:20 Albumin 4.4 gm/dl (3.4-5.0) 04/08/24 01:20 Globulin 3.3 gm/dl (2.5-4.0) 04/08/24 01:20 Albumin/Globulin Ratio 1.3 (0.9-2) 04/08/24 01:20 TSH 1.900 uIu/ml (0.300-4.500) 04/08/24 01:20 Stl C. cayetanensis PCR Not Detected (NotDetected) 04/08/24 01:55 Stool Rotavirus A PCR Not Detected (NotDetected) 04/08/24 01:55 Stl Adenov F 40/41 PCR Not Detected (NotDetected) 04/08/24 01:55 Stool Astrovirus (PCR) Not Detected (NotDetected) 04/08/24 01:55 Stool Campylobacter PCR Not Detected (NotDetected) 04/08/24 01:55 Stl C. diff Tox B Gene Negative Cdiff Gene (Neg) 04/08/24 Unknown Stool Cryptosporidium PCR Not Detected (NotDetected) 04/08/24 01:55 Stl E.coli Shiga Tox PCR Not Detected (NotDetected) 04/08/24 01:55 Stl Enterotoxigenic E PCR Not Detected (NotDetected) 04/08/24 01:55 Stool EPEC (PCR) Not Detected (NotDetected) 04/08/24 01:55 Stool EAEC (PCR) Not Detected (NotDetected) 04/08/24 01:55 Stl E. histolytica PCR Not Detected (NotDetected) 04/08/24 01:55 Stool Giardia Lamblia PCR Not Detected (NotDetected) 04/08/24 01:55 Stool Salmonella PCR Not Detected (NotDetected) 04/08/24 01:55 Stool Sapovirus (PCR) Not Detected (NotDetected) 04/08/24 01:55 Stl P. shigelloides PCR Not Detected (NotDetected) 04/08/24 01:55 Stl Shigella/EIEC PCR Not Detected (NotDetected) 04/08/24 01:55 St Y.enterocolitica PCR Not Detected (NotDetected) 04/08/24 01:55 Stool Vibrio (PCR) Not Detected (NotDetected) 04/08/24 01:55 Stl Vibrio cholerae PCR Not Detected (NotDetected) 04/08/24 01:55 Stl Norovirus GI/GII PCR Not Detected (NotDetected) 04/08/24 01:55 Ethyl Alcohol mg/dL < 10.0 mg/dl (<10.0) 04/08/24 01:20 Adenovirus (PCR) Not Detected (NotDetected) 04/08/24 01:55 B. pertussis DNA (PCR) Not Detected (NotDetected) 04/08/24 01:55 B.parapertussis DNA PCR Not Detected (NotDetected) 04/08/24 01:55 C. pneumoniae DNA (PCR) Not Detected (NotDetected) 04/08/24 01:55 Coronavirus OC43 (PCR) Not Detected (NotDetected) 04/08/24 01:55 Coronavirus HKU1 (PCR) Not Detected (NotDetected) 04/08/24 01:55 Coronavirus 229E (PCR) Not Detected (NotDetected) 04/08/24 01:55 SARS-CoV-2 (PCR) Not Detected (NotDetected) 04/08/24 01:55 Coronavirus NL63 (PCR) Not Detected (NotDetected) 04/08/24 01:55 Human Metapneumovir PCR Not Detected (NotDetected) 04/08/24 01:55 Influenza Type A (PCR) Not Detected (NotDetected) 04/08/24 01:55 Influenza Type B (PCR) Not Detected (NotDetected) 04/08/24 01:55 M. pneumoniae (PCR) Not Detected (NotDetected) 04/08/24 01:55 Parainfluenza 1 (PCR) Not Detected (NotDetected) 04/08/24 01:55 Parainfluenza 2 (PCR) Not Detected (NotDetected) 04/08/24 01:55 Parainfluenza 3 (PCR) Not Detected (NotDetected) 04/08/24 01:55 Parainfluenza 4 (PCR) Not Detected (NotDetected) 04/08/24 01:55 RSV (PCR) Not Detected (NotDetected) 04/08/24 01:55 Entero/Rhino (PCR) Not Detected (NotDetected) 04/08/24 01:55 Impressions Abdomen/Pelvis CT 04/08/24 02:13 Exam(s): CT ABDOMEN + PELVIS With Contrast IV Amt: 118 M L OPTIRAY 320 EXAM: CT Abdomen and Pelvis With Intravenous Contrast CLINICAL HISTORY: Reason for exam: lower abd pain. TECHNIQUE: Axial computed tomography images of the abdomen and pelvis with intravenous contrast. CTDI is 36.67 mGy and DLP is 1880.69 mGy-cm. Automated exposure control was utilized for the study. A dose lowering technique was utilized adhering to the principles of ALARA. CONTRAST: Patient received 118 M L OPTIRAY 320 of IV contrast COMPARISON: No relevant prior studies available. FINDINGS: Lung bases: Unremarkable. No mass. No consolidation. ABDOMEN: Liver: Unremarkable. No mass. Gallbladder and bile ducts: Unremarkable. No calcified stones. No ductal dilation. Pancreas: Fatty replacement of the pancreas. No ductal dilation. Spleen: Unremarkable. No splenomegaly. Adrenals: Unremarkable. No mass. Kidneys and ureters: Unremarkable. No solid mass. No hydronephrosis. Stomach and bowel: Unremarkable. No obstruction. No mucosal thickening. PELVIS: Appendix: No findings to suggest acute appendicitis. Bladder: Markedly distended urinary bladder. Reproductive: Unremarkable as visualized. ABDOMEN and PELVIS: Intraperitoneal space: Unremarkable. No free air. No significant fluid collection. Bones/joints: Postoperative changes right hip arthroplasty. No acute fracture. No dislocation. Soft tissues: Right axillary soft tissue mass measuring 11 x 7.5 cm incompletely evaluated on this exam. Vasculature: Unremarkable. No abdominal aortic aneurysm. Lymph nodes: Unremarkable. No enlarged lymph nodes. IMPRESSION: Right axillary soft tissue mass measuring 11 cm incompletely evaluated on this exam Markedly distended urinary bladder. Electronically signed by: Nick Bonilla MD 04/08/24 04:39 AM Chest CTA 04/08/24 02:31 Exam(s): CTA CHEST IV Amt: 118 ML OPTIRAY 320 EXAM: CT Angiography Chest With Intravenous Contrast CLINICAL HISTORY: Reason for exam: PE. TECHNIQUE: Axial computed tomographic angiography images of the chest with intravenous contrast. CTDI is 39.24 mGy and DLP is 1129.93 mGy-cm. Automated exposure control was utilized for the study. A dose lowering technique was utilized adhering to the principles of ALARA. MIP reconstructed images were created and reviewed. COMPARISON: No relevant prior studies available. FINDINGS: Limitations: Exam limited secondary to patient motion artifact. Pulmonary arteries: Unremarkable. No large central pulmonary embolism. Aorta: No acute findings. No thoracic aortic aneurysm. Lungs: Unremarkable. No mass. No consolidation. Pleural space: Unremarkable. No significant effusion. No pneumothorax. Heart: Cardiomegaly. Coronary artery calcifications. No significant pericardial effusion. No evidence of RV dysfunction. Bones/joints: No acute fracture. No dislocation. Soft tissues: Unremarkable. Lymph nodes: Unremarkable. No enlarged lymph nodes. IMPRESSION: No acute findings in the visualized arteries of the chest. Exam limited secondary to patient respiratory motion No large central pulmonary embolus Electronically signed by: Nick Bonilla MD 04/08/24 04:42 AM Code Status & VTE Plan VTE Prophylaxis Plan VTE Prophylaxis will be ordered: Yes PG Care Time/CCT Total # of Minutes Spent Total Time Spent with Patient: Total time spent is greater than 50% in coordination of care (as documented) at patient's floor/unit and/or counseling patient: Coding Level of Care Code 00775 INT INP/OBS CARE 3/75MIN Diagnoses Rhabdomyolysis M62.82 Candidiasis B37.9 Elevated troponin R79.89 Atrial fibrillation with rapid ventricular response I48.91 Elevated LFTs R79.89 Weakness R53.1 Acute diastolic CHF (congestive heart failure) I50.31
--- NOTE | 2024-04-08 07:50 | XRay Report ---
XR chest 1V portable HISTORY: weakness COMPARISON: Chest 12/19/2022. FINDINGS: No pneumothorax. No pleural effusions. The heart remains moderately enlarged. No evidence f or pulmonary edema. No new focal lung consolidations to suggest a pneumonia. No acute fractures. IMPRESSION: Stable cardiomegaly. Otherwise, no acute process within the chest. ACT 112: Negative or not required by law. Electronically signed by: Miguel Funk M.D. 04/08/2024 7:48 AM
[2024-04-08] MEDS: NYSTATIN/TRIAMCIN CR 15 GM TUBE EXT STA (08:08)
[2024-04-08] MEDS: ATORVASTATIN 40 MG TAB PO SCH (08:08)
[2024-04-08] MEDS: ESCITALOPRAM OXALATE 20 MG TAB PO SCH (08:08)
[2024-04-08] MEDS: APIXABAN 5 MG TABLET PO SCH (08:08)
[2024-04-08] MEDS: GABAPENTIN 100 MG CAP PO SCH (08:08)
[2024-04-08] MEDS: SPIRONOLACTONE 25 MG TAB PO SCH (08:09)
[2024-04-08] MEDS: NYSTATIN CR 15 GM TUBE EXT SCH (08:09)
[2024-04-08] MEDS: NYSTATIN POWDER 15GM BTL EXT SCH (08:09)
--- NOTE | 2024-04-08 08:53 | Electrocardiogram Report ---
Test Reason : Blood Pressure : */* mmHG Vent. Rate : 134 BPM Atrial Rate : * BPM P-R Int : * ms QRS Dur : 130 ms QT Int : 368 ms P-R-T Axes : * -78 125 degrees QTcB Int : 549 ms Atrial fibrillation with rapid ventricular response Left axis deviation Right bundle branch block Inferior infarct (cited on or before 17-Jun-2019) Anterolateral infarct (cited on or before 17-Jan-2021) Abnormal ECG When compared with ECG of 22-Dec-2022 17:44, Vent. rate has increased by 57 bpm T wave inversion more evident in Lateral leads Confirmed by Luisito Comer ([id number]) on 04/08/2024 8:52:46 AM Referred By: REFERRED SELF Confirmed By: Luisito Comer
--- NOTE | 2024-04-08 08:54 | Electrocardiogram Report ---
Test Reason : Blood Pressure : */* mmHG Vent. Rate : 109 BPM Atrial Rate : * BPM P-R Int : * ms QRS Dur : 130 ms QT Int : 364 ms P-R-T Axes : * -84 122 degrees QTcB Int : 490 ms Atrial fibrillation with rapid ventricular response with premature ventricular or aberrantly conducte d complexes Left axis deviation Right bundle branch block Inferior infarct (cited on or before 17-Jun-2019) Anterolateral infarct (cited on or before 17-Jan-2021) Abnormal ECG When compared with ECG of 22-Dec-2022 17:44, No significant change was found Confirmed by Luisito Comer ([id number]) on 04/08/2024 8:53:52 AM Referred By: REFERRED SELF Confirmed By: Luisito Comer
[2024-04-08] MEDS: LACTATED RINGER'S 1,000 ML IV SCH (10:45)
[2024-04-08] MEDS: SODIUM CHLORIDE 0.9% 1,000 ML IV SCH (10:53)
[2024-04-08] MEDS: METOPROLOL TARTRATE 25 MG TAB PO STA (10:59)
[2024-04-08] MEDS: LIDOCAINE 2% JELLY 5 ML TUBE EXT ONE ×2 (12:39→13:09)
--- NOTE | 2024-04-08 13:08 | Hospitalist Progress Note ---
Date of Service April 08, 2024 Assessment & Plan (1) Rhabdomyolysis: Plan: Patient with several falls and unable to get up due to generalized weakness. He has elevated CK level of 3707. Renal function is intact -Continue gentle hydration. Caution as patient with h/o CHF, marked elevation of BNP at 1244 -Repeat CK in AM -UA pending -Monitor renal function -Hold Atorvastatin -Urology consulted for Katz placement (2) Candidiasis: Plan: Patient with diffuse candidiasis on skin folds and in groin -Wound care -Nystatin cream and powder -Dressing to scrotum to avoid further excoriation and abrasion (3) Elevated troponin: Plan: Patient denies chest pain EKG unremarkable Demand ischemia versus due to rhabdomyolysis Trend troponin Check 2D echo (4) Atrial fibrillation with rapid ventricular response: Plan: Chronic. Rapid ventricular response in the ER -Continue Apixaban 5mg po BID -Continue metoprolol Ordered an extra dose of p.o. metoprolol x 1 (5) Elevated LFTs: Plan: CT imaging largely unremarkable -Repeat LFTs -Holding statin (6) Weakness: Plan: Patient unable to get up from the floor. Complains of generalized weakness -PT/OT evaluation -Fall precautions (7) Acute diastolic CHF (congestive heart failure): Plan: Patient with elevation of BNP. Adequate oxygenation on 3L NC -Hold Bumex for now -Continue Spironolactone -Cautious fluid in setting of rhabdo Plan Depression -Continue Escitalopram Admission and Anticipated Discharge Date Admission Date: April 08, 2024 Subjective Patient feels well at this time. Denies shortness of breath. Does not feel like he is fluid overloaded. He is very weak and wishes to go to rehab after this hospital stay. Review of Systems Review of Systems: All systems reviewed & are unremarkable except as noted in Subjective Physical Exam Physical Exam: General: Awake, conversant Heart: S1, S2/regular rate and rhythm, no murmur rubs or gallops Lungs: Clear to auscultation bilaterally. Normal effort Abdomen: Soft/nontender/nondistended. No hepatosplenomegaly Extremities: No clubbing/cyanosis. No edema Behavior: Appropriate, cooperative Results & Data Results & Data Vital Signs (Past 12 Hours) Vital Signs Temp Pulse Pulse Resp BP BP BP 04/08/24 10:57 37.3 C 78 22 98/66 L 04/08/24 08:00 107 H 04/08/24 08:00 04/08/24 07:55 37.1 C 106 H 20 99/75 L 04/08/24 06:18 36.8 C 106 H 18 98/79 L 04/08/24 06:16 04/08/24 05:43 37.0 C 04/08/24 05:39 112 H 22 95/70 L 04/08/24 05:15 98 H 24 116/85 04/08/24 04:48 112 H 24 102/78 04/08/24 04:33 110 H 22 95/75 L 04/08/24 04:01 112 H 22 114/74 04/08/24 03:54 119 H 22 100/67 04/08/24 03:42 116 H 24 87/70 L 04/08/24 03:33 117 H 106/74 04/08/24 03:30 104 H 20 106/74 04/08/24 03:15 106/73 04/08/24 03:15 100 H 22 106/73 04/08/24 03:02 126 H 105/73 04/08/24 02:51 106 H 34 H 103/75 04/08/24 02:45 107 H 26 H 112/83 04/08/24 02:40 130 H 122/74 04/08/24 02:28 119 H 24 113/80 04/08/24 02:15 138 H 24 171/146 H 04/08/24 01:54 125 H 24 105/84 04/08/24 01:48 108 H 98/58 L 04/08/24 01:30 123 H 18 98/58 L 04/08/24 01:25 140 H 106/76 04/08/24 01:18 142 H 29 H 106/76 04/08/24 01:17 36.9 C 133 H 26 H 108/80 04/08/24 01:17 120 H 20 04/08/24 01:17 04/08/24 01:12 142 H Pulse Ox O2 Del Method O2 Flow Rate 04/08/24 10:57 96 Room Air 04/08/24 08:00 04/08/24 08:00 Room Air 04/08/24 07:55 96 Nasal Cannula 2 04/08/24 06:18 98 Nasal Cannula 2 04/08/24 06:16 Nasal Cannula 2 04/08/24 05:43 Nasal Cannula 3 04/08/24 05:39 99 Nasal Cannula 3 04/08/24 05:15 98 Nasal Cannula 3 04/08/24 04:48 99 Nasal Cannula 3 04/08/24 04:33 100 Nasal Cannula 3 04/08/24 04:01 99 Nasal Cannula 3 04/08/24 03:54 93 Nasal Cannula 3 04/08/24 03:42 95 Room Air 3 04/08/24 03:33 04/08/24 03:30 93 Nasal Cannula 3 04/08/24 03:15 04/08/24 03:15 95 Nasal Cannula 3 04/08/24 03:02 04/08/24 02:51 93 Nasal Cannula 3 04/08/24 02:45 96 Nasal Cannula 3 04/08/24 02:40 04/08/24 02:28 93 Nasal Cannula 3 04/08/24 02:15 94 Nasal Cannula 3 04/08/24 01:54 91 Room Air 04/08/24 01:48 04/08/24 01:30 90 Room Air 04/08/24 01:25 04/08/24 01:18 91 Room Air 04/08/24 01:17 92 Room Air 04/08/24 01:17 95 Room Air 04/08/24 01:17 87 L Room Air, Nasal Cannula 04/08/24 01:12 Laboratory Results Abnormal lab results 04/08/24 04/08/24 Range/Units 01:20 03:52 WBC 13.04 H (4.8-10.8) K/ul RDW Std Deviation 51.5 H (36.4-46.3) fL RDW Coeff of Aria 14.9 H (11.5-14.5) % Neut # (Auto) 10.23 H (1.40-6.50) K/uL [place] # (Auto) 1.05 H (0.11-0.59) K/uL Sodium 134 L (136-145) mmol/L Anion Gap 12 H (3-11) BUN 40 H (6-23) mg/dl BUN/Creatinine Ratio 40.0 H (10-20) Glucose 151 H (70-99(Fasting)) mg/dl Total Bilirubin 3.4 H (0.2-1.0) mg/dl AST 130 H (13-39) U/L Alkaline Phosphatase 114 H (34-104) U/L Total Creatine Kinase 3707 H (30-223) U/L Troponin I High Sens 854.4 H* 881.2 H* (0-20) pg/ml B-Natriuretic Peptide 1244 H (0-100) pg/ml Diagnostic Findings Chest X-Ray 04/08/24 01:17 XR chest 1V portable HISTORY: weakness COMPARISON: Chest 12/19/2022. FINDINGS: No pneumothorax. No pleural effusions. The heart remains moderately enlarged. No evidence for pulmonary edema. No new focal lung consolidations to suggest a pneumonia. No acute fractures. IMPRESSION: Stable cardiomegaly. Otherwise, no acute process within the chest. ACT 112: Negative or not required by law. Electronically signed by: Miguel Funk M.D. 04/08/2024 7:48 AM Abdomen/Pelvis CT 04/08/24 02:13 Exam(s): CT ABDOMEN + PELVIS With Contrast IV Amt: 118 M L OPTIRAY 320 EXAM: CT Abdomen and Pelvis With Intravenous Contrast CLINICAL HISTORY: Reason for exam: lower abd pain. TECHNIQUE: Axial computed tomography images of the abdomen and pelvis with intravenous contrast. CTDI is 36.67 mGy and DLP is 1880.69 mGy-cm. Automated exposure control was utilized for the study. A dose lowering technique was utilized adhering to the principles of ALARA. CONTRAST: Patient received 118 M L OPTIRAY 320 of IV contrast COMPARISON: No relevant prior studies available. FINDINGS: Lung bases: Unremarkable. No mass. No consolidation. ABDOMEN: Liver: Unremarkable. No mass. Gallbladder and bile ducts: Unremarkable. No calcified stones. No ductal dilation. Pancreas: Fatty replacement of the pancreas. No ductal dilation. Spleen: Unremarkable. No splenomegaly. Adrenals: Unremarkable. No mass. Kidneys and ureters: Unremarkable. No solid mass. No hydronephrosis. Stomach and bowel: Unremarkable. No obstruction. No mucosal thickening. PELVIS: Appendix: No findings to suggest acute appendicitis. Bladder: Markedly distended urinary bladder. Reproductive: Unremarkable as visualized. ABDOMEN and PELVIS: Intraperitoneal space: Unremarkable. No free air. No significant fluid collection. Bones/joints: Postoperative changes right hip arthroplasty. No acute fracture. No dislocation. Soft tissues: Right axillary soft tissue mass measuring 11 x 7.5 cm incompletely evaluated on this exam. Vasculature: Unremarkable. No abdominal aortic aneurysm. Lymph nodes: Unremarkable. No enlarged lymph nodes. IMPRESSION: Right axillary soft tissue mass measuring 11 cm incompletely evaluated on this exam Markedly distended urinary bladder. Electronically signed by: Nick Bonilla MD 04/08/24 04:39 AM Chest CTA 04/08/24 02:31 Exam(s): CTA CHEST IV Amt: 118 ML OPTIRAY 320 EXAM: CT Angiography Chest With Intravenous Contrast CLINICAL HISTORY: Reason for exam: PE. TECHNIQUE: Axial computed tomographic angiography images of the chest with intravenous contrast. CTDI is 39.24 mGy and DLP is 1129.93 mGy-cm. Automated exposure control was utilized for the study. A dose lowering technique was utilized adhering to the principles of ALARA. MIP reconstructed images were created and reviewed. COMPARISON: No relevant prior studies available. FINDINGS: Limitations: Exam limited secondary to patient motion artifact. Pulmonary arteries: Unremarkable. No large central pulmonary embolism. Aorta: No acute findings. No thoracic aortic aneurysm. Lungs: Unremarkable. No mass. No consolidation. Pleural space: Unremarkable. No significant effusion. No pneumothorax. Heart: Cardiomegaly. Coronary artery calcifications. No significant pericardial effusion. No evidence of RV dysfunction. Bones/joints: No acute fracture. No dislocation. Soft tissues: Unremarkable. Lymph nodes: Unremarkable. No enlarged lymph nodes. IMPRESSION: No acute findings in the visualized arteries of the chest. Exam limited secondary to patient respiratory motion No large central pulmonary embolus Electronically signed by: Nick Bonilla MD 04/08/24 04:42 AM PG Care Time/CCT Total # of Minutes Spent Total Time Spent with Patient: Total time spent is greater than 50% in coordination of care (as documented) at patient's floor/unit and/or counseling patient: Coding Level of Care Code None Diagnoses Rhabdomyolysis M62.82 Candidiasis B37.9 Elevated troponin R79.89 Atrial fibrillation with rapid ventricular response I48.91 Elevated LFTs R79.89 Weakness R53.1 Acute diastolic CHF (congestive heart failure) I50.31
[2024-04-08 13:44] LABS: Appearance Urine Clear (Clear); Bilirubin Urine 1+ (Negative); Blood Urine Trace (Negative); Cast Urine Automated 0-2 /lpf (0-2); Color Urine Dark Yellow; Epithelial Cell Urine Auto 0-2 /hpf (0-2); Glucose Urine UA Negative (Negative); Ketones Urine Trace (Negative); Leukocyte Esterase Urine Trace (Negative); Nitrite Urine Positive (Negative); Protein Urine 2+ (Negative); Urobilinogen Urine Negative (Negative); WBC Urine Automated 0-5 /hpf (0-5); pH Urine 5.5 (4.5-7.5)
[2024-04-08 13:46] LABS: Bacteria Urine Automated 1+ (None Seen)
[2024-04-08 15:02] LABS: iSTAT Hemoglobin 16.7 g/dl (14.0-18.0); iSTAT Ionized Calcium 1.15 mmol/l (1.12-1.32); iSTAT Potassium 4.6 mmol/L (3.3-5.0)
--- NOTE | 2024-04-08 15:18 | Urology Consultation ---
Date of Consultation April 08, 2024 Assessment & Plan (1) Urinary retention: (2) Candidiasis: (3) Acquired buried penis: Plan 68yo male admitted to medicine service with rhabdomyolysis, diffuse candidiasis on skin folds/groin, elevated troponin, and A-fib RVR. Urology consulted for urinary retention. He is afebrile, mildly hypotensive, tachycardic. Labs show a white count of 13 and normal renal function. Urine culture pending. CT A/P reviewed and shows a markedly distended bladder, no hydronephrosis. Patient also endorsed difficulty with urination. Nursing attempted catheterization x 2 which was unsuccessful. Using sterile technique, an 18Fr silicone catheter was placed at bedside by Dr. John with immediate drainage of >1500ml of dark yellow urine. Pt tolerated procedure well. Would recommend maintaining Katz catheter for maximum decompression. This will also hopefully allow time for healing given the irritation/excoriation to the scrotum. Consider antibiotic coverage given the difficult catheter placement today while awaiting urine culture results. Continue to monitor urine output and labs. Continue wound care to groin folds/scrotum. Keep area clean/dry. Wound care nurse consulted. Discussed with hospital team. Urology will follow. Attending note: Patient independently assessed, examined, interviewed, and evaluated. A complicated catheter placement was completed by myself with assistance by Courtney Stout. Patient with significant buried penis morbid obesity and severe excoriation and rash throughout the groin area. Patient had gone to many hours without voiding. Has complex history. Has been dealing with major voiding issues for a while with severe exacerbation secondary to acute illness Agree with note as above. Patient's vitals and labs were all reviewed. Pertinent values in the HPI and plan section. Imaging was reviewed interpreted by myself. Severe distention of the bladder with distention of the abdomen. Agree with read. Vitals were reviewed. Discussed findings extensively with patient and family. Reviewed with nurse practitioner as well as consulting physicians/team. Patient's complicated medical and surgical history was reviewed and summarized above. Patient's surgical, medical, social, and family history were all reviewed with pertinent values as above. Discussed patient's current diagnosis as well as concerns and issues. Reviewed different options moving forward. Discussed potential risks and benefits as well as possible options and concerns. Reviewed potential surgical options and interventions. Discussed different options for procedure including placement of catheter. Patient was agreeable to attempt bedside. Discussed potential issues and concerns related to intervention. Risk and benefits were discussed extensively with patient and any available family. Discussed risks of bleeding infection and injury. Patient was prepped and draped in the sterile fashion. The glans was able to be manipulated. It was not able to be exposed due to severe phimosis. The area was prepped extensively. A lidocaine lido jet Uro-Jet topical anesthetic gel was then injected into the meatus. Patient was positioned into more of a Trendelenburg position which assisted in placement with the severe buried penis and significant ascites and severe excoriation seen throughout the groin. A 20 coud catheter was first attempted and would not pass. A 18 Vincentian silicone catheter was then attempted. The meatus was able to be entered. The meatus was found to be narrowed and was gently dilated and the catheter was then able to be advanced without major issue. Immediately patient had over 1600 cc of urine drained. This is going to be monitored closely by nursing. Did discuss possible need for replacement of electrolytes and monitoring for postobstructive diuresis. Recommend continuous drainage and close monitoring. Patient will likely be monitored moving forward. Patient tolerated the complex catheter placement without major issue. History of Present Illness Attending Physician: Tasha Herr MD History of Present Illness 68yo male with history of atrial fibrillation on Eliquis anticoagulation, HF, and SARIAH who presented to the ED from home after several falls and generalized weakness. He is admitted to medicine service with rhabdomyolysis, diffuse candidiasis on skin folds/groin, elevated troponin, and A-fib RVR. Urology is consulted for urinary retention. Nursing attempted Katz catheter placement x 2 in the ED however this was unsuccessful. His CT abdomen pelvis does note a markedly distended bladder and no hydronephrosis. Patient was seen at bedside today. Awake, resting in bed on arrival. No acute distress. Patient reports difficulty with urination. Has been incontinent. He denies suprapubic pain or pressure. Denies fever, chills, nausea, vomiting. He denies prior urological history. He denies any urinary issues or bother at baseline. Allergies Allergy/AdvReac Type Severity Reaction Status Date / Time No Known Allergies Allergy Verified 02/02/23 14:02 Home Medications Medication Instructions Recorded Confirmed Type coenzyme Q10 100 mg capsule (Co 100 mg PO QAM 06/15/19 02/02/23 History Q-10) multivitamin 1 tab PO QAM 06/15/19 02/02/23 History cholecalciferol (vitamin D3) 50 50 mcg PO QAM 01/17/21 02/02/23 History mcg (2,000 unit) capsule (Vitamin D3) cinnamon bark 500 mg capsule 500 mg PO QAM 01/17/21 02/02/23 History (Cinnamon) diphenhydramine HCl 25 mg capsule 25 mg PO HS PRN Sleep 01/17/21 02/02/23 History (Benadryl) ascorbic acid (vitamin C) 1,000 mg 1 g PO DAILY 03/12/21 02/02/23 History tablet (Vitamin C) glucosamine HCl 500 mg tablet 500 mg PO DAILY 08/15/21 02/02/23 History krill oil 500 mg capsule 500 mg PO DAILY 08/15/21 02/02/23 History magnesium 250 mg tablet 500 mg PO DAILY 08/15/21 02/02/23 History turmeric root extract 500 mg 500 mg PO DAILY 08/15/21 02/02/23 History capsule apixaban 5 mg tablet (Eliquis) 5 mg PO BID 07/03/22 04/08/24 History vitamin B12 0.5 mg-folic acid 1 mg 1 tab PO DAILY 07/03/22 02/02/23 History tablet spironolactone 25 mg tablet 25 mg PO QAM 12/31/22 04/08/24 History acetaminophen 325 mg tablet 650 mg (2 x 325 mg) PO Q4H PRN 01/02/23 02/02/23 Rx pain #30 tabs bumetanide 1 mg tablet 1 mg PO 1700 #30 tabs 01/02/23 04/08/24 Rx bumetanide 1 mg tablet 2 mg (2 x 1 mg) PO QAM #30 tabs 01/02/23 04/08/24 Rx escitalopram oxalate 10 mg tablet 10 mg PO QAM #30 tabs 01/02/23 02/02/23 Rx metoprolol succinate 50 mg 50 mg PO PM #30 tabs 01/02/23 04/08/24 Rx tablet,extended release 24 hr oxycodone 5 mg tablet 5 mg PO PM PRN wrist pain #5 tabs 01/02/23 02/02/23 Rx potassium chloride 20 mEq 20 meq PO BID #60 tabs 01/02/23 02/02/23 Rx tablet,extended release(part/cryst) prednisone 5 mg tablet See Rx Instructions PO .COMPLEX 01/02/23 02/02/23 Rx #36 tabs thiamine HCl (vitamin B1) 100 mg 100 mg PO QAM #30 tabs 01/02/23 02/02/23 Rx tablet atorvastatin 40 mg tablet 40 mg PO DAILY 04/08/24 04/08/24 History escitalopram oxalate 20 mg tablet 20 mg PO DAILY 04/08/24 04/08/24 History gabapentin 100 mg capsule 200 mg PO TID 04/08/24 04/08/24 History pantoprazole 40 mg tablet,delayed 40 mg PO DAILY 04/08/24 04/08/24 History release Patient History Medical History Swelling of lower leg BILAT. REASON FOR FUROSEMIDE (PT STATES SWELLING IS BETTER) Hx of iron deficiency anemia Hx of colonic polyps Anxiety and depression Osteoarthritis GERD (gastroesophageal reflux disease) Hearing deficit Environmental allergies Thrombosis SUPERFICIAL BLOOD CLOT RT LEG Hypertension "BORDERLINE">HAS FOLLOWED WITH DR. VELOZ Surgical History History of cataract surgery right H/O shoulder surgery RT History of total knee replacement LEFT History of total hip arthroplasty RT History of bilateral carpal tunnel release History of esophagogastroduodenoscopy (EGD) History of discectomy LUMBAR DISCECTOMY History of colonoscopy History of herniorrhaphy History of gastric bypass Varicose veins of both lower extremities LASER PROCEDURE Family History Mother Family history of reaction to anesthesia difficulty of waking Dementia Parkinsons disease Father Myocardial infarction Unknown Hypertension Arthritis Other No significant family history Social History Smoking Status: Never smoker Second Hand Exposure: No; Do You Dip or Chew Tobacco: No; Hx Alcohol Use: Yes Alcohol type: beer and wine Hx Substance Use: No Preferred Language: [place] Communication Ability: Effective Communication Tools: Letter Board, Picture Board and Writing Tablet Host Hostess Required: No Beliefs That Will Affect Care: None marital status: Current Living Situation: Alone Current Living Situation Comment: looking into renting apartment in [place]; selling [employer] in [facility] 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 Scrotum is erythematous and excoriated. There is some weeping/drainage. No fluctuance or crepitus. No areas of eschar. Groin folds are red/excoriated. Results & Data Vital Signs (Past 12 Hours) Vital Signs Temp Pulse Pulse Resp BP BP BP 04/08/24 15:00 107 H 04/08/24 10:57 37.3 C 78 22 98/66 L 04/08/24 08:00 107 H 04/08/24 08:00 04/08/24 07:55 37.1 C 106 H 20 99/75 L 04/08/24 06:18 36.8 C 106 H 18 98/79 L 04/08/24 06:16 04/08/24 05:43 37.0 C 04/08/24 05:39 112 H 22 95/70 L 04/08/24 05:15 98 H 24 116/85 04/08/24 04:48 112 H 24 102/78 04/08/24 04:33 110 H 22 95/75 L 04/08/24 04:01 112 H 22 114/74 04/08/24 03:54 119 H 22 100/67 04/08/24 03:42 116 H 24 87/70 L 04/08/24 03:33 117 H 106/74 04/08/24 03:30 104 H 20 106/74 04/08/24 03:15 106/73 04/08/24 03:15 100 H 22 106/73 Pulse Ox O2 Del Method O2 Flow Rate 04/08/24 15:00 04/08/24 10:57 96 Room Air 04/08/24 08:00 04/08/24 08:00 Room Air 04/08/24 07:55 96 Nasal Cannula 2 04/08/24 06:18 98 Nasal Cannula 2 04/08/24 06:16 Nasal Cannula 2 04/08/24 05:43 Nasal Cannula 3 04/08/24 05:39 99 Nasal Cannula 3 04/08/24 05:15 98 Nasal Cannula 3 04/08/24 04:48 99 Nasal Cannula 3 04/08/24 04:33 100 Nasal Cannula 3 04/08/24 04:01 99 Nasal Cannula 3 04/08/24 03:54 93 Nasal Cannula 3 04/08/24 03:42 95 Room Air 3 04/08/24 03:33 04/08/24 03:30 93 Nasal Cannula 3 04/08/24 03:15 04/08/24 03:15 95 Nasal Cannula 3 PG Care Time/CCT Total # of Minutes Spent Total Time Spent with Patient: Total time spent is greater than 50% in coordination of care (as documented) at patient's floor/unit and/or counseling patient: Coding Level of Care Code 63794 INT INP/OBS CARE 3/75MIN Diagnoses Urinary retention R33.9 Candidiasis B37.9 Acquired buried penis N48.83
[2024-04-08] MEDS: cefTRIAXone SODIUM 2,000 MG/50 ML BAG IV SCH (16:04)
--- NOTE | 2024-04-08 18:19 | XCELERA ---
[id number] \\[id number]
[2024-04-08] MEDS: METOPROLOL SUCC 50MG EXT REL TAB PO SCH (21:53)
[2024-04-09 08:00] LABS: Hematocrit (blood only) 37.5 % (42.0-52.0); Hemoglobin 11.9 g/dl (14.0-18.0); Mean Corpuscular Hemoglobin 30.4 pg (25.0-34.0); Mean Corpuscular Hgb Conc 31.7 g/dL (32.0-36.0); Mean Corpuscular Volume 95.7 fL (80.0-100.0); Mean Platelet Volume 10.8 fL (9.4-12.4); Nucleated RBC # (auto) 0.06 K/uL (0.00-0.12); Nucleated RBC % (auto) 0.4 %; Platelet Count 168 K/uL (130-400); RDW Coefficient of Variation 14.7 % (11.5-14.5); RDW Standard Deviation 51.6 fL (36.4-46.3); Red Blood Count 3.92 M/uL (4.70-6.10); White Blood Count 14.71 K/ul (4.8-10.8)
[2024-04-09 08:11] LABS: Albumin Level 3.1 gm/dl (3.4-5.0); BUN Creatinine Ratio 45.5 (10-20); Bilirubin Direct 0.5 mg/dl (0-0.2); Bilirubin,Total 1.2 mg/dl (0.2-1.0); Calcium 7.9 mg/dl (8.6-10.3); Creatinine Clr Calc Pharmacy 126.9 ml/min; Est GFR (African American) 106.6 ml/min; Est GFR (Non-African American) 91.9 ml/min; Potassium 4.1 mmol/L (3.5-5.1); Total Protein 5.7 gm/dl (6.0-8.3)
[2024-04-09] MEDS: ACETAMINOPHEN 325 MG TAB PO PRN (08:51)
--- NOTE | 2024-04-09 10:21 | Urology Progress Note ---
Date of Service April 09, 2024 Assessment & Plan (1) Urinary retention: (2) Acquired buried penis: Plan Urinary retention Currently doing well with a catheter Likely leave catheter in for a few days and have an outpatient voiding trial once his overall condition has improved Okay to discharge home with a catheter in place Please call us if there are further issues during this hospitalization Admission and Anticipated Discharge Date Admission Date: April 08, 2024 Subjective Subjectively doing well this morning He reports that he is tolerating the catheter very well and has no major discomfort I have evaluated his labs He had a drop in hemoglobin which I suspect is a lab correction secondary to his acute changes in terms of fluid, etc. I do not believe this is a blood loss driven drop His electrolytes are all appropriate and his creatinine is 0.7 Results & Data Vital Signs (Past 12 Hours) Vital Signs Temp Pulse Pulse Resp BP Pulse Ox O2 Del Method 04/09/24 08:00 Room Air 04/09/24 08:00 36.9 C 105 H 20 94/73 L 95 Room Air 04/09/24 07:22 101 H 04/09/24 02:14 37.0 C 97 H 20 94/71 L 97 Room Air 04/08/24 22:45 37.0 C 100 H 22 94/63 L Room Air PG Care Time/CCT Total # of Minutes Spent Total Time Spent with Patient: Total time spent is greater than 50% in coordination of care (as documented) at patient's floor/unit and/or counseling patient: Coding Level of Care Code 30264 SUB INP/OBS CARE 1/25MIN Diagnoses Urinary retention R33.9 Acquired buried penis N48.83
--- NOTE | 2024-04-09 13:05 | Hospitalist Progress Note ---
Date of Service April 09, 2024 Assessment & Plan (1) Rhabdomyolysis: Plan: Patient with several falls and unable to get up due to generalized weakness. He has elevated CK level of 3707. Renal function is intact -CK has normalized Discontinue IV fluids Will resume atorvastatin upon discharge (2) Candidiasis: Plan: Patient with diffuse candidiasis on skin folds and in groin -Wound care -Nystatin cream and powder -Dressing to scrotum to avoid further excoriation and abrasion (3) Elevated troponin: Plan: Patient denies chest pain EKG unremarkable Demand ischemia versus due to rhabdomyolysis Troponin trended down Echo unremarkable (4) Atrial fibrillation with rapid ventricular response: Plan: Chronic. Rapid ventricular response in the ER -Continue Apixaban 5mg po BID -Continue metoprolol (5) Elevated LFTs: Plan: CT imaging largely unremarkable -LFTs trending down -Holding statin (6) Weakness: Plan: Patient unable to get up from the floor. Complains of generalized weakness -PT/OT evaluation -Fall precautions (7) Acute diastolic CHF (congestive heart failure): Plan: Patient with elevation of BNP. Adequate oxygenation on 3L NC -Hold Bumex for now -Continue Spironolactone -Cautious fluid in setting of rhabdo (8) Urinary retention: Plan: Urology involved to place Katz catheter Katz placement was difficult Started on IV ceftriaxone Awaiting urine culture results Plan to discharge patient with a Katz catheter in place and urology outpatient visit Plan Depression -Continue Escitalopram Admission and Anticipated Discharge Date Admission Date: April 08, 2024 Subjective Patient feels better overall. Denies chest pain, shortness of breath. Review of Systems Review of Systems: All systems reviewed & are unremarkable except as noted in Subjective Physical Exam Physical Exam: General: Awake, conversant Heart: S1, S2/regular rate and rhythm, no murmur rubs or gallops Lungs: Clear to auscultation bilaterally. Normal effort Abdomen: Soft/nontender/nondistended. No hepatosplenomegaly Extremities: No clubbing/cyanosis. No edema. Katz catheter in place. Behavior: Appropriate, cooperative Results & Data Results & Data Vital Signs (Past 12 Hours) Vital Signs Temp Pulse Pulse Resp BP Pulse Ox O2 Del Method 04/09/24 12:06 36.8 C 99 H 18 98/73 L 95 Room Air 04/09/24 08:00 Room Air 04/09/24 08:00 36.9 C 105 H 20 94/73 L 95 Room Air 04/09/24 07:22 101 H 04/09/24 02:14 37.0 C 97 H 20 94/71 L 97 Room Air Laboratory Results Abnormal lab results 04/08/24 04/08/24 04/08/24 Range/Units 01:24 12:57 14:22 WBC (4.8-10.8) K/ul RBC (4.70-6.10) M/uL Hgb (14.0-18.0) g/dl Hct (42.0-52.0) % MCHC (32.0-36.0) g/dL RDW Std Deviation (36.4-46.3) fL RDW Coeff of Aria (11.5-14.5) % Sodium (136-145) mmol/L POC Total CO2 21 L (24-31) mmol/L POC BUN 37 H (7-18) mg/dl BUN (6-23) mg/dl BUN/Creatinine Ratio (10-20) Glucose (70-99(Fasting)) mg/dl POC Glucose (other) 152 H (70-99) mg/dl Calcium (8.6-10.3) mg/dl Total Bilirubin (0.2-1.0) mg/dl Direct Bilirubin (0-0.2) mg/dl AST (13-39) U/L Total Creatine Kinase (30-223) U/L Troponin I High Sens 560.0 H* D (0-20) pg/ml Total Protein (6.0-8.3) gm/dl Albumin (3.4-5.0) gm/dl Urine Protein 2+ H (Negative) Urine Ketones Trace H (Negative) Urine Blood Trace H (Negative) Urine Nitrite Positive A (Negative) Urine Bilirubin 1+ H (Negative) Ur Leukocyte Esterase Trace H (Negative) Urine RBC (Auto) 3-5 H (0-2) /hpf Urine Bacteria (Auto) 1+ H (None Seen) 04/09/24 Range/Units 07:06 WBC 14.71 H (4.8-10.8) K/ul RBC 3.92 L (4.70-6.10) M/uL Hgb 11.9 L D (14.0-18.0) g/dl Hct 37.5 L (42.0-52.0) % MCHC 31.7 L (32.0-36.0) g/dL RDW Std Deviation 51.6 H (36.4-46.3) fL RDW Coeff of Aria 14.7 H (11.5-14.5) % Sodium 134 L (136-145) mmol/L POC Total CO2 (24-31) mmol/L POC BUN (7-18) mg/dl BUN 35 H (6-23) mg/dl BUN/Creatinine Ratio 45.5 H (10-20) Glucose 112 H (70-99(Fasting)) mg/dl POC Glucose (other) (70-99) mg/dl Calcium 7.9 L (8.6-10.3) mg/dl Total Bilirubin 1.2 H D (0.2-1.0) mg/dl Direct Bilirubin 0.5 H (0-0.2) mg/dl AST 66 H (13-39) U/L Total Creatine Kinase 988 H (30-223) U/L Troponin I High Sens (0-20) pg/ml Total Protein 5.7 L D (6.0-8.3) gm/dl Albumin 3.1 L (3.4-5.0) gm/dl Urine Protein (Negative) Urine Ketones (Negative) Urine Blood (Negative) Urine Nitrite (Negative) Urine Bilirubin (Negative) Ur Leukocyte Esterase (Negative) Urine RBC (Auto) (0-2) /hpf Urine Bacteria (Auto) (None Seen) PG Care Time/CCT Total # of Minutes Spent Total Time Spent with Patient: Total time spent is greater than 50% in coordination of care (as documented) at patient's floor/unit and/or counseling patient: Coding Level of Care Code 87901 SUB INP/OBS CARE 2/35MIN Diagnoses Rhabdomyolysis M62.82 Candidiasis B37.9 Elevated troponin R79.89 Atrial fibrillation with rapid ventricular response I48.91 Elevated LFTs R79.89 Weakness R53.1 Acute diastolic CHF (congestive heart failure) I50.31 Urinary retention R33.9
[2024-04-10] MEDS: TROLAMINE SALICYLATE 10% CRM 255 APPLN/85 GM TUBE EXT PRN (05:13)
--- NOTE | 2024-04-10 12:18 | Hospitalist Progress Note ---
Date of Service April 10, 2024 Assessment & Plan (1) Rhabdomyolysis: Plan: Patient with several falls and unable to get up due to generalized weakness. He has elevated CK level of 3707. Renal function is intact -CK has normalized Discontinued IV fluids Will resume atorvastatin upon discharge (2) Candidiasis: Plan: Patient with diffuse candidiasis on skin folds and in groin -Wound care -Nystatin cream and powder -Dressing to scrotum to avoid further excoriation and abrasion (3) Elevated troponin: Plan: Patient denies chest pain EKG unremarkable Demand ischemia versus due to rhabdomyolysis Troponin trended down Echo unremarkable (4) Atrial fibrillation with rapid ventricular response: Plan: Chronic. Rapid ventricular response in the ER -Continue Apixaban 5mg po BID -Continue metoprolol (5) Elevated LFTs: Plan: CT imaging largely unremarkable -LFTs trended down -Holding statin (6) Weakness: Plan: Patient unable to get up from the floor. Complains of generalized weakness -PT/OT recommends rehab -Fall precautions (7) Acute diastolic CHF (congestive heart failure): Plan: Patient with elevation of BNP. But was not in CHF flare -Bumex was held initially because of rhabdomyolysis Rhabdomyolysis has resolved Fluids have been discontinued Resume Bumex -Continue Spironolactone (8) Urinary retention: Plan: Urology involved to place Katz catheter Katz placement was difficult Started on IV ceftriaxone Awaiting urine culture results Plan to discharge patient with a Katz catheter in place and urology outpatient visit Plan Depression -Continue Escitalopram Admission and Anticipated Discharge Date Admission Date: April 08, 2024 Subjective Patient feels well. Denies chest pain or shortness of breath. Complains of some shoulder pain. Review of Systems Review of Systems: All systems reviewed & are unremarkable except as noted in Subjective Physical Exam Physical Exam: General: Awake, conversant Heart: S1, S2/regular rate and rhythm, no murmur rubs or gallops Lungs: Clear to auscultation bilaterally. Normal effort Abdomen: Soft/nontender/nondistended. No hepatosplenomegaly Extremities: No clubbing/cyanosis. No edema. Katz catheter in place. Behavior: Appropriate, cooperative Results & Data Results & Data Vital Signs (Past 12 Hours) Vital Signs Temp Pulse Pulse Resp BP BP Pulse Ox 04/10/24 11:40 36.7 C 98 H 20 114/61 96 04/10/24 08:00 04/10/24 07:27 36.5 C 89 26 H 96/68 L 96 04/10/24 06:53 90 04/10/24 04:01 36.7 C 95 H 16 97/76 L 97 O2 Del Method 04/10/24 11:40 Room Air 04/10/24 08:00 Room Air 04/10/24 07:27 Room Air 04/10/24 06:53 04/10/24 04:01 Room Air PG Care Time/CCT Total # of Minutes Spent Total Time Spent with Patient: Total time spent is greater than 50% in coordination of care (as documented) at patient's floor/unit and/or counseling patient: Coding Level of Care Code 16110 SUB INP/OBS CARE 2/35MIN Diagnoses Rhabdomyolysis M62.82 Candidiasis B37.9 Elevated troponin R79.89 Atrial fibrillation with rapid ventricular response I48.91 Elevated LFTs R79.89 Weakness R53.1 Acute diastolic CHF (congestive heart failure) I50.31 Urinary retention R33.9
[2024-04-10] MEDS: oxyCODONE HCL IR 5 MG TAB (IMMEDIATE RELEASE) PO STA (12:29)
[2024-04-10] MEDS: BUMETANIDE 1 MG TAB PO SCH (16:39)
[2024-04-11 07:27] LABS: Creatinine Clr Calc Pharmacy 162.1 ml/min; Est GFR (African American) 118.1 ml/min; Est GFR (Non-African American) 101.9 ml/min
[2024-04-11 08:02] LABS: Hematocrit (blood only) 36.5 % (42.0-52.0); Hemoglobin 12.1 g/dl (14.0-18.0); Mean Corpuscular Hemoglobin 31.4 pg (25.0-34.0); Mean Corpuscular Hgb Conc 33.2 g/dL (32.0-36.0); Mean Corpuscular Volume 94.8 fL (80.0-100.0); Mean Platelet Volume 10.6 fL (9.4-12.4); Nucleated RBC # (auto) 0.03 K/uL (0.00-0.12); Nucleated RBC % (auto) 0.3 %; Platelet Count 162 K/uL (130-400); RDW Coefficient of Variation 14.8 % (11.5-14.5); RDW Standard Deviation 49.8 fL (36.4-46.3); Red Blood Count 3.85 M/uL (4.70-6.10); White Blood Count 10.56 K/ul (4.8-10.8)
[2024-04-11] MEDS: ONDANSETRON INJ 2 MG/ML 2 ML VIAL IV PRN (10:00)
[2024-04-11] MEDS: BUMETANIDE 1 MG TAB PO SCH (10:28)
--- NOTE | 2024-04-11 15:32 | CT Scan Report ---
CT OF THE ABDOMEN AND PELVIS WITHOUT CONTRAST CLINICAL HISTORY: hypotension, recent fall, bruise on R flank, on AC COMPARISON STUDY: CT of the abdomen and pelvis April 08, 2024. TECHNIQUE: Axial images of the abdomen and pelvis were obtained without IV contrast. Images were revi ewed in the axial, sagittal, and coronal planes. Automated exposure control was utilized for the daryl dy. A dose lowering technique was utilized adhering to the principles of ALARA. FINDINGS: Subpleural opacities within the lower lungs represent atelectasis. There are several healin g right-sided rib fractures. Left-sided gynecomastia is noted. There is a partially imaged intramuscu lar hematoma within the right latissimus dorsi which measures approximately 10 cm. The superior aspec t of the hematoma is not imaged on this examination. Visualized portions appear similar to CT of [facility] 2023. Adjacent stranding within the adjacent portion of the chest wall suggests a small amou nt of associated hemorrhage. No additional hematomas are identified. No pneumatosis, free air or port al venous gas is present. There are gallstones within the gallbladder. Nodularity of the liver contou r is noted. This favors cirrhosis. Unenhanced images of the spleen, adrenal glands, kidneys and pancr eas are unremarkable. No hepatic lesions are identified although sensitivity is diminished on this un enhanced exam. The liver is enlarged. Chest Markus-en-Y gastric bypass. No evidence for a bowel obstruc tion. Katz balloon within the bladder is present. Right hip arthroplasty is intact. No acute fractur es within the visualized skeletal structures. IMPRESSION: 1. Partially visualized acute intramuscular hematoma within the right latissimus dorsi which measures at least 10 cm in size. Stranding within the adjacent chest wall suggests associated hemorrhage. Vis ualized portions appear similar to CT of April 08, 2024. Findings discussed with Dr. Herr at erik e of dictation. 2. No acute process within the abdomen or pelvis on unenhanced exam. 3. Suspected cirrhosis. Hepatomegaly. 4. Cholelithiasis. ACT 112: Negative or not required by law. Electronically signed by: Glen Carballo M.D. 04/11/2024 3:31 PM
--- NOTE | 2024-04-11 16:15 | Hospitalist Progress Note ---
Date of Service April 11, 2024 Assessment & Plan (1) Rhabdomyolysis: Plan: Patient with several falls and unable to get up due to generalized weakness. He has elevated CK level of 3707. Renal function is intact -CK has normalized Discontinued IV fluids Will resume atorvastatin upon discharge (2) Intramuscular hematoma: Plan: Patient has had several falls at home CT abdomen/pelvis on 04/08 reports a right axillary mass Eliquis was not discontinued as we were not aware of a hematoma Because of low blood pressures today and a newly found bruise in the right flank, CT abdomen pelvis was repeated without contrast that showed an intramuscular hematoma of the right latissimus dorsi. Retrospectively, the right axillary mass seen on CT abdomen pelvis 04/08 was also likely a hematoma. Discontinued Eliquis Check H&H Q8 Hold Bumex and spironolactone Blood pressure stable now (3) Candidiasis: Plan: Patient with diffuse candidiasis on skin folds and in groin -Wound care -Nystatin cream and powder -Dressing to scrotum to avoid further excoriation and abrasion (4) Elevated troponin: Plan: Patient denies chest pain EKG unremarkable Demand ischemia versus due to rhabdomyolysis Troponin trended down Echo unremarkable (5) Atrial fibrillation with rapid ventricular response: Plan: Chronic. Rapid ventricular response in the ER Heart rate stable now -Hold Eliquis due to intramuscular hematoma -Continue metoprolol with holding parameters (6) Elevated LFTs: Plan: CT imaging largely unremarkable -LFTs trended down -Holding statin (7) Weakness: Plan: Patient unable to get up from the floor. Complains of generalized weakness -PT/OT recommends rehab Spoke to son who is in favor of rehab placement -Fall precautions (8) Acute diastolic CHF (congestive heart failure): Plan: Patient with elevation of BNP. But was not in CHF flare -Bumex was held initially because of rhabdomyolysis Rhabdomyolysis has resolved Fluids have been discontinued Hold Bumex due to low blood pressure from hematoma -Hold spironolactone due to low blood pressure from hematoma (9) Urinary retention: Plan: Urology involved to place Katz catheter Katz placement was difficult Started on IV ceftriaxone Awaiting urine culture results Plan to discharge patient with a Katz catheter in place and urology outpatient visit Plan Depression -Continue Escitalopram Called daughter and left a message. Awaiting callback. Spoke to son who agrees with placement. Updated him about clinical condition in general. Admission and Anticipated Discharge Date Admission Date: April 08, 2024 Subjective This morning, the patient has had issues with hypotension. Nurse had to hold Bumex and Aldactone. Nurse also notified me of a new hematoma in his right flank. CT abdomen and pelvis was done that showed a new intramuscular hematoma in the right latissimus dorsi. Of note, the patient has been on Eliquis. Eliquis was discontinued. Physical Exam Physical Exam: General: Awake, conversant Heart: S1, S2/regular rate and rhythm, no murmur rubs or gallops Lungs: Clear to auscultation bilaterally. Normal effort Abdomen: Soft/nontender/nondistended. No hepatosplenomegaly Extremities: No clubbing/cyanosis. No edema. Katz catheter in place. Behavior: Appropriate, cooperative Results & Data Results & Data Vital Signs (Past 12 Hours) Vital Signs Temp Pulse Resp BP BP Pulse Ox O2 Del Method 04/11/24 14:39 36.7 C 86 20 103/78 94 Room Air 04/11/24 10:45 83 92/65 L 04/11/24 10:10 87 85/64 L 04/11/24 07:52 36.8 C 87 18 93/56 L 96 Room Air PG Care Time/CCT Total # of Minutes Spent Total Time Spent with Patient: Total time spent is greater than 50% in coordination of care (as documented) at patient's floor/unit and/or counseling patient: Coding Level of Care Code 08900 SUB INP/OBS CARE 2/35MIN Diagnoses Rhabdomyolysis M62.82 Intramuscular hematoma T14.8XXA Candidiasis B37.9 Elevated troponin R79.89 Atrial fibrillation with rapid ventricular response I48.91 Elevated LFTs R79.89 Weakness R53.1 Acute diastolic CHF (congestive heart failure) I50.31 Urinary retention R33.9
[2024-04-11 16:28] LABS: Hematocrit (blood only) 35.8 % (42.0-52.0); Hemoglobin 11.8 g/dl (14.0-18.0)
[2024-04-12 01:06] LABS: Hematocrit (blood only) 37.3 % (42.0-52.0); Hemoglobin 12.2 g/dl (14.0-18.0)
[2024-04-12 08:49] LABS: Hemoglobin 12.1 g/dl (14.0-18.0)
[2024-04-12 09:01] LABS: BUN Creatinine Ratio 30.8 (10-20); Calcium 7.8 mg/dl (8.6-10.3); Creatinine Clr Calc Pharmacy 187.5 ml/min; Est GFR (African American) 125.2 ml/min
[2024-04-12] MEDS: DICLOFENAC SOD 1% GEL 100 GM TUBE EXT SCH (10:22)
--- NOTE | 2024-04-12 12:46 | Hospitalist Progress Note ---
Date of Service April 12, 2024 Assessment & Plan (1) Rhabdomyolysis: Plan: Patient with several falls and unable to get up due to generalized weakness. He has elevated CK level of 3707. Renal function is intact -CK has normalized Discontinued IV fluids Will resume atorvastatin upon discharge (2) Intramuscular hematoma: Plan: Patient has had several falls at home CT abdomen/pelvis on 04/08 reports a right axillary mass Eliquis was not discontinued as we were not aware of a hematoma Because of low blood pressures 04/11 and a newly found bruise in the right flank, CT abdomen pelvis was repeated without contrast that showed an intramuscular hematoma of the right latissimus dorsi. Retrospectively, the right axillary mass seen on CT abdomen pelvis 04/08 was also likely a hematoma. Discontinued Eliquis H&H stable Hold Bumex and spironolactone Blood pressure stable now (3) Atrial fibrillation with rapid ventricular response: Plan: Chronic. Rapid ventricular response in the ER Heart rate stable now -Hold Eliquis due to intramuscular hematoma -Continue metoprolol with holding parameters (4) Weakness: Plan: Patient unable to get up from the floor. Complains of generalized weakness -PT/OT recommends rehab Spoke to son who is in favor of rehab placement -Fall precautions (5) Acute diastolic CHF (congestive heart failure): Plan: Patient with elevation of BNP. But was not in CHF flare -Bumex was held initially because of rhabdomyolysis Rhabdomyolysis has resolved Fluids have been discontinued Hold Bumex due to low blood pressure from hematoma -Hold spironolactone due to low blood pressure from hematoma If blood pressure stays stable, will resume Bumex and Aldactone in near future (6) Elevated LFTs: Plan: CT imaging largely unremarkable -LFTs trended down -Holding statin (7) Elevated troponin: Plan: Patient denies chest pain EKG unremarkable Demand ischemia versus due to rhabdomyolysis Troponin trended down Echo unremarkable (8) Candidiasis: Plan: Patient with diffuse candidiasis on skin folds and in groin -Wound care -Nystatin cream and powder -Dressing to scrotum to avoid further excoriation and abrasion (9) Urinary retention: Plan: Urology involved to place Katz catheter Katz placement was difficult Started on IV ceftriaxone Awaiting urine culture results Plan to discharge patient with a Katz catheter in place and urology outpatient visit Plan Depression -Continue Escitalopram Spoke to son 04/11 who agrees with placement. Updated him about clinical condition in general. Will likely be deemed stable for discharge tomorrow 04/13 Admission and Anticipated Discharge Date Admission Date: April 08, 2024 Subjective Patient denies feeling dizzy or lightheaded. No chest pain or shortness of breath. Earlier this morning, his blood pressure was on the low side. Hemoglobin stable. Review of Systems Review of Systems: All systems reviewed & are unremarkable except as noted in Subjective Physical Exam Physical Exam: General: Awake, conversant Heart: S1, S2/regular rate and rhythm, no murmur rubs or gallops Lungs: Clear to auscultation bilaterally. Normal effort Abdomen: Soft/nontender/nondistended. No hepatosplenomegaly Extremities: No clubbing/cyanosis. No edema. Katz catheter in place. Behavior: Appropriate, cooperative Results & Data Results & Data Vital Signs (Past 12 Hours) Vital Signs Temp Pulse Pulse Resp BP BP Pulse Ox 04/12/24 11:07 36.9 C 70 18 111/72 97 04/12/24 08:26 87 100/68 04/12/24 07:27 36.3 C L 84 18 84/58 L 94 04/12/24 07:08 83 04/12/24 03:35 36.9 C 82 20 102/71 94 O2 Del Method 04/12/24 11:07 Room Air 04/12/24 08:26 04/12/24 07:27 Room Air 04/12/24 07:08 04/12/24 03:35 Room Air Laboratory Results Abnormal lab results 04/11/24 04/12/24 04/12/24 Range/Units 16:14 00:37 08:28 Hgb 11.8 L 12.2 L 12.1 L (14.0-18.0) g/dl Hct 35.8 L 37.3 L 36.0 L (42.0-52.0) % Sodium 131 L (136-145) mmol/L Creatinine 0.52 L (0.6-1.4) mg/dl BUN/Creatinine Ratio 30.8 H (10-20) Glucose 156 H (70-99(Fasting)) mg/dl Calcium 7.8 L (8.6-10.3) mg/dl Diagnostic Findings Abdomen/Pelvis CT 04/11/24 14:44 CT OF THE ABDOMEN AND PELVIS WITHOUT CONTRAST CLINICAL HISTORY: hypotension, recent fall, bruise on R flank, on AC COMPARISON STUDY: CT of the abdomen and pelvis April 08, 2024. TECHNIQUE: Axial images of the abdomen and pelvis were obtained without IV contrast. Images were reviewed in the axial, sagittal, and coronal planes. Automated exposure control was utilized for the study. A dose lowering technique was utilized adhering to the principles of ALARA. FINDINGS: Subpleural opacities within the lower lungs represent atelectasis. There are several healing right-sided rib fractures. Left-sided gynecomastia is noted. There is a partially imaged intramuscular hematoma within the right latissimus dorsi which measures approximately 10 cm. The superior aspect of the hematoma is not imaged on this examination. Visualized portions appear similar to CT of April 08, 2024. Adjacent stranding within the adjacent portion of the chest wall suggests a small amount of associated hemorrhage. No additional hematomas are identified. No pneumatosis, free air or portal venous gas is present. There are gallstones within the gallbladder. Nodularity of the liver contour is noted. This favors cirrhosis. Unenhanced images of the spleen, ad renal glands, kidneys and pancreas are unremarkable. No hepatic lesions are identified although sensitivity is diminished on this unenhanced exam. The liver is enlarged. Chest Markus-en-Y gastric bypass. No evidence for a bowel obstruction. Katz balloon within the bladder is present. Right hip arthroplasty is intact. No acute fractures within the visualized skeletal structures. IMPRESSION: 1. Partially visualized acute intramuscular hematoma within the right latissimus dorsi which measures at least 10 cm in size. Stranding within the adjacent chest wall suggests associated hemorrhage. Visualized portions appear similar to CT of April 08, 2024. Findings discussed with Dr. Herr at time of dictation. 2. No acute process within the abdomen or pelvis on unenhanced exam. 3. Suspected cirrhosis. Hepatomegaly. 4. Cholelithiasis. ACT 112: Negative or not required by law. Electronically signed by: Glen Carballo M.D. 04/11/2024 3:31 PM PG Care Time/CCT Total # of Minutes Spent Total Time Spent with Patient: Total time spent is greater than 50% in coordination of care (as documented) at patient's floor/unit and/or counseling patient: Coding Level of Care Code 05080 SUB INP/OBS CARE 2/35MIN Diagnoses Rhabdomyolysis M62.82 Intramuscular hematoma T14.8XXA Atrial fibrillation with rapid ventricular response I48.91 Weakness R53.1 Acute diastolic CHF (congestive heart failure) I50.31 Elevated LFTs R79.89 Elevated troponin R79.89 Candidiasis B37.9 Urinary retention R33.9
[2024-04-13 06:20] LABS: Hematocrit (blood only) 36.3 % (42.0-52.0); Hemoglobin 12.1 g/dl (14.0-18.0); Mean Corpuscular Hemoglobin 31.3 pg (25.0-34.0); Mean Corpuscular Hgb Conc 33.3 g/dL (32.0-36.0); Mean Corpuscular Volume 93.8 fL (80.0-100.0); Mean Platelet Volume 10.5 fL (9.4-12.4); Platelet Count 160 K/uL (130-400); RDW Coefficient of Variation 14.6 % (11.5-14.5); RDW Standard Deviation 49.5 fL (36.4-46.3); Red Blood Count 3.87 M/uL (4.70-6.10); White Blood Count 8.33 K/ul (4.8-10.8)
--- NOTE | 2024-04-13 12:40 | Hospitalist Progress Note ---
Date of Service April 13, 2024 Assessment & Plan (1) Intramuscular hematoma: Plan: Patient has had several falls at home CT abdomen/pelvis on 04/08 reports a right axillary mass Eliquis was not discontinued as we were not aware of a hematoma Because of low blood pressures 04/11 and a newly found bruise in the right flank, CT abdomen pelvis was repeated without contrast that showed an intramuscular hematoma of the right latissimus dorsi. Retrospectively, the right axillary mass seen on CT abdomen pelvis 04/08 was also likely a hematoma. Discontinued Eliquis H&H stable Hold spironolactone Resume a.m. dose Bumex today Blood pressure stable now. Monitor (2) Acute blood loss anemia: Plan: Due to falls leading to intramuscular hematoma Hemoglobin dropped from 15-12 Associated with hypotension Currently stable Monitor hemoglobin and blood pressure (3) Rhabdomyolysis: Plan: Patient with several falls and unable to get up due to generalized weakness. He has elevated CK level of 3707. Renal function is intact -CK has normalized Discontinued IV fluids Will resume atorvastatin upon discharge (4) Atrial fibrillation with rapid ventricular response: Plan: Chronic. Rapid ventricular response in the ER Heart rate stable now -Hold Eliquis due to intramuscular hematoma -Continue metoprolol with holding parameters (5) Weakness: Plan: Patient unable to get up from the floor. Complains of generalized weakness -PT/OT recommends rehab Spoke to son who is in favor of rehab placement -Fall precautions (6) Acute diastolic CHF (congestive heart failure): Plan: Patient with elevation of BNP. But was not in CHF flare -Bumex was held initially because of rhabdomyolysis Rhabdomyolysis has resolved Fluids have been discontinued Resume a.m. dose of Bumex and monitor blood pressure -Hold spironolactone due to low blood pressure from hematoma If blood pressure stays stable, will resume p.m. dose of Bumex and Aldactone in near future (7) Elevated LFTs: Plan: CT imaging largely unremarkable -LFTs trended down -Holding statin (8) Elevated troponin: Plan: Patient denies chest pain EKG unremarkable Demand ischemia versus due to rhabdomyolysis Troponin trended down Echo unremarkable (9) Candidiasis: Plan: Patient with diffuse candidiasis on skin folds and in groin -Wound care -Nystatin cream and powder -Dressing to scrotum to avoid further excoriation and abrasion (10) Urinary retention: Plan: Urology involved to place Katz catheter Katz placement was difficult Started on IV ceftriaxone Awaiting urine culture results Plan to discharge patient with a Katz catheter in place and urology outpatient visit Plan Depression -Continue Escitalopram Spoke to son 04/11 who agrees with placement. Updated him about clinical condition in general. Will likely be deemed stable for discharge tomorrow 04/14 Admission and Anticipated Discharge Date Admission Date: April 08, 2024 Subjective Patient feels well. No chest pain or shortness of breath. No dizziness or lightheadedness. Review of Systems Review of Systems: All systems reviewed & are unremarkable except as noted in Subjective Physical Exam Physical Exam: General: Awake, conversant Heart: S1, S2/regular rate and rhythm, no murmur rubs or gallops Lungs: Clear to auscultation bilaterally. Normal effort Abdomen: Soft/nontender/nondistended. No hepatosplenomegaly Extremities: No clubbing/cyanosis. No edema. Katz catheter in place. Behavior: Appropriate, cooperative Results & Data Results & Data Vital Signs (Past 12 Hours) Vital Signs Temp Pulse Pulse Resp BP BP Pulse Ox 04/13/24 11:00 36.4 C L 82 18 103/73 94 04/13/24 10:52 72 04/13/24 09:20 04/13/24 07:00 36.3 C L 78 16 117/78 96 04/13/24 03:23 36.8 C 77 22 124/88 94 O2 Del Method 04/13/24 11:00 Room Air 04/13/24 10:52 04/13/24 09:20 Room Air 04/13/24 07:00 Room Air 04/13/24 03:23 Room Air Laboratory Results Abnormal lab results 04/13/24 Range/Units 05:48 RBC 3.87 L (4.70-6.10) M/uL Hgb 12.1 L (14.0-18.0) g/dl Hct 36.3 L (42.0-52.0) % RDW Std Deviation 49.5 H (36.4-46.3) fL RDW Coeff of Aria 14.6 H (11.5-14.5) % PG Care Time/CCT Total # of Minutes Spent Total Time Spent with Patient: Total time spent is greater than 50% in coordination of care (as documented) at patient's floor/unit and/or counseling patient: Coding Level of Care Code 03373 SUB INP/OBS CARE 2/35MIN Diagnoses Intramuscular hematoma T14.8XXA Acute blood loss anemia D62 Rhabdomyolysis M62.82 Atrial fibrillation with rapid ventricular response I48.91 Weakness R53.1 Acute diastolic CHF (congestive heart failure) I50.31 Elevated LFTs R79.89 Elevated troponin R79.89 Candidiasis B37.9 Urinary retention R33.9
[2024-04-14 06:42] LABS: Hematocrit (blood only) 35.4 % (42.0-52.0); Hemoglobin 11.5 g/dl (14.0-18.0); Mean Corpuscular Hemoglobin 30.7 pg (25.0-34.0); Mean Corpuscular Hgb Conc 32.5 g/dL (32.0-36.0); Mean Corpuscular Volume 94.7 fL (80.0-100.0); Mean Platelet Volume 10.6 fL (9.4-12.4); Platelet Count 182 K/uL (130-400); RDW Coefficient of Variation 15.1 % (11.5-14.5); RDW Standard Deviation 51.1 fL (36.4-46.3); Red Blood Count 3.74 M/uL (4.70-6.10); White Blood Count 7.81 K/ul (4.8-10.8)
[2024-04-14 08:12] LABS: Creatinine Clr Calc Pharmacy 193.3 ml/min; Est GFR (African American) 127.3 ml/min; Est GFR (Non-African American) 109.8 ml/min
--- NOTE | 2024-04-14 12:52 | Hospitalist Progress Note ---
Date of Service April 14, 2024 Assessment & Plan (1) Intramuscular hematoma: Plan: Patient has had several falls at home CT abdomen/pelvis on 04/08 reports a right axillary mass Eliquis was not discontinued as we were not aware of a hematoma Because of low blood pressures 04/11 and a newly found bruise in the right flank, CT abdomen pelvis was repeated without contrast that showed an intramuscular hematoma of the right latissimus dorsi. Retrospectively, the right axillary mass seen on CT abdomen pelvis 04/08 was also likely a hematoma. Discontinued Eliquis H&H stable Hold spironolactone Resumed a.m. dose Bumex Blood pressure stable now. Monitor (2) Acute blood loss anemia: Plan: Due to falls leading to intramuscular hematoma Hemoglobin dropped from 15-12 Associated with hypotension Currently stable Monitor hemoglobin and blood pressure (3) Rhabdomyolysis: Plan: Patient with several falls and unable to get up due to generalized weakness. He has elevated CK level of 3707. Renal function is intact -CK has normalized Discontinued IV fluids Will resume atorvastatin upon discharge (4) Atrial fibrillation with rapid ventricular response: Plan: Chronic. Rapid ventricular response in the ER Heart rate stable now -Hold Eliquis due to intramuscular hematoma -Continue metoprolol with holding parameters (5) Weakness: Plan: Patient unable to get up from the floor. Complains of generalized weakness -PT/OT recommends rehab Spoke to son who is in favor of rehab placement -Fall precautions (6) Acute diastolic CHF (congestive heart failure): Plan: Patient with elevation of BNP. But was not in CHF flare -Bumex was held initially because of rhabdomyolysis Rhabdomyolysis has resolved Fluids have been discontinued Resume a.m. dose of Bumex and monitor blood pressure -Hold spironolactone due to low blood pressure from hematoma If blood pressure stays stable, will resume p.m. dose of Bumex and Aldactone in near future (7) Elevated LFTs: Plan: CT imaging largely unremarkable -LFTs trended down -Holding statin (8) Elevated troponin: Plan: Patient denies chest pain EKG unremarkable Demand ischemia versus due to rhabdomyolysis Troponin trended down Echo unremarkable (9) Candidiasis: Plan: Patient with diffuse candidiasis on skin folds and in groin -Wound care -Nystatin cream and powder -Dressing to scrotum to avoid further excoriation and abrasion (10) Urinary retention: Plan: Urology involved to place Katz catheter Katz placement was difficult Started on IV ceftriaxone Awaiting urine culture results Plan to discharge patient with a Katz catheter in place and urology outpatient visit Plan Depression -Continue Escitalopram Spoke to son 04/14 in the room to update him about clinical condition. He agrees with rehab placement. Since then, insurance denied acute rehab. 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 She continues to work on placement. Admission and Anticipated Discharge Date Admission Date: April 08, 2024 Subjective Patient feels well overall. Son in the room. Denies chest pain or shortness of breath. Review of Systems Review of Systems: All systems reviewed & are unremarkable except as noted in Subjective Physical Exam Physical Exam: General: Awake, conversant Heart: S1, S2/regular rate and rhythm, no murmur rubs or gallops Lungs: Clear to auscultation bilaterally. Normal effort Abdomen: Soft/nontender/nondistended. No hepatosplenomegaly Extremities: No clubbing/cyanosis. No edema. Katz catheter in place. Behavior: Appropriate, cooperative Results & Data Results & Data Vital Signs (Past 12 Hours) Vital Signs Temp Pulse Pulse Resp BP Pulse Ox O2 Del Method 04/14/24 11:37 36.3 C L 80 18 97/67 L 93 Room Air 04/14/24 08:13 36.3 C L 91 H 18 111/70 94 Room Air 04/14/24 08:00 67 04/14/24 03:24 36.6 C 72 20 117/78 96 Room Air Laboratory Results Abnormal lab results 04/14/24 Range/Units 05:53 RBC 3.74 L (4.70-6.10) M/uL Hgb 11.5 L (14.0-18.0) g/dl Hct 35.4 L (42.0-52.0) % RDW Std Deviation 51.1 H (36.4-46.3) fL RDW Coeff of Aria 15.1 H (11.5-14.5) % Creatinine 0.50 L (0.6-1.4) mg/dl PG Care Time/CCT Total # of Minutes Spent Total Time Spent with Patient: Total time spent is greater than 50% in coordination of care (as documented) at patient's floor/unit and/or counseling patient: Coding Level of Care Code 13062 SUB INP/OBS CARE 2/35MIN Diagnoses Intramuscular hematoma T14.8XXA Acute blood loss anemia D62 Rhabdomyolysis M62.82 Atrial fibrillation with rapid ventricular response I48.91 Weakness R53.1 Acute diastolic CHF (congestive heart failure) I50.31 Elevated LFTs R79.89 Elevated troponin R79.89 Candidiasis B37.9 Urinary retention R33.9
[2024-04-14] MEDS: MELATONIN 3 MG TAB PO PRN (22:59)
[2024-04-15 06:20] LABS: Hematocrit (blood only) 34.7 % (42.0-52.0); Hemoglobin 11.6 g/dl (14.0-18.0); Mean Corpuscular Hemoglobin 31.1 pg (25.0-34.0); Mean Corpuscular Hgb Conc 33.4 g/dL (32.0-36.0); Mean Platelet Volume 10.1 fL (9.4-12.4); Platelet Count 181 K/uL (130-400); RDW Coefficient of Variation 14.6 % (11.5-14.5); RDW Standard Deviation 49.9 fL (36.4-46.3); Red Blood Count 3.73 M/uL (4.70-6.10); White Blood Count 7.11 K/ul (4.8-10.8)
--- NOTE | 2024-04-15 10:37 | Discharge Summary ---
Date of Service April 15, 2024 Admission HPI Per Admitting Provider Mr. Mckeon is a 68yo male with history of atrial fibrillation on Eliquis anticoagulation and HFpEF (last echo 12/20/22 with dilated RV with reduced function), SARIAH not on CPAP presents from home after several falls. Patient reports that he fell several days ago after losing his balance - he denied syncope or head trauma. He was unable to get up so he called EMS who helped him to a chair. He reports that he was then unable to get up from the chair. He fell again yesterday and was unable to get up so he again called EMS. Other than some generalized weakness he denies other complaints. He denies fever, chills, cough, SOB, palpitations, chest pain, abdominal pain, nausea, vomiting or constipation. He does not endorse any worsening edema or orthopnea. He had some diarrhea in the ER. Upon arrival patient in atrial fibrillation with RVR - blood pressure has been borderline low on occasion. ER Course: Metoprolol 5mg IV x 2 doses NSS x 500mL Admission Exam Per Admitting Provider General: patient morbidly obese, poorly kempt, NAD, answering questions appropriately and following commands Skin: moist, erythematous lesions with excoriation beneath breast tissue and within folds of skin and groin, significant excoriation on anterior scrotal sac with some bleeding HEENT: NC/AT, PERRL, EOMI, anicteric sclera, conjunctiva without injection, external ear normal to inspection and nontender, nares patent, moist mucus membranes, dentition intact, no oropharyngeal lesions, neck supple, trachea midline, no LAD, no thyromegaly, no JVD Heart: +S1/S2, irregularly irregular, tachycardic, no m/r/g Lungs: equal air entry bilaterally, no rales/rhonchi/wheezes Abd: +BS, soft, NT/ND, no masses/organomegaly/ascites Ext: warm, 2+ pulses in UE/LE bilaterally, varicosities on BL LE Neuro: nonfocal, patient AA&O x 4, speech intact, no facial droop, moving all extremities on command with equal strength 5/5 Principal Diagnosis Several falls at home leading to rhabdomyolysis Intramuscular hematoma leading to acute blood loss anemia Acute blood loss anemia due to hematoma in the setting of being on Eliquis Generalized weakness leading to falls Diastolic CHF Demand ischemia Urinary retention Discharge Exam General: Awake, conversant Heart: S1, S2/regular rate and rhythm, no murmur rubs or gallops Lungs: Clear to auscultation bilaterally. Normal effort Abdomen: Soft/nontender/nondistended. No hepatosplenomegaly Extremities: No clubbing/cyanosis. No edema. Katz catheter in place. Behavior: Appropriate, cooperative Discharge Data Allergies Allergy/AdvReac Type Severity Reaction Status Date / Time No Known Allergies Allergy Verified 02/02/23 14:02 Consultations 04/08/24 04:52 ED Decision to Admit Stat 04/08/24 05:23 Consult Urology Routine Ordered Studies 04/08/24 02:13 CT Abd and Pelvis [CT abd pelvis IV con only] Stat 04/08/24 02:31 CT angio chest PE protocol Stat 04/11/24 14:44 CT abd pelvis wo con Stat Hospital Course (1) Intramuscular hematoma: Patient has had several falls at home CT abdomen/pelvis on 04/08 reports a right axillary mass Eliquis was not discontinued as we were not aware of a hematoma Because of low blood pressures 04/11 and a newly found bruise in the right flank, CT abdomen pelvis was repeated without contrast that showed an intramuscular hematoma of the right latissimus dorsi. Retrospectively, the right axillary mass seen on CT abdomen pelvis 04/08 was also likely a hematoma. Discontinued Eliquis H&H stable Hold spironolactone Resumed a.m. dose Bumex Blood pressure stable now. Monitor (2) Acute blood loss anemia: Due to falls leading to intramuscular hematoma Hemoglobin dropped from 15-12 Associated with hypotension Currently stable (3) Rhabdomyolysis: Patient with several falls and unable to get up due to generalized weakness. He has elevated CK level of 3707. Renal function is intact -CK has normalized Discontinued IV fluids Will resume atorvastatin upon discharge (4) Atrial fibrillation with rapid ventricular response: Chronic. Rapid ventricular response in the ER Heart rate stable now -Hold Eliquis due to intramuscular hematoma -Continue metoprolol with holding parameters (5) Weakness: Patient unable to get up from the floor. Complains of generalized weakness -PT/OT recommends rehab Spoke to son who is in favor of rehab placement -Fall precautions (6) Acute diastolic CHF (congestive heart failure): Patient with elevation of BNP. But was not in CHF flare -Bumex was held initially because of rhabdomyolysis Rhabdomyolysis has resolved Fluids have been discontinued Resume a.m. dose of Bumex and monitor blood pressure -Hold spironolactone due to low blood pressure from hematoma If blood pressure stays stable, will resume p.m. dose of Bumex and Aldactone in near future (7) Elevated LFTs: CT imaging largely unremarkable -LFTs trended down -Holding statin (8) Elevated troponin: Patient denies chest pain EKG unremarkable Demand ischemia versus due to rhabdomyolysis Troponin trended down Echo unremarkable (9) Candidiasis: Patient with diffuse candidiasis on skin folds and in groin -Wound care -Nystatin cream and powder -Dressing to scrotum to avoid further excoriation and abrasion (10) Urinary retention: Urology involved to place Katz catheter Katz placement was difficult Patient completed a course of IV ceftriaxone. Plan to discharge patient with a Katz catheter in place and urology outpatient visit Plan Depression -Continue Escitalopram Discharge to rehab Total Time Total Time Spent Total Time Spent (In Minutes): 35 Discharge Plan Discharge Items Patient Disposition: Transfer Inpatient Rehab Fac Reason For Visit: WEAKNESS Discharge Diagnosis: Several falls at home leading to rhabdomyolysis Intramuscular hematoma leading to acute blood loss anemia Acute blood loss anemia due to hematoma in the setting of being on Eliquis Generalized weakness leading to falls Diastolic CHF Demand ischemia Urinary retention Condition on Discharge: Fair Activity: Resume your previous activity Non-emergency contact: Primary Care Provider Call non-emergency contact if: you have any medication questions and your symptoms worsen Follow-up/Referrals: Boris John DO [Physician] - PCP,NO [Primary Care Provider] - Diet: Heart Healthy Addtl Attending Provider Instructions: Advised to follow-up with PCP in 1 week Advised to follow-up with urology in 1 week Advised to keep the Eliquis on hold until seen by PCP Advised to note that you are being discharged with a Katz catheter in place. You will need to see urology outpatient Advised to continue oral antibiotic to complete the course for UTI treatment Pending Studies at Discharge: No Stand-Alone Forms: My [employer] Skilled Items Patient informed of condition?: Yes DNR: No Discharge Level of Care: Acute rehab Communicable Disease: No Discharge Prognosis: Stable Lines: None Urinary Catheter: Yes Medications and DC Order Prescriptions: Continued vitamin U78-dgoon acid 0.5-1 mg tablet 1 tab PO DAILY magnesium 250 mg tablet 500 mg PO DAILY krill oil 500 mg capsule 500 mg PO DAILY turmeric root extract 500 mg capsule 500 mg PO DAILY glucosamine HCl 500 mg tablet 500 mg PO DAILY Rx Instructions: administer with a meal multivitamin Tablet 1 tab PO QAM coenzyme Q10 [Co Q-10] 100 mg Capsule 100 mg PO QAM diphenhydramine HCl [Benadryl] 25 mg Capsule 25 mg PO HS PRN (Reason: Sleep) cinnamon bark [Cinnamon] 500 mg Capsule 500 mg PO QAM cholecalciferol (vitamin D3) [Vitamin D3] 50 mcg (2,000 unit) Capsule 50 mcg PO QAM ascorbic acid (vitamin C) [Vitamin C] 1,000 mg Tablet 1 g PO DAILY metoprolol succinate 50 mg tablet extended release 24 hr 50 mg PO PM Qty: 30 0RF bumetanide 1 mg Tablet 2 mg PO QAM Qty: 30 0RF thiamine HCl (vitamin B1) 100 mg Tablet 100 mg PO QAM Qty: 30 0RF acetaminophen 325 mg Tablet 650 mg PO Q4H PRN (Reason: pain) Qty: 30 0RF escitalopram oxalate 10 mg Tablet 10 mg PO QAM Qty: 30 0RF oxycodone 5 mg Tablet 5 mg PO PM PRN (Reason: wrist pain) Qty: 5 0RF atorvastatin 40 mg tablet 40 mg PO DAILY pantoprazole 40 mg tablet,delayed release (DR/EC) 40 mg PO DAILY escitalopram oxalate 20 mg tablet 20 mg PO DAILY gabapentin 100 mg capsule 200 mg PO TID Changed potassium chloride 20 mEq Tablet,Er Particles/Crystals 20 meq PO DAILY Qty: 60 0RF Held Eliquis 5 mg tablet 5 mg PO BID Hold Instructions: Resume on 04/28/24. hold until cleared by PCP spironolactone 25 mg tablet 25 mg PO QAM Hold Instructions: Resume on 04/28/24. hold until cleared by PCP bumetanide 1 mg Tablet 1 mg PO 1700 Qty: 30 0RF Hold Instructions: Resume on 04/28/24. hold until cleared by PCP Discontinued prednisone 5 mg tablet See Rx Instructions .ROUTE .COMPLEX Qty: 36 0RF Rx Instructions: prednisone 5 mg: take 8 tablets (40 mg) on Day 1; 7 tablets (35 mg) on Day 2; then decrease by 1 tablet every day until finished Start on 01/03/23 Discharge Orders: Discharge Order (Routine); Ordered 04/15/24 Ordered By: Tasha Herr Admission Data Admit Date/Time: 04/08/24 05:01 Attending Provider: Tasha Herr Admit Provider: Liat Hendricks Primary Care Provider: PCP,NO Other Providers: Boris John; Liat Hendricks; [facility]; [place] Other Interventions: Discharge Summary Assessment (RN) Last Done: 04/15/24 10:10
[2024-04-15 15:18] VITALS: BP 121/72; PULSE 77; RESP 20; TEMP 98; O2SAT 96
== END 2024-04-15 16:10 | DRG 557 ==
LOC: ED 01:08 → SUATTDRO 05:01 → 2E 05:01

== ENCOUNTER 2024-05-01 19:38 | Observation (INO) ==
--- NOTE | 2024-05-01 20:04 | Emergency Department Note ---
Impression & Plan Ambulatory dysfunction ADMIT ED Provider Note HPI: History obtained from patient. The patient is a 68-year-old gentleman with history of atrial fibrillation, on Eliquis, morbid obesity, chronic bilateral lower extremity edema, alcohol use disorder, presents the emergency department with a chief complaint of a mechanical fall today. Patient states that he got up to go to the bathroom in his apartment and he was feeling shaky and then he fell. He states he was on the ground for about 7 hours before a neighbor came to check on him and found him on the ground. Patient was unable to get up under his own power. Patient states he fell on his buttocks, denies any head injury. On arrival here to the ED the patient appears well, he is hemodynamically stable. He ambulates all extremity spontaneously at baseline. Patient is saturating well on room air on arrival. Patient states he feels that he cannot ambulate well at home and he needs to go back to physical therapy, he states he was discharged from [facility] just 2 days ago. ROS: - Per HPI Differential Diagnosis: Intracranial injury to include subdural hematoma, sacral fracture, hip fracture, acute kidney injury/dehydration, amongst other potential pathologies. *Outpatient medications and allergy history reviewed. PE: General: Alert, morbidly obese HEENT: Normocephalic, trachea midline Eyes: Extraocular eye movement is intact, no scleral erythema Pulmonary: Clear to auscultation bilaterally, no wheezing Cardio: Regular rate and irregular rhythm GI: Abdomen is soft to palpation : No suprapubic tenderness MSK: No evidence of trauma or malformation of the extremities, 2-3 + lower extremity edema bilaterally Skin: No evidence of rash Neuro: Alert, no focal deficits Psychiatric: Cooperative INDEPENDENT INTERPRETATIONS: environmental monitoring technician: (As interpreted by myself): - An order was placed for continuous cardiac monitoring - Patient was noted to be in atrial fibrillation with a rate of 95 EKG: (As interpreted by myself): Rate: 107 Rhythm: Atrial fibrillation Intervals: QRS 154 ms, otherwise within normal limits ST changes: No ST elevation Time: 1944 Chest x-ray: (As interpreted by myself): No acute disease Medical Decision Making: IV was established and lab work obtained, patient was placed on ekg monitor. Lab work shows no leukocytosis, hemoglobin is stable at 13.7, platelet count is normal, CMP does not show any evidence of any critical findings. CT imaging of the head shows no evidence of acute intracranial hemorrhage. X-ray imaging of the chest and pelvis per my interpretation does not show any evidence of any obvious fracture. On my assessment here in the ED the patient states that he does not feel comfortable at home secondary to his ambulatory dysfunction. He was just discharged from [facility] 2 days ago. Patient states that he feels that he needs inpatient rehab. [facility] hospitalist service was therefore consulted for admission and the patient was placed for admission in stable condition. Consultants/Discussions held with other healthcare providers: -Hospitalist, Dr. Baird Diagnosis: 1. Mechanical fall, acute 2. Ambulatory dysfunction, acute on chronic 3. Chronic bilateral lower extremity edema 4. Anemia, chronic, stable Disposition: Admission Mathew Winston DO Emergency Medicine Past Med/Surg History Problem List (Updated 05/01/24 @ 23:12 by Mathew Winston DO) Ambulatory dysfunction (Acute) Fall at home Acute blood loss anemia Intramuscular hematoma Acquired buried penis (Chronic) Urinary retention (Acute) Weakness Elevated troponin Candidiasis (Acute) Rhabdomyolysis (Acute) Type 2 myocardial infarction (Acute) Bleeding from varicose veins of right lower extremity (Acute) Left wrist pain Left thigh pain Adjustment disorder with mixed anxiety and depressed mood Alcohol use disorder Acute diastolic CHF (congestive heart failure) Atrial fibrillation with rapid ventricular response (Acute) Shortness of breath (Acute) Cellulitis (Acute) Suicidal ideations (Acute) Ambulatory dysfunction Alcohol abuse Suicidal ideations Elevated LFTs Neuropathy Lower extremity edema Atrial flutter with rapid ventricular response (Acute) SOB (shortness of breath) (Acute) Pedal edema (Acute) Cellulitis (Acute) Atrial flutter Hip arthritis (Chronic 09/01/13) Varicose veins of both legs with edema (Chronic) Cellulitis of right leg (Acute) Left knee DJD Left knee pain (Acute) Superficial thrombophlebitis of right leg (Acute) Encounter for pre-operative examination Hypotension (Acute) GI bleed (Acute) Anemia (Acute) Hypovolemic shock Hyperglycemia DVT prophylaxis Ulcer at site of surgical anastomosis following bypass of stomach Venous stasis ulcer (Acute) Chronic venous insufficiency (Chronic) Lower extremity edema (Chronic) History of colon polyps Acute GI bleeding (Acute) Encounter for pre-operative examination Rectal bleeding Internal hemorrhoids Encounter for pre-operative examination History of gastric ulcer 2019 Obesity Sleep apnea USED CPAP IN PAST (STOPPED USING) Hyperlipidemia "BORDERLINE" Superficial thrombophlebitis (Acute) Medical History Swelling of lower leg Hx of iron deficiency anemia Hx of colonic polyps Anxiety and depression Osteoarthritis GERD (gastroesophageal reflux disease) Hearing deficit Environmental allergies Thrombosis Hypertension Surgical History History of cataract surgery H/O shoulder surgery History of total knee replacement History of total hip arthroplasty History of bilateral carpal tunnel release History of esophagogastroduodenoscopy (EGD) History of discectomy History of colonoscopy History of herniorrhaphy History of gastric bypass Varicose veins of both lower extremities Family History Mother Family history of reaction to anesthesia Dementia Parkinsons disease Father Myocardial infarction Unknown Hypertension Arthritis Other No significant family history Social History Smoking Status: Never smoker Second Hand Exposure: No; Do You Dip or Chew Tobacco: No; Hx Alcohol Use: Yes Alcohol type: beer and wine Hx Substance Use: No Preferred Language: Arabic Communication Ability: Effective Communication Tools: Letter Board, Picture Board and Writing Tablet Hose Mender Required: No Beliefs That Will Affect Care: None marital status: Current Living Situation: Alone Current Living Situation Comment[place] [employer] in town current occupational status: employed 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 Feels Safe at Home: Yes Assistive Devices: CPAP and Walker Allergies Allergies Allergy/AdvReac Type Severity Reaction Status Date / Time No Known Allergies Allergy Verified 05/01/24 21:00 Home Meds Home Medications Medication Instructions Recorded Confirmed coenzyme Q10 100 mg capsule (Co 100 mg PO QAM 06/15/19 05/01/24 Q-10) multivitamin 1 tab PO QAM 06/15/19 05/01/24 cholecalciferol (vitamin D3) 50 50 mcg PO QAM 01/17/21 05/01/24 mcg (2,000 unit) capsule (Vitamin D3) cinnamon bark 500 mg capsule 500 mg PO QAM 01/17/21 05/01/24 (Cinnamon) diphenhydramine HCl 25 mg capsule 25 mg PO HS PRN Sleep 01/17/21 05/01/24 (Benadryl) ascorbic acid (vitamin C) 1,000 mg 1 g PO QAM 03/12/21 05/01/24 tablet (Vitamin C) glucosamine HCl 500 mg tablet 500 mg PO QDL 08/15/21 05/01/24 magnesium 250 mg tablet 500 mg PO QAM 08/15/21 05/01/24 turmeric root extract 500 mg 500 mg PO QAM 08/15/21 05/01/24 capsule apixaban 5 mg tablet (Eliquis) 5 mg PO BID 07/03/22 05/01/24 vitamin B12 0.5 mg-folic acid 1 mg 1 tab PO QAM 07/03/22 05/01/24 tablet spironolactone 25 mg tablet 25 mg PO QAM 12/31/22 05/01/24 atorvastatin 40 mg tablet 40 mg PO QPM 04/08/24 05/01/24 escitalopram oxalate 20 mg tablet 20 mg PO QAM 04/08/24 05/01/24 gabapentin 100 mg capsule 200 mg PO TID 04/08/24 05/01/24 pantoprazole 40 mg tablet,delayed 40 mg PO QAM 04/08/24 05/01/24 release omega 4-[id number]-[id number]-fish oil 1,000 mg 1 cap PO QAM 05/01/24 05/01/24 (120 mg-180 mg) capsule (Fish Oil) potassium chloride 20 mEq 20 meq PO QAM 05/01/24 05/01/24 tablet,extended release(part/cryst) tamsulosin 0.4 mg capsule 0.4 mg PO QPM 05/01/24 05/01/24 Previous Rx's Medication Instructions Recorded acetaminophen 325 mg tablet 650 mg (2 x 325 mg) PO Q4H PRN 01/02/23 pain #30 tabs bumetanide 1 mg tablet 1 mg PO 1700 #30 tabs 01/02/23 bumetanide 1 mg tablet 2 mg (2 x 1 mg) PO QAM #30 tabs 01/02/23 escitalopram oxalate 10 mg tablet 10 mg PO QAM #30 tabs 01/02/23 metoprolol succinate 50 mg 50 mg PO PM #30 tabs 01/02/23 tablet,extended release 24 hr oxycodone 5 mg tablet 5 mg PO PM PRN wrist pain #5 tabs 01/02/23 thiamine HCl (vitamin B1) 100 mg 100 mg PO QAM #30 tabs 01/02/23 tablet Results & Data (ED) Vital Signs Vital Signs - 24 hr 05/01/24 19:44 05/01/24 19:44 05/01/24 19:44 Temperature 37.4 C Temperature Source Oral Pulse Rate 86 96 H Pulse Rate [Apical] Pulse Rhythm Irregular Pulse Rhythm [Apical] Pulse Strength Normal Pulse Strength [Apical] Respiratory Rate 18 18 Respiratory Effort / Characteristics Non-Labored Spontaneous Respiratory Depth Normal Respiratory Pattern Regular Blood Pressure 145/67 H Blood Pressure [Right Arm] Blood Pressure Mean 93 Blood Pressure Mean [Right Arm] Blood Pressure Position Lying Blood Pressure Position [Right Arm] Pulse Oximetry 91 91 91 Oxygen Delivery Method Room Air Room Air Room Air Oxygen Flow Rate Sepsis Recent Fever Within 48 Hours No Sepsis New/Unexplained Change in Mental Status No Sepsis Action Taken by Nursing No Action Required 05/01/24 20:02 05/01/24 20:30 05/01/24 21:31 Temperature Temperature Source Pulse Rate 95 H Pulse Rate [Apical] 93 H 85 Pulse Rhythm Irregular Pulse Rhythm [Apical] Irregular Irregular Pulse Strength Pulse Strength [Apical] Normal Normal Respiratory Rate 18 20 20 Respiratory Effort / Characteristics Non-Labored Spontaneous Non-Labored Spontaneous Respiratory Depth Normal Normal Respiratory Pattern Regular Regular Blood Pressure Blood Pressure [Right Arm] 101/64 115/62 Blood Pressure Mean Blood Pressure Mean [Right Arm] 76 79 Blood Pressure Position Blood Pressure Position [Right Arm] Sitting Sitting Pulse Oximetry 88 L 96 93 Oxygen Delivery Method Room Air Nasal Cannula Nasal Cannula Oxygen Flow Rate 2 2 Sepsis Recent Fever Within 48 Hours Sepsis New/Unexplained Change in Mental Status Sepsis Action Taken by Nursing 05/01/24 22:32 05/01/24 22:37 Temperature Temperature Source Pulse Rate Pulse Rate [Apical] 88 Pulse Rhythm Pulse Rhythm [Apical] Irregular Pulse Strength Pulse Strength [Apical] Normal Respiratory Rate 20 Respiratory Effort / Characteristics Non-Labored Spontaneous Respiratory Depth Normal Respiratory Pattern Regular Blood Pressure Blood Pressure [Right Arm] 105/76 Blood Pressure Mean Blood Pressure Mean [Right Arm] 85 Blood Pressure Position Blood Pressure Position [Right Arm] Sitting Pulse Oximetry 96 Oxygen Delivery Method Nasal Cannula Oxygen Flow Rate 2 Sepsis Recent Fever Within 48 Hours Sepsis New/Unexplained Change in Mental Status Sepsis Action Taken by Nursing Laboratory Data 05/01/24 20:00 05/01/24 20:00 Lab Results 05/01/24 Range/Units 20:00 WBC 4.93 (4.8-10.8) K/ul RBC 4.56 L (4.70-6.10) M/uL Hgb 13.7 L (14.0-18.0) g/dl Hct 43.3 (42.0-52.0) % MCV 95.0 (80.0-100.0) fL MCH 30.0 (25.0-34.0) pg MCHC 31.6 L (32.0-36.0) g/dL RDW Std Deviation 54.1 H (36.4-46.3) fL RDW Coeff of Aria 15.8 H (11.5-14.5) % Plt Count 234 (130-400) K/uL MPV 9.3 L (9.4-12.4) fL Immature Gran % (Auto) 0.4 % Neut % (Auto) 60.8 % Lymph % (Auto) 18.7 % [place] % (Auto) 19.7 % Eos % (Auto) 0.2 % Baso % (Auto) 0.2 % Neut # (Auto) 3.00 (1.40-6.50) K/uL Lymph # (Auto) 0.92 L (1.20-3.40) K/uL [place] # (Auto) 0.97 H (0.11-0.59) K/uL Eos # (Auto) 0.01 (0.00-0.50) K/uL Baso # (Auto) 0.01 (0.00-0.20) K/uL Immature Gran # (Auto) 0.02 (0.01-0.20) K/uL PT 12.9 H (9.0-12.0) Seconds INR 1.2 H (0.9-1.1) Sodium 133 L (136-145) mmol/L Potassium 3.8 (3.5-5.1) mmol/L Chloride 95 L (98-107) mmol/L Carbon Dioxide 30 (21-32) mmol/L Anion Gap 8 (3-11) BUN 17 (6-23) mg/dl Creatinine 0.87 (0.6-1.4) mg/dl Est Cr Clr Drug Dosing Not Reportable Est GFR ( Amer) 101.3 ml/min Est GFR (Non-Af Amer) 87.4 ml/min BUN/Creatinine Ratio 19.5 (10-20) Glucose 122 H (70-99(Fasting)) mg/dl Calcium 8.7 (8.6-10.3) mg/dl Total Bilirubin 1.3 H (0.2-1.0) mg/dl AST 31 (13-39) U/L ALT 14 (7-52) U/L Alkaline Phosphatase 91 (34-104) U/L Total Protein 7.0 (6.0-8.3) gm/dl Albumin 3.9 (3.4-5.0) gm/dl Globulin 3.1 (2.5-4.0) gm/dl Albumin/Globulin Ratio 1.3 (0.9-2) Imaging Data Radiologist's Impression: Head CT 05/01/24 20:02 Exam(s): CT HEAD Without Contrast EXAM: CT Head Without Intravenous Contrast CLINICAL HISTORY: Trauma. TECHNIQUE: Axial computed tomography images of the head/brain without intravenous contrast. CTDI is 47.32 mGy and DLP is 874.17 mGy-cm. Automated exposure control was utilized for the study. A dose lowering technique was utilized adhering to the principles of ALARA. COMPARISON: No relevant prior studies available. FINDINGS: Brain: Mild prominence of the cerebral sulci and sylvian fissures. Minimal periventricular deep white matter hypodense changes. No intracranial hemorrhage. No significant mass effect. Ventricles: Unremarkable. No ventriculomegaly. Bones/joints: Unremarkable. No acute fracture. Soft tissues: No significant overlying acute traumatic soft tissue abnormality. No radiopaque foreign body. Vasculature: Atherosclerotic calcification of the cavernous and supraclinoid internal carotid arteries incidentally noted. Sinuses: Unremarkable as visualized. No acute sinusitis. Mastoid air cells: Unremarkable as visualized. No mastoid effusion. IMPRESSION: No acute intracranial process identified. Electronically signed by: Fly Franklin MD 05/01/24 21:24 PM Discharge Plan Visit Data Chief Complaint: Trauma Stated Complaint: TRAUMA ALERT ED Provider: Mathew Winston Discharge Problem: Ambulatory dysfunction Forms Stand Alone Forms: My [facility] [place] [employer] Prescriptions Prescriptions: No Action vitamin [id number] acid 0.5-1 mg tablet 1 tab PO QAM Eliquis 5 mg tablet 5 mg PO BID Hold Instructions: Resume on 04/28/24. hold until cleared by PCP magnesium 250 mg tablet 500 mg PO QAM turmeric root extract 500 mg capsule 500 mg PO QAM glucosamine HCl 500 mg tablet 500 mg PO QDL Rx Instructions: administer with a meal multivitamin Tablet 1 tab PO QAM coenzyme Q10 [Co Q-10] 100 mg Capsule 100 mg PO QAM diphenhydramine HCl [Benadryl] 25 mg Capsule 25 mg PO HS PRN (Reason: Sleep) cinnamon bark [Cinnamon] 500 mg Capsule 500 mg PO QAM cholecalciferol (vitamin D3) [Vitamin D3] 50 mcg (2,000 unit) Capsule 50 mcg PO QAM ascorbic acid (vitamin C) [Vitamin C] 1,000 mg Tablet 1 g PO QAM spironolactone 25 mg tablet 25 mg PO QAM Hold Instructions: Resume on 04/28/24. hold until cleared by PCP metoprolol succinate 50 mg tablet extended release 24 hr 50 mg PO PM Qty: 30 0RF bumetanide 1 mg Tablet 2 mg PO QAM Qty: 30 0RF bumetanide 1 mg Tablet 1 mg PO 1700 Qty: 30 0RF Hold Instructions: Resume on 04/28/24. hold until cleared by PCP thiamine HCl (vitamin B1) 100 mg Tablet 100 mg PO QAM Qty: 30 0RF acetaminophen 325 mg Tablet 650 mg PO Q4H PRN (Reason: pain) Qty: 30 0RF escitalopram oxalate 10 mg Tablet 10 mg PO QAM Qty: 30 0RF oxycodone 5 mg Tablet 5 mg PO PM PRN (Reason: wrist pain) Qty: 5 0RF atorvastatin 40 mg tablet 40 mg PO QPM pantoprazole 40 mg tablet,delayed release (DR/EC) 40 mg PO QAM escitalopram oxalate 20 mg tablet 20 mg PO QAM gabapentin 100 mg capsule 200 mg PO TID potassium chloride 20 mEq tablet,ER particles/crystals 20 meq PO QAM tamsulosin 0.4 mg capsule 0.4 mg PO QPM omega 1-[id number]-[id number]-fish oil [Fish Oil] 1,000 mg (120 mg-180 mg) Capsule 1 cap PO QAM Referrals Referrals: PCP,NO [Primary Care Provider] -
[2024-05-01 20:12] LABS: Basophils # (auto) 0.01 K/uL (0.00-0.20); Basophils % (auto) 0.2 %; Eosinophils # (auto) 0.01 K/uL (0.00-0.50); Eosinophils % (auto) 0.2 %; Hematocrit (blood only) 43.3 % (42.0-52.0); Hemoglobin 13.7 g/dl (14.0-18.0); Immature Granulocytes # (auto) 0.02 K/uL (0.01-0.20); Immature Granulocytes % (auto) 0.4 %; Lymphocytes # (auto) 0.92 K/uL (1.20-3.40); Lymphocytes % (auto) 18.7 %; Mean Corpuscular Hgb Conc 31.6 g/dL (32.0-36.0); Mean Platelet Volume 9.3 fL (9.4-12.4); Monocytes # (auto) 0.97 K/uL (0.11-0.59); Monocytes % (auto) 19.7 %; Neutrophils % (auto) 60.8 %; Platelet Count 234 K/uL (130-400); RDW Coefficient of Variation 15.8 % (11.5-14.5); RDW Standard Deviation 54.1 fL (36.4-46.3); Red Blood Count 4.56 M/uL (4.70-6.10); White Blood Count 4.93 K/ul (4.8-10.8)
[2024-05-01 20:22] LABS: INR 1.2 (0.9-1.1); Prothrombin Time 12.9 Seconds (9.0-12.0)
[2024-05-01 20:32] LABS: Alanine Aminotransferase 14 U/L (7-52); Albumin Globulin Ratio 1.3 (0.9-2); Albumin Level 3.9 gm/dl (3.4-5.0); Alkaline Phosphatase 91 U/L (34-104); Anion Gap 8 (3-11); Aspartate Aminotransferase 31 U/L (13-39); BUN Creatinine Ratio 19.5 (10-20); Bilirubin,Total 1.3 mg/dl (0.2-1.0); Blood Urea Nitrogen 17 mg/dl (6-23); Calcium 8.7 mg/dl (8.6-10.3); Carbon Dioxide 30 mmol/L (21-32); Chloride 95 mmol/L (98-107); Est GFR (African American) 101.3 ml/min; Est GFR (Non-African American) 87.4 ml/min; Globulin 3.1 gm/dl (2.5-4.0); Glucose 122 mg/dl (70-99(Fasting)); Potassium 3.8 mmol/L (3.5-5.1); Sodium 133 mmol/L (136-145)
--- NOTE | 2024-05-01 21:24 | CT Scan Report ---
Exam(s): CT HEAD Without Contrast EXAM: CT Head Without Intravenous Contrast CLINICAL HISTORY: Trauma. TECHNIQUE: Axial computed tomography images of the head/brain without intravenous contrast. CTDI is 47.32 mGy and DLP is 874.17 mGy-cm. Automated exposure control was utilized for the study. A dose lowering technique was utilized adhering to the principles of ALARA. COMPARISON: No relevant prior studies available. FINDINGS: Brain: Mild prominence of the cerebral sulci and sylvian fissures. Minimal periventricular deep white matter hypodense changes. No intracranial hemorrhage. No significant mass effect. Ventricles: Unremarkable. No ventriculomegaly. Bones/joints: Unremarkable. No acute fracture. Soft tissues: No significant overlying acute traumatic soft tissue abnormality. No radiopaque foreign body. Vasculature: Atherosclerotic calcification of the cavernous and supraclinoid internal carotid arteries incidentally noted. Sinuses: Unremarkable as visualized. No acute sinusitis. Mastoid air cells: Unremarkable as visualized. No mastoid effusion. IMPRESSION: No acute intracranial process identified. Electronically signed by: Fly Franklin MD 05/01/24 21:24 PM
--- NOTE | 2024-05-01 22:03 | History & Physical Report ---
Date of Service May 01, 2024 Assessment & Plan (1) Fall at home: (2) Urinary retention: (3) Atrial fibrillation with rapid ventricular response: (4) Neuropathy: (5) Varicose veins of both legs with edema: Plan Lonnie is a 68M w/ PMH of urinary retention, diastolic CHF, AFib w/ RVR, ambulatory dysfunction, neuropathy, chronic LE edema a/w venous insufficiency, anemia, SARIAH, HLD, and prior gastric bypass who presents with concern for a fall at home. Ambulatory Dysfunction Fall at Home - History of multiple falls at home, likely multifactorial Ambulatory dysfunction, chronic lower extremity edema, venous insufficiency, neuropathy - Recent rehab stay at [facility], discharged 2 days prior - CBC/CMP w/o acute anomaly - No injury from current fall Head CT unremarkable CXR w/ mild pulmonary edema, at patient's baseline Hip XR pending - PT/OT evaluations ordered - CM needed for dispo management Patient intends to move to [place] to live with daughter in late May Chronic Conditions - A Fib: continue Apixaban and Metoprolol - HLD: continue Atorvastatin - CHF/LE edema: continue Bumex, Spironolactone and Metoprolol - GERD: continue Pantoprazole - Urinary Retention: continue Tamsulosin - Neuropathy: continue Gabapentin - SARIAH: CPAP ordered inpatient - Anxiety/Depression: continue Lexapro 30 mg, adjustment recommended outpatinet Code: Full Diet: Heart Healthy IVF: None DVT: Full dose Apixaban Dispo: PT/OT evals - likely rehab, Med-surg History of Present Illness Chief Complaint: Fall at Home Primary Care Provider: NO PCP Lonnie is a 68M w/ PMH of urinary retention, diastolic CHF, AFib w/ RVR, ambulatory dysfunction, neuropathy, chronic LE edema a/w venous insufficiency, anemia, SARIAH, HLD, and prior gastric bypass who presents with concern for a fall at home. Patient was recently admitted to the hospital 04/08-04/15. He has had multiple admissions associated with falls at home. He was recently discharged form [facility] 2 days ago. Patient notes that he was discharged home with a walker that he had been practicing with at rehab, but today, when he attempted to ambulate to the bathroom he fell and was unable to get back up. He notes that he was on the floor for 7 hours prior to a friend coming and finding him. 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 Patient denies subsequent pain or injury from fall and states that he did not hit his head, but rather slid downwards onto his bottom. Patient denies any chest pain and dyspnea is at baseline. He is not experiencing any headaches, lightheadedness or dizziness. Patient continues to urinate and move bowels without issue. He notes he has not been hydrating well at home but continues to eat as normal. Patient notes no changes to his home medications or difficulties obtaining medications. But, he does feel he would benefit from ongoing titration of his mental health medications outpatient. ED Course: None Allergies Allergy/AdvReac Type Severity Reaction Status Date / Time No Known Allergies Allergy Verified 05/01/24 21:00 Home Medications Medication Instructions Recorded Confirmed Type coenzyme Q10 100 mg capsule (Co 100 mg PO QAM 06/15/19 05/01/24 History Q-10) multivitamin 1 tab PO QAM 06/15/19 05/01/24 History cholecalciferol (vitamin D3) 50 50 mcg PO QAM 01/17/21 05/01/24 History mcg (2,000 unit) capsule (Vitamin D3) cinnamon bark 500 mg capsule 500 mg PO QAM 01/17/21 05/01/24 History (Cinnamon) diphenhydramine HCl 25 mg capsule 25 mg PO HS PRN Sleep 01/17/21 05/01/24 History (Benadryl) ascorbic acid (vitamin C) 1,000 mg 1 g PO QAM 03/12/21 05/01/24 History tablet (Vitamin C) glucosamine HCl 500 mg tablet 500 mg PO QDL 08/15/21 05/01/24 History magnesium 250 mg tablet 500 mg PO QAM 08/15/21 05/01/24 History turmeric root extract 500 mg 500 mg PO QAM 08/15/21 05/01/24 History capsule apixaban 5 mg tablet (Eliquis) 5 mg PO BID 07/03/22 05/01/24 History vitamin B12 0.5 mg-folic acid 1 mg 1 tab PO QAM 07/03/22 05/01/24 History tablet spironolactone 25 mg tablet 25 mg PO QAM 12/31/22 05/01/24 History acetaminophen 325 mg tablet 650 mg (2 x 325 mg) PO Q4H PRN 01/02/23 05/01/24 Rx pain #30 tabs bumetanide 1 mg tablet 1 mg PO 1700 #30 tabs 01/02/23 05/01/24 Rx bumetanide 1 mg tablet 2 mg (2 x 1 mg) PO QAM #30 tabs 01/02/23 05/01/24 Rx escitalopram oxalate 10 mg tablet 10 mg PO QAM #30 tabs 01/02/23 05/01/24 Rx metoprolol succinate 50 mg 50 mg PO PM #30 tabs 01/02/23 05/01/24 Rx tablet,extended release 24 hr oxycodone 5 mg tablet 5 mg PO PM PRN wrist pain #5 tabs 01/02/23 05/01/24 Rx thiamine HCl (vitamin B1) 100 mg 100 mg PO QAM #30 tabs 01/02/23 05/01/24 Rx tablet atorvastatin 40 mg tablet 40 mg PO QPM 04/08/24 05/01/24 History escitalopram oxalate 20 mg tablet 20 mg PO QAM 04/08/24 05/01/24 History gabapentin 100 mg capsule 200 mg PO TID 04/08/24 05/01/24 History pantoprazole 40 mg tablet,delayed 40 mg PO QAM 04/08/24 05/01/24 History release omega 1-frf-rvq-fish oil 1,000 mg 1 cap PO QAM 05/01/24 05/01/24 History (120 mg-180 mg) capsule (Fish Oil) potassium chloride 20 mEq 20 meq PO QAM 05/01/24 05/01/24 History tablet,extended release(part/cryst) tamsulosin 0.4 mg capsule 0.4 mg PO QPM 05/01/24 05/01/24 History Past Med/Surg History Problem List (Updated 05/01/24 @ 23:12 by Mathew Winston DO) Ambulatory dysfunction (Acute) Fall at home Acute blood loss anemia Intramuscular hematoma Acquired buried penis (Chronic) Urinary retention (Acute) Weakness Elevated troponin Candidiasis (Acute) Rhabdomyolysis (Acute) Type 2 myocardial infarction (Acute) Bleeding from varicose veins of right lower extremity (Acute) Left wrist pain Left thigh pain Adjustment disorder with mixed anxiety and depressed mood Alcohol use disorder Acute diastolic CHF (congestive heart failure) Atrial fibrillation with rapid ventricular response (Acute) Shortness of breath (Acute) Cellulitis (Acute) Suicidal ideations (Acute) Ambulatory dysfunction Alcohol abuse Suicidal ideations Elevated LFTs Neuropathy Lower extremity edema Atrial flutter with rapid ventricular response (Acute) SOB (shortness of breath) (Acute) Pedal edema (Acute) Cellulitis (Acute) Atrial flutter Hip arthritis (Chronic 09/01/13) Varicose veins of both legs with edema (Chronic) Cellulitis of right leg (Acute) Left knee DJD Left knee pain (Acute) Superficial thrombophlebitis of right leg (Acute) Encounter for pre-operative examination Hypotension (Acute) GI bleed (Acute) Anemia (Acute) Hypovolemic shock Hyperglycemia DVT prophylaxis Ulcer at site of surgical anastomosis following bypass of stomach Venous stasis ulcer (Acute) Chronic venous insufficiency (Chronic) Lower extremity edema (Chronic) History of colon polyps Acute GI bleeding (Acute) Encounter for pre-operative examination Rectal bleeding Internal hemorrhoids Encounter for pre-operative examination History of gastric ulcer 2019 Obesity Sleep apnea USED CPAP IN PAST (STOPPED USING) Hyperlipidemia "BORDERLINE" Superficial thrombophlebitis (Acute) Medical History Swelling of lower leg Hx of iron deficiency anemia Hx of colonic polyps Anxiety and depression Osteoarthritis GERD (gastroesophageal reflux disease) Hearing deficit Environmental allergies Thrombosis Hypertension Surgical History History of cataract surgery H/O shoulder surgery History of total knee replacement History of total hip arthroplasty History of bilateral carpal tunnel release History of esophagogastroduodenoscopy (EGD) History of discectomy History of colonoscopy History of herniorrhaphy History of gastric bypass Varicose veins of both lower extremities Family History Mother Family history of reaction to anesthesia Dementia Parkinsons disease Father Myocardial infarction Unknown Hypertension Arthritis Other No significant family history Social History Smoking Status: Never smoker Second Hand Exposure: No; Do You Dip or Chew Tobacco: No; Hx Alcohol Use: Yes Alcohol type: beer and wine Hx Substance Use: No Preferred Language: Telugu Communication Ability: Effective Communication Tools: Letter Board, Picture Board and Writing Tablet Network Desktop Support Specialist Required: No Beliefs That Will Affect Care: None marital status: Current Living Situation: Alone Current Living Situation Comment: looking into renting apartment [place]; 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 occupational status: employed 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 [employer] Other Information That Helps Us Care for You: No Feels Safe at Home: Yes Safety Concerns: Feels Safe At This Time Assistive Devices: CPAP and Walker Physical Exam Physical Exam: Gen: NAD, alert, interactive HEENT: Supple, no LAD, no thyromegaly, no JVD, dry mucous membranes Resp:Non-labored, wheezing in bilateral lower lobes, no crackles/rales, otherwise CTAB CV:RRR, normal S1/S2, no M/R/G Abd: Soft, distended by adiposity, no TTP, normoactive bowels, no masses Extr: 2+ dp bilaterally, significant bilateral non-pitting lower extremity edema w/ overlying varicosities and venous stasis dermatitis Skin: No rashes lesions or erythema Results & Data Results & Data Vital Signs (Past 12 Hours) Vital Signs Temp Pulse Pulse Resp BP BP Pulse Ox 05/01/24 21:31 85 20 115/62 93 05/01/24 20:30 93 H 20 101/64 96 05/01/24 20:02 95 H 18 88 L 05/01/24 19:44 91 05/01/24 19:44 96 H 18 91 05/01/24 19:44 37.4 C 86 18 145/67 H 91 O2 Del Method O2 Flow Rate 05/01/24 21:31 Nasal Cannula 2 05/01/24 20:30 Nasal Cannula 2 05/01/24 20:02 Room Air 05/01/24 19:44 Room Air 05/01/24 19:44 Room Air 05/01/24 19:44 Room Air Supervising Physician Co-Signing Physician Notes Attending addendum: I have physically seen this patient, have supervised the medical residents activities, and agree with the H&P unless as otherwise noted. Assessment and Plan: Ambulatory dysfunction/status post mechanical ground-level fall at home- Contributing factors including but not limited to: Employed dysfunction, chronic lower extremity edema, venous insufficiency, peripheral neuropathy Most recently admitted to [facility] from 04/08-04/15/2024, and transferred to [facility], where he was discharged to home [address] scan head negative Chest x-ray negative Hip and pelvis x-ray negative Consult PT/OT Patient will likely need to be transferred to [facility] again after assessment and treatment at [facility] Longer-term plans are to move to [place] in late May, where he plans on living with his daughter Atrial fibrillation/hypertension/CHF/chronic lower extremity edema- Continue metoprolol Can continue apixaban, as no history of head trauma Continue Bumex, spironolactone and metoprolol GERD- Continue pantoprazole BPH with LUTS/urinary retention- Continue tamsulosin Resident Activity Tracking Resident Involvement: Resident Care Provided Care Provided: Adult Hospital Medicine
[2024-05-02] MEDS ORDERED: MELATONIN 3 MG TAB PO PRN (00:45)
[2024-05-02] MEDS ORDERED: Patient's ALLERGY Info needs ENTERED ONE (01:00)
[2024-05-02] MEDS: Patient's HEIGHT &/or WEIGHT Needed ONE (02:03)
--- NOTE | 2024-05-02 06:17 | Billing Data ---
Date of Service May 02, 2024 Coding Level of Care Code 35724 INT INP/OBS CARE
--- NOTE | 2024-05-02 06:48 | XRay Report ---
XR chest 1V portable CLINICAL HISTORY: fall TECHNIQUE: Single frontal radiograph of the chest was obtained. Comparison: Comparison is made to chest radiograph 04/08/2024 FINDINGS: No lines and tubes are seen. Cardiomegaly is noted. Exam is limited by patient rotation. Questionable density in the right lower lung. No evidence of pleural effusion or pneumothorax. IMPRESSION: Questionable density in the right lower lung which may represent atelectasis, pneumonia, and/or aspir ation. ACT 112: Negative or not required by law. Electronically signed by: Hira Perez M.D. 05/02/2024 6:47 AM
--- NOTE | 2024-05-02 06:59 | XRay Report ---
XR hip MATTHIEU 2v w pelvis HISTORY: 68 years-old Male fall acute pain of the pelvis and right hip status post fall COMPARISON: CT 04/08/2024 TECHNIQUE: AP view of the pelvis with 2 views of the bilateral hips FINDINGS: Demineralized appearance of the bones. Right hip arthroplasty. Moderate osteoarthritis of the left hi p. No acute fracture, dislocation or avascular necrosis. No evidence of hardware complication. IMPRESSION: No acute fracture or dislocation. ACT 112: Negative or not required by law. The above report was generated using voice recognition software. It may contain grammatical, syntax o r spelling errors. Electronically signed by: Jim Lucio M.D. 05/02/2024 6:58 AM
--- NOTE | 2024-05-02 07:47 | Electrocardiogram Report ---
Test Reason : Blood Pressure : */* mmHG Vent. Rate : 107 BPM Atrial Rate : * BPM P-R Int : * ms QRS Dur : 154 ms QT Int : 358 ms P-R-T Axes : * -85 95 degrees QTcB Int : 477 ms Atrial fibrillation with rapid ventricular response Left axis deviation Right bundle branch block Abnormal left axis deviation Left anterior fascicular block Concordant T wave changes V3-V4 may represent ischemia Abnormal ECG When compared with ECG of 08-Apr-2024 05:50, QRS duration has increased Criteria for Anterior infarct are no longer Present Criteria for Anterolateral infarct are no longer Present Confirmed by Reina Fitzgerald ([id number]) on 05/02/2024 7:47:39 AM Referred By: REFERRED SELF Confirmed By: Reina Fitzgerald
[2024-05-02 08:12] LABS: Hematocrit (blood only) 37.5 % (42.0-52.0); Mean Corpuscular Hemoglobin 30.2 pg (25.0-34.0); Mean Corpuscular Volume 94.2 fL (80.0-100.0); Mean Platelet Volume 9.6 fL (9.4-12.4); Platelet Count 208 K/uL (130-400); RDW Coefficient of Variation 15.8 % (11.5-14.5); RDW Standard Deviation 54.6 fL (36.4-46.3); Red Blood Count 3.98 M/uL (4.70-6.10); White Blood Count 4.15 K/ul (4.8-10.8)
[2024-05-02] MEDS: GABAPENTIN 100 MG CAP PO SCH (08:23)
[2024-05-02] MEDS: SPIRONOLACTONE 25 MG TAB PO SCH (08:24)
[2024-05-02] MEDS: ESCITALOPRAM OXALATE 20 MG TAB PO SCH (08:24)
[2024-05-02] MEDS: ESCITALOPRAM OXALATE 10 MG TAB PO SCH (08:24)
[2024-05-02] MEDS: PANTOprazole 40 MG TAB PO SCH (08:24)
[2024-05-02] MEDS: THIAMINE HCL 100 MG TAB PO SCH (08:24)
[2024-05-02] MEDS: MAGNESIUM OXIDE 400 MG TAB PO SCH (08:24)
[2024-05-02] MEDS: APIXABAN 5 MG TABLET PO SCH (08:24)
[2024-05-02] MEDS: POTASSIUM CHLORIDE CRTAB 20 MEQ TABCR PO SCH (08:28)
[2024-05-02 08:30] LABS: Albumin Globulin Ratio 1.3 (0.9-2); Albumin Level 3.3 gm/dl (3.4-5.0); BUN Creatinine Ratio 25.9 (10-20); Calcium 8.3 mg/dl (8.6-10.3); Creatinine Clr Calc Pharmacy 168.5 ml/min; Est GFR (African American) 119.7 ml/min; Est GFR (Non-African American) 103.3 ml/min; Globulin 2.6 gm/dl (2.5-4.0); Potassium 3.6 mmol/L (3.5-5.1); Total Protein 5.9 gm/dl (6.0-8.3)
[2024-05-02] MEDS ORDERED: NON-FORMULARY MEDICATION (Coenzyme Q10 [Co Q-10] 100 mg Capsule) PO SCH (09:00)
[2024-05-02] MEDS: BUMETANIDE 1 MG TAB PO SCH ×2 (09:52→16:28)
[2024-05-02] MEDS: GLUCOSAMINE SULFATE 500 MG CAP PO SCH (13:00)
[2024-05-02] MEDS: MIDODRINE HCL 2.5 MG TAB PO SCH (13:03)
--- NOTE | 2024-05-02 15:25 | Hospitalist Progress Note ---
Date of Service May 02, 2024 Assessment & Plan (1) Fall at home: Plan: Mechanical. Due to ambulatory dysfunction from generalized weakness. [facility] was just [facility]. OT and PT assessments requested (2) Urinary retention: Plan: Chronic. Stable. Due to prostatism. Continue Flomax (3) Atrial fibrillation with rapid ventricular response: Plan: Chronic atrial fibrillation. Now rate controlled. Continue Eliquis therapy. Heart rate was slightly elevated on admission which has resolved (4) Neuropathy: Plan: Chronic peripheral neuropathy. Stable. Continue current medical management Plan Continue OT and PT while hospitalized. Likely return to [facility] at discharge later this week. Blood pressure support with midodrine. Admission and Anticipated Discharge Date Admission Date: May 01, 2024 Subjective Alert and oriented. His blood pressure runs on the low side but he is asymptomatic. Midodrine has been added. He is on room air. He was just discharged from [facility] 2 days ago and likely will return later this week. OT and PT assessments requested Review of Systems 2 Review of Systems: Constitutionalno fever or chills ENTno blurred vision, no double vision, no epistaxis, no sore throat Respiratoryno cough, no wheezing, no shortness of breath Cardiacno palpitations, no chest pain, no syncope Valery nausea, vomiting, diarrhea, melena, hematochezia GUno urinary retention, no urinary incontinence, no dysuria, no hematuria Musculoskeletalno joint pain, no muscle tenderness Skinno bruising, no rashes, no pruritus Neurogeneralized weakness. Resultant ambulatory dysfunction. No paresthesia. Psychno depression, no anxiety Physical Exam 2 Physical Exam: General-alert and oriented x3, no fever, no chills HEENT-head atraumatic and normocephalic, pupils equal and reactive to light, extraocular muscles intact Neck-no lymphadenopathy or thyromegaly, trachea midline Chest-clear to auscultation. No rales, wheezing or rhonchi Cardiac-regular rate and rhythm, normal S1 and S2 Abdomen-normal bowel sounds, no hepatosplenomegaly Extremities-no cyanosis, clubbing. Chronic mild bilateral lower extremity edema below the knees Neuro-cranial nerves II through XII intact, motor and sensory function within normal limits, strength symmetrical with generalized weakness, no focal deficits Psych-normal affect, normal mood Results & Data Results & Data Vital Signs (Past 12 Hours) Vital Signs Temp Pulse Resp BP BP Pulse Ox O2 Del Method 05/02/24 14:28 37.0 C 90 16 81/55 L 92 Room Air 05/02/24 13:05 88 17 101/66 94 Room Air 05/02/24 09:36 Room Air 05/02/24 08:22 87 19 93/60 L 92 Room Air 05/02/24 07:23 36.7 C 86 16 94/60 L 92 CPAP Laboratory Results 05/02/24 07:47 05/02/24 07:47 PG Care Time/CCT Total # of Minutes Spent Total Time Spent with Patient: Total time spent is greater than 50% in coordination of care (as documented) at patient's floor/unit and/or counseling patient: Coding Level of Care Code 08691 SUB INP/OBS CARE 3/50MIN Diagnoses Fall at home W19.XXXA; Y92.009 Urinary retention R33.9 Atrial fibrillation with rapid ventricular response I48.91 Neuropathy G62.9
[2024-05-02] MEDS: COUGH DROP (SUGAR FREE) LOZ 24 LOZ/1 BOX BUCCAL ONE (16:31)
--- NOTE | 2024-05-02 18:04 | XRay Report ---
XR foot RT min 3V routine CLINICAL HISTORY: Right foot pain. COMPARISON: Right foot radiographs February 19, 2023. FINDINGS: Tarsometatarsal joints are intact. There is an acute oblique mildly displaced fracture wit hin the base and shaft of the right first proximal phalanx with intra-articular extension. There is a n age indeterminate minimally displaced fracture within the distal neck and head of the right fifth p roximal phalanx. Right foot soft tissue swelling is present. There is moderate mid foot osteoarthriti s. No additional fractures are present. IMPRESSION: 1. Acute oblique mildly displaced fracture within the right first proximal phalanx with intra-articul ar extension, as described above. 2. Age indeterminate minimally displaced fracture of the right fifth proximal phalanx. ACT 112: Negative or not required by law. Electronically signed by: Glen Carballo M.D. 05/02/2024 6:02 PM
[2024-05-02] MEDS: TAMSULOSIN HCL 0.4 MG CAP PO SCH (20:04)
[2024-05-02] MEDS: METOPROLOL SUCC 50MG EXT REL TAB PO SCH (20:04)
[2024-05-02] MEDS: ATORVASTATIN 40 MG TAB PO SCH (20:04)
[2024-05-03 06:14] LABS: Basophils # (auto) 0.01 K/uL (0.00-0.20); Basophils % (auto) 0.3 %; Eosinophils # (auto) 0.07 K/uL (0.00-0.50); Eosinophils % (auto) 1.8 %; Hematocrit (blood only) 36.7 % (42.0-52.0); Hemoglobin 12.3 g/dl (14.0-18.0); Immature Granulocytes # (auto) 0.01 K/uL (0.01-0.20); Immature Granulocytes % (auto) 0.3 %; Lymphocytes # (auto) 1.87 K/uL (1.20-3.40); Lymphocytes % (auto) 46.8 %; Mean Corpuscular Hemoglobin 30.6 pg (25.0-34.0); Mean Corpuscular Hgb Conc 33.5 g/dL (32.0-36.0); Mean Corpuscular Volume 91.3 fL (80.0-100.0); Mean Platelet Volume 9.5 fL (9.4-12.4); Monocytes # (auto) 0.73 K/uL (0.11-0.59); Monocytes % (auto) 18.3 %; Neutrophils # (auto) 1.31 K/uL (1.40-6.50); Neutrophils % (auto) 32.5 %; Platelet Count 193 K/uL (130-400); RDW Coefficient of Variation 15.6 % (11.5-14.5); RDW Standard Deviation 52.1 fL (36.4-46.3); Red Blood Count 4.02 M/uL (4.70-6.10)
[2024-05-03 06:32] LABS: BUN Creatinine Ratio 24.6 (10-20); Calcium 8.1 mg/dl (8.6-10.3); Creatinine Clr Calc Pharmacy 160.2 ml/min; Est GFR (African American) 117.3 ml/min; Est GFR (Non-African American) 101.2 ml/min; Potassium 3.4 mmol/L (3.5-5.1)
--- NOTE | 2024-05-03 15:51 | Podiatry Consultation ---
Date of Consultation May 03, 2024 Assessment & Plan (1) Closed fracture of proximal phalanx of right great toe: Encounter type: initial encounter Fracture alignment: nondisplaced Qualified Code(s): S92.414A - Nondisplaced fracture of proximal phalanx of right great toe, initial encounter for closed fracture (2) Fracture of fifth toe, right, closed: Encounter type: initial encounter Qualified Code(s): S92.501A - Displaced unspecified fracture of right lesser toe(s), initial encounter for closed fracture Plan patient was examined and evaluated. We discussed at length the etiology and treatment of these right digital fractures. At this point, they do not require surgical correction for failed to heal the benefit from it in the future. For now, he should ambulate only in the supportive surgical shoe to prevent future trauma and reinjury. He should plan on weightbearing and this only for the next month or 2. We will plan on seeing him in 4 weeks outpatient for further x-rays and hopefully to release him to a more definitive weightbearing status. Until then, he should only ambulate in the shoe and should decrease his activity level overall to encourage ample healing. He can be released back to [place] care for PT and OT which should help decrease his instability and increase his strength over time. Finally, he did discuss that he is likely moving to [place] in the next 4-6 weeks, which is something he should still be able to do without concern. Patient understands and we will follow-up with him once [facility] is [facility] from [facility]. History of Present Illness Reason for Consultation: Right toe fractures Attending Physician: Bennett Landaverde MD History of Present Illness patient seen at bedside. He states that recently he has been feeling weak and has suffered falls that have led specifically to injuries to the foot. He is admitted to the hospital for follow-up of these falls and to consider physical therapy and occupational therapy. We were consulted for examination of the right foot where fractures of the great toe and fifth toes were identified on plain film radiographs. He states that the feet are not specifically painful and while they have been sore they do feel better while ambulating in a surgical shoe that was recently fitted here at the hospital. He states that he is still weak but has been feeling better since admission. He denies any new or worsening signs or symptoms of infection. He also denies any recent medical history change overall. Allergies Allergy/AdvReac Type Severity Reaction Status Date / Time No Known Allergies Allergy Verified 05/01/24 21:00 Home Medications Medication Instructions Recorded Confirmed Type coenzyme Q10 100 mg capsule (Co 100 mg PO QAM 06/15/19 05/01/24 History Q-10) multivitamin 1 tab PO QAM 06/15/19 05/01/24 History cholecalciferol (vitamin D3) 50 50 mcg PO QAM 01/17/21 05/01/24 History mcg (2,000 unit) capsule (Vitamin D3) cinnamon bark 500 mg capsule 500 mg PO QAM 01/17/21 05/01/24 History (Cinnamon) diphenhydramine HCl 25 mg capsule 25 mg PO HS PRN Sleep 01/17/21 05/01/24 History (Benadryl) ascorbic acid (vitamin C) 1,000 mg 1 g PO QAM 03/12/21 05/01/24 History tablet (Vitamin C) glucosamine HCl 500 mg tablet 500 mg PO QDL 08/15/21 05/01/24 History magnesium 250 mg tablet 500 mg PO QAM 08/15/21 05/01/24 History turmeric root extract 500 mg 500 mg PO QAM 08/15/21 05/01/24 History capsule apixaban 5 mg tablet (Eliquis) 5 mg PO BID 07/03/22 05/01/24 History vitamin B12 0.5 mg-folic acid 1 mg 1 tab PO QAM 07/03/22 05/01/24 History tablet spironolactone 25 mg tablet 25 mg PO QAM 12/31/22 05/01/24 History acetaminophen 325 mg tablet 650 mg (2 x 325 mg) PO Q4H PRN 01/02/23 05/01/24 Rx pain #30 tabs bumetanide 1 mg tablet 1 mg PO 1700 #30 tabs 01/02/23 05/01/24 Rx bumetanide 1 mg tablet 2 mg (2 x 1 mg) PO QAM #30 tabs 01/02/23 05/01/24 Rx escitalopram oxalate 10 mg tablet 10 mg PO QAM #30 tabs 01/02/23 05/01/24 Rx metoprolol succinate 50 mg 50 mg PO PM #30 tabs 01/02/23 05/01/24 Rx tablet,extended release 24 hr oxycodone 5 mg tablet 5 mg PO PM PRN wrist pain #5 tabs 01/02/23 05/01/24 Rx thiamine HCl (vitamin B1) 100 mg 100 mg PO QAM #30 tabs 01/02/23 05/01/24 Rx tablet atorvastatin 40 mg tablet 40 mg PO QPM 04/08/24 05/01/24 History escitalopram oxalate 20 mg tablet 20 mg PO QAM 04/08/24 05/01/24 History gabapentin 100 mg capsule 200 mg PO TID 04/08/24 05/01/24 History pantoprazole 40 mg tablet,delayed 40 mg PO QAM 04/08/24 05/01/24 History release omega 3-ihl-jpq-fish oil 1,000 mg 1 cap PO QAM 05/01/24 05/01/24 History (120 mg-180 mg) capsule (Fish Oil) potassium chloride 20 mEq 20 meq PO QAM 05/01/24 05/01/24 History tablet,extended release(part/cryst) tamsulosin 0.4 mg capsule 0.4 mg PO QPM 05/01/24 05/01/24 History Patient History Medical History Swelling of lower leg BILAT. REASON FOR FUROSEMIDE (PT STATES SWELLING IS BETTER) Hx of iron deficiency anemia Hx of colonic polyps Anxiety and depression Osteoarthritis GERD (gastroesophageal reflux disease) Hearing deficit Environmental allergies Thrombosis SUPERFICIAL BLOOD CLOT RT LEG Hypertension "BORDERLINE">HAS FOLLOWED WITH DR. VELOZ Surgical History History of cataract surgery right H/O shoulder surgery RT History of total knee replacement LEFT History of total hip arthroplasty RT History of bilateral carpal tunnel release History of esophagogastroduodenoscopy (EGD) History of discectomy LUMBAR DISCECTOMY History of colonoscopy History of herniorrhaphy History of gastric bypass Varicose veins of both lower extremities LASER PROCEDURE Family History Mother Family history of reaction to anesthesia difficulty of waking Dementia Parkinsons disease Father Myocardial infarction Unknown Hypertension Arthritis Other No significant family history Social History Smoking Status: Never smoker Second Hand Exposure: No; Do You Dip or Chew Tobacco: No; Hx Alcohol Use: Yes Alcohol type: beer and wine Hx Substance Use: No Preferred Language: Tam[place] Communication Ability: Effective Communication Tools: Letter Board, Picture Board and Writing Tablet Graphics Artist Required: No Beliefs That Will Affect Care: None marital status: Current Living Situation: Alone Current Living Situation Comment: looking into renting apartment in [place]; 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 occupational status: employed 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 Feels Safe at Home: Yes Assistive Devices: Cane, CPAP and Walker Review of Systems Review of Systems: All systems reviewed & are unremarkable except as noted in HPI & below Constitutional: + weakness; no fever, no chills and no f atigue Eyes: no problem reported Ear, Nose, Mouth, Throat: no problem reported Respiratory: no problem reported Cardiovascular: no problem reported Gastrointestinal: no nausea, no vomiting and no problem reported Musculoskeletal: no problem reported Integumentary: no problem reported Neurologic: + generalized weakness Psychiatric: no problem reported Physical Exam Physical Exam: lower extremity exam: DP/PT pulses 2/4 bilaterally. CFT brisk to the digits. No open lesions noted. Minimal ecchymosis is appreciated to the lower extremity. Pain on palpation of the right hallux is appreciated with less pain on palpation of the right fifth toe. Pain is noted on range of motion of the toe as well consistent with the level of injury. Protective sensation is intact. No objective muscle weakness noted of the foot and ankle. No erythema. No open wounds appreciated. Radiographs do reveal a fracture of the fifth toe as well as a oblique fracture through the first toe. Hallux fracture is oblique and nondisplaced. No indication for surgical correction at this time. Constitutional: WD/WN, vitals as above + obese Eyes: PERRL, conjunctivae normal, anicteric sclerae ENMT: external ear and nose normal, oropharynx normal Neck: trachea midline, no thyromegaly normal visual inspection Respiratory: normal respiratory effort; no respiratory distress Cardiovascular: Rate/Rhythm: regular rate and regular rhythm Chest (Breasts): Chest: normal inspection of chest Gastrointestinal (Abdomen): Inspection/Auscultation: abdomen normal to inspection Percussion/Palpation: + abdomen tender and abdomen soft Musculoskeletal: no cyanosis or clubbing, extremities motor strength 5/5 Head/Neck/Chest: normocephalic and head atraumatic Extremities: extremities normal to inspection Skin: no rashes, warm and dry Neurologic: awake; no focal motor deficits Psychiatric: A+Ox3, euthymic affect Results & Data Vital Signs (Past 12 Hours) Vital Signs Temp Pulse Resp BP BP Pulse Ox O2 Del Method 05/03/24 14:33 37.0 C 80 16 131/84 93 Room Air 05/03/24 11:50 115/71 05/03/24 07:42 36.7 C 78 16 145/83 H 96 Room Air
--- NOTE | 2024-05-03 16:10 | Hospitalist Progress Note ---
Date of Service May 03, 2024 Assessment & Plan (1) Fall at home: Plan: Mechanical. Due to ambulatory dysfunction from generalized weakness. He was just discharged from [place] care only several days prior to this admission. Continue OT and PT while hospitalized (2) Urinary retention: Plan: Chronic. Stable. Due to prostatism. Continue Flomax (3) Atrial fibrillation with rapid ventricular response: Plan: Chronic atrial fibrillation. Now rate controlled. Continue Eliquis therapy. Heart rate was slightly elevated on admission which has resolved (4) Neuropathy: Plan: Chronic peripheral neuropathy. Stable. Continue current medical management (5) Fracture of fifth toe, right, closed: Plan: Podiatry consultation appreciated. Nonoperative intervention. Walking boot ordered (6) Closed fracture of proximal phalanx of right great toe: Plan: Podiatry consultation appreciated. Nonoperative intervention. Walking boot ordered Plan Continue OT and PT while hospitalized. Hopeful return to [facility] or other SNF facility at discharge, possibly tomorrow, May 04. Admission and Anticipated Discharge Date Admission Date: May 01, 2024 Subjective Alert and oriented. Podiatry consultation noted. Walking boot ordered. Blood pressure much improved with addition of midodrine. Potassium is slightly low at 3.4. Oral potassium replacement increased. Hopefully he can return to [facility] or another SNF facility tomorrow, May 04 Review of Systems 2 Review of Systems: Constitutionalno fever or chills ENTno blurred vision, no double vision, no epistaxis, no sore throat Respiratoryno cough, no wheezing, no shortness of breath Cardiacno palpitations, no chest pain, no syncope Valery nausea, vomiting, diarrhea, melena, hematochezia GUno urinary retention, no urinary incontinence, no dysuria, no hematuria Musculoskeletalright first toe tenderness at the base and right fifth toe tenderness. No muscle tenderness Skinno bruising, no rashes, no pruritus Neurogeneralized weakness. Resultant ambulatory dysfunction. No paresthesia. Psychno depression, no anxiety Physical Exam 2 Physical Exam: General-alert and oriented x3, no fever, no chills HEENT-head atraumatic and normocephalic, pupils equal and reactive to light, extraocular muscles intact Neck-no lymphadenopathy or thyromegaly, trachea midline Chest-clear to auscultation. No rales, wheezing or rhonchi Cardiac-regular rate and rhythm, normal S1 and S2 Abdomen-normal bowel sounds, no hepatosplenomegaly Extremities-no cyanosis, clubbing. Chronic mild bilateral lower extremity edema below the knees Neuro-cranial nerves II through XII intact, motor and sensory function within normal limits, strength symmetrical with generalized weakness, no focal deficits Psych-normal affect, normal mood Results & Data Results & Data Vital Signs (Past 12 Hours) Vital Signs Temp Pulse Resp BP BP Pulse Ox O2 Del Method 05/03/24 14:33 37.0 C 80 16 131/84 93 Room Air 05/03/24 11:50 115/71 05/03/24 07:42 36.7 C 78 16 145/83 H 96 Room Air Laboratory Results 05/03/24 05:52 05/03/24 05:52 PG Care Time/CCT Total # of Minutes Spent Total Time Spent with Patient: Total time spent is greater than 50% in coordination of care (as documented) at patient's floor/unit and/or counseling patient: Coding Level of Care Code 82481 SUB INP/OBS CARE 3/50MIN Diagnoses Fall at home W19.XXXA; Y92.009 Urinary retention R33.9 Atrial fibrillation with rapid ventricular response I48.91 Neuropathy G62.9 Closed fracture of phalanx of right fifth toe, initial encounter S92.501A Encounter type: initial encounter Closed nondisplaced fracture of proximal phalanx of right great toe, initial encounter S92.414A Encounter type: initial encounter Fracture alignment: nondisplaced (5) Fracture of fifth toe, right, closed Encounter type: initial encounter Qualified Code(s): S92.501A - Displaced unspecified fracture of right lesser toe(s), initial encounter for closed fracture (6) Closed fracture of proximal phalanx of right great toe Encounter type: initial encounter Fracture alignment: nondisplaced Qualified Code(s): S92.414A - Nondisplaced fracture of proximal phalanx of right great toe, initial encounter for closed fracture
[2024-05-03] MEDS: ACETAMINOPHEN 325 MG TAB PO PRN (20:09)
[2024-05-03] MEDS: HYDROmorphone INJ 0.5 MG/0.5 ML SYR IV STA (20:10)
[2024-05-03] MEDS: POTASSIUM CHLORIDE CRTAB 20 MEQ TABCR PO SCH (20:11)
[2024-05-04 07:14] LABS: Basophils # (auto) 0.01 K/uL (0.00-0.20); Basophils % (auto) 0.3 %; Eosinophils # (auto) 0.12 K/uL (0.00-0.50); Eosinophils % (auto) 3.1 %; Hematocrit (blood only) 38.7 % (42.0-52.0); Hemoglobin 12.6 g/dl (14.0-18.0); Immature Granulocytes # (auto) 0.02 K/uL (0.01-0.20); Immature Granulocytes % (auto) 0.5 %; Lymphocytes # (auto) 1.71 K/uL (1.20-3.40); Lymphocytes % (auto) 44.2 %; Mean Corpuscular Hemoglobin 30.1 pg (25.0-34.0); Mean Corpuscular Hgb Conc 32.6 g/dL (32.0-36.0); Mean Corpuscular Volume 92.6 fL (80.0-100.0); Mean Platelet Volume 9.6 fL (9.4-12.4); Monocytes # (auto) 0.54 K/uL (0.11-0.59); Neutrophils # (auto) 1.47 K/uL (1.40-6.50); Neutrophils % (auto) 37.9 %; Platelet Count 189 K/uL (130-400); RDW Coefficient of Variation 15.6 % (11.5-14.5); RDW Standard Deviation 52.8 fL (36.4-46.3); Red Blood Count 4.18 M/uL (4.70-6.10); White Blood Count 3.87 K/ul (4.8-10.8)
[2024-05-04 07:40] LABS: Anion Gap 5 (3-11); BUN Creatinine Ratio 22.2 (10-20); Blood Urea Nitrogen 14 mg/dl (6-23); Calcium 8.4 mg/dl (8.6-10.3); Carbon Dioxide 34 mmol/L (21-32); Chloride 98 mmol/L (98-107); Creatinine Clr Calc Pharmacy 155.1 ml/min; Est GFR (African American) 115.7 ml/min; Est GFR (Non-African American) 99.8 ml/min; Glucose 99 mg/dl (70-99(Fasting)); Sodium 137 mmol/L (136-145)
[2024-05-04] MEDS: ONDANSETRON INJ 2 MG/ML 2 ML VIAL IV PRN (13:38)
[2024-05-04] MEDS: oxyCODONE HCL IR 5 MG TAB (IMMEDIATE RELEASE) PO PRN (13:45)
--- NOTE | 2024-05-04 14:44 | Hospitalist Progress Note ---
Date of Service May 04, 2024 Assessment & Plan (1) Fall at home: Plan: Mechanical. Due to ambulatory dysfunction from generalized weakness. [facility] was just [facility] only several days prior to this admission. Continue OT and PT while hospitalized (2) Urinary retention: Plan: Chronic. Stable. Due to prostatism. Continue Flomax (3) Atrial fibrillation with rapid ventricular response: Plan: Chronic atrial fibrillation. Now rate controlled. Continue Eliquis therapy. Heart rate was slightly elevated on admission which has resolved (4) Neuropathy: Plan: Chronic peripheral neuropathy. Stable. Continue current medical management (5) Fracture of fifth toe, right, closed: Plan: Podiatry consultation appreciated. Nonoperative intervention. Walking boot ordered (6) Closed fracture of proximal phalanx of right great toe: Plan: Podiatry consultation appreciated. Nonoperative intervention. Walking boot ordered (7) Skin breakdown: Plan: Involving scrotum. Wound care nurse consultation requested Plan Continue OT and PT while hospitalized. [facility]ful return to [facility] when bed is available. Admission and Anticipated Discharge Date Admission Date: May 01, 2024 Subjective Alert and oriented. Potassium now normalized to 3.7. Blood pressure stable. He has skin breakdown of the scrotum with some bleeding. Wound care nurse consultation requested. Awaiting SNF placement. Podiatry consultation and recommendations noted. Partial weightbearing on the right foot at this time due to fractures of the right first and fifth toes. Nonoperative management recommended Review of Systems 2 Review of Systems: Constitutionalno fever or chills ENTno blurred vision, no double vision, no epistaxis, no sore throat Respiratoryno cough, no wheezing, no shortness of breath Cardiacno palpitations, no chest pain, no syncope Valery nausea, vomiting, diarrhea, melena, hematochezia GUno urinary retention, no urinary incontinence, no dysuria, no hematuria Musculoskeletalright first toe tenderness at the base and right fifth toe tenderness. No muscle tenderness Skinno bruising, no rashes, no pruritus. Skin breakdown noted on scrotum with some mild bleeding Neurogeneralized weakness. Resultant ambulatory dysfunction. No paresthesia. Psychno depression, no anxiety Physical Exam 2 Physical Exam: General-alert and oriented x3, no fever, no chills HEENT-head atraumatic and normocephalic, pupils equal and reactive to light, extraocular muscles intact Neck-no lymphadenopathy or thyromegaly, trachea midline Chest-clear to auscultation. No rales, wheezing or rhonchi Cardiac-regular rate and rhythm, normal S1 and S2 Abdomen-normal bowel sounds, no hepatosplenomegaly Extremities-no cyanosis, clubbing. Chronic mild bilateral lower extremity edema below the knees Neuro-cranial nerves II through XII intact, motor and sensory function within normal limits, strength symmetrical with generalized weakness, no focal deficits Psych-normal affect, normal mood Results & Data Results & Data Vital Signs (Past 12 Hours) Vital Signs Temp Pulse Resp BP Pulse Ox O2 Del Method 05/04/24 07:38 36.7 C 82 16 116/80 98 Room Air Laboratory Results 05/04/24 06:37 05/04/24 07:58 PG Care Time/CCT Total # of Minutes Spent Total Time Spent with Patient: Total time spent is greater than 50% in coordination of care (as documented) at patient's floor/unit and/or counseling patient: Coding Level of Care Code 67786 SUB INP/OBS CARE 2/35MIN Diagnoses Fall at home W19.XXXA; Y92.009 Urinary retention R33.9 Atrial fibrillation with rapid ventricular response I48.91 Neuropathy G62.9 Closed fracture of phalanx of right fifth toe, initial encounter S92.501A Encounter type: initial encounter Closed nondisplaced fracture of proximal phalanx of right great toe, initial encounter S92.414A Encounter type: initial encounter Fracture alignment: nondisplaced Skin breakdown R23.8 (5) Fracture of fifth toe, right, closed Encounter type: initial encounter Qualified Code(s): S92.501A - Displaced unspecified fracture of right lesser toe(s), initial encounter for closed fracture (6) Closed fracture of proximal phalanx of right great toe Encounter type: initial encounter Fracture alignment: nondisplaced Qualified Code(s): S92.414A - Nondisplaced fracture of proximal phalanx of right great toe, initial encounter for closed fracture
[2024-05-04] MEDS: diphenhydrAMINE Capsule 25 MG CAP PO PRN (15:55)
[2024-05-05 05:53] LABS: Eosinophils # (auto) 0.21 K/uL (0.00-0.50); Eosinophils % (auto) 5.1 %; Hematocrit (blood only) 37.9 % (42.0-52.0); Hemoglobin 12.4 g/dl (14.0-18.0); Immature Granulocytes # (auto) 0.02 K/uL (0.01-0.20); Immature Granulocytes % (auto) 0.5 %; Lymphocytes # (auto) 1.56 K/uL (1.20-3.40); Lymphocytes % (auto) 37.7 %; Mean Corpuscular Hemoglobin 30.4 pg (25.0-34.0); Mean Corpuscular Hgb Conc 32.7 g/dL (32.0-36.0); Mean Corpuscular Volume 92.9 fL (80.0-100.0); Mean Platelet Volume 9.7 fL (9.4-12.4); Monocytes % (auto) 12.1 %; Neutrophils # (auto) 1.85 K/uL (1.40-6.50); Neutrophils % (auto) 44.6 %; Platelet Count 177 K/uL (130-400); RDW Coefficient of Variation 15.3 % (11.5-14.5); RDW Standard Deviation 52.6 fL (36.4-46.3); Red Blood Count 4.08 M/uL (4.70-6.10); White Blood Count 4.14 K/ul (4.8-10.8)
[2024-05-05 06:09] LABS: BUN Creatinine Ratio 21.7 (10-20); Calcium 8.5 mg/dl (8.6-10.3); Creatinine Clr Calc Pharmacy 141.6 ml/min; Potassium 4.2 mmol/L (3.5-5.1)
--- NOTE | 2024-05-05 13:10 | Hospitalist Progress Note ---
Date of Service May 05, 2024 Assessment & Plan (1) Fall at home: Plan: Mechanical. Due to ambulatory dysfunction from generalized weakness. [facility] was just [facility] only several days prior to this admission. Continue OT and PT while hospitalized (2) Urinary retention: Plan: Chronic. Stable. Due to prostatism. Continue Flomax (3) Atrial fibrillation with rapid ventricular response: Plan: Chronic atrial fibrillation. Now rate controlled. Continue Eliquis therapy. Heart rate was slightly elevated on admission which has resolved (4) Neuropathy: Plan: Chronic peripheral neuropathy. Stable. Continue current medical management (5) Fracture of fifth toe, right, closed: Plan: Podiatry consultation appreciated. Nonoperative intervention. Walking boot ordered (6) Closed fracture of proximal phalanx of right great toe: Plan: Podiatry consultation appreciated. Nonoperative intervention. Walking boot ordered (7) Skin breakdown: Plan: Involving scrotum. Wound care nurse consultation and recommendations appreciated Plan Continue OT and PT while hospitalized. Hopeful return to [facility] when bed is available. Admission and Anticipated Discharge Date Admission Date: May 01, 2024 Subjective Alert and oriented. Mild hypokalemia has been corrected and potassium decreased from twice daily dosing back to once daily dosing. Wound care nurse is now involved with the scrotal abrasion suffered when he was on the floor for a period of time prior to admission. Review of Systems 2 Review of Systems: Constitutionalno fever or chills ENTno blurred vision, no double vision, no epistaxis, no sore throat Respiratoryno cough, no wheezing, no shortness of breath Cardiacno palpitations, no chest pain, no syncope Valery nausea, vomiting, diarrhea, melena, hematochezia GUno urinary retention, no urinary incontinence, no dysuria, no hematuria Musculoskeletalright first toe tenderness at the base and right fifth toe tenderness. No muscle tenderness Skinno bruising, no rashes, no pruritus. Skin breakdown noted on scrotum without active bleeding Neuro-generalized weakness. Resultant ambulatory dysfunction. No paresthesia. Psychno depression, no anxiety Physical Exam 2 Physical Exam: General-alert and oriented x3, no fever, no chills HEENT-head atraumatic and normocephalic, pupils equal and reactive to light, extraocular muscles intact Neck-no lymphadenopathy or thyromegaly, trachea midline Chest-clear to auscultation. No rales, wheezing or rhonchi Cardiac-regular rate and rhythm, normal S1 and S2 Abdomen-normal bowel sounds, no hepatosplenomegaly Extremities-no cyanosis, clubbing. Chronic mild bilateral lower extremity edema below the knees Neuro-cranial nerves II through XII intact, motor and sensory function within normal limits, strength symmetrical with generalized weakness, no focal deficits Psych-normal affect, normal mood Results & Data Results & Data Vital Signs (Past 12 Hours) Vital Signs Temp Pulse Resp BP BP Pulse Ox O2 Del Method 05/05/24 07:26 36.6 C 72 18 101/65 97 Room Air 05/05/24 06:40 36.7 C 68 20 107/71 96 Room Air Laboratory Results 05/05/24 05:25 05/05/24 05:25 PG Care Time/CCT Total # of Minutes Spent Total Time Spent with Patient: Total time spent is greater than 50% in coordination of care (as documented) at patient's floor/unit and/or counseling patient: Coding Level of Care Code 14719 SUB INP/OBS CARE 2/35MIN Diagnoses Fall at home W19.XXXA; Y92.009 Urinary retention R33.9 Atrial fibrillation with rapid ventricular response I48.91 Neuropathy G62.9 Closed fracture of phalanx of right fifth toe, initial encounter S92.501A Encounter type: initial encounter Closed nondisplaced fracture of proximal phalanx of right great toe, initial encounter S92.414A Encounter type: initial encounter Fracture alignment: nondisplaced Skin breakdown R23.8 (5) Fracture of fifth toe, right, closed Encounter type: initial encounter Qualified Code(s): S92.501A - Displaced unspecified fracture of right lesser toe(s), initial encounter for closed fracture (6) Closed fracture of proximal phalanx of right great toe Encounter type: initial encounter Fracture alignment: nondisplaced Qualified Code(s): S92.414A - Nondisplaced fracture of proximal phalanx of right great toe, initial encounter for closed fracture
--- NOTE | 2024-05-05 16:34 | Electrocardiogram Report ---
Test Reason : Blood Pressure : */* mmHG Vent. Rate : 76 BPM Atrial Rate : 67 BPM P-R Int : * ms QRS Dur : 160 ms QT Int : 498 ms P-R-T Axes : * -81 -16 degrees QTcB Int : 560 ms Atrial fibrillation Left axis deviation Right bundle branch block T wave abnormality, consider lateral ischemia Abnormal ECG When compared with ECG of 01-May-2024 19:44, Nonspecific T wave abnormality now evident in Inferior leads T wave inversion less evident in Lateral leads QT has lengthened Confirmed by Luisito Comer ([id number]) on 05/05/2024 4:33:50 PM Referred By: REFERRED SELF Confirmed By: Luisito Comer
[2024-05-06] MEDS: POLYETHYLENE (MIRALAX) 17 GM PACK PO PRN (08:25)
[2024-05-06] MEDS: POTASSIUM CHLORIDE CRTAB 20 MEQ TABCR PO SCH (08:26)
--- NOTE | 2024-05-06 12:59 | Hospitalist Progress Note ---
Date of Service May 06, 2024 Assessment & Plan (1) Fall at home: Plan: Mechanical. Due to ambulatory dysfunction from generalized weakness. [facility] days prior to this admission. Continue OT and PT while hospitalized (2) Urinary retention: Plan: Chronic. Stable. Due to prostatism. Continue Flomax (3) Atrial fibrillation with rapid ventricular response: Plan: Chronic atrial fibrillation. Now rate controlled. Continue Eliquis therapy. Heart rate was slightly elevated on admission which has resolved (4) Neuropathy: Plan: Chronic peripheral neuropathy. Stable. Continue current medical management (5) Fracture of fifth toe, right, closed: Plan: Podiatry consultation appreciated. Nonoperative intervention. Walking boot ordered (6) Closed fracture of proximal phalanx of right great toe: Plan: Podiatry consultation appreciated. Nonoperative intervention. Walking boot ordered (7) Skin breakdown: Plan: Involving scrotum. Wound care nurse consultation and recommendations appreciated Plan Continue OT and PT while hospitalized. Hopeful return to [facility] when bed is available. Admission and Anticipated Discharge Date Admission Date: May 01, 2024 Subjective Alert and oriented. No new problems. Review of Systems 2 Review of Systems: Constitutionalno fever or chills ENTno blurred vision, no double vision, no epistaxis, no sore throat Respiratoryno cough, no wheezing, no shortness of breath Cardiacno palpitations, no chest pain, no syncope Valery nausea, vomiting, diarrhea, melena, hematochezia GUno urinary retention, no urinary incontinence, no dysuria, no hematuria Musculoskeletalright first toe tenderness at the base and right fifth toe tenderness. No muscle tenderness Skinno bruising, no rashes, no pruritus. Skin breakdown noted on scrotum without active bleeding Neuro-generalized weakness. Resultant ambulatory dysfunction. No paresthesia. Psychno depression, no anxiety Physical Exam 2 Physical Exam: General-alert and oriented x3, no fever, no chills HEENT-head atraumatic and normocephalic, pupils equal and reactive to light, extraocular muscles intact Neck-no lymphadenopathy or thyromegaly, trachea midline Chest-clear to auscultation. No rales, wheezing or rhonchi Cardiac-regular rate and rhythm, normal S1 and S2 Abdomen-normal bowel sounds, no hepatosplenomegaly Extremities-no cyanosis, clubbing. Chronic mild bilateral lower extremity edema below the knees Neuro-cranial nerves II through XII intact, motor and sensory function within normal limits, strength symmetrical with generalized weakness, no focal deficits Psych-normal affect, normal mood Results & Data Results & Data Vital Signs (Past 12 Hours) Vital Signs Temp Pulse Resp BP Pulse Ox O2 Del Method O2 Flow Rate 05/06/24 08:00 Room Air 05/06/24 07:08 36.8 C 62 18 96/58 L 93 Room Air 05/06/24 02:23 23 4 Laboratory Results 05/05/24 05:25 05/05/24 05:25 PG Care Time/CCT Total # of Minutes Spent Total Time Spent with Patient: Total time spent is greater than 50% in coordination of care (as documented) at patient's floor/unit and/or counseling patient: Coding Level of Care Code 04517 SUB INP/OBS CARE 2/35MIN Diagnoses Fall at home W19.XXXA; Y92.009 Urinary retention R33.9 Atrial fibrillation with rapid ventricular response I48.91 Neuropathy G62.9 Closed fracture of phalanx of right fifth toe, initial encounter S92.501A Encounter type: initial encounter Closed nondisplaced fracture of proximal phalanx of right great toe, initial encounter S92.414A Encounter type: initial encounter Fracture alignment: nondisplaced Skin breakdown R23.8 (5) Fracture of fifth toe, right, closed Encounter type: initial encounter Qualified Code(s): S92.501A - Displaced unspecified fracture of right lesser toe(s), initial encounter for closed fracture (6) Closed fracture of proximal phalanx of right great toe Encounter type: initial encounter Fracture alignment: nondisplaced Qualified Code(s): S92.414A - Nondisplaced fracture of proximal phalanx of right great toe, initial encounter for closed fracture
[2024-05-06] MEDS: INFLUENZA VACC TS2024-25(65y+)/PF (IIV3) 0.5mL Syr IM ONE (14:14)
[2024-05-07 07:35] LABS: BUN Creatinine Ratio 20.6 (10-20); Calcium 8.7 mg/dl (8.6-10.3); Creatinine Clr Calc Pharmacy 155.1 ml/min; Potassium 3.9 mmol/L (3.5-5.1)
--- NOTE | 2024-05-07 14:15 | Hospitalist Progress Note ---
Date of Service May 07, 2024 Assessment & Plan (1) Fall at home: Plan: Mechanical. Due to ambulatory dysfunction from generalized weakness. [facility] was just [facility] only several days prior to this admission. Continue OT and PT while hospitalized (2) Urinary retention: Plan: Chronic. Stable. Due to prostatism. Continue Flomax (3) Atrial fibrillation with rapid ventricular response: Plan: Chronic atrial fibrillation. Now rate controlled. Continue Eliquis therapy. Heart rate was slightly elevated on admission which has resolved (4) Neuropathy: Plan: Chronic peripheral neuropathy. Stable. Continue current medical management (5) Fracture of fifth toe, right, closed: Plan: Podiatry consultation appreciated. Nonoperative intervention. Walking boot ordered (6) Closed fracture of proximal phalanx of right great toe: Plan: Podiatry consultation appreciated. Nonoperative intervention. Walking boot ordered (7) Skin breakdown: Plan: Involving scrotum. Wound care nurse consultation and recommendations appreciated Plan Continue OT and PT while hospitalized. Hopeful return to [facility] on May 09 Admission and Anticipated Discharge Date Admission Date: May 01, 2024 Subjective Alert and stable. No new problems. Repeat potassium level today, May 07, is 3.9. Anticipate return to [facility] on May 09 Review of Systems 2 Review of Systems: Constitutionalno fever or chills ENTno blurred vision, no double vision, no epistaxis, no sore throat Respiratoryno cough, no wheezing, no shortness of breath Cardiacno palpitations, no chest pain, no syncope Valery nausea, vomiting, diarrhea, melena, hematochezia GUno urinary retention, no urinary incontinence, no dysuria, no hematuria Musculoskeletalright first toe tenderness at the base and right fifth toe tenderness. No muscle tenderness Skinno bruising, no rashes, no pruritus. Skin breakdown noted on scrotum without active bleeding Neuro-generalized weakness. Resultant ambulatory dysfunction. No paresthesia. Psychno depression, no anxiety Physical Exam 2 Physical Exam: General-alert and oriented x3, no fever, no chills HEENT-head atraumatic and normocephalic, pupils equal and reactive to light, extraocular muscles intact Neck-no lymphadenopathy or thyromegaly, trachea midline Chest-clear to auscultation. No rales, wheezing or rhonchi Cardiac-regular rate and rhythm, normal S1 and S2 Abdomen-normal bowel sounds, no hepatosplenomegaly Extremities-no cyanosis, clubbing. Chronic mild bilateral lower extremity edema below the knees Neuro-cranial nerves II through XII intact, motor and sensory function within normal limits, strength symmetrical with generalized weakness, no focal deficits Psych-normal affect, normal mood Results & Data Results & Data Vital Signs (Past 12 Hours) Vital Signs Temp Pulse Pulse Resp BP Pulse Ox O2 Del Method 05/07/24 12:00 83 110/72 05/07/24 07:35 36.6 C 71 18 94/57 L 95 Room Air 05/07/24 03:02 79 22 97 O2 Flow Rate 05/07/24 12:00 05/07/24 07:35 05/07/24 03:02 4 Laboratory Results 05/05/24 05:25 05/07/24 06:26 PG Care Time/CCT Total # of Minutes Spent Total Time Spent with Patient: Total time spent is greater than 50% in coordination of care (as documented) at patient's floor/unit and/or counseling patient: Coding Level of Care Code 17148 SUB INP/OBS CARE 2/35MIN Diagnoses Fall at home W19.XXXA; Y92.009 Urinary retention R33.9 Atrial fibrillation with rapid ventricular response I48.91 Neuropathy G62.9 Closed fracture of phalanx of right fifth toe, initial encounter S92.501A Encounter type: initial encounter Closed nondisplaced fracture of proximal phalanx of right great toe, initial encounter S92.414A Encounter type: initial encounter Fracture alignment: nondisplaced Skin breakdown R23.8 (5) Fracture of fifth toe, right, closed Encounter type: initial encounter Qualified Code(s): S92.501A - Displaced unspecified fracture of right lesser toe(s), initial encounter for closed fracture (6) Closed fracture of proximal phalanx of right great toe Encounter type: initial encounter Fracture alignment: nondisplaced Qualified Code(s): S92.414A - Nondisplaced fracture of proximal phalanx of right great toe, initial encounter for closed fracture
[2024-05-08] MEDS: MIDODRINE HCL 10 MG TAB PO SCH (09:03)
[2024-05-08] MEDS: MIDODRINE HCL 2.5 MG TAB PO ONE (09:23)
--- NOTE | 2024-05-08 14:13 | Hospitalist Progress Note ---
Date of Service May 08, 2024 Assessment & Plan (1) Fall at home: Plan: Mechanical. Due to ambulatory dysfunction from generalized weakness. [facility] was just [facility] only several days prior to this admission. Continue OT and PT while hospitalized (2) Hypotension: Plan: Midodrine has been started this admission. Uptitrated today, May 08, from 5 mg to 10 mg 3 times daily. (3) Atrial fibrillation with rapid ventricular response: Plan: Chronic atrial fibrillation. Now rate controlled. Continue Eliquis therapy. Heart rate was slightly elevated on admission which has resolved (4) Fracture of fifth toe, right, closed: Plan: Podiatry consultation appreciated. Nonoperative intervention. Walking boot ordered (5) Closed fracture of proximal phalanx of right great toe: Plan: Podiatry consultation appreciated. Nonoperative intervention. Walking boot ordered (6) Neuropathy: Plan: Chronic peripheral neuropathy. Stable. Continue current medical management (7) Skin breakdown: Plan: Involving scrotum. Wound care nurse consultation and recommendations appreciated (8) Urinary retention: Plan: Chronic. Stable. Due to prostatism. Continue Flomax Plan Continue OT and PT while hospitalized. Hopeful return to [facility] on May 09 Admission and Anticipated Discharge Date Admission Date: May 01, 2024 Subjective Alert and oriented. No new problems. Blood pressure remains on the low side. Midodrine uptitrated to 10 mg 3 times a day. Will recheck basic metabolic profile tomorrow, May 09. Review of Systems 2 Review of Systems: Constitutionalno fever or chills ENTno blurred vision, no double vision, no epistaxis, no sore throat Respiratoryno cough, no wheezing, no shortness of breath Cardiacno palpitations, no chest pain, no syncope Valery nausea, vomiting, diarrhea, melena, hematochezia GUno urinary retention, no urinary incontinence, no dysuria, no hematuria Musculoskeletalright first toe tenderness at the base and right fifth toe tenderness. No muscle tenderness Skinno bruising, no rashes, no pruritus. Skin breakdown noted on scrotum without active bleeding Neuro-generalized weakness. Resultant ambulatory dysfunction. No paresthesia. Psychno depression, no anxiety Physical Exam 2 Physical Exam: General-alert and oriented x3, no fever, no chills HEENT-head atraumatic and normocephalic, pupils equal and reactive to light, extraocular muscles intact Neck-no lymphadenopathy or thyromegaly, trachea midline Chest-clear to auscultation. No rales, wheezing or rhonchi Cardiac-regular rate and rhythm, normal S1 and S2 Abdomen-normal bowel sounds, no hepatosplenomegaly Extremities-no cyanosis, clubbing. Chronic mild bilateral lower extremity edema below the knees Neuro-cranial nerves II through XII intact, motor and sensory function within normal limits, strength symmetrical with generalized weakness, no focal deficits Psych-normal affect, normal mood Results & Data Results & Data Vital Signs (Past 12 Hours) Vital Signs Temp Pulse Resp BP BP Pulse Ox O2 Del Method 05/08/24 13:51 120/81 05/08/24 12:31 102/65 05/08/24 09:26 96/61 L 05/08/24 08:43 67 87/55 L 05/08/24 07:13 36.3 C L 70 18 91/57 L 93 Room Air 05/08/24 02:24 25 H O2 Flow Rate 05/08/24 13:51 05/08/24 12:31 05/08/24 09:26 05/08/24 08:43 05/08/24 07:13 05/08/24 02:24 4 Laboratory Results 05/05/24 05:25 05/07/24 06:26 PG Care Time/CCT Total # of Minutes Spent Total Time Spent with Patient: Total time spent is greater than 50% in coordination of care (as documented) at patient's floor/unit and/or counseling patient: Coding Level of Care Code 36107 SUB INP/OBS CARE 3/50MIN Diagnoses Fall at home W19.XXXA; Y92.009 Hypotension I95.9 Atrial fibrillation with rapid ventricular response I48.91 Closed fracture of phalanx of right fifth toe, initial encounter S92.501A Encounter type: initial encounter Closed nondisplaced fracture of proximal phalanx of right great toe, initial encounter S92.414A Encounter type: initial encounter Fracture alignment: nondisplaced Neuropathy G62.9 Skin breakdown R23.8 Urinary retention R33.9 (4) Fracture of fifth toe, right, closed Encounter type: initial encounter Qualified Code(s): S92.501A - Displaced unspecified fracture of right lesser toe(s), initial encounter for closed fracture (5) Closed fracture of proximal phalanx of right great toe Encounter type: initial encounter Fracture alignment: nondisplaced Qualified Code(s): S92.414A - Nondisplaced fracture of proximal phalanx of right great toe, initial encounter for closed fracture
[2024-05-09 08:29] LABS: Calcium 8.7 mg/dl (8.6-10.3); Creatinine Clr Calc Pharmacy 155.1 ml/min; Potassium 3.7 mmol/L (3.5-5.1)
[2024-05-09] MEDS: PNEUMOCOCCAL VACCINE (PCV20) 20-VAL CONJ-DIP CRM/PF 0.5 ML SYR IM ONE (08:48)
--- NOTE | 2024-05-09 14:19 | Hospitalist Progress Note ---
Date of Service May 09, 2024 Assessment & Plan (1) Fall at home: Plan: Lonnie is a 68M w/ PMH of urinary retention, diastolic CHF, AFib w/ RVR, ambulatory dysfunction, neuropathy, chronic LE edema a/w venous insufficiency, anemia, SARIAH, HLD, and prior gastric bypass who presents with concern for a fall at home. - was discharged from [facility] two days prior - no injury from fall - checked Head CT, Chest xray and hip xray - no infectious cause PT/OT recommending rehab - P2P denied for SNF - plan to retrial stairs to determine home with vs [facility] - usp plan is to move in with daughter in [place] (2) Hypotension: Plan: Chronic and patient denies lightheadedness or dizziness, but may be contributing to his falls - midodrine held - multiple agents that could impact BP: metoprolol, bumex, spirnolactone and flomax - decrease dose of metoprolol - hold spironolactone (held at last discharge d/t hypotension) Check orthostatic VS (3) Fracture of fifth toe, right, closed: Plan: Also with fracture of proximal phalanx of right great toe Podiatry consultation appreciated. Nonoperative intervention. Walking boot ordered (4) Skin breakdown: Plan: Involving scrotum. Wound care nurse consultation and recommendations appreciated Plan Chronic Conditions - A Fib: continue Apixaban and Metoprolol - HLD: continue Atorvastatin - CHF/LE edema: continue Bumex, changes to spironolactone and metoprolol as above - GERD: continue Pantoprazole - Urinary Retention: continue Tamsulosin - Neuropathy: continue Gabapentin - SARIAH: CPAP ordered inpatient - Anxiety/Depression: continue Lexapro 30 mg, adjustment recommended outpatient DVT proh: Dorais dispo: continued inpatient stay Admission and Anticipated Discharge Date Admission Date: May 01, 2024 Supervising Physician Co-Signing Physician Notes JUANJO Supervision Note: I did not personally see or examine the patient today, but I verified all duran points of JUANJO Gillis's assessment and plan with the following ex ceptions/additions: None Subjective patient seen sitting in chair eating lunch. Informed that his insurance denied him to go to [facility] adnd wondering what next steps will be. oxycodone effective for foot pain Review of Systems Review of Systems: All systems reviewed & are unremarkable except as noted in Subjective Physical Exam Physical Exam: General: NAD, VS as above, sitting up in the chair eating lunch Resp: normal respiratory effort, lungs clear to auscultation CV: RRR, no murmur, Extremities: Moves all extremities, + edema, appearance consistent with venous stasis Neuro: A&O x3, Skin: intact, no lesions noted Results & Data Results & Data Vital Signs (Past 12 Hours) Vital Signs Temp Pulse Pulse Resp BP Pulse Ox O2 Del Method 05/09/24 08:00 97.9 F 64 16 100/70 92 Room Air 05/09/24 03:20 54 L 10 L 92 O2 Flow Rate 05/09/24 08:00 05/09/24 03:20 4 PG Care Time/CCT Total # of Minutes Spent Total Time Spent with Patient: Total time spent is greater than 50% in coordination of care (as documented) at patient's floor/unit and/or counseling patient: Coding Level of Care Code 58517 SUB INP/OBS CARE 2/35MIN Diagnoses Fall at home W19.XXXA; Y92.009 Hypotension I95.9 Closed fracture of phalanx of right fifth toe, initial encounter S92.501A Encounter type: initial encounter Skin breakdown R23.8 (3) Fracture of fifth toe, right, closed Encounter type: initial encounter Qualified Code(s): S92.501A - Displaced unspecified fracture of right lesser toe(s), initial encounter for closed fracture
[2024-05-09] MEDS: METOPROLOL SUCC 25MG EXT REL TAB PO SCH (20:04)
--- NOTE | 2024-05-10 11:43 | Hospitalist Progress Note ---
Date of Service May 10, 2024 Assessment & Plan (1) Fall at home: Plan: Lonnie is a 68M w/ PMH of urinary retention, diastolic CHF, AFib w/ RVR, ambulatory dysfunction, neuropathy, chronic LE edema a/w venous insufficiency, anemia, SARIAH, HLD, and prior gastric bypass who presents with concern for a fall at home. - was discharged from [facility] two days prior - no injury from fall - checked Head CT, Chest xray and hip xray - no infectious cause PT/OT recommending rehab, CM following - P2P denied for SNF - plan to retrial stairs to determine home with vs [facility] - nursing home plan is to move in with daughter in [place] later this month Able to do fewer stairs today and now leaning towards [facility] (2) Hypotension: Plan: Chronic and patient denies lightheadedness or dizziness, but may be contributing to his falls - midodrine held - multiple agents that could impact BP: metoprolol, bumex, spirnolactone and flomax - decrease dose of metoprolol - hold spironolactone (held at last discharge d/t hypotension) Orthostatic VS WNL (3) Fracture of fifth toe, right, closed: Plan: Also with fracture of proximal phalanx of right great toe Podiatry consultation appreciated. Nonoperative intervention. Walking boot ordered (4) Skin breakdown: Plan: Involving scrotum. Wound care nurse consultation and recommendations appreciated Plan Chronic Conditions - A Fib: continue Apixaban and Metoprolol - HLD: continue Atorvastatin - CHF/LE edema: continue Bumex, changes to spironolactone and metoprolol as above - GERD: continue Pantoprazole - Urinary Retention: continue Tamsulosin - Neuropathy: continue Gabapentin - SARIAH: CPAP ordered inpatient - Anxiety/Depression: continue Lexapro 30 mg, adjustment recommended outpatient - cirrhosis - encourage outpatient follow up, pt reports recently stop drinking ETOH DVT proh: Eliquis dispo: continued inpatient stay Admission and Anticipated Discharge Date Admission Date: May 01, 2024 Supervising Physician Co-Signing Physician Notes PA Supervision Note: I did not personally see or examine the patient today, but I verified all duran points of JUANJO Gillis's assessment and plan with the following exceptions/additions: None Subjective Patient seen siting up in the chair, states he was only able to do 2 stairs today, very worried about going home as he has no one able to help him. Denies ETOH use - states he stopped recently. Pain in foot is well controlled Review of Systems Review of Systems: All systems reviewed & are unremarkable except as noted in Subjective Physical Exam Physical Exam: General: NAD, VS as above, sitting up in the chair eating lunch Resp: normal respiratory effort, lungs clear to auscultation CV: afib, no murmur, ABD; soft, nontender Extremities: Moves all extremities, + edema, appearance consistent with venous stasis Neuro: A&O x3, Skin: intact, no lesions noted Results & Data Results & Data Vital Signs (Past 12 Hours) Vital Signs Temp Pulse Pulse Resp BP Pulse Ox O2 Del Method 05/10/24 06:34 98.2 F 72 18 107/72 94 Room Air 05/10/24 05:02 70 14 93 PG Care Time/CCT Total # of Minutes Spent Total Time Spent with Patient: Total time spent is greater than 50% in coordination of care (as documented) at patient's floor/unit and/or counseling patient: Coding Level of Care Code 58628 SUB INP/OBS CARE 08/27MIN Diagnoses Fall at home W19.XXXA; Y92.009 Hypotension I95.9 Closed fracture of phalanx of right fifth toe, initial encounter S92.501A Encounter type: initial encounter Skin breakdown R23.8 (3) Fracture of fifth toe, right, closed Encounter type: initial encounter Qualified Code(s): S92.501A - Displaced unspecified fracture of right lesser toe(s), initial encounter for closed fracture
--- NOTE | 2024-05-11 15:27 | Hospitalist Progress Note ---
Date of Service May 11, 2024 Assessment & Plan (1) Fall at home: Plan: Lonnie is a 68M w/ PMH of urinary retention, diastolic CHF, AFib w/ RVR, ambulatory dysfunction, neuropathy, chronic LE edema a/w venous insufficiency, anemia, SARIAH, HLD, and prior gastric bypass who presents with concern for a fall at home. - was discharged from [facility] two days prior - no injury from fall - checked Head CT, Chest xray and hip xray - no infectious cause PT/OT recommending rehab, CM following - P2P denied for SNF - plan to retrial stairs to determine home with HH vs [facility] - [facility] plan is to move in with daughter in [place] later this month Able to do more stairs today and now tells me that he is able to get into his apartment without using the stairs, so home with HH is an option again (2) Hypotension: Plan: Chronic and patient denies lightheadedness or dizziness, but may be contributing to his falls - midodrine held - multiple agents that could impact BP: metoprolol, bumex, spironolactone and flomax - decrease dose of metoprolol - resume spironolactone (for right sided HF) - home dose is 25mg, ideally this is uptitrated outpatient if BP allows - decrease bumex to 1mg qAM Orthostatic VS WNL (3) Fracture of fifth toe, right, closed: Plan: Also with fracture of proximal phalanx of right great toe Podiatry consultation appreciated. Nonoperative intervention. Walking boot ordered (4) Skin breakdown: Plan: Involving scrotum. Wound care nurse consultation and recommendations appreciated Plan Chronic Conditions - A Fib: continue Apixaban and Metoprolol - HLD: continue Atorvastatin - CHF/LE edema: continue Bumex, changes to spironolactone and metoprolol as above - GERD: continue Pantoprazole - Urinary Retention: continue Tamsulosin - Neuropathy: continue Gabapentin - SARIAH: CPAP ordered inpatient - Anxiety/Depression: continue Lexapro 30 mg, adjustment recommended outpatient - cirrhosis - encourage outpatient follow up, pt reports recently stop drinking ETOH DVT proh: Eliquis dispo: continued inpatient stay Admission and Anticipated Discharge Date Admission Date: May 01, 2024 Supervising Physician Co-Signing Physician Notes PA Supervision Note: I did not personally see or examine the patient today, but I verified all duran points of JUANJO Gillis's assessment and plan with the following exceptions/additions: None Subjective Patient seen siting up in the chair during lunch. did able to do stairs this morning - tells me today that he is able to get into his apartment without using stairs no acute complaints Review of Systems Review of Systems: All systems reviewed & are unremarkable except as noted in Subjective Physical Exam Physical Exam: General: NAD, VS as above, sitting up in the chair eating lunch Resp: normal respiratory effort, lungs clear to auscultation CV: afib, no murmur, ABD; soft, nontender Extremities: Moves all extremities, + edema, appearance consistent with venous stasis Neuro: A&O x3, Skin: intact, no lesions noted Results & Data Results & Data Vital Signs (Past 12 Hours) Vital Signs Temp Pulse Pulse Resp BP Pulse Ox O2 Del Method 05/11/24 15:16 97.7 F 74 18 107/69 94 Room Air 05/11/24 07:20 97.2 F L 65 18 94/60 L 97 Room Air 05/11/24 03:56 80 20 97 O2 Flow Rate 05/11/24 15:16 05/11/24 07:20 05/11/24 03:56 4 PG Care Time/CCT Total # of Minutes Spent Total Time Spent with Patient: Total time spent is greater than 50% in coordination of care (as documented) at patient's floor/unit and/or counseling patient: Coding Level of Care Code 84822 SUB INP/OBS CARE 2/35MIN Diagnoses Fall at home W19.XXXA; Y92.009 Hypotension I95.9 Closed fracture of phalanx of right fifth toe, initial encounter S92.501A Encounter type: initial encounter Skin breakdown R23.8 (3) Fracture of fifth toe, right, closed Encounter type: initial encounter Qualified Code(s): S92.501A - Displaced unspecified fracture of right lesser toe(s), initial encounter for closed fracture
[2024-05-12 03:18] VITALS: RESP 18
[2024-05-12 07:28] VITALS: TEMP 97.3; O2SAT 91
[2024-05-12 07:52] LABS: Calcium 8.9 mg/dl (8.6-10.3); Creatinine Clr Calc Pharmacy 155.1 ml/min; Potassium 3.5 mmol/L (3.5-5.1)
[2024-05-12] MEDS: BUMETANIDE 1 MG TAB PO SCH (09:26)
--- NOTE | 2024-05-12 11:59 | Discharge Summary ---
Discharge Summary Date of Service May 12, 2024 Principal Dx & Hospital Course #1 = Principal Diagnosis (1) Fall at home: Lonnie is a 68M w/ PMH of urinary retention, diastolic CHF, AFib w/ RVR, ambulatory dysfunction, neuropathy, chronic LE edema a/w venous insufficiency, anemia, SARIAH, HLD, and prior gastric bypass who presents with concern for a fall at home. - was discharged from [facility] two days prior - no injury from fall - checked Head CT, Chest xray and hip xray - no infectious cause PT/OT recommending rehab, CM following - P2P denied for SNF - alf plan is to move in with daughter in [place] later this month Patient has secondary entrance into home that does not require stairs, has been improving. Home with home health today. (2) Hypotension: Chronic and patient denies lightheadedness or dizziness, but may be contributing to his falls - midodrine stopped - multiple agents that could impact BP: metoprolol, bumex, spironolactone and flomax - decrease dose of metoprolol to 25mg - resume spironolactone (for right sided HF) - home dose is 25mg, ideally this is uptitrated outpatient if BP allows - decrease bumex to 1mg qAM Orthostatic VS WNL (3) Fracture of fifth toe, right, closed: Also with fracture of proximal phalanx of right great toe Podiatry consultation appreciated. Nonoperative intervention. Walking boot ordered F/u with Podiatry in 3 weeks (4) Skin breakdown: Involving scrotum. Wound care nurse consultation and recommendations appreciated Plan Chronic Conditions - A Fib: continue Apixaban and Metoprolol-reduced dose due to low BPs - HLD: continue Atorvastatin - CHF/LE edema: continue Bumex at lower dose of 1mg daily, changes to spironolactone and metoprolol as above - GERD: continue Pantoprazole - Urinary Retention: continue Tamsulosin-orthostasis resolved after decreasing diuretic doses; therefore continue Flomax to avoid urinary retention - Neuropathy: continue Gabapentin - SARIAH: CPAP ordered inpatient - Anxiety/Depression: continue Lexapro 30 mg, adjustment recommended outpatient - cirrhosis - encourage outpatient follow up, pt reports recently stop drinking ETOH Dispo: discharge to home today with home health Notes For Next Care Provider ambulatory dysfunction, peer to peer denied for rehab. Home with home health Adjustment to blood pressure meds due to hypotension but also trying to figure might treat his right-sided heart failure, ideally titrate up the spironolactone as BP allows 1 could benefit from GI follow-up for his cirrhosis orders Needs podiatry follow-up for repeat x-ray no follow-up appointments were arranged as patient is supposed to move to [place] next week Medication Changes From Visit decrease Bumex to 1 mg every morning Decrease metoprolol to 25 mg daily Admission HPI Per Admitting Provider Lonnie is a 68M w/ PMH of urinary retention, diastolic CHF, AFib w/ RVR, ambulatory dysfunction, neuropathy, chronic LE edema a/w venous insufficiency, anemia, SARIAH, HLD, and prior gastric bypass who presents with concern for a fall at home. Patient was recently admitted to the hospital 04/08-04/15. He has had multiple admissions associated with falls at home. He was recently discharged form [facility] days ago. Patient notes that he was discharged home with a walker that he had been practicing with at rehab, but today, when he attempted to ambulate to the bathroom he fell and was unable to get back up. He notes that he was on the floor for 7 hours prior to a friend coming and finding him. Over the last year, Lonnie has taken steps to live in a more accessible apartment with fewer stairs, but he believes that his neuropathy and lower extremity swelling continue to stitcher standard machine the way of successful ambulation. Patient denies subsequent pain or injury from fall and states that he did not hit his head, but rather slid downwards onto his bottom. Patient denies any chest pain and dyspnea is at baseline. He is not experiencing any headaches, lightheadedness or dizziness. Patient continues to urinate and move bowels without issue. He notes he has not been hydrating well at home but continues to eat as normal. Patient notes no changes to his home medications or difficulties obtaining medications. But, he does feel he would benefit from ongoing titration of his mental health medications outpatient. ED Course: None Discharge Exam General: NAD, VS as above, sitting up in the chair eating lunch Resp: normal respiratory effort, lungs clear to auscultation CV: afib, no murmur, ABD; soft, nontender Extremities: Moves all extremities, + edema, appearance consistent with venous stasis Neuro: A&O x3, Skin: intact, no lesions noted Discharge Plan Discharge Items Patient Disposition: Home - Home Health Services Reason For Visit: FALL AT HOME, AMBULATORY DYSFUNCTION Discharge Diagnosis: Ambulatory dysfunction hypotension Activity: As commented below Activity Comment: Continue to work with therapy to get stronger, wearing walking shoe Weightbearing: Full weightbearing Non-emergency contact: Primary Care Provider Call non-emergency contact if: you have any medication questions, your symptoms worsen and your temperature is above 101 Follow-up/Referrals: Ja Choe DPM [Physician] - (follow up if you stay in [place] ) Jenni Baker DO [Resident] - ( keep appointment scheduled for tomorrow) PCP,ALVAREZ [Primary Care Provider] - (SPOKE WITH [place] NAVIGATOR TO REACH OUT TO THE PATIENT ONCE A PCP HAS BEEN ESTABLISHED.) Diet: Heart Healthy Addtl Attending Provider Instructions: Mr. Mckeon, You were hospitalized after having falls at home, we did multiple scans of your head chest and hip that did not show any acute problems or fractures that would be leading to this. Your insurance denied another rehab stay and we offer you to go home with home health versus going to a personal fdc. You decided to go home with home health. Continue to wear the walking boot when ambulating. Keep your scheduled appointment with your PCP. In the near future you should also see a GI provider regarding your cirrhosis, this was not arranged at discharge due to your upcoming planned move. If you do not moved to [place] your PCP can help arrange this. Otherwise when you move to [place] make sure that you get established with a PCP, personal care aide, GI doctor, cotton puller and dentist. Recommendations: - Foot needs follow up xrays, I have attached the information for the cotton puller that you saw while here. Please schedule follow-up if you do not move to [place] - we have changed medications around because of your low blood pressure - bumex 1mg in the morning. NO afternoon dose - Metoprolol decreased to 25mg - can use tylenol and oxycodone for foot pain. do NOT take iburpofen - do not drive while taking oxycodone - continue walking shoe - do NOT drink alcohol CONTACT YOUR PRIMARY CARE PROVIDER if you experience any of the following: Shortness of breath or difficulty breathing Fevers or chills Feeling tired with normal activity or experiencing dizziness or fainting Difficulty following your treatment plan, or difficulty taking medications CALL 911 OR GO TO THE EMERGENCY DEPARTMENT if you experience any of the following: Severe abdominal pain or nausea/vomiting Severe chest pain, or chest pain that radiates (moves) to your jaw or arm Sudden, severe shortness of breath or difficulty breathing Thank you for allowing us to participate in your care. Pending Studies at Discharge: No Stand-Alone Forms: My [facility], Smoking Cessation Medications and DC Order Prescriptions: New metoprolol succinate 25 mg Tablet Extended Release 24 Hr 25 mg PO PM 30 Days Qty: 30 1RF oxycodone 5 mg Tablet 5 mg PO Q4H PRN (Reason: pain) Qty: 10 0RF bumetanide 1 mg Tablet 1 mg PO QAM Qty: 30 0RF Continued vitamin Q93-qdxyv acid 0.5-1 mg tablet 1 tab PO QAM Eliquis 5 mg tablet 5 mg PO BID Hold Instructions: Resume on 04/28/24. hold until cleared by PCP magnesium 250 mg tablet 500 mg PO QAM turmeric root extract 500 mg capsule 500 mg PO QAM glucosamine HCl 500 mg tablet 500 mg PO QDL Rx Instructions: administer with a meal multivitamin Tablet 1 tab PO QAM coenzyme Q10 [Co Q-10] 100 mg Capsule 100 mg PO QAM diphenhydramine HCl [Benadryl] 25 mg Capsule 25 mg PO HS PRN (Reason: Sleep) cinnamon bark [Cinnamon] 500 mg Capsule 500 mg PO QAM cholecalciferol (vitamin D3) [Vitamin D3] 50 mcg (2,000 unit) Capsule 50 mcg PO QAM ascorbic acid (vitamin C) [Vitamin C] 1,000 mg Tablet 1 g PO QAM spironolactone 25 mg tablet 25 mg PO QAM Hold Instructions: Resume on 04/28/24. hold until cleared by PCP thiamine HCl (vitamin B1) 100 mg Tablet 100 mg PO QAM Qty: 30 0RF acetaminophen 325 mg Tablet 650 mg PO Q4H PRN (Reason: pain) Qty: 30 0RF escitalopram oxalate 10 mg Tablet 10 mg PO QAM Qty: 30 0RF oxycodone 5 mg Tablet 5 mg PO PM PRN (Reason: wrist pain) Qty: 5 0RF atorvastatin 40 mg tablet 40 mg PO QPM pantoprazole 40 mg tablet,delayed release (DR/EC) 40 mg PO QAM escitalopram oxalate 20 mg tablet 20 mg PO QAM gabapentin 100 mg capsule 200 mg PO TID potassium chloride 20 mEq tablet,ER particles/crystals 20 meq PO QAM tamsulosin 0.4 mg capsule 0.4 mg PO QPM omega 5-wup-dlt-fish oil [Fish Oil] 1,000 mg (120 mg-180 mg) Capsule 1 cap PO QAM Discontinued metoprolol succinate 50 mg tablet extended release 24 hr 50 mg PO PM Qty: 30 0RF bumetanide 1 mg Tablet 2 mg PO QAM Qty: 30 0RF bumetanide 1 mg Tablet 1 mg PO 1700 Qty: 30 0RF Hold Instructions: Resume on 04/28/24. hold until cleared by PCP Discharge Orders: Discharge Order (Routine); Ordered 05/12/24 Ordered By: Amena Kowalski/Other Patient Handouts: Taking Your Blood Pressure, Hypotension Dc, Exercises to Prevent Falls, Preventing Falls Preparation, Prevent Falls Make Health Priority, Blood Pressure Check Steps, ED Low Blood Pressure, All Causes Admission Data Admit Date/Time: 05/01/24 22:31 Attending Provider: Lola Awad Admit Provider: Jenni Baker Primary Care Provider: PCP,NO Other Providers: Avila Baird; [facility]; [facility]; Ja Choe; [facility]; [facility] Other Interventions: Discharge Summary Assessment (RN) Last Done: 05/12/24 13:25 Hospital Stay Data Consultations 05/01/24 21:33 ED Decision to Admit Stat 05/02/24 18:29 Consult Podiatry Routine Diagnostic Imagining Performed Chest X-Ray 05/01/24 20:02 XR chest 1V portable CLINICAL HISTORY: fall TECHNIQUE: Single frontal radiograph of the chest was obtained. Comparison: Comparison is made to chest radiograph 04/08/2024 FINDINGS: No lines and tubes are seen. Cardiomegaly is noted. Exam is limited by patient rotation. Questionable density in the right lower lung. No evidence of pleural effusion or pneumothorax. IMPRESSION: Questionable density in the right lower lung which may represent atelectasis, pneumonia, and/or aspiration. ACT 112: Negative or not required by law. Electronically signed by: Hira Perez M.D. 05/02/2024 6:[address] 05/01/24 20:02 Exam(s): CT HEAD Without Contrast EXAM: CT Head Without Intravenous Contrast CLINICAL HISTORY: Trauma. TECHNIQUE: Axial computed tomography images of the head/brain without intravenous contrast. CTDI is 47.32 mGy and DLP is 874.17 mGy-cm. Automated exposure control was utilized for the study. A dose lowering technique was utilized adhering to the principles of ALARA. COMPARISON: No relevant prior studies available. FINDINGS: Brain: Mild prominence of the cerebral sulci and sylvian fissures. Minimal periventricular deep white matter hypodense changes. No intracranial hemorrhage. No significant mass effect. Ventricles: Unremarkable. No ventriculomegaly. Bones/joints: Unremarkable. No acute fracture. Soft tissues: No significant overlying acute traumatic soft tissue abnormality. No radiopaque foreign body. Vasculature: Atherosclerotic calcification of the cavernous and supraclinoid internal carotid arteries incidentally noted. Sinuses: Unremarkable as visualized. No acute sinusitis. Mastoid air cells: Unremarkable as visualized. No mastoid effusion. IMPRESSION: No acute intracranial process identified. Electronically signed by: Fly Franklin MD 05/01/24 21:24 PM Hip/Pelvis X-Ray 05/01/24 20:02 XR hip MATTHIEU 2v w pelvis HISTORY: 68 years-old Male fall acute pain of the pelvis and right hip status post fall COMPARISON: CT 04/08/2024 TECHNIQUE: AP view of the pelvis with 2 views of the bilateral hips FINDINGS: Demineralized appearance of the bones. Right hip arthroplasty. Moderate osteoarthritis of the left hip. No acute fracture, dislocation or avascular necrosis. No evidence of hardware complication. IMPRESSION: No acute fracture or dislocation. ACT 112: Negative or not required by law. The above report was generated using voice recognition software. It may contain grammatical, syntax or spelling errors. Electronically signed by: Jmi Lucio M.D. 05/02/2024 6:58 AM Foot X-Ray 05/02/24 15:28 XR foot RT min 3V routine CLINICAL HISTORY: Right foot pain. COMPARISON: Right foot radiographs February 19, 2023. FINDINGS: Tarsometatarsal joints are intact. There is an acute oblique mildly displaced fracture within the base and shaft of the right first proximal phalanx with intra-articular extension. There is an age indeterminate minimally displaced fracture within the distal neck and head of the right fifth proximal phalanx. Right foot soft tissue swelling is present. There is moderate mid foot osteoarthritis. No additional fractures are present. IMPRESSION: 1. Acute oblique mildly displaced fracture within the right first proximal phalanx with intra-articular extension, as described above. 2. Age indeterminate minimally displaced fracture of the right fifth proximal phalanx. ACT 112: Negative or not required by law. Electronically signed by: Glen Carballo M.D. 05/02/2024 6:02 PM Pending Results Patient Have Any Pending Studies at Discharge: No Discharge Instructions Given to Patient (Per Discharging Provider) Mr. Mckeon, You were hospitalized after having falls at home, we did multiple scans of your head chest and hip that did not show any acute problems or fractures that would be leading to this. Your insurance denied another rehab stay and we offer you to go home with home health versus going to a personal fdc. You decided to go home with home health. Continue to wear the walking boot when ambulating . Keep your scheduled appointment with your PCP. In the near future you should also see a GI provider regarding your cirrhosis, this was not arranged at discharge due to your upcoming planned move. If you do not moved to [place] your PCP can help arrange this. Otherwise when you move to [place] make sure that you get established with a PCP, personal care aide, GI doctor, cotton puller and dentist. Recommendations: - Foot needs follow up xrays, I have attached the information for the cotton puller that you saw while here. Please schedule follow-up if you do not move to [facility] - we have changed medications around because of your low blood pressure - bumex 1mg in the morning. NO afternoon dose - Metoprolol decreased to 25mg - can use tylenol and oxycodone for foot pain. do NOT take iburpofen - do not drive while taking oxycodone - continue walking shoe - do NOT drink alcohol CONTACT YOUR PRIMARY CARE PROVIDER if you experience any of the following: Shortness of breath or difficulty breathing Fevers or chills Feeling tired with normal activity or experiencing dizziness or fainting Difficulty following your treatment plan, or difficulty taking medications CALL 911 OR GO TO THE EMERGENCY DEPARTMENT if you experience any of the following: Severe abdominal pain or nausea/vomiting Severe chest pain, or chest pain that radiates (moves) to your jaw or arm Sudden, severe shortness of breath or difficulty breathing Thank you for allowing us to participate in your care. Supervising Physician Co-Signing Physician Notes JUANJO Supervision Note: I personally saw and examined the patient. I verified all duran points and agree with JUANJO Gillis with the following exceptions and/or additions: S-Pt feeling well, not lightheaded, is committed to no longer drinking EtOH as his mood is improved with looking forward to moving to [place] with his daughter O- Vitals reviewed Gen: [AAOx3, NAD, obese] HEENT: [anicteric sclerae] CV: [RRR no mgr nl S1S2] Pulm: [CTAB no wcr] Ext: [1+ pitting edema legs bilat Skin: [chronic venous stasis changes of legs bilat, warm/dry] A/P-68 yo male here with recurrent falls likely due to hypotension from diuretics. Improved with med adjustments Watch for fluid overload Needs f/u with Podiatry for fracture in foot Total Time Total Time Spent Total Time Spent (In Minutes): Time spent day of discharge 32 minutes including direct patient care, medication reconciliation, documentation, review of labs and images, and coordination of care. Coding Level of Care Code 44878 INP/OBS DISCH >30 MIN Diagnoses Fall at home W19.XXXA; Y92.009 Hypotension I95.9 Closed fracture of phalanx of right fifth toe, initial encounter S92.501A Encounter type: initial encounter Skin breakdown R23.8
[2024-05-12 13:27] VITALS: BP 98/52; PULSE 78
== END 2024-05-12 15:30 | disposition home health service (06) | DRG 92 ==
LOC: ED 19:38 → SUATTDRO 22:31 → INTOOBSV 22:31 → 3W 22:31